=== PATIENT | male | born 1945 | race Caucasian/White ===

== ENCOUNTER 2019-10-29 01:19 | Day surgery (SDC) | payer MEDICARE, OTHER, SELFPAY ==
[2019-10-10 10:26] VITALS: BMI 30.2
[2019-10-10 10:27] VITALS: BP 140/80; PULSE 90; RESP 20; TEMP 36.7; O2SAT 97
--- NOTE | 2019-10-26 08:59 | HP_ITS ---
DATE OF SERVICE: ADMITTING DIAGNOSIS: Degenerative joint disease, medial compartment right knee. HISTORY OF PRESENT ILLNESS: The patient is a 74-year-old male, who presents today for an [place] partial knee replacement versus total knee replacement of his right knee. He has been having pain in both of his knees, right greater than left for years. He had cortisone injections back in 2018, which did not really help much. He takes occasional Advil, which does not seem to be working for him as well. He has severe [id number]-hqzs medial compartment arthritis in the right knee and is very symptomatic with it. The patient feels at this point he would rather proceed with a partial knee replacement rather than continue nonsurgical treatment. PAST MEDICAL HISTORY: He has had an [facility] in the past. He has a history of diabetes as well. MEDICATIONS: 1. He takes baby aspirin twice a day. 2. Simvastatin 20 mg daily. 3. Metformin 500 mg twice a day. 4. Losartan 100 mg daily. 5. Isosorbide mononitrate ER 30 mg once a day. 6. Takes Advil p.r.n. ALLERGIES: HE HAS NO KNOWN DRUG ALLERGIES. FAMILY HISTORY: Noncontributory. SOCIAL HISTORY: He is a nonsmoker at this time. He has smoked in the past for 30 years. REVIEW OF SYSTEMS: Is positive for diabetes as noted above. OBJECTIVE: VITAL SIGNS: He is 5 feet 7 inches, 197 pounds. Other vital signs per nursing on the morning of surgery. HEENT: Grossly normal. LUNGS: Clear bilaterally. HEART: Regular rate and rhythm. EXTREMITIES: His right knee range of motion is from 2-135 with a moderate effusion. Hip range of motion is full without discomfort. Negative Bucky's. Negative Stinchfield maneuver. He has mild medial pseudolaxity. Mild varus alignment. When he walks, he has a 5/5 motor strength in the right quad. Normal sensation in the right lower extremity. No edema in the right lower extremity. 2+ dorsalis pedis and posterior tibial pulse in his right foot. IMAGING DATA: X-rays demonstrate ufto-dy-cfzf arthritis in the medial compartment. He has slight medial subluxation of the femur on the tibia. The patient has had an MRI scan of the right knee, which shows only mild cartilage loss of patellofemoral joint. There is no bony edema changes in either the patella or the trochlea, it shows advanced anterior medial compartment arthritis. Lateral compartment looks fairly normal. IMPRESSION: The patient has anterior medial arthritis in the right knee with continued symptoms, Dr. Ortiz feels he would be a good candidate for an [place] partial knee replacement and the patient would like to proceed with this. Surgical procedure as well as risks and complications were discussed. All questions were answered and we will proceed. The patient will see Dr. Hernandez for presurgical clearance. He also will see Dr. Bright, his paving rammer, for presurgical clearance. He will decrease his baby aspirin from twice a day to once a day through surgery due to his cardiac history, has had a recent stress test, which did show his ejection fraction was at 46%. Otherwise, his paving rammer feels that he is stable at this point and cleared for surgery. His nasal swab was negative. His Chem panel is all within normal limits. Creatinine is 1.00. His GFR is greater than 60. Hemoglobin A1c is 6.2, hemoglobin is 14.7, platelets are 214. D I MT: Bob
--- NOTE | 2019-10-28 15:39 | P.PNAN_ITS ---
Anes - Eval Pre Procedure Procedure: Operation Date: 10/29/19 07:30 Proposed Procedures p [place] Right Partial Knee Replacement Versus [place] Right Total Knee Arthroplasty - Bassam Ventura MD Date/Time: 10/28/19 15:39 Surgeon: Bassam Ventura MD Pre Op Diagnosis: Severe Medial Compartment OA Right Knee Patient Data Age: 74 Gender: M Height: 5 ft 7 in Weight: 87.6 kg Last Vital Signs Temp 98.1 F 10/10/19 10:27 Pulse 90 10/10/19 10:27 Resp 20 10/10/19 10:27 BP 140/80 10/10/19 10:27 Pulse Ox 97 10/10/19 10:27 Allergies Allergy/AdvReac Type Severity Reaction Status Date / Time No Known Allergies Allergy Verified 10/10/19 10:10 Home Medications Medication Instructions Recorded Confirmed Type blood sugar diagnostic #200 each 08/27/19 09/25/19 Rx aspirin 81 mg tablet,delayed 81 mg PO DAILY 09/25/19 10/10/19 History release isosorbide mononitrate 30 mg 30 mg PO DAILY 09/25/19 10/10/19 History tablet,extended release 24 hr losartan 100 mg tablet 100 mg PO DAILY 09/25/19 10/10/19 History metformin 500 mg tablet 500 mg PO DAILY 09/25/19 10/10/19 History multivitamin 1 tablet PO DAILY 09/25/19 10/10/19 History omega-3 fatty acids 1,000 mg 2,000 mg PO BID 09/25/19 10/10/19 History capsule simvastatin 20 mg tablet 20 mg PO DAILY 09/25/19 10/10/19 History docusate sodium [Stool Softener] 200 mg PO DAILY 10/10/19 10/10/19 History ibuprofen [Advil] 200 mg PO DAILY 10/10/19 10/10/19 History triamcinolone acetonide See Rx Instructions .ROUTE 10/10/19 10/10/19 History .COMPLEX PRN EC Oct 08: SR Left axis deviation, Left BBB. Rate 69 Other Studies: 09/25/19: pre operative clearance from Aisha Medrano APN (internal medicine). Mitchell dictated that 07/18/19 cardiology: stress test negative. no stress test on record at this facility Patient hx anesthesia problems: none Family hx anesthesia problems: none PMFSH Past Medical History Medical History (Updated 10/28/19 @ 15:53 by Kath Noel CRNA) BMI 31.0-31.9,adult Essential (primary) hypertension Mixed hyperlipidemia Primary osteoarthritis of both knees Skin cancer Type 2 diabetes mellitus without complication Surgical History Surgical History (Updated 10/28/19 @ 15:39 by Kath Noel CRNA) History of cataract surgery Social History Social History Alcohol intake: never Exam Day of Procedure 10/28/19 15:39
[2019-10-29] VITALS (15 sets, daily range): BP systolic 107–154; BP diastolic 53–79; PULSE 84–115; RESP 10–18; TEMP 36.6–36.8; O2SAT 92–99
--- NOTE | ~2019-10-29 | XR_ITS ---
EXAMINATION: XR surgery orthopedic DATE: 10/29/2019 10:29 INDICATION: [place] right partial knee replacement TECHNIQUE: A single fluoroscopic spot image of the right knee was obtained during procedure performed by Dr. Ventura. Radiologist was not present for the imaging or procedure. The amount of fluoroscopy time used during this procedure was 0.7 minutes. COMPARISON: None. FINDINGS: Osteotomy and placement of a trial medial tibial tray for planned unicompartmental arthroplasty. Ther e is irregular cortical contour to the weightbearing medial femoral condyle. Expected gas in the medi al compartment. No fractures identified. IMPRESSION: 1. Fluoroscopy utilized during medial unicompartmental arthroplasty at the right knee. Reviewed, dictated and finalized at location A. ENT PROCESS EXTRACTOR OPERATOR IMPRESSION: 1. Fluoroscopy utilized during medial unicompartmental arthroplasty at the [facility].
--- NOTE | ~2019-10-29 | XR_ITS ---
EXAMINATION: XR knee RT 2V DATE: 10/29/2019 11:08 INDICATION: Right knee arthroplasty. Postop. TECHNIQUE: 2 views of right knee were obtained. COMPARISON: None. FINDINGS: There is a medial compartment arthroplasty in near-anatomic alignment. There is mild osteoa rthritis of lateral and patellofemoral compartments characterized by marginal osteophytes without srini nt space narrowing. There is gas in the knee joint and soft tissues, consistent with recent surgery. IMPRESSION: 1. Medial compartment arthroplasty in near-anatomic alignment. Reviewed, dictated and finalized at location A. IT RISK ANALYST
[2019-10-29] MEDS: LACTATED RINGERS 1,000 ML 30 ML IV CONT ×2 (06:35→11:10)
[2019-10-29 06:41] LABS: Glucose Point of Care 122 (65-105)
[2019-10-29] MEDS: IBUPROFEN IV 800 MG/200 ML 800 MG/200 ML BAG 400 MG IVPB (06:45)
--- NOTE | 2019-10-29 07:10 | P.PNAN_ITS ---
Anes - Initial Pre Proc Eval Procedure: Operation Date: 10/29/19 07:30 Proposed Procedures p [place] Right Partial Knee Replacement Versus Biomet Right Total Knee Arthroplasty - Bassam Ventura MD Date/Time: 10/29/19 07:10 Surgeon: Bassam Ventura MD Pre Op Diagnosis: Severe Medial Compartment OA Right Knee Patient Data Age: 74 Gender: M Height: 1.7 m Weight: 87.6 kg Last Vital Signs Temp 36.7 C 10/10/19 10:27 Pulse 90 10/10/19 10:27 Resp 20 10/10/19 10:27 BP 140/80 10/10/19 10:27 Pulse Ox 97 10/10/19 10:27 Allergies Allergy/AdvReac Type Severity Reaction Status Date / Time No Known Allergies Allergy Verified 10/29/19 06:10 Home Medications Medication Instructions Recorded Confirmed Type blood sugar diagnostic #200 each 08/27/19 09/25/19 Rx aspirin 81 mg tablet,delayed 81 mg PO DAILY 09/25/19 10/29/19 History release isosorbide mononitrate 30 mg 30 mg PO DAILY 09/25/19 10/29/19 History tablet,extended release 24 hr losartan 100 mg tablet 100 mg PO DAILY 09/25/19 10/29/19 History metformin 500 mg tablet 500 mg PO DAILY 09/25/19 10/29/19 History multivitamin 1 tablet PO DAILY 09/25/19 10/29/19 History omega-3 fatty acids 1,000 mg 2,000 mg PO BID 09/25/19 10/29/19 History capsule simvastatin 20 mg tablet 20 mg PO DAILY 09/25/19 10/29/19 History docusate sodium [Stool Softener] 200 mg PO DAILY 10/10/19 10/29/19 History ibuprofen [Advil] 200 mg PO DAILY 10/10/19 10/29/19 History triamcinolone acetonide See Rx Instructions .ROUTE 10/10/19 10/10/19 History .COMPLEX PRN Laboratory Tests 10/29/19 06:39 POC Capillary Glucose 122 mg/dl H mg/dl (65-105) Patient hx anesthesia problems: none Family hx anesthesia problems: none PMFSH Past Medical History Medical History (Updated 10/28/19 @ 15:53 by Kath Noel, KITCHEN WORK SUPERVISOR) BMI 31.0-31.9,adult Essential (primary) hypertension Mixed hyperlipidemia Primary osteoarthritis of both knees Skin cancer Type 2 diabetes mellitus without complication Surgical History Surgical History (Updated 10/28/19 @ 15:39 by Kath Noel CRNA) History of cataract surgery Social History Social History Alcohol intake: never Anes - Eval Final PreProcedure Day of Procedure 10/29/19 07:10 Patient weight: obese Heart: regular rate and rhythm Lungs: clear to auscultation and normal air movement Airway: Mallampati scale class III Neurological: alert and oriented Last oral intake: >/= 8 hours ASA classification: III Emergent: no Anesthetic plan: proceed Anesthesia type and monitoring: general LMA and standard monitoring Informed Consent: The patient's anesthetic plan and its attendant risks and benefits were discussed with the patient/family/POA. Questions were solicited and answers provided to the satisfaction of the patient/family/POA.
--- NOTE | 2019-10-29 07:22 | WPDHPUPDATE1 ---
History and Physical Update Update Date/Time: 10/29/19 07:22 History and Physical has been reviewed, including an updated exam of the patient. There are NO changes in the patient's condition. Risks, benefits, and alternatives have been discussed and questions answered. Patient agrees to proceed with procedure.
[2019-10-29] MEDS: ceFAZolin 2 GM/D5W 50 ML 2 GM/50 ML BAG IVPB (07:40)
--- NOTE | 2019-10-29 08:04 | SUR.PREOP ---
0610-STATES NO CHANGE SINCE INTERVIEW.
[2019-10-29] MEDS: ceFAZolin SODIUM 1 GM VIAL 3 GM IRRIGATION (08:14)
[2019-10-29] MEDS: GENTAMICIN BONE CEMENT REFOBACIN 2 EACH TOPICAL (08:44)
[2019-10-29] MEDS: ceFAZolin SODIUM 1 GM VIAL IV PUSH (10:12)
--- NOTE | 2019-10-29 11:17 | P.OP_ITS ---
Procedure Note - Detailed Date of procedure: 10/29/19 Pre-op diagnosis: Severe Medial Compartment OA Right Knee Post-op diagnosis: same Procedure performed: I [place] partial knee replacement of right knee Description of procedure: Patient was brought to the operating room and general anesthesia was administered. He received 2 g of Ancef weight based vancomycin 1 g of tranexamic acid preoperatively. The right thigh was placed on the leg h older additionally padded with the silicone pads and the right knee prepped draped usual fashion. Limb was exsanguinated and tourniquet elevated to 250 mm of mercury. A 4 inch longitudinal incision was made starting from the superomedial edge of the patella to medial to tibial tubercle. parapatellar arthrotomy was made in line with the incision. small amount of the fat pad was excised. medial meniscus exciizd ACL was normal. Large osteophytes around the intercondylar notch were removed. osteophytes from the medial patella were excised osteophytes around the femur were removed. the 3 mm spoon fit the femur sized appropriately with the medium-size spoon. There is still little play due to significant wear on the medial tibial plateau with a 3 mm spoon so we used the 3 mm G clamp and this was pinned at proper alignment. tibial cut was made. The wafer sized to a size C. we looked at the C and the D and the D I was going overhang medially. we inserted the medium drill guide set at 4 mm and made the femoral holes. The guidewire had been inserted down the distal femur. this was linked to the drill guide. the 0 spigot Pedroza milled posterior cut made. Remnants of meniscus posteriorly were completely removed. in flexion he 5 Feeler was appropriate and it was between a 2 and a 3 Feeler in extension. We used the 2 mm spigot and milled. With this done a 5 Feeler was appropriate at 100? and 10? and a 5 bearing appropriate wiggle in both positions. The 6 was tight. Impingement guide for the medium placed on the femur anterior bone milled and a little cartilage removed posteriorly. the C was pinned to the tibia and the slot made. step drill was used to make multiple perforations in the of tibia and femur. bony surfaces thoroughly irrigated and dried. One batch of methylme thacrylate with Gent powder mixed applied the tibial component pressurized in the tibia the size C tibial component was seated and the trial femur in 5 Feeler placed and the cement allowed to harden with the knee at 45? of flexion and the knee in the tourniquet was released. After cement hardening excess cement was carefully sought for removed and limb was re-exsanguinated wound irrigated bone dried and the cement process repeated for the medium femur. Tourniquet released the 2nd time well as cement was hardening 3rd g Ancef 2nd g of tranexamic acid administered. excess cement was sought for removed we trialed with the 5 bearing which had appropriate wiggle in flexion-extension with perfect tracking throughout range of motion and no impingement with range of motion 0-140. The anvil osteophyte had been removed earlier. The real 5 mm bearing for the medium was placed without difficulty. Local anesthetic cocktail administered arthrotomy closed with 2. Vicryl 1. You directional cindy strata fix and skin closed with to a 2.0 Vicryl 3 0 subcuticular Monocryl and glue EBL was 150. No complications. Anesthesia: GLMA Surgeon: Bassam Ventura MD E Commerce Solution Architect: Orlando Duran Estimated blood loss (mL): 150 Tourniquet time (min): 110 Drains: No Packing: No Pathology: none sent Complications: No immediate complications Condition: stable Disposition: PACU
[2019-10-29 11:41] LABS: Glucose Point of Care 160 (65-105)
[2019-10-29] MEDS: ONDANSETRON INJ 4 MG/2 ML VIAL IV PUSH (12:33)
--- NOTE | 2019-10-29 12:50 | SUR.PHASEI ---
1200: Bilat hearing aids, upper dentures, and glassses all given to patient in PACU and put in place.
[2019-10-29] MEDS: ACETAMINOPHEN 500 MG TABLET 1000 MG PO ×2 (13:51→20:15)
[2019-10-29] MEDS: SODIUM CHLORIDE 0.9% IV 1,000 ML 125 ML IV CONT (13:53)
[2019-10-29] MEDS: SENNA/DOCUSATE SODIUM TABLET 2 TAB PO (16:58)
[2019-10-29 17:38] LABS: Glucose Point of Care 163 (65-105)
--- NOTE | 2019-10-29 18:52 | PM.IMCN ---
Assessment and Plan Assessment and plan (1) Type 2 diabetes mellitus without complication: Code(s): E11.9 - Type 2 diabetes mellitus without complications Status: Acute (2) Primary osteoarthritis of both knees: Code(s): M17.0 - Bilateral primary osteoarthritis of knee Status: Acute (3) Mixed hyperlipidemia: Code(s): E78.2 - Mixed hyperlipidemia Status: Acute (4) Essential (primary) hypertension: Code(s): I10 - Essential (primary) hypertension Status: Acute (5) Coronary artery disease involving [place] heart: Code(s): I25.10 - Atherosclerotic heart disease of [place] coronary artery without angina pectoris Status: Acute (6) Left bundle branch block: Code(s): I44.7 - Left bundle-branch block, unspecified Status: Acute Additional Plan Patient has been admitted to 3rd MedSur floor postoperatively. Patient appears of tolerated the procedure well. His A1c was 6.2 last month. Glucose reviewed since admission and are well controlled. Regular diet has been started. Will switch to a diabetic diet. Will continue to follow along with you. Thank you so much for allowing me to be a part of this patient's care. HPI Data of Consult Consult date: 10/29/19 Requesting Physician: Bassam Ventura MD Primary Care Provider: Brandyn aFust DO Consult Narrative Narrative: Neli Collins is a 74 year old male diabetes, coronary disease and hypertension is admitted for elective partial right knee replacement. Will consult for medical management. Patient has had bilateral knee pain for many years. He has tried steroid injections with some benefit. He states his knees throbs when he stands for prolonged periods. Pain is worse when he climbs stairs. Pain does not wake him up at night. He does have stiffness if he is sitting for prolonged periods. No trauma to his knees but his work was physically challenging [place]. Patient failed conservative management. Options were discussed and he opted to proceed with the above-mentioned procedure. He was admitted underwent partial right knee replacement. Patient had some mild nausea after the the surgery but this has resolved. He has been eating normally. His pain is well controlled. He is eager for discharge tomorrow. Patient has diabetes and checks his glucose once every morning and normally runs less than 140. He states his blood pressure and cholesterol well controlled with his current regimen. He is an ex-smoker. EKG showed left bundle branch block. He did have a recent Lexiscan stress test in June 2019 showing no ischemia and it did show left bundle branch block at that time as well. 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 Moderate dz involving RCA but FFR negative 2014. 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 Possible Agent [place] exposure. Patient smoked 2 packs a day for 20 years but quit 35 years ago. Lives at home with his . No pets. Denies alcohol or drug use. He is a full code. He nominates his to be the individual who would make medical decisi
[2019-10-29] MEDS: FAMOTIDINE 20 MG TABLET PO (21:22)
[2019-10-29] MEDS: ASPIRIN 325 MG ENTERIC TABLET PO (21:22)
[2019-10-29 21:36] LABS: Glucose Point of Care 205 (65-105)
[2019-10-30 02:05] VITALS: BP 129/62; PULSE 90; RESP 18; TEMP 36.6; O2SAT 99
[2019-10-30] MEDS: ACETAMINOPHEN 500 MG TABLET 1000 MG PO ×2 (02:12→05:46)
[2019-10-30] MEDS: CEPHALEXIN 500 MG CAPSULE PO (05:52)
--- NOTE | 2019-10-30 06:13 | PM.PNORT ---
Progress Note: A&P Additional Plan POD 1 alert avss pain is well controlled, NVI, labs-pending, wd-dry, pt was up walking yesterday, overall pt is doing well, plan to send home today Subjective Subjective Date/Time Seen: 10/30/19 06:13 Objective Data Vital Signs Vital Signs: Vital Signs - 24 hr 10/29/19 06:46 10/29/19 11:09 10/29/19 11:20 Temperature 36.8 C 36.6 C Pulse Rate 84 105 H 105 H Respiratory Rate 16 15 15 Blood Pressure 132/76 132/71 122/53 L Pulse Oximetry 97 93 95 10/29/19 11:35 10/29/19 11:50 10/29/19 12:05 Temperature Pulse Rate 105 H 99 98 Respiratory Rate 17 11 L 10 L Blood Pressure 138/79 107/71 117/68 Pulse Oximetry 92 92 93 10/29/19 12:20 10/29/19 12:35 10/29/19 12:45 Temperature Pulse Rate 115 H 110 H 107 H Respiratory Rate 12 15 16 Blood Pressure 113/68 154/67 H 147/61 H Pulse Oximetry 96 95 95 10/29/19 13:00 10/29/19 13:15 10/29/19 13:45 Temperature Pulse Rate 107 H 102 H 90 Respiratory Rate 18 18 18 Blood Pressure 143/75 H 147/63 H 140/61 Pulse Oximetry 95 96 97 10/29/19 14:45 10/29/19 21:59 10/29/19 22:00 Temperature 36.7 C 36.6 C Pulse Rate 87 113 H 104 H Respiratory Rate 16 18 18 Blood Pressure 135/68 131/62 Pulse Oximetry 99 97 96 10/30/19 02:05 Temperature 36.6 C Pulse Rate 90 Respiratory Rate 18 Blood Pressure 129/62 Pulse Oximetry 99 Intake/Output Intake/Output: Intake & Output 10/27/19 10/28/19 10/29/19 10/30/19 23:59 23:59 23:59 23:59 Intake Total 2190 1300 Output Total 900 450 Balance 1290 850 Meds/Results Medications: Active Medications Generic Name Dose Route Start Last Admin Trade Name Freq PRN Reason Stop Dose Admin Acetaminophen 1,000 mg 10/29/19 14:00 10/30/19 05:46 Tylenol Tablet PO 1,000 mg Q6H ELIESER Administration Aspirin 325 mg 10/29/19 21:00 10/29/19 21:22 Aspirin Ec PO 325 mg Q12HR [facility] Administration Bisacodyl 10 mg 10/29/19 12:51 Dulcolax Suppository RECTAL DAILY PRN Constipation Celecoxib 200 mg 10/30/19 08:00 Celebrex PO DAILY@0800 [facility] Cephalexin HCl 500 mg 10/30/19 06:00 10/30/19 05:52 Keflex Capsule PO 500 mg Q6HR [facility] Administration Diphenhydramine HCl 25 mg 10/29/19 12:51 Benadryl Inj IV PUSH Q6H PRN Itching Famotidine 20 mg 10/29/19 21:00 10/29/19 21:22 Pepcid PO 20 mg Q12HR [facility] Administration Cefazolin Sodium 1 gm in 50 mls @ 100 mls/hr 10/29/19 16:00 10/29/19 23:34 Ancef 1 Gm/D5w 50 Ml Pm IVPB 10/30/19 08:29 100 mls/hr Q8H [facility] Administration Vancomycin HCl 1,000 mg in 250 mls @ 250 mls/hr 10/29/19 19:00 10/30/19 05:47 Vancomycin 1,000 Mg/D5w 250 Ml IVPB 10/30/19 07:59 250 mls/hr Q12H [facility] Administration Isosorbide Mononitrate 30 mg 10/30/19 09:00 Imdur PO DAILY [facility] Losartan Potassium 100 mg 10/30/19 09:00 Cozaar PO DAILY [facility] Metformin HCl 500 mg 10/30/19 08:00 Glucophage PO DAILY@0800 [facility] Morphine Sulfate 2 mg 10/29/19 12:51 Morphine Sulfate Inj IV PUSH Q2H PRN Breakthrough pain rated 4-6 Naloxone HCl 0.1 mg 10/29/19 12:51 Narcan IV PUSH Q2M PRN Opiate Reversal Ondansetron HCl 4 mg 10/29/19 12:51 Zofran Inj IV PUSH Q4H PRN Nausea And Vomiting Oxycodone HCl 5 mg 10/29/19 12:51 Roxicodone Ir Tablet PO Q4H PRN Pain Rated 6 or Greater Oxycodone HCl 5 mg 10/29/19 13:00 10/30/19 05:47 Roxicodone Ir Tablet PO 5 mg Q4HR ELIESER Administration Polyethylene Glycol 17 gm 10/30/19 09:00 Miralax PO QAM [facility] Senna/Docusate Sodium 2 tab 10/29/19 17:00 10/29/19 16:58 Senokot S Tablet PO 2 tab BID ELIESER Administration Simvastatin 20 mg 10/30/19 09:00 Zocor PO DAILY [facility] Radiology Results: ITS Impressions Intraoperative X-Ray 10/29/19 10:48 IMPRESSION: 1. Fluoroscopy utilized during medial unicompartmental arthroplasty at the right kn
[2019-10-30 06:26] LABS: Basophils Percent Auto 0.1 % (0.2-1.2); Eosinophils Percent Auto 0.1 % (0-4.4); Hematocrit 38.3 % (42.0-52.0); Hemoglobin 13.2 g/dL (14.0-18.0); Immature Granulocyte Absolute 0.07 K/mm3 (0.00-0.031); Immature Granulocyte Percent A 0.5 % (0-0.5); Lymphocytes Absolute Auto 1.67 K/mm3 (0.9-3.2); Lymphocytes Percent Auto 11.7 % (18.3-44.2); Mean Corpuscular HGB Conc 34.5 g/dl (32-36); Mean Corpuscular Hemoglobin 29.5 pg (26-34); Mean Corpuscular Volume 85.7 fl (80-100); Mean Platelet Volume 9.3 fl (7.4-10.4); Monocytes Absolute Auto 1.2 K/mm3 (0.1-0.6); Monocytes Percent Auto 8.4 % (2.6-8.5); Neutrophils Absolute Auto 11.3 K/mm3 (1.3-6.7); Neutrophils Percent Auto 79.2 % (45.5-73.1); Platelet Count Result 202 k/mm3 (150-375); Red Blood Count 4.47 M/mm3 (4.6-6.20); Red Cell Distribution Width 13.1 % (11.5-14.5); White Blood Count 14.2 K/mm3 (4.5-10.0)
--- NOTE | 2019-10-30 06:35 | PC.NURSE ---
Patient doing well, took off rita bandage at 0630, per Dr. schmidt, patient lifted leg and assisted without pain.
[2019-10-30 06:43] VITALS: BP 128/88; PULSE 90; RESP 18; TEMP 36.6; O2SAT 95
[2019-10-30 06:44] LABS: Blood Urea Nitrogen 14 mg/dL (9-20); Calcium 9.5 mg/dL (8.4-10.2); Carbon Dioxide 23 mmol/L (22-30); Chloride 102 mmol/L (98-107); Estimated CRCL calculation 65 ml/min; Estimated Glomerular Filt Rate > 60; Glucose 146 mg/dL (75-110); Sodium 140 mmol/L (137-145)
--- NOTE | 2019-10-30 06:58 | DS_ITS ---
DATE OF DISCHARGE: 10/30/2019 DIAGNOSIS: Degenerative joint disease, right knee. HOSPITAL COURSE: The patient is a 74-year-old male, who underwent [place] partial knee replacement of his right knee on 10/29/[address] Ventura, underwent the procedure without any complications. Postoperatively, he has been afebrile. Vital signs stable. Neurovascularly intact. His wound is dry. He has a Mepilex dressing over it. He is on enteric-coated aspirin 325 twice a day for DVT prophylaxis as well as portable home SCDs. He is weightbearing as tolerated. He will go home on a regular diet. The patient is also taking 1 week of Keflex as well as Celebrex once a day. He is taking scheduled Tylenol and oxycodone 5 mg. He is also going home on MiraLAX and Senokot to help with constipation. At time of dictation, morning labs were not completed yet. The patient was advised to keep leg elevated to prevent swelling, but also do his exercises for range of motion on a regular basis at home. He has outpatient therapy starting this Tuesday. He was advised if any questions or concerns, he should call the office, otherwise we will see him at his appointed date. He was reminded that he wears home SCDs 23 hours a day for 3 weeks. Hallie I MT: Bob
--- NOTE | 2019-10-30 08:08 | PM.IMPN ---
Progress Note: A&P Assessment and Plan (1) Type 2 diabetes mellitus without complication: Qualifiers: Diabetes mellitus terminal manager insulin use: without prison use Qualified Code(s): E11.9 - Type 2 diabetes mellitus without complications Code(s): E11.9 - Type 2 diabetes mellitus without complications Status: Acute Assessment and Plan: Hemoglobin A1c 6.2. Glucose reviewed on 10/30/2019 with acceptable control.Continue home metformin. Will monitor while here. Medically stable for discharge today. (2) Primary osteoarthritis of both knees: Code(s): M17.0 - Bilateral primary osteoarthritis of knee Status: Acute Assessment and Plan: S/P partial right knee replacement. POD #1. Postoperative care including pain management per Orthopedics. (3) Status post right partial knee replacement: Code(s): Z96.651 - Presence of right artificial knee joint Status: Acute Assessment and Plan: POD #1. Per Orthopedics (4) Essential (primary) hypertension: Code(s): I10 - Essential (primary) hypertension Status: Acute Assessment and Plan: Blood pressure reviewed on 10/30/2019 and controlled. Will continue to monitor on losartan and Imdur while here. (5) Mixed hyperlipidemia: Code(s): E78.2 - Mixed hyperlipidemia Status: Acute Assessment and Plan: Continue simvastatin. (6) Coronary artery disease involving upper [place] heart: Qualifiers: Coronary Disease-Associated Artery/Lesion type: upper [place] artery Associated angina: without angina Qualified Code(s): I25.10 - Atherosclerotic heart disease of upper [place] coronary artery without angina pectoris Code(s): I25.10 - Atherosclerotic heart disease of upper [place] coronary artery without angina pectoris Status: Acute Assessment and Plan: No acute issue. Stable. Continue Imdur, simvastatin and losartan. Will follow. (7) Left bundle branch block: Code(s): I44.7 - Left bundle-branch block, unspecified Status: Acute Assessment and Plan: No acute issue. (8) DVT prophylaxis: Code(s): Z29.9 - Encounter for prophylactic measures, unspecified Status: Acute Assessment and Plan: High-dose ASA per Orthopedics. Time Spent With Patient Time with patient: 15 - 25 minutes Subjective Date/time seen: 10/30/19 08:08 Interval history: Date of Service: 10/30/2019. Admitted for elective partial right total knee replacement. Hospitalist service consulted for medical management. Patient doing well. Right knee pain controlled. No chest pain. No shortness of breath. No abdominal pain. Review of Systems Review of Systems: Narrative: Doing well. Constitutional: Constitutional: Denies chills and Denies fever(s) ENT: Denies nasal congestion and Denies nasal discharge Cardiovascular: Cardiovascular: Denies chest pain Respiratory: Respiratory: Denies dyspnea Gastrointestinal: Gastrointestinal: Denies abdominal pain, Denies nausea and Denies vomiting Genitourinary: Genitourinary: Reports no additional male genitourinary complaints Musculoskeletal: Musculoskeletal: Reports arthralgias (Pain right knee controlled) Integumentary/Breasts: Skin/Breast: Denies rash Neurologic: Denies headache(s) Psychiatric: Psychiatric: Denies confusion Exam Narrative: Exam Narrative: Awake and alert. Const: General: no acute distress HENMT: Mouth: Yes moist mucous membranes Neck: Neck: supple Lymphatic: lymphadenopathy not noted Resp: Auscultation: clear to auscultation bilaterally, no rales and no wheezes Cardio: Rate: regular rate Rhythm: regular rhythm GI: Inspection: non-distended GI Palp: Yes Soft to palpation and No Tenderness to palpation present (GI) Auscultation: normal bowel sounds Skin: General skin exam: no rashes or lesions noted Neuro: Cognition (Neuro): normal cognition Speech: normal speech Extrem: General: no edema Right
[2019-10-30 08:16] LABS: Glucose Point of Care 128 (65-105)
[2019-10-30] MEDS: ISOSORBIDE MONONITRATE 30 MG TAB.ER.24H PO (09:12)
[2019-10-30] MEDS: FAMOTIDINE 20 MG TABLET PO (09:12)
[2019-10-30] MEDS: CELECOXIB 200 MG CAPSULE PO (09:13)
[2019-10-30] MEDS: LOSARTAN POTASSIUM 100 MG TABLET PO (09:13)
[2019-10-30] MEDS: SENNA/DOCUSATE SODIUM TABLET 2 TAB PO (09:13)
[2019-10-30] MEDS: ASPIRIN 325 MG ENTERIC TABLET PO (09:14)
[2019-10-30] MEDS: metFORMIN HCL 500 MG TABLET PO (09:14)
[2019-10-30] MEDS: SIMVASTATIN 20 MG TABLET PO (09:14)
[2019-10-30] MEDS: polyethylene glycoL 3350 17 GM POWD.PACK PO (09:14)
--- NOTE | 2019-10-30 09:49 | P.PNAN_ITS ---
Anes - Prog Note Post-Op Date/Time: 10/30/19 09:49 Cardiovascular status: normal Respiratory status: normal Airway patency: baseline Mental status: baseline Post-Op hydration status: normal Vital Signs: Last Vital Signs Temp 36.6 C 10/30/19 06:43 Pulse 90 10/30/19 06:43 Resp 18 10/30/19 06:43 BP 128/88 10/30/19 06:43 Pulse Ox 95 10/30/19 06:43 I/O: Intake & Output 10/29/19 10/30/19 10/30/19 23:59 07:59 15:59 Intake Total 1490 1300 Output Total 800 450 Balance 690 850 Laboratory Tests 10/30/19 06:19 10/30/19 06:19 10/29/19 10/29/19 10/29/19 11:39 17:03 21:19 WBC RBC Hgb Hct MCV MCH MCHC RDW Plt Count MPV Immature Gran % (Auto) Neut % (Auto) Lymph % (Auto) [place] % (Auto) Eos % (Auto) Baso % (Auto) Lymph # (Auto) [place] # (Auto) Eos # (Auto) Baso # (Auto) Abs Immat Gran (auto) Absolute Neuts (auto) Absolute Nucleated RBC Nucleated RBC % Sodium Potassium Chloride Carbon Dioxide BUN Creatinine Estim Creat Clear Calc Estimated GFR Glucose POC Capillary Glucose 160 H 163 H 205 H Calcium 10/30/19 10/30/19 10/30/19 06:19 06:19 07:56 WBC 14.2 H RBC 4.47 L Hgb 13.2 L Hct 38.3 L MCV 85.7 MCH 29.5 MCHC 34.5 RDW 13.1 Plt Count 202 MPV 9.3 Immature Gran % (Auto) 0.5 Neut % (Auto) 79.2 H Lymph % (Auto) 11.7 L [place] % (Auto) 8.4 Eos % (Auto) 0.1 Baso % (Auto) 0.1 L Lymph # (Auto) 1.67 [place] # (Auto) 1.2 H Eos # (Auto) 0.0 Baso # (Auto) 0.0 Abs Immat Gran (auto) 0.07 H Absolute Neuts (auto) 11.3 H Absolute Nucleated RBC 0.0 Nucleated RBC % 0.0 Sodium 140 Potassium 4.0 Chloride 102 Carbon Dioxide 23 BUN 14 Creatinine 0.80 Estim Creat Clear Calc 65 Estimated GFR > 60 Glucose 146 H POC Capillary Glucose 128 H Calcium 9.5 Post-procedural complaints: none Patient Feedback: Patient satisfied with anesthetic care.
== END 2019-10-30 11:18 | disposition home or self-care (01) ==
LOC: ANHSURGERY 05:47 → ANH3MEDSUR 12:54
PROVIDERS: Physician Assistant Surgical; PCP Internal Medicine; Visit Provider Orthopaedic Surgery
PROC: (CPT 27446; principal; 2019-10-29 07:30)
DX: M17.11 Unilateral primary osteoarthritis, right knee (principal); I10 Essential (primary) hypertension; E78.2 Mixed hyperlipidemia; E11.9 Type 2 diabetes mellitus without complications; I25.10 Atherosclerotic heart disease of native coronary artery without angina pectoris; I44.7 Left bundle-branch block, unspecified; Z79.84 Long term (current) use of oral hypoglycemic drugs; Z79.82 Long term (current) use of aspirin; Z87.891 Personal history of nicotine dependence
CPT/HCPCS: 27446; 36415; 73560; 80048; 85025; 86850; 86900; 86901; 97110; 97116; 97161; 97165; 97530; 97535; A9270; C1713; C1776; J0131; J0171; J0330; J0690; J1100; J1741; J2270; J2405; J2704; J2795; J3010; J3370; J7030; J7120

== ENCOUNTER 2020-02-08 07:36 | Outpatient (CLI) | payer MEDICARE, OTHER, SELFPAY ==
[2020-02-08 08:16] LABS: Alanine Aminotransferase 29 U/L (4-50); Albumin Level 4.4 g/dL (3.5-5.1); Alkaline Phosphatase 58 U/L (38-126); Aspartate Amino Transferase 27 U/L (17-59); Bilirubin,Total 0.5 mg/dL (0.2-1.3); Blood Urea Nitrogen 18 mg/dL (9-20); Calcium 9.5 mg/dL (8.4-10.2); Carbon Dioxide 25 mmol/L (22-30); Chloride 105 mmol/L (98-107); Cholesterol 147 mg/dL (0-200); Estimated Glomerular Filt Rate > 60; Glucose 122 mg/dL (75-110); HDL Direct 42 mg/dL; Potassium 4.2 mmol/L (3.4-5.0); Sodium 138 mmol/L (137-145); Triglycerides 299 mg/dL (<150)
[2020-02-08 08:26] LABS: LDL Cholesterol Direct 51 mg/dL
[2020-02-08 09:00] LABS: Hemoglobin A1C 6.2 % (<5.7)
== END 2020-02-08 07:37 | disposition home or self-care (01) ==
LOC: ANHLAB 07:40
PROVIDERS: PCP Internal Medicine; Visit Provider Internal Medicine
DX: E11.9 Type 2 diabetes mellitus without complications (principal); I10 Essential (primary) hypertension; Z79.899 Other long term (current) drug therapy; E78.2 Mixed hyperlipidemia
CPT/HCPCS: 36415; 80053; 80061; 83036

== ENCOUNTER 2020-07-08 09:47 | Outpatient (CLI) | payer MEDICARE, OTHER, SELFPAY ==
[2020-07-08 11:20] LABS: Basophils Absolute Auto 0.1 K/mm3 (0.0-0.1); Basophils Percent Auto 0.9 % (0.2-1.2); Eosinophils Absolute Auto 0.3 K/mm3 (0-0.3); Eosinophils Percent Auto 3.6 % (0-4.4); Hematocrit 48.8 % (42.0-52.0); Hemoglobin 16.7 g/dL (14.0-18.0); Immature Granulocyte Absolute 0.02 K/mm3 (0.00-0.031); Immature Granulocyte Percent A 0.3 % (0-0.5); Lymphocytes Absolute Auto 2.38 K/mm3 (0.9-3.2); Mean Corpuscular HGB Conc 34.2 g/dl (32-36); Mean Corpuscular Hemoglobin 29.5 pg (26-34); Mean Corpuscular Volume 86.2 fl (80-100); Mean Platelet Volume 8.9 fl (7.4-10.4); Monocytes Absolute Auto 0.6 K/mm3 (0.1-0.6); Monocytes Percent Auto 8.7 % (2.6-8.5); Neutrophils Absolute Auto 3.7 K/mm3 (1.3-6.7); Neutrophils Percent Auto 52.5 % (45.5-73.1); Platelet Count Result 236 k/mm3 (150-375); Red Blood Count 5.66 M/mm3 (4.6-6.20); Red Cell Distribution Width 12.5 % (11.5-14.5)
[2020-07-08 11:30] LABS: Urine Cotinine NEGATIVE
[2020-07-08 11:37] LABS: Albumin Level 4.5 g/dL (3.5-5.1); Anion Gap 8 mmol/L (8-16); Blood Urea Nitrogen 16 mg/dL (9-20); Calcium 10.2 mg/dL (8.4-10.2); Carbon Dioxide 31 mmol/L (22-30); Chloride 103 mmol/L (98-107); Estimated Glomerular Filt Rate > 60; Glucose 142 mg/dL (75-110); Hemoglobin A1C 5.9 % (<5.7); Potassium 4.4 mmol/L (3.4-5.0); Sodium 142 mmol/L (137-145)
== END 2020-07-08 09:48 | disposition home or self-care (01) ==
PROVIDERS: PCP Internal Medicine; Visit Provider Orthopaedic Surgery
DX: M17.12 Unilateral primary osteoarthritis, left knee (principal); Z01.818 Encounter for other preprocedural examination
CPT/HCPCS: 80048; 80307; 82040; 83036; 85025; 87070; 87147; 87186

== ENCOUNTER 2020-07-18 02:36 | Outpatient (CLI) | payer MEDICARE, OTHER, SELFPAY ==
[2020-07-18 18:02] LABS: SARS-CoV-2 RNA PCR Negative
== END 2020-07-18 02:37 | disposition home or self-care (01) ==
LOC: ANHCOVIDDT 02:37
PROVIDERS: PCP Internal Medicine; Visit Provider Orthopaedic Surgery
DX: Z01.812 Encounter for preprocedural laboratory examination (principal); Z20.828 Contact with and (suspected) exposure to other viral communicable diseases
CPT/HCPCS: 87635; C9803; U0003

== ENCOUNTER 2020-07-21 01:51 | Day surgery (SDC) | payer MEDICARE, OTHER, SELFPAY ==
[2020-07-08 10:02] VITALS: BMI 29.2
[2020-07-08 11:02] VITALS: BP 147/78; PULSE 90; RESP 16; TEMP 36.7; O2SAT 99
--- NOTE | 2020-07-16 08:52 | PM.IMHP ---
H&P: HPI History of Present Illness Date/Time: 07/16/20 08:52 Chief complaint: Severe Medial Compartment Osteoarthritis Left Knee Narrative: Neli Collins is a 75 year old male of Dr Rojas presents today for a [place] partial knee replacement of his left knee versus total knee replacement. He underwent partial knee replacement his right and October of this year. He did very well and is very happy with her recovery period unfortunately his left knee continues to be very symptomatic for him. Has [id number] arthritis medial compartment. He has tried anti-inflammatories as well as cortisone injections. His last cortisone injection has been over 3 months. He is getting minimal relief from non surgical treatment of the knee. He feels he is ready proceed with partial knee replacement rather continue nonsurgical treatments. Review of Systems Review of Systems: All systems reviewed & are unremarkable except as noted in HPI and below PMFSH Past Medical History Medical History CAD (coronary artery disease) Silent [place] with evidence of inferior wall involvement. Moderate dz involving RCA but FFR negative 2014. 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 Patient smoked 2 packs a day for 20 years but quit 35 years ago. Lives at home with his . No pets. Denies alcohol or drug use. He is a full code. He nominates his to be the individual who would make medical decisions for him if he is unable. Smoking packs per day: 2 Smoking cigarettes per day: 40.0 Years smoked: 35 Smoking pack-years: 70.00 Smoking status: Former smoker Tobacco type: cigarettes Smoking end date: 09/19/79 Additional smoking assessment comments: DENIES ANY FORM OF TOBACCO/NICOTINE USE Alcohol intake: never Substance use: never Gender identity (if verbalized by the patient): Male Spiritual care concerns: No Agree to blood products: Yes Meds Home Medications and Allergies Home Medications Medication Instructions Recorded Confirmed Type multivitamin 1 tablet PO DAILY 09/25/19 07/08/20 History omega-3 fatty acids 1,000 mg 2,000 mg PO BID 09/25/19 07/08/20 History capsule blood sugar diagnostic #50 each 05/22/20 Rx aspirin [Adult Low Dose Aspirin] 81 mg PO BID 07/08/20 07/08/20 History isosorbide mononitrate 30 mg PO QAM 07/08/20 07/08/20 History losartan 100 mg PO QAM 07/08/20 07/08/20 History metformin 500 mg PO HS 07/08/20 07/08/20 History psyllium [Metamucil Sugar Free] 2 tsp PO HS 07/08/20 07/08/20 History simvastatin 20 mg PO HS 07/08/20 07/08/20 History triamcinolone acetonide 0.1 applic TOPICAL PRN PRN 07/08/20 07/08/20 History Allergies Allergy/AdvReac Type Severity Reaction Status Date / Time No Known Allergies Allergy Verified 07/08/20 10:03 Exam Narrative: Exam Narrative: 75-year-old male very alert pleasant in no distress. He is 5 ft 7 and 197 lb. His left knee range of motion is from 0-140 degrees. He has pronounced medial pseudolaxity, with Bucky's test he has a solid endpoint. Hip range of motion is full without discomfort. He has normal sensation left lower extremity but does occasionally report tingling in the 4th and 5th toe. Normal motor function all muscle groups left lower extremity. Mild effusion in the left knee
[2020-07-21] VITALS (14 sets, daily range): BP systolic 99–176; BP diastolic 57–96; PULSE 88–118; RESP 12–20; TEMP 35.8–37.1; O2SAT 91–98
--- NOTE | ~2020-07-21 | XR_ITS ---
EXAMINATION: KNEE ONE/TWO VIEW-RIGHT DATE: 07/21/2020 10:55 INDICATION: Postoperative evaluation following left knee medial unicompartmental arthroplasty TECHNIQUE: Anteroposterior and lateral views of the left knee were obtained. COMPARISON: None. FINDINGS: Left knee medial unicompartmental arthroplasty appears well seated and in near anatomic alignment. N o fractures identified. Marginal osteophytes at the lateral compartment and tiny marginal osteophytes along the patella. Expected postoperative subcutaneous and intra-articular gas. IMPRESSION: 1. Left knee medial unicompartmental arthroplasty, negative for postoperative purposes. Reviewed, dictated and finalized at location A. FRAMER IMPRESSION: 1. Left knee medial unicompartmental arthroplasty, negative for postoperative p urposes.
--- NOTE | ~2020-07-21 | XR_ITS ---
EXAMINATION: XR surgery orthopedic DATE: 07/21/2020 09:17 INDICATION: Partial left knee arthroplasty. TECHNIQUE: 2 fluoroscopic spot images of the left knee were obtained during procedure performed by Dr Demetrius Ventura. Radiologist was not present for the imaging or procedure. The amount of fluoroscopy time u sed during this procedure was 0.4 minutes. COMPARISON: None. FINDINGS: Osteotomy along the medial tibial plateau with placement of a trial tray for medial unicompartmental arthroplasty. No fracture. IMPRESSION: 1. Expected appearance during medial unicompartmental left knee arthroplasty. See procedure note for further detail. Reviewed, dictated and finalized at location A. STITCHER MACHINE IMPRESSION: 1. Expected appearance during medial unicompartmental left knee arthroplasty. S ee procedure note for further detail.
[2020-07-21] MEDS: LACTATED RINGERS 1,000 ML 30 ML IV CONT ×2 (06:30→10:57)
[2020-07-21] MEDS: ACETAMINOPHEN 500 MG TABLET 1000 MG PO ×3 (06:30→19:38)
[2020-07-21] MEDS: TRANEXAMIC ACID 1,000MG/ISO100 1,000 MG/100 ML BAG 200 MG IVPB (06:45)
--- NOTE | 2020-07-21 06:54 | WPDANESEPPF ---
Anes - Initial Pre Proc Eval Procedure: Operation Date: 07/21/20 07:30 Proposed Procedures p Bureau Partial Left Knee Replacement Versus Possible Left Total Knee Replacement - Bassam Ventura MD Date/Time: 07/21/20 06:54 Surgeon: Bassam Ventura MD Pre Op Diagnosis: Severe Medial Compartment Osteoarthritis Left Knee Patient Data Age: 75 Gender: M Height: 5 ft 7 in Weight: 84.8 kg Last Vital Signs Temp 36.7 C 07/08/20 11:02 Pulse 90 07/08/20 11:02 Resp 16 07/08/20 11:02 BP 147/78 H 07/08/20 11:02 Pulse Ox 99 07/08/20 11:02 Allergies Allergy/AdvReac Type Severity Reaction Status Date / Time No Known Allergies Allergy Verified 07/08/20 10:03 Home Medications Medication Instructions Recorded Confirmed Type multivitamin 1 tablet PO DAILY 09/25/19 07/08/20 History omega-3 fatty acids 1,000 mg 2,000 mg PO BID 09/25/19 07/08/20 History capsule aspirin [Adult Low Dose Aspirin] 81 mg PO BID 07/08/20 07/08/20 History isosorbide mononitrate 30 mg PO QAM 07/08/20 07/08/20 History losartan 100 mg PO QAM 07/08/20 07/08/20 History metformin 500 mg PO HS 07/08/20 07/08/20 History psyllium [Metamucil Sugar Free] 2 tsp PO HS 07/08/20 07/08/20 History simvastatin 20 mg PO HS 07/08/20 07/08/20 History triamcinolone acetonide 0.1 applic TOPICAL PRN PRN 07/08/20 07/08/20 History blood sugar diagnostic #100 ea 07/17/20 Rx Patient hx anesthesia problems: none Family hx anesthesia problems: none PMFSH Past Medical History Medical History CAD (coronary artery disease) Silent [place] with evidence of inferior wall involvement. Moderate dz involving RCA but FFR negative 2014. 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 Possible [place] exposure. Patient smoked 2 packs a day for 20 years but quit 35 years ago. Lives at home with his . No pets. Denies alcohol or drug use. He is a full code. He nominates his to be the individual who would make medical decisions for him if he is unable. Smoking packs per day: 2 Smoking cigarettes per day: 40.0 Years smoked: 20 Smoking pack-years: 40.00 Smoking status: Former smoker Tobacco type: cigarettes Smoking end date: 09/19/79 Additional smoking assessment comments: DENIES ANY FORM OF TOBACCO/NICOTINE USE Alcohol intake: never Substance use: never Living arrangements: with family Gender identity (if verbalized by the patient): Male Spiritual care concerns: No Agree to blood products: Yes Anes - Eval Final PreProcedure Day of Procedure 07/21/20 06:54 Patient weight: overweight Heart: regular rate and rhythm Lungs: decreased breath sounds Airway: Mallampati scale class II Neurological: other (alert) Last oral intake: >/= 8 hours ASA classification: III Emergent: no Anesthetic plan: proceed Anesthesia type and monitoring: general LMA and standard monitoring Informed Consent: The patient's anesthetic plan and its attendant risks and benefits were discussed with the patient/family/POA. Questions were solicited and answers provided to the satisfaction of the patient/family/POA.
--- NOTE | 2020-07-21 07:13 | WPDHPUPDATE1 ---
History and Physical Update Update Date/Time: 07/21/20 07:13 History and Physical has been reviewed, including an updated exam of the patient. There are NO changes in the patient's condition. Risks, benefits, and alternatives have been discussed and questions answered. Patient agrees to proceed with procedure.
[2020-07-21] MEDS: ceFAZolin 2 GM/D5W 50 ML 2 GM/50 ML BAG IVPB (07:33)
[2020-07-21 08:17] LABS: Glucose Point of Care 178 (65-105)
[2020-07-21] MEDS: ceFAZolin SODIUM 1 GM VIAL 3 GM IRRIGATION (08:34)
[2020-07-21] MEDS: ceFAZolin SODIUM 1 GM VIAL IV PUSH (10:43)
--- NOTE | 2020-07-21 11:03 | PM.PROC ---
Procedure Note - Detailed Date of procedure: 07/21/20 Pre-op diagnosis: Severe Medial Compartment Osteoarthritis Left Knee Post-op diagnosis: same Procedure performed: [place] partial knee replacement medial compartment left knee Description of procedure: patient was brought to the operating room and general anesthesia was administered. He received 2 g of Ancef weight based vancomycin 1 g of tranexamic acid preoperatively in the left leg was prepped draped in the usual fashion after positioning the leg supported on the special thigh penaloza under the tourniquet and mid thigh. The limb was exsanguinated and tourniquet elevated to 250 mmHg. A 4 in incision was made from medial to superior pole of the patella to medial to upper edge of the tibial tubercle. A standard medial parapatellar arthrotomy was made with a 1 cm split in the vastus medialis at the superior pole. Osteophytes from the medial patella from the superior and medial femur and from around the intercondylar notch were removed. The lateral compartment showed normal-appearing cartilage. There was mild maceration of the anterior surface of the ACL but it was intact. There was [id number] arthritis of the medial compartment. Anteromedial tibial osteophyte was removed. The 3 mm Spoon had a little bit of play so we used the 3 mm G clamp and linked this to the tibial cutting guide set at 7? of posterior slope. The tibial cut was made and the wafer sized to the size C. fluoro was brought in and demonstrated that the size C fit nicely on the medial tibial plateau essentially line to line with the medial margin of medial plateau. The center line was drawn on the medial femoral condyle and a guide rogelio inserted down the femoral canal and the medium femoral drill guide was linked to the guide rogelio set at 3 mm which had ample play and the holes were drilled for the femur. Posterior chamfer cut was made in the distal femur milled with the 0 spigot. Remnants of medial meniscus were thoroughly excised at this time and we trialed. At 100? of flexion the 3 mm Feeler was appropriate the 10 was tight. Therefore it was necessary to remove an additional 1 mm bone from the tibial plateau which was done with the special 1 mm Hussain. We confirmed that we had a flat surface to the tibial plateau cut without rocking of the trial and on read trialing now the flexion gap accepted the 4 mm Feeler the 5 would not go. In extension the 1 mm Feeler was appropriate the 2 would not go. The 3 mm spigot was placed and distal femur milled. On trialing now we had 4 mm appropriate both at 10? 100? of flexion and the 5 could not be inserted in either position. The impingement guide was placed on the femur and the anterior recess milled and posterior femoral osteophytes carefully removed. We trialed and we saw that the 4 mm bearing tracked 0.5 mm from the vertical wall in flexion and came out to about 3 mm from the vertical wall in full extension which was deemed appropriate. The keel for the tibia was prepared with the toothbrush saw after spiking the size C to the tibial plateau in proper position. The size C with keel set nicely. A step drill was used to make multiple perforations in the tibial plateau and distal femur the bony surfaces were thoroughly irrigated and dried and the size C tibial component for the left knee was coated with methylmethacrylate followed by pressurization cementing of the tibia and full seating of the tibial component was performed. The trial femur placed and the knee brought to 45? of flexion with a 4 Feeler and placed a pressurized the cement the tourniquet was released at a little over 90 minutes. The cement was allowed to harden. Excess cement was sought for removed and the process was repeated on the femoral side after we exsanguination of the limb and elevation tourniquet the knee brought into 45? of extension once again with the 4 mm Feeler cementing the size medium femoral component in place. Tourniquet again r
--- NOTE | 2020-07-21 12:04 | SUR.PHASEI ---
[id number] sbar faxed floor notified
[2020-07-21] MEDS: ONDANSETRON INJ 4 MG/2 ML VIAL IV PUSH (12:12)
[2020-07-21 12:14] LABS: Glucose Point of Care 156 (65-105)
--- NOTE | 2020-07-21 12:35 | ADMGEN ---
This patient, Neli Collins, was admitted to Medical Room 248-. Patient/family oriented to hospital policies and general routines including ID bracelet, bed and alarms, visiting hours, pain management, procedures, bathroom and other care routines, personal items, smoking policy, room service/diet, and visiting hours. Information on how to activate the Rapid Response Team has been discussed. Patient/Family are encouraged to report perceived risks to care and to ask questions if they do not understand what they are told or what they should do.
[2020-07-21] MEDS: SODIUM CHLORIDE 0.9% IV 1,000 ML 125 ML IV CONT (12:54)
[2020-07-21] MEDS: oxyCODONE HCL (*CRX) 2.5 MG TAB IR PO ×3 (13:46→20:31)
--- NOTE | 2020-07-21 13:57 | PCPTNOTE ---
Attempted PT eval. Pt nauseated and vomiting. Will try again at later time.
[2020-07-21] MEDS: LOSARTAN POTASSIUM 100 MG TABLET PO (16:00)
[2020-07-21] MEDS: ISOSORBIDE MONONITRATE 30 MG TAB.ER.24H PO (16:00)
[2020-07-21] MEDS: SENNA/DOCUSATE SODIUM TABLET 2 TAB PO (16:05)
--- NOTE | 2020-07-21 16:30 | WPDCN ---
Assessment and Plan Assessment and plan (1) Arthritis of left knee: Code(s): M17.12 - Unilateral primary osteoarthritis, left knee Status: Acute (2) Mixed hyperlipidemia: Code(s): E78.2 - Mixed hyperlipidemia Status: Acute (3) Essential (primary) hypertension: Code(s): I10 - Essential (primary) hypertension Status: Acute (4) Type 2 diabetes mellitus without complication: Qualifiers: Diabetes mellitus buttermaker continuous churn insulin use: without buttermaker continuous churn use Qualified Code(s): E11.9 - Type 2 diabetes mellitus without complications Code(s): E11.9 - Type 2 diabetes mellitus without complications Status: Acute (5) Tachycardia: Code(s): R00.0 - Tachycardia, unspecified Status: Acute Additional Plan The hospitalist service has been consulted for postoperative medical management. I received a call from the patient's nurse with concerns that his blood pressure and heart rate were both elevated. The patient himself has no complaints and is denying palpitations and feelings of racing heart, thus I think this is probably physiologic. Pulmonary embolism is unlikely. Estimated blood loss was only 100 mL and most likely is not related to that either. He did have nausea and vomiting postoperatively and received some IV fluids, thus will continue to monitor. I will resume his antihypertensives and we will repeat blood pressures later this evening to ensure they are improving. His diabetes is very well controlled with a recent A1c of 5.9%, and I believe he only takes metformin. Initiate sliding scale insulin, Accu-Cheks, and hypoglycemic protocol. Check baseline labs in a.m. Thank you for allowing us to participate in this patient's care. Please do not hesitate to contact us with any questions. We will follow with you. Supervising physician for this medical consultation is Dr. Shen Guillen. HPI Data of Consult Date/Time: 07/21/20 16:30 Requesting Physician: Bassam Ventura MD Primary Care Provider: Brandyn Faust DO Consult Narrative Narrative: Neli Collins is a pleasant 75-year-old male whom the hospitalist service has been consulted to manage his medical conditions postoperatively. He has had longstanding pain in both of his knees for many years, which he attributes to overuse as he had a physically challenging job on [place] [employer]. He had a partial right knee replacement in October this year with good results, and presented today for partial left knee replacement as he has not had longstanding relief with conservative outpatient treatment. No immediate complications were documented and an estimated blood loss was 100 mL. Postoperatively he did have nausea and vomiting, which he did not have with his prior replacement, but he improved and was able to eat dinner. His pain has been manageable, rated 4/10 at the time my evaluation. He has been up to the chair and walking about the unit without issue. His medical history is significant for hypertension, hyperlipidemia, and type 2 diabetes mellitus. He has a chronic left bundle branch block and was told that he probably had a ?silent [place]? previously, with prior cardiac catheterization showing mild disease in RCA. His diabetes is well controlled on his home medication with a recent hemoglobin A1c of 5.9%. Hypertension hyperlipidemia are also well controlled on medication. Review of Systems Review of Systems: Narrative: Twelve systems were reviewed with pertinent positives and negatives as per HPI. He had a cold within the past couple of months, but was never tested for COVID-19. He has no known exposure to those with known positive COVID either. No fever, chills, or sweats. He denies cough and shortness of breath. He has mild neuropathy in his toes, mainly on the left side, but nothing significant. No blurry vision, polydipsia, or polyuria. He denies history of venous thromboembolism. Except as documented, all other systems wer
[2020-07-21] MEDS: metFORMIN HCL 500 MG TABLET PO (20:31)
[2020-07-21] MEDS: FAMOTIDINE 20 MG TABLET PO (20:31)
[2020-07-21] MEDS: SIMVASTATIN 20 MG TABLET PO (20:33)
[2020-07-21 21:15] LABS: Glucose Point of Care 192 (65-105)
[2020-07-22] VITALS: BP 143/82; PULSE 106; RESP 18; TEMP 36.4; O2SAT 95
--- NOTE | 2020-07-22 | ECHO_ITS ---
Patient Info Name: Neli Collins Age: 75 years : 1945 Gender: Male Ht: 67 in Wt: 184 lbs BSA: 2.01 m2 HR: 105 bpm BP: 140 / 70 mmHg Heart Rhythm: Left Bundle Branch Block Technical Quality: Good Exam Date: 07/22/2020 1:41 PM Exam Location: [facility] Patient Status: Inpatient Admit Date: 07/21/2020 Staff Ordering Physician: Leighton Flores MD Line Ordering Clinician: Tres Wisdom RDCS Attending Provider: Bassam Ventura MD Referring Physician: Mark ARZOLA; Exam Type: CA echo dop color flow w con Study Info Indications I44.7 - Left bundle-branch block, unspecified Complete two-dimensional, color flow and Doppler transthoracic echocardiogram is performed with contrast to opacify the left ventricle and to improve the deliniation of the left ventricle endocardial borders. Contrast/Agitated Saline Contrast/Ag. Saline: Definity Amount: 3.00 ml Administered By: Breanne Heart RN Existing IV Access: Yes History/Risk Factors LBBB and tachycardia;. Summary 1. Left ventricular chamber dimension is normal. 2. Left ventricular systolic function is mildly reduced, estimated at 50-55%. 3. There is moderately increased left ventricular wall thickness. 4. Left ventricular septal wall motion is abnormal with septal motion related to bundle branch block. 5. The left ventricular diastolic function is normal. 6. There is moderate aortic valve sclerosis. 7. There is mild aortic valve calcification. 8. The non-coronary cusp appears to be significantly thickened with restricted leaflet mobility. 9. The aortic root size at the sinus of Valsalva is mildly dilated. 10. Repeat echo in 6-12 months as outpatient and periodically thereafter for evaluation of aortic stenosis and to evaluate for decline in ejection fraction given his left bundle branch block. Left Ventricle Left ventricular chamber dimension is normal. Left ventricular systolic function is mildly reduced, estimated at 50-55%. There is moderately increased left ventricular wall thickness. Left ventricular septal wall motion is abnormal with septal motion related to bundle branch block. The left ventricular diastolic function is normal. Right Ventricle Right ventricular chamber dimension is normal. Right ventricular systolic function is normal. Left Atria Left atrial chamber dimension is normal. Right Atria Right atrial chamber dimension is normal. Atrial Septum Intact interatrial septum visualized by color flow imaging. Aortic Valve The aortic valve is probable trileaflet. There is moderate aortic valve sclerosis. There is no aortic valve stenosis. There is trace aortic valve regurgitation. There is mild aortic valve calcification. The non-coronary cusp appears to be significantly thickened with restricted leaflet mobility. Pulmonic Valve The pulmonic valve is normal. There is no pulmonic valve stenosis. There is trace pulmonic regurgitation. Mitral Valve The mitral valve has calcified annulus. There is no mitral valve stenosis. There is trace mitral valve regurgitation. Tricuspid Valve The tricuspid valve leaflets are normal. There is no significant tricuspid valve stenosis. There is trace tricuspid valve regurgitation. Other Findings Repeat echo in 6-12 months as outpatient and periodically thereafter for evaluation of aortic stenosis and to evaluate for decline in ejection fraction given his left bundle bra
[2020-07-22] MEDS: ACETAMINOPHEN 500 MG TABLET 1000 MG PO ×3 (00:21→12:41)
[2020-07-22] MEDS: oxyCODONE HCL (*CRX) 2.5 MG TAB IR PO ×4 (00:22→12:41)
[2020-07-22 04:00] VITALS: BP 164/86; PULSE 102; RESP 18; TEMP 36.9; O2SAT 97
[2020-07-22 05:54] LABS: Basophils Percent Auto 0.1 % (0.2-1.2); Eosinophils Percent Auto 0.3 % (0-4.4); Immature Granulocyte Absolute 0.07 K/mm3 (0.00-0.031); Immature Granulocyte Percent A 0.5 % (0-0.5); Lymphocytes Absolute Auto 2.13 K/mm3 (0.9-3.2); Mean Corpuscular HGB Conc 34.1 g/dl (32-36); Mean Corpuscular Hemoglobin 29.1 pg (26-34); Mean Corpuscular Volume 85.2 fl (80-100); Mean Platelet Volume 9.3 fl (7.4-10.4); Monocytes Absolute Auto 1.2 K/mm3 (0.1-0.6); Monocytes Percent Auto 8.8 % (2.6-8.5); Neutrophils Absolute Auto 10.7 K/mm3 (1.3-6.7); Neutrophils Percent Auto 75.3 % (45.5-73.1); Platelet Count Result 203 k/mm3 (150-375); Red Blood Count 4.81 M/mm3 (4.6-6.20); Red Cell Distribution Width 12.4 % (11.5-14.5); White Blood Count 14.2 K/mm3 (4.5-10.0)
[2020-07-22 06:06] LABS: Anion Gap 11 mmol/L (8-16); Blood Urea Nitrogen 14 mg/dL (9-20); Calcium 9.5 mg/dL (8.4-10.2); Carbon Dioxide 25 mmol/L (22-30); Chloride 104 mmol/L (98-107); Estimated CRCL calculation 57 ml/min; Estimated Glomerular Filt Rate > 60; Glucose 131 mg/dL (75-110); Sodium 140 mmol/L (137-145)
--- NOTE | 2020-07-22 06:24 | PM.PNORT ---
Progress Note: A&P Additional Plan POD 1 alert pt is still tachycardic, BP meds were resume yesterday -BP is better but HR is still elevated, pt having no symptoms , labs are all good no anemia, wd-dry pt was up walking yesterday in halls comfortable, pain is well controlled,plan to send home later today, Subjective Subjective Date/Time Seen: 07/22/20 06:24 Objective Data Vital Signs Vital Signs: Vital Signs - 24 hr 07/21/20 07:48 07/21/20 11:00 07/21/20 11:15 Temperature 36.3 C L 36.2 C L Pulse Rate 89 88 89 Respiratory Rate 20 16 12 Blood Pressure 146/76 H 99/57 L 122/68 Pulse Oximetry 98 95 96 07/21/20 11:30 07/21/20 11:45 07/21/20 12:00 Temperature Pulse Rate 90 102 H 102 H Respiratory Rate 16 16 12 Blood Pressure 129/71 132/83 130/77 Pulse Oximetry 97 98 93 07/21/20 12:15 07/21/20 12:35 07/21/20 12:50 Temperature 35.9 C L 36.2 C L Pulse Rate 104 H 106 H 104 H Respiratory Rate 12 20 18 Blood Pressure 176/81 H 169/96 H Pulse Oximetry 94 93 94 07/21/20 13:20 07/21/20 14:17 07/21/20 18:20 Temperature 35.8 C L 36.2 C L 36.6 C Pulse Rate 103 H 112 H 113 H Respiratory Rate 18 18 18 Blood Pressure 151/78 H 152/82 H 144/84 H Pulse Oximetry 93 94 94 07/21/20 20:00 07/21/20 21:55 07/22/20 00:00 Temperature 37.1 C 36.4 C Pulse Rate 118 H 106 H Respiratory Rate 20 18 Blood Pressure 126/83 143/82 H Pulse Oximetry 95 91 95 07/22/20 04:00 Temperature 36.9 C Pulse Rate 102 H Respiratory Rate 18 Blood Pressure 164/86 H Pulse Oximetry 97 Intake/Output Intake/Output: Intake & Output 07/20/20 07/20/20 07/21/20 07/22/20 00:59 23:59 23:59 23:59 Intake Total 1615 300 Output Total 1200 Balance 1615 -900 Meds/Results Medications: Active Medications Generic Name Dose Route Start Last Admin Trade Name Freq PRN Reason Stop Dose Admin Acetaminophen 1,000 mg 07/21/20 13:00 07/22/20 00:21 Acetaminophen 500 Mg Tablet PO 1,000 mg Q6H ELIESER Administration Apixaban 2.5 mg 07/22/20 09:00 Apixaban 2.5 Mg Tablet PO 08/02/20 21:01 Q12HR ELIESER Celecoxib 100 mg 07/22/20 08:00 Celecoxib 100 Mg Capsule PO DAILY@0800 ELIESER Cephalexin HCl 500 mg 07/22/20 09:00 Cephalexin 500 Mg Capsule PO 07/29/20 09:01 Q6HR ELIESER Diphenhydramine HCl 25 mg 07/21/20 12:33 Diphenhydramine Hcl Inj 50 Mg/Ml Vial IV PUSH Q6H PRN Itching Famotidine 20 mg 07/21/20 21:00 07/21/20 20:31 Famotidine 20 Mg Tablet PO 20 mg Q12HR ELIESER Administration Cefazolin Sodium 1 gm in 50 mls @ 100 mls/hr 07/21/20 15:30 07/22/20 00:00 Ancef 1 Gm/D5w 50 Ml Pm IVPB 07/22/20 07:59 Infused Q8H ELIESER Infusion Vancomycin HCl 1,000 mg in 250 mls @ 250 mls/hr 07/21/20 18:00 07/22/20 05:00 Vancomycin 1,000 Mg/D5w 250 Ml IVPB 07/22/20 06:59 150 mls/hr Q12H ELIESER Administration Isosorbide Mononitrate 30 mg 07/22/20 09:00 Isosorbide Mononitrate 30 Mg Tab.Er.24h PO QAM ELIESER Losartan Potassium 100 mg 07/22/20 09:00 Losartan Potassium 100 Mg Tablet PO QAM [facility] Metformin HCl 500 mg 07/21/20 21:00 07/21/20 20:31 Metformin Hcl 500 Mg Tablet PO 500 mg HS ELIESER Administration Morphine Sulfate 2 mg 07/21/20 12:33 Morphine Sulfate (*Crx) 2 Mg/Ml Inj IV PUSH Q4H PRN Pain Rated 7-10 Naloxone HCl 0.1 mg 07/21/20 12:33 Naloxone Hcl 0.4 Mg/Ml Vial IV PUSH Q2M PRN Opiate Reversal Ondansetron HCl 4 mg 07/21/20 12:33 Ondansetron Inj 4 Mg/2 Ml Vial IV PUSH Q4H PRN Nausea And Vomiting Oxycodone HCl 2.5 mg 07/21/20 12:33 Oxycodone Hcl (*Crx) 2.5 Mg Tab Ir PO Q4H PRN Pain Rated 4-6 Oxycodone HCl 2.5 mg 07/21/20 13:00 07/22/20 05:00 Oxycodone Hcl (*Crx) 2.5 Mg Tab Ir PO 2.5 mg Q4HR ELIESER Administration Polyethylene Glycol 17 gm 07/22/20 09:00 Polyethylene Glycol 3350 17 Gm Powd.Pack PO QAM ELIESER Senna/Docusate Sodium 2 tab 07/21/20 17:00 07/21/20 16:
--- NOTE | 2020-07-22 06:35 | PM.DS ---
DS: Admitting Diagnosis Admitting Diagnosis Admitting Diagnosis: Severe Medial Compartment Osteoarthritis Left Knee DS: Summary Time Spent with Patient Time attestation: 75-year-old male patient underwent partial knee replacement his left on 07/21. Underwent procedure without any complications postoperatively has been afebrile, his vital signs after surgery he was hypertensive is also tachycardic. He held his hypertension medicine prior to surgery. He was not having symptoms with the tachycardia or hypertension but was restarted on his meds the afternoon of surgery. His blood pressure subsequently normalized but he is still having tachycardia. His heart rate was between 100 and 110. He does not have anemia. He has been feeling good. He has been having no symptoms from tachycardia. He was up walking the day of surgery walking being in the home very comfortable. His pain is well controlled with scheduled Tylenol as well as oxycodone 2.5 mg. He is on Eliquis for DVT prophylaxis is also on a week of Keflex due to his history of diabetes. We will consult cardiology for evaluation prior to his discharge. The patient's outpatient therapy set up. He also go home on MiraLax and Senokot for constipation. Patient advised any questions or concerns he should call the office otherwise will see him at his appointment dates. DS: Data Data Completed and Pending Labs on day of discharge: Labs from last 24 hours 07/22/20 07/22/20 07/21/20 05:27 05:27 20:31 WBC 14.2 H RBC 4.81 Hgb 14.0 Hct 41.0 L MCV 85.2 MCH 29.1 MCHC 34.1 RDW 12.4 Plt Count 203 MPV 9.3 Immature Gran % (Auto) 0.5 Neut % (Auto) 75.3 H Lymph % (Auto) 15.0 L [place] % (Auto) 8.8 H Eos % (Auto) 0.3 Baso % (Auto) 0.1 L Lymph # (Auto) 2.13 [place] # (Auto) 1.2 H Eos # (Auto) 0.0 Baso # (Auto) 0.0 Abs Immat Gran (auto) 0.07 H Absolute Neuts (auto) 10.7 H Absolute Nucleated RBC 0.0 Nucleated RBC % 0.0 Sodium 140 Potassium 4.0 Chloride 104 Carbon Dioxide 25 Anion Gap 11 BUN 14 Creatinine 0.90 Estim Creat Clear Calc 57 Estimated GFR > 60 Glucose 131 H POC Capillary Glucose 192 H Calcium 9.5 Blood Type Antibody Screen 07/21/20 07/21/20 07/21/20 11:02 08:02 06:28 WBC RBC Hgb Hct MCV MCH MCHC RDW Plt Count MPV Immature Gran % (Auto) Neut % (Auto) Lymph % (Auto) [place] % (Auto) Eos % (Auto) Baso % (Auto) Lymph # (Auto) [place] # (Auto) Eos # (Auto) Baso # (Auto) Abs Immat Gran (auto) Absolute Neuts (auto) Absolute Nucleated RBC Nucleated RBC % Sodium Potassium Chloride Carbon Dioxide Anion Gap BUN Creatinine Estim Creat Clear Calc Estimated GFR Glucose POC Capillary Glucose 156 H 178 H Calcium Blood Type A Positive Antibody Screen Negative Discharge Plan Discharge Patient Disposition: Home, Self-Care Discharge Instructions: VINCENZO VENTURA M[facility] [address] [place] [address] POST-OPERATIVE DISCHARGE INSTRUCTIONS TOTAL KNEE ARTHROPLASTY 1. When resting, lie on back with leg elevated above hear to minimize swelling. Significant swelling could indicate a blood clot and if this occurs call the office (or go to the ER) to have a venous ultrasound. 2. Do exercise 5 times a day. 3. Do not sit with leg down except for meals. 4. Wound Care: Nursing will give additional dressings at discharge. Patient to change dressing at home 1 week from surgery, then maintain until seen in office. 5. May shower with dressing in place. 6. Follow weight bearing status instructions. Patient Instructions: Oxycodone, Rapid Release (By mouth), Apixaban (By mouth), Joint Replacement Surgery (DC), Knee Replacement (DC) Follow-up/Referrals: Adilia Ventura
--- NOTE | 2020-07-22 07:36 | WPDANESPN ---
Anes - Prog Note Post-Op Date/Time: 07/22/20 07:36 Cardiovascular status: normal Respiratory status: normal Airway patency: baseline Mental status: baseline Post-Op hydration status: normal Vital Signs: Last Vital Signs Temp 36.9 C 07/22/20 04:00 Pulse 102 H 07/22/20 04:00 Resp 18 07/22/20 04:00 BP 164/86 H 07/22/20 04:00 Pulse Ox 97 07/22/20 04:00 Pain Score (VAS): 0 I/O: Intake & Output 07/21/20 07/21/20 07/22/20 15:59 23:59 07:59 Intake Total 175 1090 550 Output Total 1200 Balance 175 1090 -650 Laboratory Tests 07/22/20 05:27 07/22/20 05:27 07/21/20 07/21/20 07/21/20 06:28 08:02 11:02 WBC RBC Hgb Hct MCV MCH MCHC RDW Plt Count MPV Immature Gran % (Auto) Neut % (Auto) Lymph % (Auto) [place] % (Auto) Eos % (Auto) Baso % (Auto) Lymph # (Auto) [place] # (Auto) Eos # (Auto) Baso # (Auto) Abs Immat Gran (auto) Absolute Neuts (auto) Absolute Nucleated RBC Nucleated RBC % Sodium Potassium Chloride Carbon Dioxide Anion Gap BUN Creatinine Estim Creat Clear Calc Estimated GFR Glucose POC Capillary Glucose 178 H 156 H Calcium Blood Type A Positive Antibody Screen Negative 07/21/20 07/22/20 07/22/20 20:31 05:27 05:27 WBC 14.2 H RBC 4.81 Hgb 14.0 Hct 41.0 L MCV 85.2 MCH 29.1 MCHC 34.1 RDW 12.4 Plt Count 203 MPV 9.3 Immature Gran % (Auto) 0.5 Neut % (Auto) 75.3 H Lymph % (Auto) 15.0 L [place] % (Auto) 8.8 H Eos % (Auto) 0.3 Baso % (Auto) 0.1 L Lymph # (Auto) 2.13 [place] # (Auto) 1.2 H Eos # (Auto) 0.0 Baso # (Auto) 0.0 Abs Immat Gran (auto) 0.07 H Absolute Neuts (auto) 10.7 H Absolute Nucleated RBC 0.0 Nucleated RBC % 0.0 Sodium 140 Potassium 4.0 Chloride 104 Carbon Dioxide 25 Anion Gap 11 BUN 14 Creatinine 0.90 Estim Creat Clear Calc 57 Estimated GFR > 60 Glucose 131 H POC Capillary Glucose 192 H Calcium 9.5 Blood Type Antibody Screen Post-procedural complaints: none Patient Feedback: Patient satisfied with anesthetic care.
[2020-07-22] MEDS: FAMOTIDINE 20 MG TABLET PO (08:27)
[2020-07-22] MEDS: APIXABAN 2.5 MG TABLET PO (08:27)
[2020-07-22] MEDS: polyethylene glycoL 3350 17 GM POWD.PACK PO (08:27)
[2020-07-22] MEDS: LOSARTAN POTASSIUM 100 MG TABLET PO (08:27)
[2020-07-22] MEDS: SENNA/DOCUSATE SODIUM TABLET 2 TAB PO ×2 (08:27→16:37)
[2020-07-22] MEDS: ISOSORBIDE MONONITRATE 30 MG TAB.ER.24H PO (08:27)
[2020-07-22] MEDS: CEPHALEXIN 500 MG CAPSULE PO ×2 (08:28→12:41)
[2020-07-22] MEDS: CELECOXIB 100 MG CAPSULE PO (08:28)
--- NOTE | 2020-07-22 08:43 | ECG_ITS ---
Measurements Intervals [place] Rate: 97 P: 29 UT: 175 QRS: -59 QRSD: 173 T: 101 QT: 404 QTc: 514 Interpretive Statements SINUS RHYTHM LEFT AXIS DEVIATION LEFT BUNDLE BRANCH BLOCK ABNORMAL ECG Electronically Signed On 07-22-2020 12:17:20 MULTIPLE PRESSURE RIVETER OPERATOR by Evans Vann D.O.
[2020-07-22 10:30] VITALS: BP 142/76; PULSE 98; RESP 16; TEMP 36.7; O2SAT 95
[2020-07-22 12:00] VITALS: PULSE 107
--- NOTE | 2020-07-22 12:25 | PM.IMPN ---
Progress Note: A&P Assessment and Plan (1) Arthritis of left knee: Code(s): M17.12 - Unilateral primary osteoarthritis, left knee Status: Acute Assessment and Plan: sp surgery [place] partial knee replacement on the right (2) Mixed hyperlipidemia: Code(s): E78.2 - Mixed hyperlipidemia Status: Chronic Assessment and Plan: Continue home regime (3) Essential (primary) hypertension: Code(s): I10 - Essential (primary) hypertension Status: Chronic Assessment and Plan: Continue home regime (4) Type 2 diabetes mellitus without complication: Qualifiers: Diabetes mellitus terminal carman insulin use: without chcf use Qualified Code(s): E11.9 - Type 2 diabetes mellitus without complications Code(s): E11.9 - Type 2 diabetes mellitus without complications Status: Chronic Assessment and Plan: Continue home regime (5) Tachycardia: Code(s): R00.0 - Tachycardia, unspecified Status: Acute Assessment and Plan: Pt is running sinus tachy today, cardiology consulted possible differentials infection, PE, anxiety, post operative pain or cardiac related. Pt denies chest pain or SOB, I will order Dimer trop, EKG and telemetry already ordered. Pt appears anxious to me cardiology to rule out cardiac causes and discharge home later maybe. Subjective Date/time seen: 07/22/20 12:25 Interval history: Karina is a 75 year old male of Dr Faust Who presents today for a [place] partial knee replacement of his left knee versus total knee replacement. Pt seen by hospitalist group for medical management. Pt has a history of HLD, HTN, CAD and DM. Pt is running sinus tachy today, cardiology consulted possible differentials infection, PE, anxiety, post operative pain or cardiac related. Pt denies chest pain or SOB, I will order Dimer trop, EKG and telemetry already ordered. Pt appears anxious to me cardiology to rule out cardiac causes and discharge home later maybe. Review of Systems Review of Systems: All systems reviewed & are unremarkable except as noted in HPI and below Psychiatric: Psychiatric: Reports anxiety Exam Narrative: Exam Narrative: General: Well-developed male pleasant not in any distress. Respiratory: Lungs are clear to auscultation bilaterally. Cardiovascular: Regular rate and rhythm with S1-S2. Gastrointestinal: Abdomen is soft, nontender, and nondistended with positive bowel sounds. Skin: Warm and dry. No rash or lesions on limited exam. Extremities: No cyanosis, clubbing, or edema. Musculoskeletal: Left knee is surgically dressed with a cooling pad in place. Neurological: Alert. Cranial nerves 2-12 grossly intact. No gross focal deficits to casual conversation. Psychiatric: Pleasant and cooperative with normal mood and affect. Judgment and insight intact. Objective Data Vital Signs Vital Signs: Vital Signs - 24 hr 07/21/20 12:35 07/21/20 12:50 07/21/20 13:20 Temperature 35.9 C L 36.2 C L 35.8 C L Pulse Rate 106 H 104 H 103 H Respiratory Rate 20 18 18 Blood Pressure 176/81 H 169/96 H 151/78 H Pulse Oximetry 93 94 93 07/21/20 14:17 07/21/20 18:20 07/21/20 20:00 Temperature 36.2 C L 36.6 C 37.1 C Pulse Rate 112 H 113 H 118 H Respiratory Rate 18 18 20 Blood Pressure 152/82 H 144/84 H 126/83 Pulse Oximetry 94 94 95 07/21/20 21:55 07/22/20 00:00 07/22/20 04:00 Temperature 36.4 C 36.9 C Pulse Rate 106 H 102 H Respiratory Rate 18 18 Blood Pressure 143/82 H 164/86 H Pulse Oximetry 91 95 97 07/22/20 10:30 07/22/20 12:00 Temperature 36.7 C Pulse Rate 98 107 H Respiratory Rate 16 Blood Pressure 142/76 H Pulse Oximetry 95 Intake/Output Intake/Output: Intake & Output 07/20/20 07/20/20 07/21/20 07/22/20 00:59 23:59 23:59 23:59 Intake Total 1615 990 Output Total 1200 Balance 1615 -210 Meds/Results Medications: Active Medications Generic Name Dose Route Start Last Admin
--- NOTE | 2020-07-22 13:21 | PM.CNCAR ---
Assessment and Plan Assessment and plan (1) Tachycardia: Code(s): R00.0 - Tachycardia, unspecified Status: Acute Assessment and Plan: He did have tachycardia on a preoperative evaluation via ECG also. According to Outpatient Cardiology record, EKG showed a heart rate of 100 beats per minute. This current tachycardia is probably not clinically significant at this point. I will however order a 2D echocardiogram with Doppler to evaluate overall LV function as well as to rule out any evidence of pericardial effusion which would help explain his tachycardia. recommend outpatient thyroid workup including a TSH and T4 level but this could be done prior to his primary care physician or primary earth mover (2) Status post right partial knee replacement: Code(s): Z96.651 - Presence of right artificial knee joint Status: Acute Assessment and Plan: feels great (3) Left bundle branch block: Code(s): I44.7 - Left bundle-branch block, unspecified Status: Acute Assessment and Plan: not new (4) Coronary artery disease involving [place] heart: Qualifiers: Coronary Disease-Associated Artery/Lesion type: [place] artery Associated angina: without angina Qualified Code(s): I25.10 - Atherosclerotic heart disease of [place] coronary artery without angina pectoris Code(s): I25.10 - Atherosclerotic heart disease of [place] coronary artery without angina pectoris Status: Acute Assessment and Plan: catheterization 2014 showed moderate RCA disease. Perfusion study in June 2019 showed no ischemia but with LAD infarction History of Present Illness History of Present Illness Consult date/time: 07/22/20 13:21 Requesting physician: Bassam Ventura MD Consult reason: Other ( tachycardia) Reason For Visit: Severe Medial Compartment Osteoarthritis Left Knee Narrative: date of service 07/22/2020 Reason for consultation sinus tachycardia History: Patient is a 75-year-old male who does have coronary disease. He follows with Dr. Harris at [facility]. He did have a preoperative EKG showing a left bundle branch block with a heart rate of 100 beats per minute. This was reportedly showing no significant change from previous EKG. He did undergo successful knee surgery yesterday but is noted to be tachycardic postoperatively. He Denies any chest pain, shortness of breath, syncope, presyncope, paroxysmal nocturnal dyspnea, orthopnea, edema or pain. No palpitations. Review of Systems Review of Systems: All systems reviewed & are unremarkable except as noted in HPI and below Constitutional: Constitutional: Denies weakness Eyes: Eyes: Denies blurry vision ENT: Denies Normal hearing present Cardiovascular: Cardiovascular: Denies chest pain Respiratory: Respiratory: Denies dyspnea Gastrointestinal: Gastrointestinal: Denies abdominal pain Genitourinary: Genitourinary: Denies dysuria Musculoskeletal: Musculoskeletal: Denies neck pain Integumentary/Breasts: Skin/Breast: Denies dry skin Neurologic: Denies headache(s) and Denies numbness Psychiatric: Psychiatric: Denies anxiety and Denies confusion Endocrine: Endocrine: Denies fatigue Hematologic/Lymphatic: Hematologic/Lymphatic: Denies easy bleeding and Denies easy bruising Allergic/Immunologic: Allergic/Immunologic: Denies GI upset with certain foods PMFSH Past Medical History Medical History Colon polyp Coronary artery disease [place] with evidence of inferior wall involvement. Moderate disease involving RCA but FFR negative 2014. Essential (primary) hypertension Left bundle branch block Mixed hyperlipidemia Primary osteoarthritis of both knees Squamous cell carcinoma of skin Type 2 diabetes mellitus without complication Surgical History Surgical History History of cataract s
[2020-07-22 13:39] LABS: D Dimer 0.94 ug/mL (<0.48)
[2020-07-22 13:51] LABS: Troponin I < 0.012 ng/mL (0.000-0.034)
[2020-07-22] MEDS: PERFLUTREN LIPID MICROSPHERES 1.5 ML VIAL DILUTED TO 10 ML TOTAL VOLUME IV PUSH (14:16)
[2020-07-22 14:18] VITALS: BP 140/74; PULSE 98; RESP 16; TEMP 37.1; O2SAT 95
[2020-07-22 16:00] VITALS: PULSE 107
== END 2020-07-22 17:10 | disposition home or self-care (01) ==
LOC: ANHSURGERY 05:55 → ANH2MED 12:36
PROVIDERS: Family Medicine; Physician Assistant Surgical; PCP Internal Medicine; Visit Provider Orthopaedic Surgery
PROC: (CPT 27446; principal; 2020-07-21 07:30)
DX: M17.12 Unilateral primary osteoarthritis, left knee (principal); R00.0 Tachycardia, unspecified; R11.2 Nausea with vomiting, unspecified; I10 Essential (primary) hypertension; E11.9 Type 2 diabetes mellitus without complications; I25.10 Atherosclerotic heart disease of native coronary artery without angina pectoris; I44.7 Left bundle-branch block, unspecified; E78.2 Mixed hyperlipidemia; Z79.82 Long term (current) use of aspirin; Z79.84 Long term (current) use of oral hypoglycemic drugs; Z87.891 Personal history of nicotine dependence
CPT/HCPCS: 27446; 36415; 73560; 80048; 84484; 85025; 85380; 86850; 86900; 86901; 93005; 97110; 97116; 97161; 97165; A9270; C1713; C1776; C8929; J0171; J0690; J1170; J2270; J2370; J2405; J2704; J2795; J3010; J3370; J7030; J7120; Q9957

== ENCOUNTER 2020-08-12 06:56 | Outpatient (CLI) | payer MEDICARE, OTHER, SELFPAY ==
[2020-08-12 08:04] LABS: Hemoglobin A1C 5.8 % (<5.7)
[2020-08-12 08:06] LABS: Alanine Aminotransferase 28 U/L (4-50); Albumin Level 4.6 g/dL (3.5-5.1); Alkaline Phosphatase 61 U/L (38-126); Anion Gap 10 mmol/L (8-16); Aspartate Amino Transferase 28 U/L (17-59); Bilirubin,Total 0.6 mg/dL (0.2-1.3); Blood Urea Nitrogen 18 mg/dL (9-20); Calcium 9.9 mg/dL (8.4-10.2); Carbon Dioxide 27 mmol/L (22-30); Chloride 104 mmol/L (98-107); Cholesterol 142 mg/dL (0-200); Estimated Glomerular Filt Rate > 60; Glucose 148 mg/dL (75-110); HDL Direct 40 mg/dL; Potassium 4.5 mmol/L (3.4-5.0); Sodium 141 mmol/L (137-145); Triglycerides 195 mg/dL (<150)
[2020-08-12 08:17] LABS: LDL Cholesterol Direct 59 mg/dL
== END 2020-08-12 06:57 | disposition home or self-care (01) ==
PROVIDERS: PCP Internal Medicine; Visit Provider Nurse Practitioner
DX: E78.2 Mixed hyperlipidemia (principal); E11.9 Type 2 diabetes mellitus without complications
CPT/HCPCS: 36415; 80053; 80061; 83036

== ENCOUNTER 2021-02-04 07:01 | Outpatient (CLI) | payer MEDICARE, OTHER, SELFPAY ==
[2021-02-04 09:03] LABS: Alanine Aminotransferase 22 U/L (4-50); Albumin Level 4.2 g/dL (3.5-5.1); Alkaline Phosphatase 48 U/L (38-126); Anion Gap 7 mmol/L (8-16); Aspartate Amino Transferase 25 U/L (17-59); Bilirubin,Total 0.5 mg/dL (0.2-1.3); Blood Urea Nitrogen 19 mg/dL (9-20); Calcium 9.7 mg/dL (8.4-10.2); Carbon Dioxide 25 mmol/L (22-30); Chloride 108 mmol/L (98-107); Cholesterol 125 mg/dL (0-200); Estimated Glomerular Filt Rate > 60; Glucose 120 mg/dL (75-110); HDL Direct 40 mg/dL; Potassium 4.5 mmol/L (3.4-5.0); Sodium 140 mmol/L (137-145); Triglycerides 214 mg/dL (<150)
[2021-02-04 09:04] LABS: Hemoglobin A1C 5.7 % (<5.7)
[2021-02-04 09:14] LABS: LDL Cholesterol Direct 46 mg/dL
== END 2021-02-04 07:02 | disposition home or self-care (01) ==
LOC: ANHLAB 07:08
PROVIDERS: PCP Internal Medicine; Visit Provider Internal Medicine
DX: E11.9 Type 2 diabetes mellitus without complications (principal); E78.5 Hyperlipidemia, unspecified; I10 Essential (primary) hypertension
CPT/HCPCS: 36415; 80053; 80061; 83036

== ENCOUNTER 2021-08-18 08:12 | Outpatient (CLI) | payer MEDICARE, OTHER, SELFPAY ==
[2021-08-18 08:46] LABS: Creatinine Urine 115.4 mg/dL
[2021-08-18 08:50] LABS: Hemoglobin A1C 5.5 % (<5.7)
[2021-08-18 08:51] LABS: MALB Creatinine Ratio 31.9 mg/g (0-30); Microalbumin Urine Random 36.8 mg/L (0-16.7)
[2021-08-18 08:54] LABS: Alanine Aminotransferase 40 U/L (4-50); Albumin Level 4.5 g/dL (3.5-5.1); Alkaline Phosphatase 53 U/L (38-126); Anion Gap 10 mmol/L (8-16); Aspartate Amino Transferase 33 U/L (17-59); Bilirubin,Total 0.9 mg/dL (0.2-1.3); Blood Urea Nitrogen 21 mg/dL (9-20); Carbon Dioxide 25 mmol/L (22-30); Chloride 106 mmol/L (98-107); Cholesterol 139 mg/dL (0-200); Estimated Glomerular Filt Rate > 60; Glucose 142 mg/dL (65-110); HDL Direct 40 mg/dL; Potassium 4.6 mmol/L (3.4-5.0); Sodium 141 mmol/L (137-145); Triglycerides 275 mg/dL (<150)
[2021-08-18 09:05] LABS: LDL Cholesterol Direct 51 mg/dL
== END 2021-08-18 08:13 | disposition home or self-care (01) ==
PROVIDERS: PCP Internal Medicine; Visit Provider Internal Medicine
DX: E11.9 Type 2 diabetes mellitus without complications (principal); E78.5 Hyperlipidemia, unspecified; I10 Essential (primary) hypertension
CPT/HCPCS: 36415; 80053; 80061; 82043; 83036

== ENCOUNTER 2022-02-27 08:23 | Outpatient (CLI) | payer MEDICARE, OTHER, SELFPAY ==
[2022-02-27 09:06] LABS: Hemoglobin A1C 6.5 % (<5.7)
[2022-02-27 09:16] LABS: Alanine Aminotransferase 60 U/L (6-50); Albumin Level 4.2 g/dL (3.5-5.1); Alkaline Phosphatase 46 U/L (38-126); Anion Gap 9 mmol/L (8-16); Aspartate Amino Transferase 52 U/L (17-59); Bilirubin,Total 0.6 mg/dL (0.2-1.3); Blood Urea Nitrogen 18 mg/dL (9-20); Calcium 8.6 mg/dL (8.4-10.2); Carbon Dioxide 26 mmol/L (22-30); Chloride 104 mmol/L (98-107); Cholesterol 122 mg/dL (0-200); Estimated Glomerular Filt Rate > 60; Glucose 148 mg/dL (65-110); HDL Direct 38 mg/dL; Potassium 4.2 mmol/L (3.4-5.0); Sodium 139 mmol/L (137-145); Triglycerides 217 mg/dL (<150)
[2022-02-27 09:17] LABS: LDL Cholesterol Direct 38 mg/dL
== END 2022-02-27 08:24 | disposition home or self-care (01) ==
LOC: ANHLAB 08:25
PROVIDERS: PCP Internal Medicine; Visit Provider Nurse Practitioner
DX: E78.5 Hyperlipidemia, unspecified (principal); E11.9 Type 2 diabetes mellitus without complications
CPT/HCPCS: 36415; 80053; 80061; 83036

== ENCOUNTER 2022-09-21 07:41 | Outpatient (CLI) | payer MEDICARE, OTHER, SELFPAY ==
[2022-09-21 08:48] LABS: Alanine Aminotransferase 54 U/L (6-50); Albumin Level 4.5 g/dL (3.5-5.1); Alkaline Phosphatase 54 U/L (38-126); Anion Gap 8 mmol/L (8-16); Aspartate Amino Transferase 39 U/L (17-59); Bilirubin,Total 0.7 mg/dL (0.2-1.3); Blood Urea Nitrogen 22 mg/dL (9-20); Calcium 9.4 mg/dL (8.4-10.2); Carbon Dioxide 26 mmol/L (22-30); Chloride 108 mmol/L (98-107); Cholesterol 139 mg/dL (0-200); Estimated Glomerular Filt Rate > 60; Glucose 161 mg/dL (65-110); HDL Direct 38 mg/dL; Potassium 4.7 mmol/L (3.4-5.0); Sodium 142 mmol/L (137-145); Triglycerides 259 mg/dL (<150)
[2022-09-21 08:58] LABS: LDL Cholesterol Direct 46 mg/dL
[2022-09-21 10:59] LABS: Hemoglobin A1C 6.7 % (<5.7)
== END 2022-09-21 07:42 | disposition home or self-care (01) ==
LOC: ANHLAB 07:43
PROVIDERS: PCP Surgery; Visit Provider Nurse Practitioner
DX: E78.5 Hyperlipidemia, unspecified (principal); E11.9 Type 2 diabetes mellitus without complications
CPT/HCPCS: 36415; 80053; 80061; 83036

== ENCOUNTER 2023-03-31 02:15 | Day surgery (SDC) | payer MEDICARE, OTHER, SELFPAY ==
[2023-03-31] VITALS (11 sets, daily range): BP systolic 113–140; BP diastolic 55–71; PULSE 46–70; RESP 13–20; TEMP 36.2; O2SAT 96–99; BMI 29.6
[2023-03-31 07:24] LABS: Basophils Percent Auto 0.7 % (0.2-1.2); Eosinophils Absolute Auto 0.3 K/mm3 (0-0.3); Eosinophils Percent Auto 4.7 % (0-4.4); Hematocrit 44.1 % (42.0-52.0); Immature Granulocyte Absolute 0.02 K/mm3 (0.00-0.031); Immature Granulocyte Percent A 0.3 % (0-0.5); Lymphocytes Percent Auto 35.1 % (18.3-44.2); Mean Corpuscular Hemoglobin 29.8 pg (26-34); Mean Corpuscular Volume 87.5 fl (80-100); Mean Platelet Volume 9.2 fl (7.4-10.4); Monocytes Absolute Auto 0.6 K/mm3 (0.1-0.6); Monocytes Percent Auto 9.8 % (2.6-8.5); Neutrophils Percent Auto 49.4 % (45.5-73.1); Platelet Count Result 206 k/mm3 (150-375); Red Blood Count 5.04 M/mm3 (4.6-6.20); Red Cell Distribution Width 12.7 % (11.5-14.5)
[2023-03-31 07:35] LABS: INR 0.9; Prothrombin Time 13.1 Seconds (11.1-14.7)
[2023-03-31 07:37] LABS: Anion Gap 8 mmol/L (8-16); Blood Urea Nitrogen 15 mg/dL (9-20); Calcium 9.2 mg/dL (8.4-10.2); Carbon Dioxide 24 mmol/L (22-30); Chloride 107 mmol/L (98-107); Estimated CRCL calculation 62 ml/min; Estimated Glomerular Filt Rate > 60; Glucose 168 mg/dL (65-110); Potassium 4.4 mmol/L (3.4-5.0); Sodium 139 mmol/L (137-145)
--- NOTE | 2023-03-31 10:06 | WPDHPUPDATE1 ---
History and Physical Update Update Date/Time: 03/31/23 10:06 History and Physical has been reviewed, including an updated exam of the patient. There are NO changes in the patient's condition. Risks, benefits, and alternatives have been discussed and questions answered. Patient agrees to proceed with procedure.
--- NOTE | 2023-03-31 10:06 | WPDMODSED ---
Moderate Sedation Note-Pt Data Patient Data Diagnosis: Coronary artery disease, abnormal stress test Present Complaint: Coronary artery disease, abnormal stress test Procedure to be performed/Plan: Coronary angiography, left heart cath, +/- percutaneous coronary intervention Allergies Allergy/AdvReac Type Severity Reaction Status Date / Time No Known Allergies Allergy Verified 09/28/22 12:05 Home Medications Medication Instructions Recorded Confirmed Type multivitamin (Daily Multi-Vitamin 1 tablet PO DAILY 09/25/19 03/31/23 History tablet) omega-3 fatty acids 1,000 mg 2,000 mg PO BID 09/25/19 03/31/23 History capsule (Fish Oil Concentrate) olopatadine 0.7 % eye drops 1 drp EACH EYE DAILY PRN itching 02/11/21 03/31/23 Rx (Pataday Once Daily Relief) #5 mL psyllium husk 3.4 gram/5.4 gram 1 tsp PO DAILY 02/11/21 03/31/23 History oral powder (Metamucil) blood sugar diagnostic (True #100 ea 03/10/22 09/28/22 Rx Metrix Glucose Test Strip) aspirin 81 mg tablet,delayed 81 mg PO DAILY 03/24/22 03/31/23 History release isosorbide mononitrate 30 mg See Rx Instructions .Route 11/29/22 03/31/23 Rx tablet,extended release 24 hr .COMPLEX #90 tabs simvastatin 20 mg tablet See Rx Instructions .Route 12/01/22 03/31/23 Rx .COMPLEX #90 tabs blood-glucose meter #1 ea 12/14/22 Rx metformin 500 mg tablet See Rx Instructions .Route 12/14/22 03/31/23 Rx .COMPLEX #90 tabs lancets 26 gauge (Lancets,Ultra #100 ea 12/15/22 Rx Thin) losartan 100 mg tablet 100 mg PO QAM #90 tabs 02/01/23 03/31/23 Rx blood sugar diagnostic (Blood #50 ea 03/14/23 Rx Glucose Test strips) metoprolol tartrate 25 mg tablet 25 mg PO BID 03/31/23 03/31/23 History Current Medications: Active Medications Sodium Chloride (Normal Saline Iv) 500 mls @ 100 mls/hr IV CONT .Q5H ELIESER Sedation/Anesthesia: No previous sedation/anesthesia problems (including family history). [facility] Past Medical History Medical History Colon polyp Coronary artery disease Silent [place] with evidence of inferior wall involvement. Moderate disease involving RCA but FFR negative 2014. COVID-19 Essential (primary) hypertension Left bundle branch block Mixed hyperlipidemia Primary osteoarthritis of both knees Squamous cell carcinoma of skin Type 2 diabetes mellitus without complication Surgical History Surgical History History of cataract surgery History of squamous cell carcinoma excision Excision of multiple skin cancers from the head and neck. Status post left partial knee replacement (~07/21/20) Status post right partial knee replacement (~10/2019) Family History Family History Sibling Malignant neoplasm of prostate Other Cerebrovascular accident Hypertension Social History Social History Social History: The patient lives with his in [place]. They have no pets. He is a [place] with possible Agent [place] exposure. Retired from the [employer]. Smoked 2 packs a day for 20 years and quit about 35 years ago. No alcohol or illicit substance abuse. He designates his Pushpa as his surrogate decision maker and he wishes to be a full code. Smoking packs per day: 2 Smoking cigarettes per day: 40.0 Years smoked: 20 Smoking pack-years: 40.00 Smoking status: Former smoker Tobacco type: cigarettes Second hand tobacco smoke exposure: Yes Smoking end date: 09/19/79 Alcohol intake: never Substance use: never Substance use type: does not use Lack of Transportation: No Lack of Food: Never True Current Housing: I Have Housing Concerned About Future Housing: No Difficulty Paying Gas/Electric Bills: No Difficulty Paying for Meds: No Currently Unemployed: No Education: High School Diploma/GED
--- NOTE | 2023-03-31 10:10 | WPDCARDPROC ---
Cardiac Cath Procedure Note Date of procedure:: 03/31/23 Performing physician:: CATHETERIZATION LABORATORY REPORT Procedure Date: 03/31/2023 Cloth Roll Winder: Donte Barboza M.D., [facility]? Referring Physician: Titi Flores M.D. ? Anesthesia: Versed and Fentanyl were ordered and given in my presence at 09:11, procedure ended at 09:57. Supervision of nurse monitored moderate sedation with Versed and Fentanyl was provided for 46 minutes. Total of Versed 2mg and Fentanyl 50mcg were administered by the Hand Ii Cutter RN Jeimy Patrick. Pre-op Diagnosis: Coronary artery disease Post-op Diagnosis: 1. Moderate coronary artery disease. The proximal-mid portion of the RCA has a borderline 60-70% stenosis. IFR evaluation of this lesion is borderline. IFR initial value at 0.90, followed by 0.89, 0.89, 0.89. Given borderline IFR value of RCA lesion with infrequent atypical anginal symptoms, recommend optimizing medical management/antianginal therapy. If patient with worsening anginal symptoms or more frequent anginal symptoms despite maximally tolerated medical management, then will consider staged PCI. 2. Elevated left ventricular end-diastolic pressure of 33mmHg Procedure(s): 1. Moderate sedation 2. Ultrasound-guided access of the right radial artery 3. Coronary angiography 4. Left heart cath 5. IFR of RCA Access Site: Right radial artery Brief History and Clinical Indications: Patient is a 77 year old male with known moderate coronary artery disease who is referred for abnormal stress test. All risks, benefits and alternatives to left heart catheterization with or without percutaneous coronary intervention was discussed at length with the patient. Risk of complications including but not limited to bleeding, infection, arrhythmia, stroke, worsening kidney function, blood loss, groin hematoma, limb loss, emergency coronary artery bypass grafting, and even were discussed with the patient and all questions were answered. The patient understood and wished to proceed. Time out called, patient name, date of , medical record number, allergies, procedure performed, identify Cloth Roll Winder, patient and staff member concurred with accurate data, procedure carried on. Findings: LEFT HEART CATHETERIZATION FINDINGS: 1. Left main: Large caliber vessel. The left main coronary artery is widely patent without any significant obstructive disease. 2. Left anterior descending: Large caliber vessel. The proximal LAD has luminal irregularities. The mid LAD has a mild 20-30% stenosis. The distal LAD has luminal irregularities. The diagonal branches are of very small caliber. 3. Ramus: Large caliber vessel. The Ramus has mild luminal irregularities without any significant obstructive angiographic disease. 4. Left circumflex: Large caliber vessel. The left circumflex artery and the main marginal branches have luminal irregularities without any significant obstructive angiographic disease. 5. Right coronary artery: Large caliber vessel. The RCA is the dominant vessel. The proximal-mid portion of the RCA has a borderline 60-70% stenosis. Remainder of the mid portion has mild disease. The distal RCA has luminal irregularities. 6. Left ventricle: A. End-diastolic pressure 33mmHg. B. LV gram deferred. C. No significant gradient across aortic valve on catheter pullback. Description of Procedure: Informed consent signed and placed in the chart. Patient transferred to outside laborer room. Prepped and draped in usual sterile fashion. 2% lidocaine injected subcutaneously in right wrist area. 22-gauge venipuncture catheter used to access the right radial artery with the Seldinger technique. 6-FR slender sheath placed in right radial artery. Nitroglycerine and Verapamil were given intraarterial through the sheath. Versacore wire advanced under fluoroscopy 5F Tig 4 diagnostic catheter engaged Left Main Coronary Artery. 5F FR 4 diagnostic catheter engaged Righ
--- NOTE | 2023-03-31 13:25 | SUR.PHASEII ---
Dr. Barboza to bedside to observe site d/t small hematoma noted. No additional orders received. stated site is good, ok to discharge.
== END 2023-03-31 13:50 | disposition home or self-care (01) ==
PROVIDERS: PCP Family Medicine; Visit Provider Internal Medicine
PROC: 4A023N7 Measurement of Cardiac Sampling and Pressure, Left Heart, Percutaneous Approach (ICD-10-PCS; CPT 93452; principal; 2023-03-31 08:30)
PROC: 4A033BC Measurement of Arterial Pressure, Coronary, Percutaneous Approach (ICD-10-PCS; CPT 93571; 2023-03-31 08:30)
DX: I25.10 Atherosclerotic heart disease of native coronary artery without angina pectoris (principal); R94.39 Abnormal result of other cardiovascular function study; I10 Essential (primary) hypertension; E78.2 Mixed hyperlipidemia; E11.9 Type 2 diabetes mellitus without complications; I25.2 Old myocardial infarction; I44.7 Left bundle-branch block, unspecified; Z87.891 Personal history of nicotine dependence; Z79.84 Long term (current) use of oral hypoglycemic drugs; Z79.82 Long term (current) use of aspirin
CPT/HCPCS: 36415; 80048; 85025; 85610; 93458; 93571; A9270; C1769; C1887; C1894; J0583; J1644; J2250; J2305; J3010; J7040

== ENCOUNTER 2023-04-11 08:52 | Outpatient (CLI) | payer MEDICARE, OTHER, SELFPAY ==
[2023-04-11 10:21] LABS: Alanine Aminotransferase 42 U/L (6-50); Albumin Level 4.4 g/dL (3.5-5.1); Alkaline Phosphatase 47 U/L (38-126); Anion Gap 8 mmol/L (8-16); Aspartate Amino Transferase 36 U/L (17-59); Bilirubin,Total 0.9 mg/dL (0.2-1.3); Blood Urea Nitrogen 14 mg/dL (9-20); Calcium 9.4 mg/dL (8.4-10.2); Carbon Dioxide 25 mmol/L (22-30); Chloride 107 mmol/L (98-107); Cholesterol 154 mg/dL (0-200); Estimated Glomerular Filt Rate > 60; Glucose 132 mg/dL (65-110); HDL Direct 37 mg/dL; Potassium 4.3 mmol/L (3.4-5.0); Sodium 140 mmol/L (137-145); Triglycerides 384 mg/dL (<150)
[2023-04-11 10:24] LABS: Hemoglobin A1C 6.3 % (<5.7)
[2023-04-11 10:32] LABS: LDL Cholesterol Direct 51 mg/dL
== END 2023-04-11 08:53 | disposition home or self-care (01) ==
PROVIDERS: PCP Family Medicine; Visit Provider Nurse Practitioner
DX: E78.5 Hyperlipidemia, unspecified (principal); E11.9 Type 2 diabetes mellitus without complications
CPT/HCPCS: 36415; 80053; 80061; 83036

== ENCOUNTER 2023-10-17 07:20 | Outpatient (CLI) | payer MEDICARE, OTHER, SELFPAY ==
[2023-10-17 07:56] LABS: Alanine Aminotransferase 30 U/L (6-50); Albumin Level 4.6 g/dL (3.5-5.1); Alkaline Phosphatase 51 U/L (38-126); Anion Gap 7 mmol/L (8-16); Aspartate Amino Transferase 28 U/L (17-59); Bilirubin,Total 0.7 mg/dL (0.2-1.3); Blood Urea Nitrogen 16 mg/dL (9-20); Calcium 9.8 mg/dL (8.4-10.2); Carbon Dioxide 28 mmol/L (22-30); Chloride 103 mmol/L (98-107); Cholesterol 163 mg/dL (0-200); Estimated Glomerular Filt Rate > 60; Glucose 149 mg/dL (65-110); HDL Direct 43 mg/dL; Potassium 4.2 mmol/L (3.4-5.0); Sodium 138 mmol/L (137-145); Triglycerides 344 mg/dL (<150)
[2023-10-17 08:07] LABS: LDL Cholesterol Direct 60 mg/dL
[2023-10-17 11:14] LABS: Hemoglobin A1C 6.3 % (<5.7)
== END 2023-10-17 07:21 | disposition home or self-care (01) ==
LOC: ANHLAB 07:21
PROVIDERS: PCP Nurse Practitioner; Visit Provider Nurse Practitioner
DX: E78.5 Hyperlipidemia, unspecified (principal); E11.9 Type 2 diabetes mellitus without complications
CPT/HCPCS: 36415; 80053; 80061; 83036

== ENCOUNTER 2024-04-23 07:17 | Outpatient (CLI) | payer MEDICARE, OTHER, SELFPAY ==
[2024-04-23 07:57] LABS: Alanine Aminotransferase 32 U/L (6-50); Albumin Level 4.3 g/dL (3.5-5.1); Alkaline Phosphatase 48 U/L (38-126); Anion Gap 11 mmol/L (4-12); Aspartate Amino Transferase 29 U/L (17-59); Bilirubin,Total 0.7 mg/dL (0.2-1.3); Blood Urea Nitrogen 18 mg/dL (9-20); Calcium 9.2 mg/dL (8.4-10.2); Carbon Dioxide 26 mmol/L (22-30); Chloride 105 mmol/L (98-107); Cholesterol 121 mg/dL (0-200); Estimated Glomerular Filt Rate > 60; Glucose 137 mg/dL (65-110); HDL Direct 41 mg/dL; Potassium 4.4 mmol/L (3.4-5.0); Sodium 142 mmol/L (137-145); Triglycerides 261 mg/dL (<150)
[2024-04-23 08:07] LABS: LDL Cholesterol Direct 35 mg/dL
[2024-04-23 11:15] LABS: Hemoglobin A1C 6.3 % (<5.7)
== END 2024-04-23 07:18 | disposition home or self-care (01) ==
LOC: ANHLAB 07:21
PROVIDERS: PCP Nurse Practitioner; Visit Provider Nurse Practitioner
DX: E78.5 Hyperlipidemia, unspecified (principal); E11.9 Type 2 diabetes mellitus without complications
CPT/HCPCS: 36415; 80053; 80061; 83036

== ENCOUNTER 2024-10-24 07:32 | Outpatient (CLI) | payer MEDICARE, OTHER, SELFPAY ==
--- OUTSIDE RECORDS SUMMARY | 2024-10-24 07:34 | XMS_ITS | Referral Summary ---
Author Organization [facility] Address [address] [place] [address] Care Team Providers Care Engraver Wood Name Role Phone Donavon Mcdowell MD Primary Care Provider [phone] Source Comments [facility],non-owned Affiliates and Associated Physician Practices is amultiple site organization consisting of ambulatory clinics and hospital sitesin [place], [place], [place] and [place]. This disclosure is being madepursuant to the Care Everywhere program and may not contain all information available regarding this patient. Last updated 18.[facility] Social History Tobacco Use Types Packs/Day Years Used Date Smoking Tobacco: Never Assessed Sex and Gender Information Value Date Recorded Sex Assigned at Not on file Gender Identity Not on file Sexual Orientation Not on file Plan of Treatment Not on file Care Teams Engraver Wood Relationship Specialty Start Date End Date Donavon Mcdowell MD [address] [place] [id number] PCP - General 06/15/13
--- OUTSIDE RECORDS SUMMARY | 2024-10-24 07:34 | XMS_ITS | Encounter Summary ---
Author Organization [facility] Address [address] [place] [address] Care Team Providers Care Antique Furniture Reproducer Name Role Phone Donavon Mcdowell MD Primary Care Provider [phone] Encounter Details Date Type Department Care Team (Late st Contact Info) Description 10/21/2020 Lab Requisition [facility] [address] [place] [id number] Aisha Goldstein DO [address] [place] [address] Social History Tobacco Use Types Packs/Day Years Used Date Smoking Tobacco: Never Assessed Sex and Gender Information Value Date Recorded Sex Assigned at Not on file Gender Identity Not on file Sexual Orientation Not on file documented as of this encounter Plan of Treatment Not on file documented as of this encounter Procedures Procedure Name Priority Date/Time Associated Diagnosis Comments DERMATOPATHOLOGY Routine 10/20/2020 12:0 0 AM OBSTETRICS NURSE documented in this encounter Results * DERMATOPATHOLOGY (10/20/2020 12:00 AM OBSTETRICS NURSE) Case Report Dermatopathology Report ? Case: [id number] ? Authorizing Provider: ??Aisha Goldstein DO ?? Collected: ? 10/20/2020 12:00 AM ? Ordering Location: ? [facility] ?Received: ?10/21/2020 09:03 AM ? Pathologist: ? Chrissy Zambrano MD ? Specimen: ?Skin, left FA ? 3:48 PM [facility] Final Diagnosis Specimen A. SKIN, left FA: DERMAL SCAR RESIDUAL SQUAMOUS CELL CARCINOMA NOT IDENTIFIED (L90.5) 3:48 PM [facility] Clinical History R/O SCCIS. 3:48 PM [facility] Gross Description Specimen A: Received is one formalin filled container labeled with the patient's name and designated left FA. The specimen consists of a non-oriented ellipse of skin measuring [id number]. The epidermal surface is unremarkable. The margin is inked green. The 12 o'clock and 6 o'clock tips are submitted in cassette 1. The remainder of the ellipse is serially sectioned and submitted in cassette 2-3. Jar 0. 3:48 PM [facility] Microscopic Description Specimen A. SKIN, left FA: There are fibroblasts and collagen bundles oriented parallel to the skin surface. There are elongated blood vessels, some of which are oriented perpendicular to the skin surface. No residual squamous cell carcinoma is identified. 3:48 PM [facility] Disclaimer An external and internal positive and negative controls are appropriate for the histochemical, immunohistochemical and immunofluorescence stain(s) in this case (if any), except where stated explicitly. The performance characteristics of the stain(s) cited in this report were developed and its performance characteristic determined by the Dermatopathology Laboratory at [facility] directed by Dr. Bernardo Thrasher. These tests need not be, and therefore are not, approved by the [place] Food and Drug Administration. The tests are used for clinical purposes. Billing Codes Specimen Charges Stain Charges 84914 1 1 3:48 PM OBSTETRICS NURSE DERMATOPATHOLOGY LABORATORY Embedded Images 1 3:48 PM OBSTETRICS NURSE DERMATOPATHOLOGY LABORATORY Pathology/Cytolog y TISSUE SPECIMEN FROM SKIN / Unknown 10/20/2020 10/21/2020 9:03 AM OBSTETRICS NURSE Aisha Goldstein DO LAB - PATHOLOGY/C YTOLOGY ORDERABLES DERMATOPATHOLOGY LABORATORY [facility] - Department of Dermatology [facility] Medicine [address] [place] [address], [address] [phone] documented in this encounter Visit Diagnoses Not on filedocumented in this encounter Care Teams Antique Furniture Reproducer Relationship Specialty Start Date End Date Donavon Mcdowell MD [address] [place] [id number] PCP - General 06/15/13 documented as of this encounter
--- OUTSIDE RECORDS SUMMARY | 2024-10-24 07:34 | XMS_ITS | Clinical Summary ---
Author Organization [facility] Address [address] [place] [address] Care Team Providers Care Assistant Education Director Name Role Phone Naresh Harris MD Unavailable [phone] Ancelmo Goodman MD Primary Care Provider [phone] Allergies No known active allergies Medications aspirin 81 mg enteric coated tablet Take 1 tablet (81 mg total) by mouth daily Active isosorbide mononitrate ER (IMDUR) 30 mg 24 hr tablet 1 tablet (30 mg total) daily Active metFORMIN (GLUCOPHAGE) 500 mg tablet 1 tablet (500 mg total) daily Active simvastatin (ZOCOR) 20 mg tablet 1 tablet (20 mg total) daily Active omega 0-dza-jzu-fish oil 910-1,400 mg capsule Take by mouth 2 (two) times a day Take 2 tablets twice daily Active psyllium, aspartame, SF (METAMUCIL SF) 3.4 gram packet Take 1 packet by mouth daily Active multivitamin capsule Take 1 capsule by mouth daily Active losartan (COZAAR) 100 mg tabletIndications :Essential hypertension Take 0.5 tablets (50 mg total) by mouth daily 30 tablet 11 1 Active ketoconazole (NIZORAL) 2 % cream Apply topically 3 (three) times a week Active metoprolol tartrate (LOPRESSOR) 50 mg immediate release tablet TAKE 1 TABLET BY MOUTH TWICE DAILY 180 tablet 3 4 Active Active Problems Problem Noted Date Diagnosed Date Atypical chest pain 03/09/2023 Pulmonary hypertension 03/03/2021 Cardiomyopathy 03/03/2021 Aortic valve sclerosis 08/19/2020 LBBB (left bundle branch block) 08/19/2020 Preoperative clearance 07/09/2020 Coronary artery disease 07/02/2016 Overview (07/11/2019): Moderate disease involving the right coronary artery but FFR is negative the right coronary artery in February 2015 Hyperlipidemia associated with type 2 diabetes m ellitus 07/02/2016 Hypertension 07/02/2016 Surgical History Surgery Date Site/Laterality Comments KNEE SURGERY Bilateral Medical History Medical History Date Comments Chest pain Coronary artery disease Hyperlipidemia Hypertension Heart murmur Diabetes mellitus (HCC) Cataracts, bilateral Family History Medical History Relation Name Comments Stroke Father Heart failure Mother Relation Name Status Comments Brother Alive Father (Age 87) Mother (Age 91) Sister Alive Social History Tobacco Use Types Packs/Day Years Used Date Smoking Tobacco: Former Cigarettes Q uit: 08/19/1990 Smokeless Tobacco: Never Tobacco Cessation:Counseling Given: Not Answered Alcohol Use Standard Drinks/Week Comments Never 0 (1 standard drink = 0.6 oz pur e alcohol) AUDIT-C Answer Date Recorded Q1: How often do you have a drink containing alc ohol? 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 Gender Identity Not on file Sexual Orientation Not on file Obstetrics History Last Filed Vital Signs Vital Sign Reading Time Taken Comments Blood Pressure 134/60 05/25/2024 11:11 AM CDT Pulse 50 05/25/2024 11:11 AM CDT Temperature 36 ??C (96.8 ??F) 07/09/2020 8:56 AM CDT Respiratory Rate - - Oxygen Saturation 96% 05/25/2024 11:11 AM CDT Inhaled Oxygen Concentration - - Weight 88 kg (194 lb) 05/25/2024 11:11 AM CDT Height 170.2 cm (5' 7 ) 05/25/2024 11:11 AM CDT Body Mass Index 30.38 05/25/2024 11:11 AM CDT Plan of Treatment Health Maintenance Due Date Last Done Comments Albumin Creatinine Ratio, Urine 1944 Depression Screening 1944 Fall Risk Assessment 1944 Hemoglobin A1C 1944 eGFR 1944 Dilated Eye Exam 1944 Foot Exam 1944 Hepatitis B Screening 1962 Zoster Vaccine (1 of 2) 1994 Abdominal Aortic Aneurysm (A AA) Screen 2009 Well Visit 65+ 2009 Lipid Panel 06/12/2020 06/12/2019, 12/05/2018 Covid-19 Vaccine ( season) 2024 07/29/2021, 11/28/2020, 10/31/2020 Influenza Vaccine (#1) 2024 DTaP/Tdap/Td Vaccine (2 - Td or Tdap) 05/27/202404/2014 Pneumococcal vaccine 65+ Completed 06/30/2017, 11/2015 Procedures Procedure Name Priority Date/Time Associated Diagnosis Comments LIPID PANEL Routine 06/12/2019 Mixed hyperlipidemia from Last 3 Months or Most Recently Relevant to Health Maintenance Results * Lipid panel (06/12/2019) SCRIBED Cholesterol, Total 142 l - h EXTERNAL LAB SCRIBED HDL 38 l - h EXTERNAL LAB SCRIBED LDL 59 l - h EXTERNAL LAB SCRIBED Triglycerides 282 l - h EXTERNAL LAB Blood specimen (specimen) 06/12/2019 us Naresh Harris MD LAB BLOOD ORDERABLES Final Result EXTERNAL LAB from Last 3 Months or Most Recently Relevant to Health Maintenance Insurance [facility] Care Teams Assistant Education Director Relationship Specialty Start Date End Date Ancelmo Goodman MD [address] [place] [address] [address] PCP - General Family Practice 03/09/23 Naresh Harris MD [address] [place] [address] [address] Lamination Spinner Cardiology 07/05/19
--- OUTSIDE RECORDS SUMMARY | 2024-10-24 07:34 | XMS_ITS | Clinical Summary ---
Author Organization [facility] Address [address] [place] [address] Care Team Providers Care Funding Analyst Name Role Phone Donavon Mcdowell MD Primary Care Provider [phone] Source Comments [facility],non-owned Affiliates and Associated Physician Practices is amultiple site organization consisting of ambulatory clinics and hospital sitesin [place], [place], [place] and [place]. This disclosure is being madepursuant to the Care Everywhere program and may not contain all information available regarding this patient. Last updated 18.[facility] Social History Tobacco Use Types Packs/Day Years Used Date Smoking Tobacco: Never Assessed Sex and Gender Information Value Date Recorded Sex Assigned at Not on file Gender Identity Not on file Sexual Orientation Not on file Plan of Treatment Health Maintenance Due Date Last Done Comments MEDICARE AWV ? 12 MONTHS 1945 DTAP/TDAP/TD VACCINES (1 - Tdap) 1963 PNEUMOCOCCAL VACCINE 50+ (1 of 1 - PCV) 1994 ZOSTER VACCINE (1 of 2) 1994 Respiratory Syncytial Virus (RSV) Vaccine Pt: or over 60 yrs (1 - 1-dose 75+ series) 2019 COVID-19 VACCINE ( - 2023-2 5 season) 2024 INFLUENZA VACCINE (#1) 2024 DEPRESSION SCREENING 09/19/2024 HEPATITIS B VACCINE Aged Out No longe r eligible based on patient's age to complete this topic HIB VACCINE Aged Out No longer eligi ble based on patient's age to complete this topic HPV VACCINE Aged Out No longer eligi ble based on patient's age to complete this topic MENINGOCOCCAL (Group B) VACCINE Aged Out No longer eligible based on patient's age to complete this topic MENINGOCOCCAL VACCINE Aged Out No amber claribel eligible based on patient's age to complete this topic Care Teams Funding Analyst Relationship Specialty Start Date End Date Donavon Mcdowell MD [address] [place] [phone] PCP - General 06/15/13
--- OUTSIDE RECORDS SUMMARY | 2024-10-24 07:34 | XMS_ITS | Referral Summary ---
Author Organization [facility] Address [address] [place] [address] Care Team Providers Care Tie Man Name Role Phone Naresh Harris MD Unavailable [phone] Ancelmo Goodman MD Primary Care Provider [phone] Allergies No known active allergies Medications aspirin 81 mg enteric coated tablet Take 1 tablet (81 mg total) by mouth daily Active isosorbide mononitrate ER (IMDUR) 30 mg 24 hr tablet 1 tablet (30 mg total) daily Active metFORMIN (GLUCOPHAGE) 500 mg tablet 1 tablet (500 mg total) daily Active simvastatin (ZOCOR) 20 mg tablet 1 tablet (20 mg total) daily Active omega 5-pzo-mtj-fish oil 910-1,400 mg capsule Take by mouth [...] 2 diabetes m ellitus 07/02/2016 Hypertension 07/02/2016 Social History Tobacco Use Types Packs/Day Years [...] on file 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 MEDICARE [employer] [facility] Care Teams Tie Man Relationship Specialty Start Date End Date Ancelmo Goodman MD [address] [place] [address] [address] PCP - General Family Practice 03/09/23 Naresh Harris MD [address] [place] [address] [address] Banquet Food Server Cardiology 07/05/19
--- OUTSIDE RECORDS SUMMARY | 2024-10-24 07:34 | XMS_ITS | Patient Health Summary ---
Author Organization [facility] Address [address] [place] [address] Care Team Providers Care Moto Mix Operator Name Role Phone Donavon Mcdowell MD Primary Care Provider [phone] Note from [facility],non-owned Affiliates and Associated Physician Practices is amultiple site organization consisting of ambulatory clinics and hospital sitesin [place], [place], [place] and [place]. This disclosure is being madepursuant to the Care Everywhere program and may not contain all information available regarding this patient. Last updated 18.[facility] Social History Tobacco Use Types Packs/Day Years Used Date Smoking Tobacco: Never Assessed Sex and Gender Information Value Date Recorded Sex Assigned at Not on file Gender Identity Not on file Sexual Orientation Not on file Procedures * DERMATOPATHOLOGY(Performed 05/17/2024) * DERMATOPATHOLOGY(Performed 10/19/2022) * DERMATOPATHOLOGY(Performed 10/20/2020) * DERMATOPATHOLOGY(Performed 10/09/2020) * DERMATOPATHOLOGY(Performed 01/26/2016) Results * DERMATOPATHOLOGY (05/17/2024 10:28 AM CDT) Only the most recent of5 resultswithin the time period is included. Case Report Dermatopathology Report ? Case: [id number] ? Authorizing Provider: ??Aisha Goldstein, DO ?? Collected: ? 05/17/2024 10:28 AM ? Ordering Location: ? [facility] - ??Received: ?05/22/2024 06:07 AM ? DermPath Lab ? Pathologist: ? Chrissy Zambrano MD ? Specimen: ?Skin, left cheek ? 4 1:11 PM CDT DERMATOPATHOLOGY LABORATORY Final Diagnosis Specimen A. SKIN, left cheek: SQUAMOUS CELL CARCINOMA, ACANTHOLYTIC TYPE (C44.329) 4 1:11 PM T DERMATOPATHOLOGY LABORATORY Clinical History R/O NMSC 4 1:11 PM CDT DERMATOPATHOLOGY LABORATORY Gross Description Specimen A: Received is one formalin filled container labeled with the patient's name and designated left cheek. The specimen consists of a shave biopsy measuring 8x4x2 mm. Jar 0. 4 1:11 PM CDT DERMATOPATHOLOGY LABORATORY Microscopic Description Specimen A. SKIN, left cheek: Sections show skin with irregularly shaped nests of keratinocytes with evidence of cornification. In some nests, there is loss of cohesion between the neoplastic cells, as well as individual dyskeratotic cells that lack intercellular bridges. 4 1:11 PM CDT DERMATOPATHOLOGY LABORATORY Disclaimer An external and internal positive and negative controls are appropriate for the histochemical, immunohistochemical and immunofluorescence stain(s) in this case (if any), except where stated explicitly. The performance characteristics of the stain(s) cited in this report were developed and its performance characteristic determined by the Dermatopathology Laboratory at [facility], directed by Dr. Bernardo Thrasher. These tests need not be, and therefore are not, approved by the [place] Food and Drug Administration. The tests are used for clinical purposes. Billing Codes Specimen Charges Stain Charges 76413 1 4 1:11 PM CDT DERMATOPATHOLOGY LABORATORY Embedded Images 4 1:11 PM CDT DERMATOPATHOLOGY LABORATORY Pathology/Cytolo gy TISSUE SPECIMEN FROM SKIN / Unknown 05/17/2024 10:28 AM CDT 05/22/2024 6:07 AM CDT Aisha Goldstein DO LAB - PATHOLOGY/C YTOLOGY ORDERABLES Performing Organization Address City/State/[facility] Co de Phone Number DERMATOPATHOLOGY LABORATORY [facility] - Department of Dermatology [facility] Specialized Medicine [address] [place] [address], [address] [phone] Care Teams Moto Mix Operator Relationship Specialty Start Date End Date Donavon Mcdowell MD [address] [place] [address] PCP - General 06/15/13
--- OUTSIDE RECORDS SUMMARY | 2024-10-24 07:35 | XMS_ITS | Encounter Summary ---
Author Organization [facility] Care Team Providers Care Moisture Machine Tender Name Role Phone Donavon Mcdowell MD Primary Care Provider Naresh Harris MD Unavailable [phone] Brandyn Faust DO Primary Care Provider [phone] Ancelmo Goodman MD Primary Care Provider [phone] Encounter Details Date Type Department Care Team (Latest Contact Info) Description 06/04/2016 Orders Only [facility] CLINCONV Provider, MD Barber [address] [place] [address] Social History Tobacco Use Types Packs/Day Years Used Date Smoking Tobacco: Never Assessed Sex and Gender Information Value Date Recorded Sex Assigned at Not on file 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 Historical Provider Final Res ult documented in this encounter Visit Diagnoses Not on filedocumented in this encounter Care Teams Moisture Machine Tender Relationship Specialty Start Date End Date Donavon Mcdowell MD [address] [facility] [address] [place] [address] PCP - General Internal Medicine 12/15/18 07/21/20 Brandyn Faust DO [address] [place] [address] PCP - General Internal Medicine 07/22/20 03/08/23 Ancelmo Goodman MD [address] [place] [address] PCP - General Family Practice 03/09/23 Naresh Harris MD [address] [place] [address] Building Carpenter Helper Cardiology 07/05/19 documented as of this encounter
--- OUTSIDE RECORDS SUMMARY | 2024-10-24 07:35 | XMS_ITS | Encounter Summary ---
Author Organization [facility] Facility Care Team Providers Care Roof Foreman Name Role Phone Donavon Mcdowell MD Primary Care Provider [phone] Naresh Harris MD Unavailable [phone] Brandyn Faust DO Primary Care Provider [phone] Ancelmo Goodman MD Primary Care Provider [phone] Encounter Details Date Type Department Care Team (Latest Contact Info) Description 06/07/2018 Orders Only [facility] CLINCONV Provider, MD Barber [address] [place] [address] Social History Tobacco Use Types Packs/Day Years Used Date Smoking Tobacco: Never Assessed Sex and Gender Information Value Date Recorded Sex Assigned at Not on file 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 Historical Provider Final Res ult documented in this encounter Visit Diagnoses Not on filedocumented in this encounter Care Teams Roof Foreman Relationship Specialty Start Date End Date Donavon Mcdowell MD [address] [facility] [address] [place] [address] PCP - General Internal Medicine 12/15/18 07/21/20 Brandyn Faust DO [address] [facility] [address] [place] [address] PCP - General Internal Medicine 07/22/20 03/08/23 Ancelmo Goodman MD [address] [facility] [address] [place] [address] PCP - General Family Practice 03/09/23 Naresh Harris MD [address] [facility] [address] [place] [address] Glass Bulb Machine Adjuster Cardiology 07/05/19 documented as of this encounter
--- OUTSIDE RECORDS SUMMARY | 2024-10-24 07:35 | XMS_ITS | Encounter Summary ---
Author Organization [facility] Facility Care Team Providers Care Manager Business Development Hospice Name Role Phone Donavon Mcdowell MD Primary Care Provider [phone] Naresh Harris MD Unavailable [phone] Brandyn Faust DO Primary Care Provider Ancelmo Goodman MD Primary Care Provider [phone] Encounter Details Date Type Department Care Team (Latest Contact Info) Description 12/02/2015 Orders Only [facility] CLINCONV Provider, MD Barber [address] [place] [address] Social History Tobacco Use Types Packs/Day Years Used Date Smoking Tobacco: Never Assessed Sex and Gender Information Value Date Recorded Sex Assigned at Not on file Legal Sex Male 3:43 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 Historical Provider Final Res ult documented in this encounter Visit Diagnoses Not on filedocumented in this encounter Care Teams Manager Business Development Hospice Relationship Specialty Start Date End Date Donavon Mcdowell MD [address] [facility] [address] [place] [address] PCP - General Internal Medicine 12/15/18 07/21/20 Brandyn Faust DO [address] [facility] [address] [place] [address] PCP - General Internal Medicine 07/22/20 03/08/23 Ancelmo Goodman MD [address] [facility] [address] [place] [address] PCP - General Family Practice 03/09/23 Naresh Harris MD [address] [facility] [address] [place] [address] Architectural Practice Manager Cardiology 07/05/19 documented as of this encounter
--- OUTSIDE RECORDS SUMMARY | 2024-10-24 07:35 | XMS_ITS | Encounter Summary ---
Author Organization [facility] Facility Care Team Providers Care Fur Repair Inspector Name Role Phone Donavon Mcdowell MD Primary Care Provider [phone] Naresh Harris MD Unavailable [phone] Brandyn Faust DO Primary Care Provider [phone] Ancelmo Goodman MD Primary Care Provider [phone] Encounter Details Date Type Department Care Team (Latest Contact Info) Description 06/28/2017 Orders Only [facility] CLINCONV Provider, MD Barber [address] [place] [address] Social History Tobacco Use Types Packs/Day Years Used Date Smoking Tobacco: Never Assessed Sex and Gender Information Value Date Recorded Sex Assigned at Not on file 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 Historical Provider Final Res ult documented in this encounter Visit Diagnoses Not on filedocumented in this encounter Care Teams Fur Repair Inspector Relationship Specialty Start Date End Date Donavon Mcdowell MD [address] [facility] [address] [place] [address] PCP - General Internal Medicine 12/15/18 07/21/20 Brandyn Faust DO [address] [facility] [address] [place] [address] PCP - General Internal Medicine 07/22/20 03/08/23 Ancelmo Goodman MD [address] [place] [address] PCP - General Family Practice 03/09/23 Naresh Harris MD [address] [place] [address] Medical Assembler Cardiology 07/05/19 documented as of this encounter
--- OUTSIDE RECORDS SUMMARY | 2024-10-24 07:35 | XMS_ITS | Encounter Summary ---
Author Organization [facility] Address [address] [facility] [place] [address] Care Team Providers Care Manager Culture Name Role Phone Donavon Mcdowell MD Primary Care Provider [phone] Encounter Details Date Type Department Care Team (Late st Contact Info) Description 10/10/2020 Lab Requisition [facility] [address] [facility], [place] [address] Aisha Goldstein DO [address] [facility] [address] DE[place] [address] Social History Tobacco Use Types Packs/Day Years Used Date Smoking Tobacco: Never Assessed Sex and Gender Information Value Date Recorded Sex Assigned at Not on file Gender Identity Not on file Sexual Orientation Not on file documented as of this encounter Plan of Treatment Not on file documented as of this encounter Procedures Procedure Name Priority Date/Time Associated Diagnosis Comments DERMATOPATHOLOGY Routine 10/09/2020 3:27 AM OIL PIPELINE OPERATOR documented in this encounter Results * DERMATOPATHOLOGY (10/09/2020 3:27 AM OIL PIPELINE OPERATOR) Case Report Dermatopathology Report ? Case: [id number] ? Authorizing Provider: ??Aisha Goldstein DO ?? Collected: ? 10/09/2020 03:27 AM ? Ordering Location: ? [facility] ?Received: ?10/10/2020 09:47 AM ? Pathologist: ? Chrissy Zambrano MD ? Specimen: ?Skin, left forearm ? 1:30 PM [facility] DERMATOPATHOLOGY LABORATORY Final Diagnosis Specimen A. 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 The specimen consists of a shave biopsy measuring 7x5x1 mm. Jar 0. 1:30 PM [facility] DERMATOPATHOLOGY LABORATORY Microscopic Description Specimen A. SKIN, left forearm: The epidermis shows parakeratosis, full thickness disorderly maturation of keratinocytes, mitoses at different levels, and dyskeratotic cells. 1:30 PM [facility] DERMATOPATHOLOGY LABORATORY Disclaimer An external and internal positive and negative controls are appropriate for the histochemical, immunohistochemical and immunofluorescence stain(s) in this case (if any), except where stated explicitly. The performance characteristics of the stain(s) cited in this report were developed and its performance characteristic determined by the Dermatopathology Laboratory at [facility], directed by Dr. Bernardo Thrasher. These tests need not be, and therefore are not, approved by the [place] Food and Drug Administration. The tests are used for clinical purposes. Billing Codes Specimen Charges Stain Charges 01575 1 1 1:30 PM OIL PIPELINE OPERATOR DERMATOPATHOLOGY LABORATORY Embedded Images 1 1:30 PM OIL PIPELINE OPERATOR DERMATOPATHOLOGY LABORATORY Pathology/Cytolo gy TISSUE SPECIMEN FROM SKIN / Unknown 10/09/2020 3:27 AM OIL PIPELINE OPERATOR 10/10/2020 9:47 AM OIL PIPELINE OPERATOR Aisha Goldstein DO LAB - PATHOLOGY/C YTOLOGY ORDERABLES DERMATOPATHOLOGY LABORATORY [facility] - Department of Dermatology [facility] [address] [place] [address], [address] [phone] documented in this encounter Visit Diagnoses Not on filedocumented in this encounter Care Teams Manager Culture Relationship Specialty Start Date End Date Donavon Mcdowell MD [address] [place] [address] PCP - General 06/15/13 documented as of this encounter
--- OUTSIDE RECORDS SUMMARY | 2024-10-24 07:35 | XMS_ITS | Encounter Summary ---
Author Organization [facility] Facility Care Team Providers Care Pipe Processor Name Role Phone Donavon Mcdowell MD Primary Care Provider [phone] Naresh Harris MD Unavailable [phone] Brandyn Faust DO Primary Care Provider [phone] Ancelmo Goodman MD Primary Care Provider [phone] Encounter Details Date Type Department Care Team (Latest Contact Info) Description 04/08/2017 Orders Only [facility] CLINCONV Provider, MD Barber [address] [place] [address] Social History Tobacco Use Types Packs/Day Years Used Date Smoking Tobacco: Never Assessed Sex and Gender Information Value Date Recorded Sex Assigned at Not on file 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 Historical Provider Final Res ult documented in this encounter Visit Diagnoses Not on filedocumented in this encounter Care Teams Pipe Processor Relationship Specialty Start Date End Date Donavon Mcdowell MD [address] [facility] [address] [place] [address] PCP - General Internal Medicine 12/15/18 07/21/20 Brandyn Faust DO [address] [facility] [address] [place] [address] PCP - General Internal Medicine 07/22/20 03/08/23 Ancelmo Goodman MD [address] [facility] [address] [place] [address] PCP - General Family Practice 03/09/23 Naresh Harris MD [address] [facility] [address] [place] [address] Manager Commercial Real Estate Cardiology 07/05/19 documented as of this encounter
--- OUTSIDE RECORDS SUMMARY | 2024-10-24 07:35 | XMS_ITS | Encounter Summary ---
Author Organization [facility] Address [address] [place] [address] Care Team Providers Care Metal Framer Name Role Phone Donavon Mcdowell MD Primary Care Provider [phone] Encounter Details Date Type Department Care Team (Late st Contact Info) Description 05/17/2024 Lab Requisition [facility] - DermPath Lab [address] [facility], [place] [address] Aisha Goldstein DO [address] [facility] 3 [place] [address] Social History Tobacco Use Types Packs/Day Years Used Date Smoking Tobacco: Never Assessed Sex and Gender Information Value Date Recorded Sex Assigned at Not on file Gender Identity Not on file Sexual Orientation Not on file documented as of this encounter Plan of Treatment Not on file documented as of this encounter Procedures Procedure Name Priority Date/Time Associated Diagnosis Comments DERMATOPATHOLOGY Routine 05/17/2024 10:2 8 AM CDT documented in this encounter Results * DERMATOPATHOLOGY (05/17/2024 10:28 AM CDT) Case Report Dermatopathology Report ? Case: [id number] ? Authorizing Provider: ??Aisha Goldstein, DO ?? Collected: ? 05/17/2024 10:28 AM ? Ordering Location: ? [facility] - ??Received: ?05/22/2024 06:07 AM ? DermPath Lab ? Pathologist: ? Chrissy Zambrano MD ? Specimen: ?Skin, left cheek ? 4 1:11 PM CDT DERMATOPATHOLOGY LABORATORY Final Diagnosis Specimen A. SKIN, left cheek: SQUAMOUS CELL CARCINOMA, ACANTHOLYTIC TYPE (C44.329) 4 1:11 PM [facility] DERMATOPATHOLOGY LABORATORY Clinical History R/O NMSC 1:11 PM T DERMATOPATHOLOGY LABORATORY Gross Description Specimen A: Received is one formalin filled container labeled with the patient's name and designated left cheek. The specimen consists of a shave biopsy measuring 8x4x2 mm. Jar 0. 4 1:11 PM T DERMATOPATHOLOGY LABORATORY Microscopic Description Specimen A. SKIN, left cheek: Sections show skin with irregularly shaped nests of keratinocytes with evidence of cornification. In some nests, there is loss of cohesion between the neoplastic cells, as well as individual dyskeratotic cells that lack intercellular bridges. 4 1:11 PM T DERMATOPATHOLOGY LABORATORY Disclaimer An external and internal positive and negative controls are appropriate for the histochemical, immunohistochemical and immunofluorescence stain(s) in this case (if any), except where stated explicitly. The performance characteristics of the stain(s) cited in this report were developed and its performance characteristic determined by the Dermatopathology Laboratory at [facility], directed by Dr. Bernardo Thrasher. These tests need not be, and therefore are not, approved by the [place] Food and Drug Administration. The tests are used for clinical purposes. Billing Codes Specimen Charges Stain Charges 20850 1 4 1:11 PM CDT DERMATOPATHOLOGY LABORATORY Embedded Images 4 1:11 PM CDT DERMATOPATHOLOGY LABORATORY Pathology/Cytolo gy TISSUE SPECIMEN FROM SKIN / Unknown 05/17/2024 10:28 AM CDT 05/22/2024 6:07 AM CDT Aisha Goldstein DO LAB - PATHOLOGY/C YTOLOGY ORDERABLES DERMATOPATHOLOGY LABORATORY [facility] - Department of Dermatology [address], [address] [phone] documented in this encounter Visit Diagnoses Not on filedocumented in this encounter Care Teams Metal Framer Relationship Specialty Start Date End Date Donavon Mcdowell MD [address] [place] [address] PCP - General 06/15/13 documented as of this encounter
[2024-10-24 09:07] LABS: Alanine Aminotransferase 36 U/L (6-50); Albumin Level 4.6 g/dL (3.5-5.1); Alkaline Phosphatase 52 U/L (38-126); Anion Gap 12 mmol/L (4-12); Aspartate Amino Transferase 30 U/L (17-59); Blood Urea Nitrogen 19 mg/dL (9-20); Carbon Dioxide 25 mmol/L (22-30); Chloride 103 mmol/L (98-107); Cholesterol 136 mg/dL (0-200); Estimated Glomerular Filt Rate > 60; Glucose 147 mg/dL (65-110); HDL Direct 41 mg/dL; Potassium 4.2 mmol/L (3.4-5.0); Sodium 140 mmol/L (137-145); Triglycerides 257 mg/dL (<150)
[2024-10-24 09:18] LABS: LDL Cholesterol Direct 50 mg/dL
[2024-10-24 10:01] LABS: Creatinine Urine 96.4 mg/dL
[2024-10-24 10:04] LABS: MALB Creatinine Ratio 50.5 mg/g (0-30); Microalbumin Urine Random 48.7 mg/L (0-16.7)
[2024-10-24 13:08] LABS: Hemoglobin A1C 6.3 % (<5.7)
== END 2024-10-24 07:33 | disposition home or self-care (01) ==
PROVIDERS: PCP Nurse Practitioner; Visit Provider Nurse Practitioner
DX: E78.5 Hyperlipidemia, unspecified (principal); E11.9 Type 2 diabetes mellitus without complications
CPT/HCPCS: 36415; 80053; 80061; 82043; 83036

== ENCOUNTER 2025-03-09 13:17 | Emergency (ER) | payer MEDICARE, OTHER, SELFPAY ==
--- NOTE | ~2025-03-09 | XR_ITS ---
XR chest 2V Ordering provider: Saúl Garcia APRN History: 79 years Male with . Dizzy . Comparison: October 10, 2019 FINDINGS: MEDIASTINUM: The cardiac silhouette is not enlarged. LUNGS: No infiltrates, effusions or pneumothorax. OTHER: No free air under the diaphragm. IMPRESSION: No acute cardiopulmonary pathology. Reviewed, dictated and finalized at location A.
--- NOTE | ~2025-03-09 | CT_ITS ---
CT brain wo con Ordering provider: Bre Geller PA-C History: 79 years Male with . dizziness . Comparison: June 01, 2005 Technique: CT of the head without contrast. Radiation reduction technique utilized.The dose-length pr oduct was 605.33 mGy-cm. FINDINGS: BRAIN PARENCHYMA AND CSF SPACES: Moderate leukoaraiosis and diffuse cortical atrophy. Moderate athero matous disease. No midline shift, mass effect or hemorrhage. The brain parenchyma and CSF spaces are otherwise normal. VISUALIZED PARANASAL SINUSES: Well aerated. MASTOIDS: Well aerated. BONES: The bones appear intact. SOFT TISSUES: Visualized nasopharynx is normal. Superficial soft tissues are normal. IMPRESSION: No acute intracranial findings. Reviewed, dictated and finalized at location A.
[2025-03-09 13:20] VITALS: BP 139/64; PULSE 68; RESP 20; TEMP 36.4; O2SAT 98
--- NOTE | 2025-03-09 13:24 | ECG_ITS ---
Test Date: 2025-03-09 13:29:02 Measurements Intervals [place] Rate: 62 P: -9 [place]: 189 QRS: -58 QRSD: 166 T: 101 QT: 468 QTc: 476 Interpretive Statements SINUS RHYTHM LEFT AXIS DEVIATION LEFT BUNDLE BRANCH BLOCK BASELINE ARTIFACT- I, II, III, AVR, AVL, AVF, V4 ABNORMAL ECG No previous ECG available for comparison Electronically Signed On 03-09-2025 13:45:03 CDT by Evans Vann D.O.
[2025-03-09 13:40] LABS: Basophils Percent Auto 0.3 % (0.2-1.2); Eosinophils Absolute Auto 0.1 K/mm3 (0-0.3); Eosinophils Percent Auto 1.2 % (0-4.4); Hematocrit 42.4 % (42.0-52.0); Hemoglobin 14.4 g/dL (14.0-18.0); Immature Granulocyte Absolute 0.02 K/mm3 (0.00-0.031); Immature Granulocyte Percent A 0.3 % (0-0.5); Lymphocytes Absolute Auto 2.05 K/mm3 (0.9-3.2); Lymphocytes Percent Auto 27.9 % (18.3-44.2); Mean Corpuscular Hemoglobin 28.9 pg (26-34); Mean Corpuscular Volume 85.1 fl (80-100); Mean Platelet Volume 9.2 fl (7.4-10.4); Monocytes Absolute Auto 0.6 K/mm3 (0.1-0.6); Monocytes Percent Auto 8.3 % (2.6-8.5); Neutrophils Absolute Auto 4.6 K/mm3 (1.3-6.7); Platelet Count Result 208 k/mm3 (150-375); Red Blood Count 4.98 M/mm3 (4.6-6.20); Red Cell Distribution Width 13.1 % (11.5-14.5); White Blood Count 7.4 K/mm3 (4.5-10.0)
[2025-03-09 13:49] VITALS: BP 118/70; PULSE 70; RESP 18; O2SAT 98
[2025-03-09 13:54] LABS: Alanine Aminotransferase 40 U/L (6-50); Albumin Level 4.6 g/dL (3.5-5.1); Alkaline Phosphatase 49 U/L (38-126); Anion Gap 10 mmol/L (4-12); Aspartate Amino Transferase 34 U/L (17-59); Bilirubin,Total 0.6 mg/dL (0.2-1.3); Blood Urea Nitrogen 19 mg/dL (9-20); Calcium 9.9 mg/dL (8.4-10.2); Carbon Dioxide 26 mmol/L (22-30); Chloride 102 mmol/L (98-107); Estimated CRCL calculation 62 ml/min; Estimated Glomerular Filt Rate > 60; Glucose 136 mg/dL (65-110); Potassium 4.4 mmol/L (3.4-5.0); Sodium 138 mmol/L (137-145); Total Protein 7.7 g/dL (6.3-8.2)
[2025-03-09 14:05] VITALS: BP 120/61; PULSE 62
[2025-03-09 14:06] VITALS: BP 128/66; PULSE 64
[2025-03-09 14:08] VITALS: BP 138/68; PULSE 64
[2025-03-09 14:18] LABS: Creatine Kinase 54 U/L (55-170)
[2025-03-09 14:29] LABS: Add Urine Microscopic? YES; Appearance Urine Clear (Clear); Bacteria Urine None Seen /hpf; Bilirubin Urine Negative (Negative); Blood Urine Trace (Negative); Color Urine Yellow (Yellow); Glucose Urine UA Negative (Negative); Ketones Urine Trace mg/dL (Negative); Leukocyte Esterase Ur Negative LEU/UL (Negative); Nitrate Urine Negative (Negative); Non Pathogenic Casts 0-2; Protein Urine Trace mg/dL (Negative); Specific Grav Ur 1.022 (1.001-1.035); Squamous Epithelial Cell Urine None Seen /hpf (Few); WBC Urine 0-5 /hpf (0-3)
--- NOTE | 2025-03-09 14:40 | PC.NURSE ---
Pt. pressed call light and had 1x episode of emesis containing undigested food. Pt. states it happens after he lays down and closes his eyes. Denies any nausea, dizziness or abd. pain. Pt. refusing any medications at this time. Pt. to CT.
--- NOTE | 2025-03-09 15:05 | ED_ITS ---
HPI - Dizziness General Chief Complaint: Dizziness Stated Complaint: Nv, dIZZY Time Seen by Provider: 03/09/25 14:07 Source: patient Mode of arrival: ambulatory Limitations: no limitations History of Present Illness HPI Narrative: This is a 79 year old male that presents to the ER for dizziness. Ongoing since this morning. Reports lightheadedness, feeling off balance. No previous episodes of same. Denies vision changes, focal numbness, weakness. Related Data Home Medications ?Medication ?Instructions ?Recorded ?Confirmed ?Last Taken ?Type multivitamin (Daily Multi-Vitamin 1 tablet PO DAILY 09/25/19 01/28/25 03/31/23 History tablet) omega-3 fatty acids 1,000 mg 2,000 mg PO BID 09/25/19 01/28/25 03/31/23 History capsule (Fish Oil Concentrate) psyllium husk 3.4 gram/5.4 gram 1 tsp PO DAILY 02/11/21 01/28/25 03/29/23 History oral powder (Metamucil) aspirin 81 mg tablet,delayed 81 mg PO DAILY 03/24/22 01/28/25 03/30/23 History release metoprolol tartrate 25 mg tablet 25 mg PO BID 03/31/23 01/28/25 03/31/23 History Allergies Allergy/AdvReac Type Severity Reaction Status Date / Time No Known Allergies Allergy Verified 01/25/25 08:39 Review of Systems 2 Review of Systems: All systems reviewed & are unremarkable except as noted in HPI and below PMFSH Past Medical History Medical History COVID-19 Squamous cell carcinoma of skin Colon polyp Coronary artery disease 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 Moderate disease involving RCA but FFR negative 2014. Left bundle branch block Essential (primary) hypertension Mixed hyperlipidemia Primary osteoarthritis of both knees Type 2 diabetes mellitus without complication Surgical History Surgical History Status post right partial knee replacement (~10/2019) Status post left partial knee replacement (~07/21/20) History of squamous cell carcinoma excision Excision of multiple skin cancers from the head and neck. History of cataract surgery Family History Family History (Updated 10/31/24 @ 08:59 by ZACHERY Jordan) Sibling Malignant neoplasm of prostate Father No problems noted. Mother No problems noted. Other Cerebrovascular accident Hypertension Social History Social History Social History: The patient lives with his in [place]. They have no pets. He is a [place] with possible Agent [place] exposure. 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 No alcohol or illicit substance abuse. He designates his Pushpa as his surrogate decision maker and he wishes to be a full code. Smoking packs per day: 2 Smoking cigarettes per day: 40.0 Years smoked: 20 Smoking pack-years: 40.00 Smoking status: Former smoker Tobacco type: cigarettes Second hand tobacco smoke exposure: Yes Smoking end date: 09/19/79 Alcohol intake: never Substance use: never Substance use type: does not use Lack of Transportation: No Lack of Food: Never True Current Housing: I Have Housing Concerned About Future Housing: No Difficulty Paying Gas/Electric Bills: No Difficulty Paying for Meds: No Currently Unemployed: No Education: High School Diploma/GED Difficulty w/ Childcare or Family Care: No Living arrangements: with family Gender identity (if verbalized by the patient): Male Sexual Orientation (if Verbalized by the Patient): Straight or Heterosexual Spiritual care concerns: No Agree to blood products: Yes Exam 2 Narrative: GENERAL: Elderly, well-nourished, and in no acute distress. HEAD: Normocephalic, atraumatic. EYES: PERRLA and EOMI. ENT: Nares clear, no rhinorrhea or epistaxis. Mucous membranes moist. Oropharynx without tonsillar hypertrophy exudate or other lesions. Bilateral TMs pearly lino non-bulging NECK: Supple. No adenopathy or masses. CHEST: Clear to auscultation. No respiratory distress. No wheezes rales or rhonchi HEART: Regular rate and rhythm. No murmur heard. Normal peripheral pulses. EXTREMITIES: Normal range of motion. No edema. Strength equal in bilateral upper and lower extremities (5/5) SKIN: Warm, dry, no rash. NEURO: No focal deficits. Alert and oriented x3. Cranial nerves 2-12 grossly intact. Normal finger-nose PSYCH: Normal mood and affect Course Course Emergency Course: Ambulatory in the ED with a steady gait. Reports feeling much better Vital Signs Vital signs: Vital Signs Temperature 97.5 F L 03/09/25 13:20 Pulse Rate 68 03/09/25 13:20 Respiratory Rate 20 03/09/25 13:20 Blood Pressure 139/64 03/09/25 13:20 Pulse Oximetry 98 03/09/25 13:20 Oxygen Delivery Room Air 03/09/25 13:20 Temperature 97.5 F L 03/09/25 13:20 Pulse Rate 95 03/09/25 16:41 Respiratory Rate 14 03/09/25 16:41 Blood Pressure 125/70 03/09/25 16:41 Pulse Oximetry 99 03/09/25 16:41 Oxygen Delivery Room Air 03/09/25 13:49 MDM - Dizziness MDM Narrative Medical decision making narrative: Patient presents to the ER for dizziness. Ongoing since this morning. Reports associated nausea and vomiting. He is afebrile and nontoxic appearing. His vitals are stable. He is neurologically intact. CBC and metabolic panel without concerning findings. Urine without evidence of infection. Chest x-ray without acute cardiopulmonary abnormality. EKG appears unchanged. CT brain without acute findings. Patient hydrated, given meclizine and Zofran with relief. He with a steady gait. Instructed to follow-up with his primary provider for further evaluation. He was given warnings to return to the ER Differential Diagnosis Differential diagnosis: Likely benign paroxysmal positional vertigo, orthostatic hypotension, vertebral basilar insufficiency and other (Dehydration, arrhythmia, electrolyte derangement) Lab Data Attestation: I reviewed the patient's lab results. 03/09/25 13:35 03/09/25 13:35 Labs: Lab Results 03/09/25 03/09/25 Range/Units 13:35 14:17 WBC 7.4 (4.5-10.0) K/mm3 RBC 4.98 (4.6-6.20) M/mm3 Hgb 14.4 (14.0-18.0) g/dL Hct 42.4 (42.0-52.0) % MCV 85.1 (80-100) fl MCH 28.9 (26-34) pg MCHC 34.0 (32-36) g/dl RDW 13.1 (11.5-14.5) % Plt Count 208 (150-375) k/mm3 MPV 9.2 (7.4-10.4) fl Immature Gran % (Auto) 0.3 (0-0.5) % Neut % (Auto) 62.0 (45.5-73.1) % Lymph % (Auto) 27.9 (18.3-44.2) % [place] % (Auto) 8.3 (2.6-8.5) % Eos % (Auto) 1.2 (0-4.4) % Baso % (Auto) 0.3 (0.2-1.2) % Lymph # (Auto) 2.05 (0.9-3.2) K/mm3 [place] # (Auto) 0.6 (0.1-0.6) K/mm3 Eos # (Auto) 0.1 (0-0.3) K/mm3 Baso # (Auto) 0.0 (0.0-0.1) K/mm3 Abs Immat Gran (auto) 0.02 (0.00-0.031) K/mm3 Absolute Neuts (auto) 4.6 (1.3-6.7) K/mm3 Absolute Nucleated RBC 0.000 (0.0-0.012) K/mm3 Nucleated RBC % 0.0 (0.0-0.2) % Sodium 138 (137-145) mmol/L Potassium 4.4 (3.4-5.0) mmol/L Chloride 102 (98-107) mmol/L Carbon Dioxide 26 (22-30) mmol/L Anion Gap 10 (4-12) mmol/L BUN 19 (9-20) mg/dL Creatinine 0.89 (0.7-1.3) mg/dL Estim Creat Clear Calc 62 ml/min Estimated GFR > 60 (59 - ) Glucose 136 H (65-110) mg/dL Calcium 9.9 (8.4-10.2) mg/dL Total Bilirubin 0.6 (0.2-1.3) mg/dL AST 34 (17-59) U/L ALT 40 (6-50) U/L Alkaline Phosphatase 49 (38-126) U/L Total Creatine Kinase 54 L (55-170) U/L Total Protein 7.7 (6.3-8.2) g/dL Albumin 4.6 (3.5-5.1) g/dL Urine Color Yellow (Yellow) Urine Appearance Clear (Clear) Urine pH 7.0 (5.0-9.0) Ur Specific [place] 1.022 (1.001-1.035) Urine Protein Trace (Negative) mg/dL Urine Glucose (UA) Negative (Negative) mg/dL Urine Ketones Trace H (Negative) mg/dL Ur Blood (Man) Trace (Negative) Urine Nitrate Negative (Negative) Urine Bilirubin Negative (Negative) Urine Urobilinogen 1.0 (<2.0) mg/dL Leukocyte Esterase Rfl Negative (Negative) KATE/UL Urine RBC 6-10 H (0-2) /hpf Urine WBC 0-5 (0-3) /hpf Ur Squamous Epith Cells None seen (Few) /hpf Urine Bacteria None seen /hpf Urine Casts 0-2 Imaging Data Radiologist's impression: ITS Impressions Chest X-Ray 03/09/25 14:23 IMPRESSION: No acute cardiopulmonary pathology. Head CT 03/09/25 15:00 IMPRESSION: No acute intracranial findings. ECG Data EKG #1: ECG completion date: 03/09/25 EKG Interpretation: normal rate, sinus rhythm, LBBB and no acute changes (compared to EKG 07/2020) Critical Care Time Critical Care Time Critical Care Time: No Discharge Plan Discharge Clinical Impression: Dizziness Patient Disposition: Home Condition: Stable Instructions: Acute Nausea and Vomiting (ED), Benign Paroxysmal Positional Vertigo (ED), Dizziness (ED) Additional Instructions: Return to the emergency department if you experience fever, vision changes, chest pain, shortness of breath, abdominal pain with nausea and vomiting, weakness, numbness, you pass out, or any other symptoms that are concerning to you. Your blood work, imaging are re-assuring today Remain well hydrated. You may take ondansetron as needed for nausea. Meclizine as needed for dizziness Follow up with your primary care doctor for further evaluation Patient Language: Irish Prescriptions: New ondansetron 4 mg tablet,disintegrating 4 mg PO Q8H PRN (Reason: nausea and vomiting) Qty: 10 0RF meclizine [Dramamine (meclizine)] 25 mg tablet,chewable 25 mg PO BID PRN (Reason: dizziness) Qty: 10 0RF No Action metformin 500 mg tablet See Rx Instructions .ROUTE .COMPLEX Qty: 90 3RF Dose Instruction: TAKE 1 TABLET BY MOUTH DAILY WITH EVENING MEAL Rx Instructions: TAKE 1 TABLET BY MOUTH DAILY WITH EVENING MEAL omega-3 fatty acids [Fish Oil Concentrate] 1,000 mg capsule 2,000 mg PO BID multivitamin [Daily Multi-Vitamin] Tablet 1 tablet PO DAILY Metamucil 3.4 gram/5.4 gram powder 1 tsp PO DAILY Rx Instructions: mix into at least 4 oz water or juice before administering Pat[place] Once Daily Relief 0.7 % drops 1 drp EACH EYE DAILY PRN (Reason: itching) Qty: 5 1RF aspirin 81 mg tablet,delayed release (DR/EC) 81 mg PO DAILY metoprolol tartrate 25 mg Tablet 25 mg PO BID (DME) blood-glucose meter Kit See Rx Instructions .Route Qty: 1 0RF Rx Instructions: check blood sugars 1xdaily (DME) lancets [Ultra Thin Lancets] 30 gauge misc See Rx Instructions .ROUTE .COMPLEX Qty: 100 1RF Dose Instruction: TEST ONCE DAILY Rx Instructions: TEST ONCE DAILY (DME) Blood Glucose Test Strip See Rx Instructions .Route Qty: 50 0RF Rx Instructions: check blood sugar 1xdaily (DME) True Metrix Glucose Test Strip Strip See Rx Instructions .ROUTE .MEDSUPPLY Qty: 100 1RF Rx Instructions: Use to test blood sugar once daily simvastatin 20 mg tablet See Rx Instructions .ROUTE .COMPLEX Qty: 90 3RF Dose Instruction: TAKE 1 TABLET BY MOUTH IN THE EVENING Rx Instructions: TAKE 1 TABLET BY MOUTH IN THE EVENING isosorbide mononitrate 30 mg tablet extended release 24 hr See Rx Instructions .ROUTE .COMPLEX Qty: 90 3RF Dose Instruction: TAKE 1 TABLET BY MOUTH DAILY IN THE MORNING Rx Instructions: TAKE 1 TABLET BY MOUTH DAILY IN THE MORNING losartan 100 mg tablet See Rx Instructions .ROUTE .COMPLEX Qty: 90 3RF Dose Instruction: TAKE 1 TABLET BY MOUTH IN THE MORNING Rx Instructions: TAKE 1 TABLET BY MOUTH IN THE MORNING Follow-up/Referrals: Saúl Garcia APRN [Primary Care Provider] -
[2025-03-09] MEDS: SODIUM CHLORIDE 0.9% IV 1,000 ML 999 ML IV CONT (15:28)
[2025-03-09] MEDS: FAMOTIDINE 20 MG/2 ML VIAL IV PUSH (15:32)
[2025-03-09] MEDS: ONDANSETRON INJ 4 MG/2 ML VIAL IV PUSH (15:32)
[2025-03-09] MEDS: MECLIZINE HCL 25 MG TABLET PO (15:32)
[2025-03-09 16:41] VITALS: BP 125/70; PULSE 95; RESP 14; O2SAT 99
--- NOTE | 2025-03-09 16:41 | PC.NURSE ---
Pt. ambulated independently without difficulty. Denies any nausea or dizziness. Pt. states yeah, I think I feel a lot better. NATIVIDAD Geller notified.
== END 2025-03-09 17:07 | disposition home or self-care (01) ==
PROVIDERS: Emergency Provider Physician Assistant; PCP Nurse Practitioner
DX: R42 Dizziness and giddiness (principal); I25.10 Atherosclerotic heart disease of native coronary artery without angina pectoris; I25.2 Old myocardial infarction; I10 Essential (primary) hypertension; E78.2 Mixed hyperlipidemia; E11.9 Type 2 diabetes mellitus without complications; M17.0 Bilateral primary osteoarthritis of knee; Z96.653 Presence of artificial knee joint, bilateral; Z86.16 Personal history of COVID-19; Z85.828 Personal history of other malignant neoplasm of skin; Z86.0100 Personal history of colon polyps, unspecified; Z87.891 Personal history of nicotine dependence; Z98.49 Cataract extraction status, unspecified eye; Z79.84 Long term (current) use of oral hypoglycemic drugs; Z79.82 Long term (current) use of aspirin; Z79.899 Other long term (current) drug therapy
CPT/HCPCS: 36415; 70450; 71046; 80053; 81001; 82550; 85025; 93005; 96361; 96374; 96375; 99284; A9270; J2405; J7030

== ENCOUNTER 2025-05-21 06:59 | Outpatient (CLI) | payer MEDICARE, OTHER, SELFPAY ==
[2025-05-21 07:54] LABS: Hematocrit 43.5 % (42.0-52.0); Hemoglobin 14.7 g/dL (14.0-18.0); Immature Granulocyte Percent A 0.1 % (0-0.5); Lymphocytes Absolute Auto 1.93 K/mm3 (0.9-3.2); Mean Corpuscular HGB Conc 33.8 g/dl (32-36); Mean Corpuscular Hemoglobin 29.2 pg (26-34); Mean Corpuscular Volume 86.3 fl (80-100); Nucleated Red Blood Cells Absolute Auto 0.000 K/mm3 (0.0-0.012); Nucleated Red Blood Cells Perc 0.0 % (0.0-0.2); Platelet Count Result 195 k/mm3 (150-375); Red Blood Count 5.04 M/mm3 (4.6-6.20); White Blood Count 6.9 K/mm3 (4.5-10.0)
[2025-05-21 08:18] LABS: Alanine Aminotransferase 39 U/L (6-50); Albumin Level 4.3 g/dL (3.5-5.1); Alkaline Phosphatase 61 U/L (38-126); Anion Gap 10 mmol/L (4-12); Aspartate Amino Transferase 35 U/L (17-59); Bilirubin,Total 0.5 mg/dL (0.2-1.3); Blood Urea Nitrogen 14 mg/dL (9-20); Calcium 9.7 mg/dL (8.4-10.2); Carbon Dioxide 24 mmol/L (22-30); Chloride 104 mmol/L (98-107); Estimated Glomerular Filt Rate > 60; Glucose 166 mg/dL (65-110); Potassium 4.4 mmol/L (3.4-5.0); Sodium 138 mmol/L (137-145); Total Protein 7.6 g/dL (6.3-8.2)
== END 2025-05-21 07:00 | disposition home or self-care (01) ==
PROVIDERS: PCP Nurse Practitioner; Visit Provider Internal Medicine Cardiovascular Disease
DX: Z01.812 Encounter for preprocedural laboratory examination (principal); I25.10 Atherosclerotic heart disease of native coronary artery without angina pectoris; R07.89 Other chest pain
CPT/HCPCS: 36415; 80053; 85025

== ENCOUNTER 2025-07-26 07:05 | Outpatient (CLI) | payer MEDICARE, OTHER, SELFPAY ==
[2025-07-26 08:21] LABS: Alanine Aminotransferase 27 U/L (6-50); Albumin Level 4.3 g/dL (3.5-5.1); Alkaline Phosphatase 57 U/L (38-126); Anion Gap 9 mmol/L (4-12); Aspartate Amino Transferase 31 U/L (17-59); Bilirubin,Total 0.7 mg/dL (0.2-1.3); Blood Urea Nitrogen 16 mg/dL (9-20); Calcium 9.6 mg/dL (8.4-10.2); Carbon Dioxide 25 mmol/L (22-30); Chloride 104 mmol/L (98-107); Cholesterol 119 mg/dL (0-200); Estimated Glomerular Filt Rate > 60; Glucose 154 mg/dL (65-110); HDL Direct 38 mg/dL; Potassium 4.1 mmol/L (3.4-5.0); Sodium 138 mmol/L (137-145); Total Protein 7.8 g/dL (6.3-8.2); Triglycerides 242 mg/dL (<150)
[2025-07-26 10:01] LABS: Hemoglobin A1C 6.6 % (<5.7)
== END 2025-07-26 07:06 | disposition home or self-care (01) ==
LOC: ANHLAB 07:06
PROVIDERS: PCP Internal Medicine; Visit Provider Nurse Practitioner
DX: E78.5 Hyperlipidemia, unspecified (principal); E11.9 Type 2 diabetes mellitus without complications
CPT/HCPCS: 36415; 80053; 80061; 83036

== ENCOUNTER 2025-08-02 00:11 | Inpatient (IN) | payer MEDICARE, OTHER, SELFPAY ==
[2025-08-02] VITALS (57 sets, daily range): BP systolic 93–171; BP diastolic 52–82; PULSE 56–89; RESP 13–20; TEMP 36.3–36.6; O2SAT 95–100
--- NOTE | ~2025-08-02 | CT_ITS ---
CT ABDOMEN AND PELVIS WITHOUT CONTRAST Clinical History: Concern for kidney stones Comparison: None Technique: Unenhanced axial images lung bases to symphysis pubis Coronal, sagittal reformats CT images acquired with automatic exposure control for dose reduction DLP: 283 mGy-cm Findings: Without intravenous contrast, sensitivity for detecting visceral parenchymal abnormalities decreased. Lung bases: Clear. Visualized heart and pericardium: Unremarkable. Liver: Enlarged. Steatosis. Micronodular contour Gallbladder: Unremarkable. Spleen: Unremarkable. Pancreas: Unremarkable. Adrenal glands: Unremarkable. Kidneys: Right kidney- No hydronephrosis. No renal stones. Left kidney- Hydronephrosis. No renal stones. Large mass with mural calcifications. 4 mm stone distal ureter. Distal esophagus/stomach: Unremarkable. Small bowel loops: Normal caliber and wall thickness. Colon: Diverticula. Normal caliber and wall thickness. Normal RLQ appendix. Nodes: No enlarged nodes. Peritoneum: No ascites. No free intraperitoneal air. Urinary bladder: Wall thickening but under distended. Prostate: Unremarkable. Bones: No acute bony abnormality. Soft tissues: Unremarkable. Unopacified abdominal aorta: No aneurysmal dilatation. Atherosclerotic disease. IMPRESSION: 1. Large indeterminate mass left kidney. Malignancy not excluded. Recommend CT or MRI renal protocol, as well as urology consultation. 2. Left kidney hydronephrosis with 4 mm stone distal ureter. Reviewed, dictated and finalized at location R. [facility]
--- NOTE | ~2025-08-02 | XR_ITS ---
EXAM/PROCEDURE: XR retrograde pyelo w/stent LT HISTORY: LEFT CYSTO SPECIAL COMPARISON: None available. TECHNIQUE: Fluoroscopic guided retrograde pyelogram. Fluoroscopy time: 7.3 seconds Dose: 0.7239 mg/sq m FINDINGS: No radiologist present for procedure. Retrograde placement of catheter into the left collecting system with ill-defined left renal collecting system on contrast injection. Visualized portion of the ureter unremarkable. IMPRESSION: As above. See also operative/procedure notes for complete evaluation. Reviewed, dictated and finalized at location A. [facility]
--- OUTSIDE RECORDS SUMMARY | 2025-08-02 00:15 | XMS_ITS | Encounter Summary ---
Author Organization [facility] Care Team Providers Care Diagnostic Sales Specialist Name Role Phone Donavon Mcdowell MD Primary Care Provider [phone] Naresh Harris MD Unavailable [phone] Brandyn Faust DO Primary Care Provider [phone] Ancelmo Goodman MD Primary Care Provider [phone] Brandyn Faust DO Primary Care Provider [phone] Encounter Details Date Type Department Care Team (Latest Contact Info) Description 04/08/2017 Orders Only [facility]IN[facility] ProviderBarber MD [address] [place] [id number] Social History Tobacco Use Types Packs/Day Years Used Date Smoking Tobacco: Never Assessed Sex and Gender Information Value Date Recorded Sex Assigned at Not on file 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 Gender Identity Not on file Sexual Orientation [...] on filedocumented in this encounter Care Teams Diagnostic Sales Specialist Relationship Specialty Start Date End Date Donavon Mcdowell MD PCP - General Internal Medicine 12/15/18 07/21/20 Brandyn Faust DO [address] [place] [address] [address] PCP - General Internal Medicine 07/22/20 03/08/23 Ancelmo Goodman MD [address] [place] [address] [address] PCP - General Family Practice 03/09/23 11/26/24 Brandyn Faust DO [address] [place] [address] [address] PCP - General Internal Medicine 11/27/24 Naresh Harris MD [address] [place] [address] [address] Food Truck Caterer Cardiology 07/05/19 documented as of this encounter
--- OUTSIDE RECORDS SUMMARY | 2025-08-02 00:15 | XMS_ITS | Encounter Summary ---
Author Organization [facility] Care Team Providers Care Service Learning Coordinator Name Role Phone Donavon Mcdowell MD Primary Care Provider [phone] Naresh Harris MD Unavailable [phone] Brandyn Faust DO Primary Care Provider [phone] Ancelmo Goodman MD Primary Care Provider [phone] Brandyn Faust DO Primary Care Provider [phone] Encounter Details Date Type Department Care Team (Latest Contact Info) Description 06/07/2018 Orders Only [facility] CLINCONV ProviderBarber MD [address] [place] [id number] Social History Tobacco Use Types Packs/Day Years Used Date Smoking Tobacco: Never Assessed Sex and Gender Information Value Date Recorded Sex Assigned at Not on file 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 Gender Identity Not on file Sexual Orientation [...] on filedocumented in this encounter Care Teams Service Learning Coordinator Relationship Specialty Start Date End Date Donavon Mcdowell MD PCP - General Internal Medicine 12/15/18 07/21/20 Brandyn Faust DO [address] [facility] [address] [address] [address] [address] [place] [address] [address] PCP - General Internal Medicine 07/22/20 03/08/23 Ancelmo Goodman MD [address] [facility] [address] [address] [address] [place] [address] [address] PCP - General Family Practice 03/09/23 11/26/24 Brandyn Faust DO [address] [facility] [address] [facility] [address] [address] [place] [address] [address] PCP - General Internal Medicine 11/27/24 Naresh Harris MD [address] [facility] [address] [address] [address] [place] [address] [address] Industrial Technician Cardiology 07/05/19 documented as of this encounter
--- OUTSIDE RECORDS SUMMARY | 2025-08-02 00:15 | XMS_ITS | Clinical Summary ---
Author Organization [facility] Address [address] [place] [address] Care Team Providers Care Ribbon Blockmaker Name Role Phone Donavon Mcdowell MD Primary Care Provider [phone] Source Comments [facility],non-owned Affiliates and Associated Physician Practices is amultiple site organization consisting of ambulatory clinics and hospital sitesin [place], [place], [place] and [place]. This disclosure is being madepursuant to the Care Everywhere program and may not contain all information available regarding this patient. Last updated 18.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 Gender Identity Not on file Sexual Orientation Not on file Plan of Treatment Health Maintenance Due Date Last Done Comments MEDICARE AWV 12 MONTHS 1944 DTAP/TDAP/TD VACCINES (1 - Tdap) 1963 PNEUMOCOCCAL VACCINE 50+ (1 of 1 - PCV) 1994 ZOSTER VACCINE (1 of 2) 1994 Respiratory Syncytial Virus (RSV) Vaccine Pt: or over 60 yrs (1 - 1-dose 75+ series) 2019 DEPRESSION SCREENING 09/19/2024 COVID-19 VACCINE ( - 2024-2 6 season) 2025 INFLUENZA VACCINE (#1) 2025 HEPATITIS B VACCINE Aged Out No longe r eligible based on patient's age to complete this topic HIB VACCINE Aged Out No longer eligi ble based on patient's age to complete this topic HPV VACCINE Aged Out No longer eligi ble based on patient's age to complete this topic MENINGOCOCCAL (Group B) VACC INE SHARED DECISION-MAKING Aged Out No longer eligibl e based on patient's age to complete this topic MENINGOCOCCAL GROUPS A/C/Y/W VACCINE Aged Out No longer eligible b ased on patient's age to complete this topic Insurance MEDICARE [facility] MEDICARE [facility] Care Teams Ribbon Blockmaker Relationship Specialty Start Date End Date Donavon Mcdowell MD [address] [place] [id number] PCP - General 06/15/13
--- OUTSIDE RECORDS SUMMARY | 2025-08-02 00:15 | XMS_ITS | Clinical Summary ---
Author Organization [facility] Address [address] [place] [address] Care Team Providers Care Travel Agency Manager Name Role Phone Unavailable Primary Care Provider Unavailabl e Allergies No known active allergies Encounters Date Type Department Care Team Description 06/17/2025 11:49 AM CDT - 06/17/2025 1:45 PM CDT Emergency [facility] Emergency Department [address] [place] [id number] Sundar Aguillon MD Fall, initial encounter (Primary Dx); Laceration of scalp, initial encounter Discharge Disposition: Home from Last 3 Months Immunizations Immunization Administration Dates Next Due Tdap 06/17/2025 Social History Tobacco Use Types Packs/Day Years Used Date Smoking Tobacco: Never Assessed Humiliation, Afraid, Rape, and Kick questionnair e Answer Date Recorded Within the last year, have y ou been afraid of your partner or ex-partner? No 06/17/2025 Within the last year, have y ou been humiliated or emotionally abused in other ways by your partner or ex-partner? No Within the last year, have y ou been kicked, hit, slapped, or otherwise physically hurt by your partner or ex-partner? No 06/17/2025 Within the last year, have y ou been raped or forced to have any kind of sexual activity by your partner or ex-partner? No 06/17/2025 Hunger Vital Sign Answer Date Recorded Within the past 12 months, y ou worried that your food would run out before you got the money to buy more. Never true 06/17/20 25 Within the past 12 months, t he food you bought just didn't last and you didn't have money to get more. Never true 06/17/2025 PRAPARE - Transportation Answer Date Re corded In the past 12 months, has l ack of transportation kept you from medical appointments or from getting medications? No 05/21 In the past 12 months, has l ack of transportation kept you from meetings, work, or from getting things needed for daily living? No 06/17/2025 Housing Stability Vital Sign Answer Sukhjinder e Recorded In the last 12 months, was t here a time when you were not able to pay the mortgage or rent on time? No 06/17/2025 Number of Times Moved in the Last Year Not on fi le 06/17/2025 Homeless in the Last Year Not on file [address] [facility] Utilities Answer Date Recorded In the past 12 months has th e electric, gas, oil, or water company threatened to shut off services in your home? No 06/17/2025 Sex and Gender Information Value Date Recorded Sex Assigned at Not on file Legal Sex Male 11:44 AM CDT Gender Identity Not on file Sexual Orientation Not on file Last Filed Vital Signs Vital Sign Reading Time Taken Comments Blood Pressure 147/79 06/17/2025 11:51 AM CDT Pulse 70 06/17/2025 11:51 AM CDT Temperature 37 C (98.6 F) 06/17/2025 11:51 AM CDT Respiratory Rate 18 06/17/2025 11:51 AM CDT Oxygen Saturation 98% 06/17/2025 11:51 AM CDT Inhaled Oxygen Concentration - - Weight 89.8 kg (198 lb) 06/17/2025 11:51 AM CDT Height 170.2 cm (5' 7) 06/17/2025 11:51 AM CDT Body Mass Index 31.01 06/17/2025 11:51 AM CDT Plan of Treatment Health Maintenance Due Date Last Done Comments YEARLY WELLNESS EXAM 1947 DEPRESSION SCREENING 1956 BMI Above/Below Normal Parameters 1962 LIPID TESTING 1979 Zoster Vaccine (Recombinant Vaccine) (1 of 2) 1994 Fall Risk Assessment 2009 RSV Vaccines (1 - 1-dose 75+ series) 2019 Influenza Vaccine 04/19/2025 COVID-19 Immunization ( season) 2025 11/28/2020, 10/31/2020 ADULT TETANUS 06/17/2035 06/17/2025, 11/02/2024, 05/27/2014 Pneumococcal Vaccine: 50 and over Completed 06/30/2017, 06/21/2016 HEPATITIS A VACCINES Aged Out No long er eligible based on patient's age to complete this topic HEPATITIS B VACCINES Aged Out No long er eligible based on patient's age to complete this topic HIB VACCINES Aged Out No longer eligi ble based on patient's age to complete this topic HPV VACCINES Aged Out No longer eligi ble based on patient's age to complete this topic IPV VACCINES Aged Out No longer eligi ble based on patient's age to complete this topic MENINGOCOCCAL VACCINE Aged Out No amber claribel eligible based on patient's age to complete this topic Meningococcal B Vaccine Aged Out No l onger eligible based on patient's age to complete this topic ROTAVIRUS VACCINES Aged Out No longer eligible based on patient's age to complete this topic Procedures Procedure Name Priority Date/Time Associated Diagnosis Comments LACERATION REPAIR Routine 06/17/2025 1:[address] HEAD WO CONTRAST STAT 06/17/2025 1 2:37 PM CDT from Last 3 Months Results * LACERATION REPAIR (06/17/2025 1:34 PM CDT) Narrative Sundar Aguillon MD - 06/17/2025 1:34 PM CDT Sundar Aguillon MD 06/17/2025 1:39 PM LACERATION REPAIR Date/Time: 06/17/2025 1:34 PM Performed by: Sundar Aguillon MD Authorized by: Sundar Aguillon MD Consent: Consent obtained: Verbal Consent given by: Patient and spouse Risks discussed: Infection, pain, retained foreign body, poor cosmetic result, need for additional repair, nerve damage and poor wound healing Alternatives discussed: No treatment [place] protocol: Procedure explained and questions answered to patient or proxy's satisfaction: yes Imaging studies available: yes Patient identity confirmed: Verbally with patient and arm band Anesthesia: Anesthesia method: Local infiltration Local anesthetic: Lidocaine 1% WITH epi Laceration details: Location: Scalp Scalp location: Frontal Length (cm): 2 Depth (mm): 5 Pre-procedure details: Preparation: Patient was prepped and draped in usual sterile fashion Exploration: Limited defect created (wound extended): yes Hemostasis achieved with: Direct pressure Imaging outcome: foreign body not noted Wound exploration: wound explored through full range of motion Wound extent: no muscle damage noted, no nerve damage noted, no tendon damage noted, no underlying fracture noted and no vascular damage noted Contaminated: no Treatment: Area cleansed with: Chlorhexidine Amount of cleaning: Standard Irrigation solution: Sterile saline Irrigation volume: 500 Irrigation method: Syringe Visualized foreign bodies/material removed: no Debridement: None Undermining: None Scar revision: no Skin repair: Repair method: Sutures Suture size: 4-0 Suture material: Prolene Suture technique: Simple interrupted Number of sutures: 3 Approximation: Approximation: Close Repair type: Repair type: Simple Post-procedure details: Dressing: Open (no dressing) Procedure completion: Tolerated Sundar Aguillon MD PROCEDURE/MINOR SURGICAL ORDERAB LES Final Result * CT HEAD WO CONTRAST (06/17/2025 12:37 PM CDT) Anatomical Region Laterality Modality Head Computed Tomogra phy Narrative 06/17/2025 12:41 PM CDT EXAMINATION: HEAD CT WITHOUT CONTRAST INDICATION: Fall. TECHNIQUE: Noncontrast CT of the brain was performed with images acquired from skull base to vertex. 2-D coronal and sagittal reformatted images were obtained from the axial source images. Contrast Dose: None. CT Dose Reduction Techniques Performed: Yes. COMPARISON: None. FINDINGS: Intraparenchymal hemorrhage: None. Parenchyma: Normal lino-white differentiation. No evidence of acute large territorial infarct. No mass effect or midline shift. There is age-related mild diffuse cerebral volume loss. There is mild hypoattenuation of the periventricular white matter, a nonspecific finding most compatible with chronic microvascular ischemic change. Extra-axial spaces and basal cisterns: No extra-axial hematoma or fluid collection. Ventricles: Enlargement of the ventricles and sulci in keeping with age-related diffuse cerebral volume loss. Paranasal sinuses and mastoid air cells: Visualized portions of paranasal sinuses are clear. Mastoid air cells are clear. Orbits: Normal visualized portions. Sella/Skull Base: Normal. Other: The calvarium is normal. The skull base and sella are unremarkable. Soft tissues are normal. IMPRESSION: No acute intracranial abnormality. All CT scans are performed using dose optimization techniques as appropriate to the performed exam and include at least one of the following: Automated exposure control, adjustment of the mA and/or kV according to size, and the use of iterative reconstruction technique. Procedure Note Rasheed Barboza MD - 06/17/2025 EXAMINATION: HEAD CT WITHOUT CONTRAST INDICATION: Fall. TECHNIQUE: Noncontrast CT of the brain was performed with images acquiredfrom skull base to vertex. 2-D coronal and sagittal reformatted images were obtained from theaxial source images. Contrast Dose: None. CT Dose Reduction Techniques Performed: Yes. COMPARISON: None. FINDINGS: Intraparenchymal hemorrhage: None. Parenchyma: Normal lino-white differentiation. No evidence of acute largeterritorial infarct. No mass effect or midline shift. There is age-related mild diffusecerebral volume loss. There is mild hypoattenuation of the periventricular white matter, a nonspecificfinding most compatible with chronic microvascular ischemic change. Extra-axial spaces and basal cisterns: No extra-axial hematoma or fluidcollection. Ventricles: Enlargement of the ventricles and sulci in keeping withage-related diffuse cerebral volume loss. Paranasal sinuses and mastoid air cells: Visualized portions of paranasalsinuses are clear. Mastoid air cells are clear. Orbits: Normal visualized portions. Sella/Skull Base: Normal. Other: The calvarium is normal. The skull base and sella areunremarkable. Soft tissues are normal. IMPRESSION: No acute intracranial abnormality. All CT scans are performed using dose optimization techniques asappropriate to the performed exam and include at least one of the following: Automated exposure control, adjustment ofthe mA and/or kV according to size, and the use of iterative reconstruction technique. Sundar Aguillon MD [facility] CT ORDERABLES Final Resu lt from Last 3 Months Insurance [employer]
--- OUTSIDE RECORDS SUMMARY | 2025-08-02 00:15 | XMS_ITS | Encounter Summary ---
Author Organization [facility] Facility Care Team Providers Care Furnace Mechanic Helper Name Role Phone Donavon Mcdowell MD Primary Care Provider [phone] Naresh Harris MD Unavailable [phone] Brandyn Faust DO Primary Care Provider [phone] Ancelmo Goodman MD Primary Care Provider [phone] Brandyn Faust DO Primary Care Provider [phone] Encounter Details Date Type Department Care Team (Latest Contact Info) Description 12/02/2015 Orders Only [facility] CLINCON[facility] ProviderBarber MD [address] [place] [address] Social History Tobacco Use Types Packs/Day Years Used Date Smoking Tobacco: Never Assessed Sex and Gender Information Value Date Recorded Sex Assigned at Not on file 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 Gender Identity Not on file Sexual Orientation [...] on filedocumented in this encounter Care Teams Furnace Mechanic Helper Relationship Specialty Start Date End Date Donavon Mcdowell MD PCP - General Internal Medicine 12/15/18 07/21/20 Brandyn Faust DO [address] [place] [address] [address] PCP - General Internal Medicine 07/22/20 03/08/23 Ancelmo oGodman MD [address] [place] [address] [address] PCP - General Family Practice 03/09/23 11/26/24 Brandyn Faust DO [address] [place] [address] [address] PCP - General Internal Medicine 11/27/24 Naresh Harris MD [address] [place] [address] [address] [employer] Sheets Supervisor Cardiology 07/05/19 documented as of this encounter
--- OUTSIDE RECORDS SUMMARY | 2025-08-02 00:15 | XMS_ITS | Encounter Summary ---
Author Organization [facility] Facility Care Team Providers Care Payroll Examiner Name Role Phone Donavon Mcdowell MD Primary Care Provider [phone] Naresh Harris MD Unavailable [phone] Brandyn Faust DO Primary Care Provider [phone] Ancelmo Goodman MD Primary Care Provider [phone] Brandyn Faust DO Primary Care Provider Encounter Details Date Type Department Care Team (Latest Contact Info) Description 06/04/2016 Orders Only [facility] CLINCONV ProviderBarber MD [address] [place] [address] Social History Tobacco Use Types Packs/Day Years Used Date Smoking Tobacco: Never Assessed Sex and Gender Information Value Date Recorded Sex Assigned at Not on file 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 Gender Identity Not on file Sexual Orientation [...] on filedocumented in this encounter Care Teams Payroll Examiner Relationship Specialty Start Date End Date Donavon Mcdowell MD PCP - General Internal Medicine 12/15/18 07/21/20 Brandyn Faust DO [address] [place] [address] [address] PCP - General Internal Medicine 07/22/20 03/08/23 Ancelmo Goodman MD [address] [place] [address] [address] PCP - General Family Practice 03/09/23 11/26/24 Brandyn Faust DO [address] [place] [address] [address] PCP - General Internal Medicine 11/27/24 Naresh Harris MD [address] [place] [address] [address] Educational Institution Curator Cardiology 07/05/19 documented as of this encounter
--- OUTSIDE RECORDS SUMMARY | 2025-08-02 00:15 | XMS_ITS | Clinical Summary ---
Author Organization [facility] Office Center Address [address] [place] [address] Care Team Providers Care Hr Generalist Name Role Phone Naresh Harris MD Unavailable [phone] Brandyn Faust DO Primary Care Provider [phone] Allergies No known active allergies Medications aspirin 81 mg enteric coated tablet Take 1 tablet (81 mg total) by mouth daily Active isosorbide mononitrate ER (IMDUR) 30 mg 24 hr tablet 1 tablet (30 mg total) daily Active metFORMIN (GLUCOPHAGE) 500 mg tablet 1 tablet (500 mg total) daily Active simvastatin (ZOCOR) 20 mg tablet 1 tablet (20 mg total) daily Active omega 8-quh-smd-fish oil 910-1,400 mg capsule Take by mouth [...] TABLET BY MOUTH TWICE DAILY 180 tablet 1 5 Active ticagrelor (BRILINTA) 90 mg tablet Take 1 tablet (90 mg total) by mouth 2 (two) times a day 20 tablet Active Active Problems Problem Noted Date Diagnosed Date Coronary artery disease of n ative artery of [place] heart with stable angina pectoris 05/23/2025 Palpitations 05/15/2025 Atypical chest pain 03/09/2023 Pulmonary hypertension 03/03/2021 Cardiomyopathy 03/03/2021 Aortic valve sclerosis 08/19/2020 LBBB (left bundle branch block) 08/19/2020 Preoperative clearance 07/09/2020 Coronary artery disease 07/02/2016 Overview (07/11/2019): Moderate disease involving the right coronary artery but FFR is negative the right coronary artery in February 2015 Hyperlipidemia associated with type 2 diabetes m ellitus 07/02/2016 Hypertension 07/02/2016 Encounters Date Type Department Care Team Description 07/26/2025 1:45 PM REGULATORY COMPLIANCE DIRECTOR Office Visit [facility] Cardiology at [address] [place] [address] Massimo Quintana MD Coronary artery disease of [place] artery of [place] heart with stable angina pectoris (Primary Dx); Hyperlipidemia associated with type 2 diabetes mellitus (HCC); LBBB (left bundle branch block); Pulmonary hypertension (HCC); Cardiomyopathy, unspecified type (HCC) 06/18/2025 Telephone [facility] Cardiology [address] [place] [address] [place] [phone] Massimo Quintana MD Med Refill 05/27/2025 Telephone [facility] Cardiology [address] [place] [address] [address] [place] [phone] Massimo Quintana MD dental work after cath 05/24/2025 Telephone [facility] Cardiology [address] [place] [address] [place] [phone] Massimo Quintana MD 05/23/2025 1:30 PM CDT - 05/23/2025 3:05 PM CDT Surgery [facility] Cardiac Catheterization Lab [address] [place] [address] Lamont Steel MD LEFT HEART CATHETERIZATION WITH CORONARY ANGIOGRAPHY AND WITH OR WITHOUT LEFT VENTRICULOGRAM [id number] 05/23/2025 8:47 AM CDT - 05/24/2025 12:53 PM CDT Hospital Encounter [address] [address] Lamont Steel MD Atypical chest pain; Coronary artery disease, unspecified vessel or lesion type, unspecified whether angina present, unspecified whether [place] or transplanted heart Discharge Disposition: Discharge to home or self care 05/22/2025 Telephone [facility] Cardiology [address] [place] [address] [place] [phone] Massimo Quintana MD 05/15/2025 1:30 PM CDT Ancillary Procedure [facility] Cardiology [address] [place] [address] [address] [place] [address] Palpitations 05/15/2025 10:15 AM CDT Ancillary Procedure [facility] Cardiology at [address] [place] [address] LBBB (left bundle branch block); Coronary artery disease involving [place] coronary artery of [place] heart without angina pectoris; Cardiomyopathy, unspecified type (HCC) 05/15/2025 8:45 AM CDT Office Visit [facility] Cardiology [address] [place] [address] [place] [phone] Massimo Quintana MD Chest pain, unspecified type (Primary Dx); LBBB (left bundle branch block); Coronary artery disease involving [place] coronary artery of [place] heart without angina pectoris; Cardiomyopathy, unspecified type (HCC); Hyperlipidemia associated with type 2 diabetes mellitus (HCC); Pulmonary hypertension (HCC); Palpitations; Atypical chest pain 05/15/2025 Results Follow-Up [facility] Cardiology [address] [place] [address] [place] [phone] Massimo Quintana MD Transthoracic Echo (TTE) Complete W Doppler/CF 05/15/2025 Telephone [facility] Cardiology [address] [place] [address] [place] [phone] Massimo Quintana MD 05/13/2025 Telephone [facility] Cardiology [address] [place] [address] Massimo Quintana MD Chest Pain from Last 3 Months Surgical History Surgery Date Site/Laterality Comments KNEE SURGERY Bilateral CARDIAC CATHETERIZATION CARDIAC CATHETERIZATION 05/23/2025 N/A Procedure: LEFT HEART CATHETERIZATION WITH CORONARY ANGIOGRAPHY AND WITH OR WITHOUT LEFT VENTRICULOGRAM [id number]; Surgeon: Lamont Steel MD; Location: [facility]AC [facility]; Service: Cardiovascular; Laterality: N/A; Medical devices from this surgery are in the Medical Devices section. CARDIAC CATHETERIZATION 05/23/2025 N/A Procedure: ULTRASOUND GUIDANCE FOR VASCULAR ACCESS S&I [id number]; Surgeon: Lamont Steel MD; Location: [facility]AC [facility]; Service: Cardiovascular; Laterality: N/A; Medical devices from this surgery are in the Medical Devices section. CARDIAC CATHETERIZATION 05/23/2025 N/A Procedure: IVUS/OCT CORS OR GRAFTS, FIRST VESSEL (+) [id number]; Surgeon: Lamont Steel MD; Location: [facility]; Service: Cardiovascular; Laterality: N/A; Medical devices from this surgery are in the Medical Devices section. CARDIAC CATHETERIZATION 05/23/2025 N/A Procedure: Percutaneous Coronary Lithotripsy W/ PCI (+) [id number]; Surgeon: Lamont Steel MD; Location: [facility]; Service: Cardiovascular; Laterality: N/A; Medical devices from this surgery are in the Medical Devices section. CARDIAC CATHETERIZATION 05/23/2025 N/A Procedure: PCI BRI MAJOR CORONARY [id number] - [id number]; Surgeon: Lamont Steel MD; Location: [facility]IAC [facility]; Service: Cardiovascular; Laterality: N/A; Medical devices from this surgery are in the Medical Devices section. Medical History Medical History Date Comments Chest pain Coronary artery disease Hyperlipidemia Hypertension Heart murmur Diabetes mellitus Cataracts, bilateral Type 2 diabetes mellitus Family History Medical History Relation Name Comments [...] often do you have a drink containing alcohol? Never 05/23/2025 Q2: How many drinks containi ng alcohol do you have on a typical day when you are drinking? Patient does not drink Q3: How often do you have si x or more drinks on one occasion? Never 05/23/2025 Personal Safety Answer Date Recorded Have you ever been in or are you currently in a harmful physical or emotional relationship or is someone making you feel afraid or unsafe? Denies 05/23/2025 Sex and Gender Information Value Date Recorded Sex Assigned at Not on file Legal Sex Male 3:43 AM REGULATORY COMPLIANCE DIRECTOR Gender Identity Not on file Sexual Orientation Not on file Last Filed Vital Signs Vital Sign Reading Time Taken Comments Blood Pressure 138/68 07/26/2025 1:51 PM REGULATORY COMPLIANCE DIRECTOR Pulse 89 07/26/2025 1:51 PM REGULATORY COMPLIANCE DIRECTOR Temperature 36.5 C (97.7 F) 05/24/2025 8:22 AM CDT Respiratory Rate 18 05/24/2025 8:22 AM CDT Oxygen Saturation 98% 07/26/2025 1:51 PM REGULATORY COMPLIANCE DIRECTOR Inhaled Oxygen Concentration - - Weight 85.3 kg (188 lb) 07/26/2025 1:51 PM REGULATORY COMPLIANCE DIRECTOR Height 170.2 cm (5' 7) 07/26/2025 1:51 PM REGULATORY COMPLIANCE DIRECTOR Body Mass Index 29.44 07/26/2025 1:51 PM REGULATORY COMPLIANCE DIRECTOR Plan of Treatment Health Maintenance Due Date Last Done Comments Albumin Creatinine Ratio, Urine 1944 Depression Screening 1944 Hemoglobin A1C 1944 Dilated Eye Exam 1944 Foot Exam 1944 Hepatitis B Screening 1962 Zoster Vaccine (1 of 2) 1994 Abdominal Aortic Aneurysm (A AA) Screen 2009 Well Visit 65+ 2009 Covid-19 Vaccine (2024-2 6 season) 2025 04/12/2022, 07/29/2021, 11/28/2020, Additional history exists Influenza Vaccine (#1) 2025 eGFR 05/23/2026 05/23/2025, 05/21/2025 Fall Risk Assessment 05/24/2026 05/24/2025 Lipid Panel 05/24/2026 05/24/2025, 05/21, 12/05/2018 DTaP/Tdap/Td Vaccine (4 - Td or Tdap) 06/17/2035 06/17/2025, 11/02/2024, 05/27/2014 Pneumococcal vaccine 65+ Completed 017, 06/21/2016, 2016 Medical Devices Implanted Type Area Tool Distributor Device Identifier Shelf Expiration Date Model / Serial / Lot [employer] Synergy Xd Monorail 3.5mm 28mm 144cm Delivery System 1 Access [id number] - [id number] Implanted:Qty: 1 on 05/23/2025 by Lamont Steel MD at [facility] [employer] 11/13/2026 [id number] 350 / / [id number] [employer] Stent Coronary Drug Eluting Rapid Exchange Synergy Xd 3.76a31jq [place] [employer] [id number] - [id number] Implanted:Qty: 1 on 05/23/2025 by Lamont Steel MD at [facility] [employer] 09/25/2026 [id number] 350 / / [id number] Procedures Procedure Name Priority Date/Time Associated Diagnosis Comments ECG 12-LEAD Routine 05/24/2025 11:40 AM CDT LIPID PANEL Routine 05/24/2025 9:01 AM CDT POCT GLUCOSE DEVICE Routine 05/23/2025 8 :31 PM CDT POCT GLUCOSE DEVICE Routine 05/23/2025 6 :37 PM CDT POCT GLUCOSE DEVICE Routine 05/23/2025 3 :27 PM CDT BRI MAJOR CORONARY Routine 05/23/2025 3: 09 PM CDT Atypical chest pain Coronary artery disease, unspecified vessel or lesion type, unspecified whether angina present, unspecified whether [place] or transplanted heart PERCUTANEOUS CORONARY LITHROTRIPSY W/ PCI (+) [id number] Routine 05/23/2025 3:09 PM CDT Atypical chest pain Coronary artery disease, unspecified vessel or lesion type, unspecified whether angina present, unspecified whether [place] or transplanted heart CORONARY OCT, 1ST VESSEL Routine 05/23/2025 3:09 PM CDT Atypical chest pain Coronary artery disease, unspecified vessel or lesion type, unspecified whether angina present, unspecified whether [place] or transplanted heart VASCULAR ACCESS US GUIDANCE Routine 05/23/2025 3:09 PM CDT Atypical chest pain Coronary artery disease, unspecified vessel or lesion type, unspecified whether angina present, unspecified whether [place] or transplanted heart LEFT HEART CATHETERIZATION WITH CORONARY ANGIOGRAPHY AND WITH AND WITHOUT LEFT VENTRICULOGRAM Routine 05/23/2025 3:09 PM CDT Atypical chest pain Coronary artery disease, unspecified vessel or lesion type, unspecified whether angina present, unspecified whether [place] or transplanted heart MODERATE SEDATION 05/23/2025 1:1 1 PM CDT Atypical chest pain Coronary artery disease, unspecified vessel or lesion type, unspecified whether angina present, unspecified whether [place] or transplanted heart EGFR Routine 05/23/2025 9:55 AM CDT DIFFERENTIAL AUTO Routine 05/23/2025 9:5 5 AM CDT BASIC METABOLIC PANEL Routine 05/23/2025 9:55 AM CDT CBC WITH AUTO DIFFERENTIAL Routine 05/23/2025 9:55 AM CDT POCT GLUCOSE DEVICE Routine 05/23/2025 8 :59 AM CDT COMPREHENSIVE METABOLIC PANEL Routine 05/21/2025 Pre-procedure lab exam Coronary artery disease, unspecified vessel or lesion type, unspecified whether angina present, unspecified whether [place] or transplanted heart Atypical chest pain CBC WITH AUTO DIFFERENTIAL Routine 05/21/2025 Pre-procedure lab exam Coronary artery disease, unspecified vessel or lesion type, unspecified whether angina present, unspecified whether [place] or transplanted heart Atypical chest pain MCT - MOBILE CARDIAC TELEMETRY EVENT MONITOR Routine 05/15/2025 11:55 AM CDT Palpitations TRANSTHORACIC ECHO (TTE) COMPLETE W DOPPLER/CF WO CONTRAST Routine 05/15/2025 10:38 AM CDT LBBB (left bundle branch block) Coronary artery disease involving [place] coronary artery of [place] heart without angina pectoris Cardiomyopathy, unspecified type (HCC) ECG 12-LEAD Routine 05/15/2025 8:44 AM CDT Chest pain, unspecified type from Last 3 Months Results * ECG 12 lead (05/24/2025 11:40 AM CDT) 05/24/2025 11:4 0 AM CDT Narrative [facility] - 05/24/2025 9:06 PM CDT Vent Rate: 83 bpm RR Interval: 719 msec NE Interval: 192 msec QRS Duration: 178 msec QT Interval: 439 msec QTC Interval: 479 msec P-R-T Mitchell[place]: 33 - -63 - 90 degrees IMPRESSION: SINUS RHYTHM LEFT AXIS DEVIATION [QRS AXIS < -30] LEFT BUNDLE BRANCH BLOCK [120+ ms QRS DURATION, 80+ ms Q/S IN V1/V2, 85+ ms R IN I/aVL/V5/V6] ABNORMAL ECG Electronically Signed By: Dayo Mendez MD Kateryna Bob NP ECG ORDERABLES Final Result [facility] * (ABNORMAL) Lipid panel (05/24/2025 9:01 AM CDT) Cholesterol 151 30 - 199 mg/dL Comment: Interpretive Data Ages < or = 19 years Acceptable: <170 mg/dL Borderline high: 170-199 mg/dL High: >or= 200 mg/dL Ages > or = 20 years Desirable: <200 mg/dL Borderline high: 200-239 mg/dL High: >or= 240 mg/dL Literature References: 1. Expert Panel on Integrated Guidelines for Cardiovascular Health and Risk Reduction in Children and Adolescents. Pediatrics 2011;128:S213 2. NCEP Expert Panel. Circulation 2004;110:227 Current Interpretive Data was last revised on 2018. Triglycerides 394(H) <=149 mg/dL MONISHA Comment: Interpretive Data Ages < or = 9 years Acceptable: <75 mg/dL Borderline high: 75-99 mg/dL High: >or= 100 mg/dL Ages 10 to 20 years Acceptable: <90 mg/dL Borderline high: 90-129 mg/dL High: >or= 130 mg/dL Ages > or = 20 years Desirable: <150 mg/dL Borderline high: 150-199 mg/dL High: 200-499 mg/dL Very high: >or= 499 mg/dL Literature References: 1. Expert Panel on Integrated Guidelines for Cardiovascular Health and Risk Reduction in Children and Adolescents. Pediatrics 2011;128:S213 2. NCEP Expert Panel. Circulation 2004;110:227 Current Interpretive Data was last revised on 2018. HDL 43 >=40 mg/dL MONISHA Comment: Interpretive Data Ages < or = 19 years Acceptable: >45 mg/dL Borderline low: 40-45 mg/dL Low: <40 mg/dL Ages > or = 20 years Desirable: >or= 60 mg/dL Low: <40 mg/dL Literature References: 1. Expert Panel on Integrated Guidelines for Cardiovascular Health and Risk Reduction in Children and Adolescents. Pediatrics 2011;128:S213 2. NCEP Expert Panel. Circulation 2004;110:227 Current Interpretive Data was last revised on 2018. LDL, calculated 49 <=129 mg/dL MONISHA Comment: Interpretive Data Ages < or = 19 years Acceptable: <110 mg/dL Borderline high: 110-129 mg/dL High: >or= 130 mg/dL Ages > or = 20 years Optimal: <100 mg/dL Near optimal: 100-129 mg/dL Borderline high: 130-159 mg/dL High: >160 mg/dL Calculated using the Haque LDL-C estimating equation. This equation was implemented on 2024. Prior to this date LDL-C was estimated using the Friedewald equation. Literature References: 1. Expert Panel on Integrated Guidelines for Cardiovascular Health and Risk Reduction in Children and Adolescents. Pediatrics 2011;128:S213 2. NCEP Expert Panel. Circulation 2004;110:227 3. Garland Sue et al. FROY Cardiol. 2019January 17;5(5):540-548. doi: 10.1001/[email or web address].2020.0013 Current Interpretive Data was last revised on 2024. Non-HDL Cholesterol 108 mg/dL MONISHA ROTH Comment: Interpretive Data Ages < or = 19 years Acceptable: <120 mg/dL Borderline high: 120-144 mg/dL High: >145 mg/dL Ages > or = 20 years When triglycerides are >200 mg/dL, Non-HDL cholesterol is a secondary target of therapy with treatment goals that are 30 mg/dL greater than the LDL cholesterol target. Literature References: 1. Expert Panel on Integrated Guidelines for Cardiovascular Health and Risk Reduction in Children and Adolescents. Pediatrics 2011;128:S213 2. NCEP Expert Panel. Circulation 2004;110:227 Current Interpretive Data was last revised on 2018. Chol/HDL ratio 4 MONISHA Blood 05/24/2025 9:01 AM CDT 05/24/2025 9:27 AM CDT us Kateryna Bob PATIENT ACCOUNTING REPRESENTATIVE LAB BLOOD ORDERABLES Final Resul t Performing Organization Address City/[facility] Co de Phone Number MONISHA ROTH [address] Department [facility] [place] [address] * POCT glucose (05/23/2025 8:31 PM CDT) Glucose, POC 177 70 - 199 mg/dL Blood 05/23/2025 8:31 PM CDT 05/23/2025 8:31 PM CDT Lamont Steel MD LAB POCT ORDERABLES - DEVICE Fin al Result MONISHA ROTH [address] [place] [address] * POCT glucose (05/23/2025 6:37 PM CDT) Glucose, POC 199 70 - 199 mg/dL Blood 05/23/2025 6:37 PM CDT 05/23/2025 6:37 PM CDT Lamont Steel MD LAB POCT ORDERABLES - DEVICE Fin al Result Performing Organization Address [facility] Co de Phone Number MONISHA ROTH [address] [place] [address] * POCT glucose (05/23/2025 3:27 PM CDT) Glucose, POC 109 70 - 199 mg/dL Blood 05/23/2025 3:27 PM CDT 05/23/2025 3:27 PM CDT Lamont Steel MD LAB POCT ORDERABLES - DEVICE Fin al Result Performing Organization Address [facility] de Phone Number MONISHA ROTH [address] [place] [address] * LEFT HEART CATHETERIZATION WITH CORONARY ANGIOGRAPHY AND WITH AND WITHOUT LEFT VENTRICULOGRAM, VASCULAR ACCESS US GUIDANCE, CORONARY OCT, 1ST VESSEL, PERCUTANEOUS CORONARY LITHROTRIPSY W/ PCI (+) [id number], BRI MAJOR CORONARY (05/23/2025 3:09 PM CDT) Anatomical Region Laterality Modality X-Ray Angiograph y Addenda Addendum by Lamont Steel MD on 05/23/2025 3:38 PM CDT CARDIAC CATHETERIZATION AND INTERVENTION REPORT DATE OF PROCEDURE: 05/23/25 INDICATION FOR PROCEDURE: Angina, CAD BRIEF CLINICAL HISTORY: Vickie Arias is a 80 y.o. male with history of CAD, hypertension, type 2 diabetes mellitus, dyslipidemia. Patient was referred by Dr. Quintana for cardiac catheterization in the setting of chest discomfort. Patient had cardiac catheterization on 03/18/2015 which reportedly showed physiologically nonsignificant stenosis in the RCA using FFR. He has been managed with medical treatment over the years but started having chest discomfort several months ago with recent worsening. Benefits and risks of the procedure were discussed with the patient in depth, and informed consent was taken prior to the procedure. Risks of the procedure include but are not limited to vascular complications like groin hematoma, retroperitoneal bleed, vessel perforation; periprocedural TN, cardiac arrhythmias, stroke, contrast induced nephropathy, and . After discussing all the benefits, risks and alternatives, patient was willing to proceed with the procedure. PROCEDURES PERFORMED: Ultrasound-guided right radial arterial access Left heart catheterization-selective left and right coronary angiogram, LV pressure measurement, hemodynamic assessment Percutaneous coronary intervention- A) intravascular ultrasound-IVUS of right coronary artery B) complex PCI of heavily calcific proximal RCA-intravascular lithotripsy using shockwave IVL balloon, followed by balloon angioplasty and stenting using 3.5 x 28 mm and 3.5 x 16 mm [place] [employer] everolimus eluting stents in an overlapping fashion Moderate sedation-CPT code 87189 and beyond MODERATE SEDATION: Midazolam 1 mg , Fentanyl 25 mcg, start time 1328 stop time 1509, total direct [id number] monitoring of conscious sedation 101 minutes (CPT 93811) TRAINED OBSERVER: Jaison Bynum RN was trained observer for moderate sedation. ACCESS SITE: Right radial artery PROCEDURE: After obtaining informed consent, patient was brought to the garage laborer and prepped and draped in the usual sterile manner. Time-out and immediate reassessment of the patient was performed. After local anesthesia with lidocaine, right radial artery access was taken with micropuncture needle under ultrasound guidance followed by insertion of a 6 [place] sheath. Patient received 2.5 mg of verapamil, 200 mcg of nitroglycerin through the radial arterial sheath; and 5000 units of heparin for the diagnostic portion of the cardiac catheterization. During intervention, bivalirudin used for procedural anticoagulation. Selective left and right coronary angiography was performed using 5 F JL4 and 6 [place] q.4 guide (was difficulty in engaging the left main coronary artery ostium using 5 [place] JL 3.5 diagnostic catheter) catheters respectively. Orthogonal views were taken. The q.4 guide catheter advanced the LV cavity, LV pressure measurement was performed followed by gradients across aortic valve. Estimated blood loss was minimal. All specimens removed. The angiographic and other findings, and details of intervention are given below. FINDINGS: LEFT MAIN CORONARY: Medium caliber, short vessel, no significant focal stenosis. LEFT ANTERIOR DESCENDING ARTERY: Large caliber vessel, mild plaque in the proximal-mid segment, tapers distally and reaches LV apex. Sluggish blood flow is seen in the LAD. Diagonal branches are small-caliber vessels. RAMUS INTERMEDIUS: Medium to large caliber vessel. Ostium not visualized, otherwise no significant focal stenosis. LEFT CIRCUMFLEX ARTERY: Medium caliber vessel, gives rise to medium caliber OM1 branch without significant focal stenosis. RIGHT CORONARY ARTERY: Large caliber, dominant vessel. There is about 80% calcific stenosis in the proximal segment. Minor plaque is seen in the upper part of the mid segment. The vessel gives rise to medium to large caliber PDA branch, and small-caliber PLV branch without significant focal stenosis. LEFT VENTRICULOGRAM: LVEDP 24 mmHg. Left ventriculogram was not performed. HEMODYNAMIC ASSESSMENT: Opening pressure 122/74 mmHg, closing pressure 128/84. No significant gradient across aortic valve on the full back of pigtail catheter. INTERVENTION REPORT: Based on patient's clinical presentation of angina and angiographic findings, we proceeded with a complex PCI on the proximal RCA. Patient received aspirin and loading dose of ticagrelor in the garage laborer. Bivalirudin was used for procedural anticoagulation. Initially, there was poor guide support with a JR4 guide catheter, therefore, the guide catheter was exchanged with the AL1 guide catheter. The procedure was technically challenging and complex due to densely calcific stenosis in the proximal RCA which resulted in difficulty in advancing the balloons and stent. The stenosis was initially attempted using 014 luge wire, then finally crossed using crossed using 0.01 [employer] black wire. Initially, 2.5 x 12 mm balloon was advanced, however, the balloon could not be advanced to the target lesion. Next, balloon angioplasty was performed using a 1.0 x 15 mm [place]app[place] balloon at high inflation pressures. After this, balloon angioplasty was performed using a 2.0 x 8 mm NC balloon. Next, IVUS was performed, which showed densely calcific stenosis in the proximal segment, however, the catheter could not be advanced further due to dense calcification in the proximal RCA. Six [place] GuideLiner was used to provide additional support. After this, balloon angioplasty was performed again using a 2.5 x 12 mm NC balloon. Next, we proceeded with intravascular lithotripsy using a 3.5 x 12 mm lithotripsy balloon. Multiple cycles of lithotripsy were performed. Next, after extreme difficulty, 3.5 x 28 mm [place] [employer] everolimus eluting stent was advanced to the proximal-mid RCA and was deployed at a maximum of 16 atmospheres. Postdilation was initially performed using a sternal balloon. After this, angiogram showed residual stenosis of the proximal most segment of the RCA. Therefore, we proceeded with placement of another stent-3.5 x 16 mm [place] [employer] Synergy everolimus eluting stent in an overlapping fashion with the previously placed stent with some difficulty. The stent was deployed at a maximum of 16 atmospheres. After this, postdilation was performed using a 4.0 x 15 mm NC balloon which was advanced with difficulty. IVUS was advanced, however, the entire stented segment could not be crossed. Proximal most part of the stented segment showed good stent apposition. There appeared to be slight underfilling of the superior portion of the ostium of the RCA due to positioning of the AL1 guide catheter. There was EDSON 3 flow at the conclusion of the procedure. Patient remained chest pain-free during the procedure and afterwards. Patient tolerated procedure well without any immediate procedural complications. CONCLUSIONS: Severe single-vessel CAD-about 80% calcific stenosis proximal RCA. Complex PCI-IVUS, intravascular lithotripsy (shockwave) of densely calcific stenosis in the proximal-mid RCA, followed by PTCA/stenting using 3.5 x 28 mm and 3.5 x 16 mm [place] [employer] Synergy everolimus eluting stents in an overlapping fashion. PLAN/RECOMMENDATIONS: Dual antiplatelet therapy with aspirin and ticagrelor, preferably for about 6 months, followed by single antiplatelet treatment indefinitely as tolerated; high-intensity statin. Due to complexity of the procedure and being a late afternoon procedure, patient will be admitted overnight for IV hydration, observation and will likely be discharged home tomorrow if stable. Outpatient follow up with Dr. Quintana. Voice recognition software was used to complete this document, therefore, antique furniture restorer variances may occur. Lamont Steel MD, [facility] 05/23/25 us Lamont Steel MD CV CARDIAC CATH PROCEDURES Edite d Result - Final * eGFR (05/23/2025 9:55 AM CDT) eGFR >90 >=60 mL/min/1. 73 m2 Comment: Interpretive Data Reference Interval Normal >/= 90 mL/min/1.73m2 Mildly decreased* 60 - 89 mL/min/1.73m2 Mildly to moderately decreased 45 - 59 mL/min/1.73m2 Moderately to severely decreased 30 - 44 mL/min/1.73m2 Severely decreased 15 - 29 mL/min/1.73m2 Kidney Failure < 15 mL/min/1.73m2 *Relative to young adult level Estimated glomerular filtration rate is determined by the 2020 CKD-EPI equation recommended by the National Kidney Foundation (A Unifying Approach to GFR Estimation: Recommendations of the NKF-ASK Task Force on Reassessing the Inclusion of Race in Diagnosing Kidney Disease, JASN 202). The CKD-EPI equation should not be used for patients with unstable renal function and has not been validated in children and those over 70. Current interpretive data was last reviewed 2021. Blood 05/23/2025 9:55 AM CDT 05/23/2025 9:57 AM CDT us Lamont Stele MD LAB BLOOD ORDERABLES Final Resul t [facility] [id number] [place] [address] * Differential, auto (05/23/2025 9:55 AM CDT) Neutrophil abs 3.87 1.50 - 6.50 K/cumm Imm gran abs 0.02 0.00 - 0.10 K/cumm [facility] Lymphocyte abs 2.08 0.80 - 3.30 K/cumm [facility] Monocyte abs 0.56 0.20 - 0.80 K/cumm [facility] Eosinophil abs 0.22 0.00 - 0.50 K/cumm [facility] Basophil abs 0.05 0.00 - 0.10 K/cumm [facility] Neutrophil pct 57.0 % [facility] Comment: Interpretive Data Percent cell count reference ranges are not reported, since discordance with absolute values may lead to misinterpretation of CBC data. Current Interpretive Data was last revised on 2017. Imm gran pct 0.3 % [facility] Comment: Interpretive Data Percent cell count reference ranges are not reported, since discordance with absolute values may lead to misinterpretation of CBC data. Current Interpretive Data was last revised on 2017. Lymphocyte pct 30.6 % [facility] Comment: Interpretive Data Percent cell count reference ranges are not reported, since discordance with absolute values may lead to misinterpretation of CBC data. Current Interpretive Data was last revised on 2017. Monocyte pct 8.2 % [facility] Comment: Interpretive Data Percent cell count reference ranges are not reported, since discordance with absolute values may lead to misinterpretation of CBC data. Current Interpretive Data was last revised on 2017. Eosinophil pct 3.2 % [facility] Comment: Interpretive Data Percent cell count reference ranges are not reported, since discordance with absolute values may lead to misinterpretation of CBC data. Current Interpretive Data was last revised on 2017. Basophil pct 0.7 % [facility] Comment: Interpretive Data Percent cell count reference ranges are not reported, since discordance with absolute values may lead to misinterpretation of CBC data. Current Interpretive Data was last revised on 2017. Blood 05/23/2025 9:55 AM CDT 05/23/2025 9:57 AM CDT us Lamont Steel MD LAB BLOOD ORDERABLES Final Resul t [facility] [id number] [place] [address] * CBC with auto differential (05/23/2025 9:55 AM CDT) WBC 6.80 3.80 - 9.90 K/cumm Hgb 14.9 13.0 - 17.5 g/dL [facility] Hct 43.7 38.9 - 50.3 % [facility] Plt 211 150 - 400 K/cumm [facility] MPV 9.3 9.1 - 12.3 fL [facility] RBC 5.09 4.30 - 5.80 M/cumm [facility] MCV 85.9 81.3 - 96.4 fL [facility] MCH 29.3 27.1 - 33.3 pg [facility] MCHC 34.1 32.3 - 35.7 g/dL [facility] RDW CV 12.5 11.1 - 14.9 % [facility] RDW SD 39.3 35.7 - 48.1 fL [facility] NRBC abs 0.00 0.00 - 0.01 K/cumm [facility] Blood 05/23/2025 9:55 AM CDT 05/23/2025 9:57 AM CDT Lamont Steel MD LAB BLOOD ORDERABLES Final Resul t Performing Organization Address [facility] Co de Phone Number MONISHA [id number] Department [facility] [address] * (ABNORMAL) Basic metabolic panel (05/23/2025 9:55 AM CDT) Sodium 138 135 - 145 mmol/L Potassium, pl 4.8 3.3 - 4.9 mmol/L [facility] Comment:Hemolysis present. R esults may be affected. Chloride 103 97 - 110 mmol/L [facility] CO2 19(L) 22 - 32 mmol/L [facility] Anion gap 16(H) 2 - 15 mmol/L [facility] BUN 14 6 - 25 mg/dL [facility] Creatinine 0.72(L) 0.80 - 1.30 mg/dL [facility] Glucose 147 70 - 199 mg/dL [facility] Comment: Interpretive Data Fasting glucose >/= 126 mg/dl is diagnostic for diabetes. Fasting is defined as no caloric intake for at least 8 hours. Fasting glucose between 100 mg/dl to 125 mg/dl is diagnostic of prediabetes. In a patient with classic symptoms of hyperglycemia or hyperglycemic crisis, a random glucose >/= 200 mg/dl is diagnostic for diabetes. In the absence of unequivocal hyperglycemia, results should be confirmed by repeat testing. The classification and Diagnosis of Diabetes Diabetes Care 202; 46: S19-S40. Current interpretive data was last revised 2022. Calcium 9.6 8.5 - 10.3 mg/dL [facility] Blood 05/23/2025 9:55 AM CDT 05/23/2025 9:57 AM CDT Lamont Steel MD LAB BLOOD ORDERABLES Final Resul t Performing Organization Address [facility] Co de Phone Number MONISHA [phone] Department [facility] [place] [address] * POCT glucose (05/23/2025 8:59 AM CDT) Pathologist [facility] Glucose, POC 161 70 - 199 mg/dL Blood 05/23/2025 8:59 AM CDT 05/23/2025 8:59 AM CDT us Lamont Steel MD LAB POCT ORDERABLES - DEVICE Fin al Result [facility] [id number] [place] [address] * (ABNORMAL) CBC with auto differential (05/21/2025) [facility] SCRIBED WBC 6.9 3.8 - 9.9 K/cumm EXTERNAL LAB SCRIBED Hemoglobin 14.7 13.0 - 17.5 g/dL EXTERNAL LAB SCRIBED Hematocrit 43.5 35.6 - 45.5 % EXTERNAL LAB SCRIBED Platelets 195 150 - 400 K/cumm EXTERNAL LAB SCRIBED MPV 9.0(A) 9.1 - 12.3 fL EXTERNAL LAB SCRIBED RBC 5.04 4.30 - 5.80 M/cumm EXTERNAL LAB SCRIBED MCV 86.3 81.3 - 96.4 fL EXTERNAL LAB SCRIBED MCH 29.2 27.1 - 33.3 pg EXTERNAL LAB SCRIBED MCHC 33.8 32.3 - 35.7 g/dL EXTERNAL LAB SCRIBED RDW 12.9 % EXTERNAL LAB SCRIBED NRBC 0.0 % EXTERNAL LAB SCRIBED NRBC Abs 0.000 0.00 - 0.01 K/cumm EXTERNAL LAB SCRIBED Neutrophils 58.5 NONE % EXTERNAL LAB SCRIBED Imm Granulocytes 0.1 NONE % EXTERNAL LAB SCRIBED Monocytes 8.9 NONE % EXTERNAL LAB SCRIBED Eosinophils 3.9 NONE % EXTERNAL LAB SCRIBED Basophils 0.4 NONE % EXTERNAL LAB SCRIBED Neutrophils Abs 4.0 1.5 - 6.5 K/cumm EXTERNAL LAB SCRIBED Imm Granulocytes Abs 0.01 0.0 - 0.1 K/cumm EXTERNAL LAB SCRIBED Lymphocytes Abs 1.93 0.8 - 3.3 K/cumm EXTERNAL LAB SCRIBED Monocytes Abs 0.6 0.2 - 0.8 K/cumm EXTERNAL LAB SCRIBED Eosinophils Abs 0.3 0.0 - 0.5 K/cumm EXTERNAL LAB SCRIBED Basophils Abs 0.0 0.0 - 0.1 K/cumm EXTERNAL LAB Blood 05/21/2025 Massimo Quintana MD LAB BLOOD ORDERABLES Tracy l Result Performing Organization Address [facility] Co de Phone Number EXTERNAL LAB * (ABNORMAL) Comprehensive metabolic panel (05/21/2025) SCRIBED Sodium 138 135 - 145 mmol/L EXTERNAL LAB SCRIBED Potassium 4.4 3.3 - 5.2 mmol/L EXTERNAL LAB SCRIBED Chloride 10.4(A) 97 - 110 mmol/L EXTERNAL LAB SCRIBED Carbon Dioxide 24 22 - 32 mmol/L EXTERNAL LAB SCRIBED Anion Gap 10 2 - 15 mmol/L EXTERNAL LAB SCRIBED Urea Nitrogen (BUN) 14 6 - 25 mg/dL EXTERNAL LAB SCRIBED Creatinine 0.88 0.80 - 1.30 mg/dL EXTERNAL LAB SCRIBED Glucose 166 70 - 199 mg/dL EXTERNAL LAB SCRIBED Calcium 9.7 8.5 - 10.3 mg/dL EXTERNAL LAB SCRIBED Bilirubin 0.5 0.1 - 1.2 mg/dL EXTERNAL LAB SCRIBED Plasma Protein 7.6 6.5 - 8.5 g/dL EXTERNAL LAB SCRIBED Albumin 4.3 3.5 - 5.0 g/dL EXTERNAL LAB SCRIBED Alkaline Phosphatase 61 40 - 130 Units/L EXTERNAL LAB SCRIBED Alanine Transaminase (ALT) 39 7 - 55 Units/L EXTERNAL LAB SCRIBED Aspartate Transaminase (AST) 35 10 - 50 Units/L EXTERNAL LAB SCRIBED eGFR 60 >=60 mL/min/1.7 3 m2 EXTERNAL LAB Blood 05/21/2025 Massimo Quintana MD LAB BLOOD ORDERABLES Tracy l Result EXTERNAL LAB * MCT Mobile Cardiac Telemetry Event Monitor (05/15/2025 11:55 AM CDT) Anatomical Region Laterality Modality Electrocardiogra phy Narrative 06/04/2025 7:08 PM CDT 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 Quintana Date of interpretation: 06/04/25 Type of monitor : 14 day hall monitor Date of the study/Enrollment period: 05/15/2025 through 05/28/2025 Indication: Palpitations Quality of the study: Good Interpretation: Total of 12 days 4 hours and 48 minutes of diagnostic time Underlying sinus rhythm heart rate variability between 47 and 125 beats per minute with an average heart rate of 72 beats per minute. Low-frequency supraventricular ectopy totaling 589 beats which is less than 1% ectopic burden. Low frequency ventricular ectopy totaling 120 beats which is less than 1% ectopic burden. No atrial fibrillation, SVT, VT, significant pauses or heart block Six managed triggered events including the baseline event, for episodes of chest pain/pressure and 1 other episode of no symptoms provided. These all correlate to sinus rhythm or sinus bradycardia with bundle-branch block but without arrhythmia Conclusions: Underlying normal sinus rhythm with average heart rate 72 beats per minute Low frequency ventricular ectopy and ventricular ectopy but without complex arrhythmia, heart block or pauses Symptom events correlated to sinus rhythm or sinus bradycardia without arrhythmia Voice recognition software was used to complete this document, therefore, antique furniture restorer variances may occur. Massimo Quintana MD, [facility] 06/04/25 Procedure Note Massimo Quintana MD - 06/04/2025 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 Quintana Date of interpretation: 06/04/25 Type of monitor : 14 day hall monitor Date of the study/Enrollment period: 05/15/2025 through 05/28/2025 Indication: Palpitations Quality of the study: Good Interpretation: Total of 12 days 4 hours and 48 minutes of diagnostictime Underlying sinus rhythm heart rate variability between 47 and 125 beatsper minute with an average heart rate of 72 beats per minute. Low-frequency supraventricular ectopy totaling 589 beats which is lessthan 1% ectopic burden. Low frequency ventricular ectopy totaling 120 beats which is less than 1%ectopic burden. No atrial fibrillation, SVT, VT, significant pauses or heart block Six managed triggered events including the baseline event, for episodes ofchest pain/pressure and 1 other episode of no symptoms provided. Theseall correlate to sinus rhythm or sinus bradycardia with bundle-branchblock but without arrhythmia Conclusions: Underlying normal sinus rhythm with average heart rate 72 beats perminute Low frequency ventricular ectopy and ventricular ectopy but withoutcomplex arrhythmia, heart block or pauses Symptom events correlated to sinus rhythm or sinus bradycardia withoutarrhythmia Voice recognition software was used to complete this document, therefore,antique furniture restorer variances may occur. Massimo Quintana MD, [facility] 06/04/25 us Massimo Quintana MD CV CARDIAC SERVICES [facility] Final Result * TRANSTHORACIC ECHO (TTE) COMPLETE W DOPPLER/CF WO CONTRAST (05/15/2025 10:38 AM CDT) Estimated EF 55 % CONS SCIMAGE EF Mod BP 56 % CONS SCIMAGE Anatomical Region Laterality Modality Ultrasound 05/15/2025 10:0 9 AM CDT Narrative 05/15/2025 11:59 AM CDT [facility] Cardiology [address], [address], [place] [address] P:[phone] P:[phone] Echocardiographic Report Patient Name: VICKIE ARIAS W : 1945 Study Date: 05/15/2025 10:09:53 AM Sex: M Wire Taper: LINDA Location: [facility] Ref Provider: MASSIMO QUINTANA Height(Cm): 170 BSA: 2.05 Weight(Kg): 88.9 Heart Rate: 50 BP: 148 / 74 Quality: Good Order Provider: MASSIMO QUINTANA PROCEDURES: Echocardiographic Report: Transthoracic echocardiogram with complete 2D, M-Mode, and color Doppler examination. With Strain Analysis. INDICATIONS: I44.7 Left bundle-branch block, unspecified, I25.10 Atherosclerotic heart disease of [place] coronary artery without angina pectoris, and I42.9 Cardiomyopathy, unspecified. MEASUREMENTS: 2D/MM Value Range Doppler Value Range EF Mod BP 56 % [ 52 - 72 ] LUC Vmax 2.35 cm2 [ 2.00 - 4.00 ] EF Teich MM 58 % [ 52 - 72 ] AV Mean PG 5 mmHg Estimated EF 55 % AV Peak Juan 1.54 m/s [ 1.00 - 1.70 ] LV GLS -16.15 % AV Peak PG 10 mmHg LVIDd 2D 4.12 cm [ 4.20 - 5.80 ] AV VTI 32.20 cm LVIDd MM 5.32 cm [ 4.20 - 5.80 ] LVOT Diam 1.99 cm [ 1.70 - 2.10 ] LVIDs 2D 2.73 cm [ 2.50 - 4.00 ] LVOT Peak Juan 1.16 m/s [ 0.70 - 1.10 ] LVIDs MM 3.70 cm [ 2.50 - 4.00 ] LVOT VTI 26.51 cm LVPWd 2D 1.08 cm [ 0.60 - 1.00 ] MV E Peak Juan 0.65 m/s [ 0.60 - 1.30 ] LVPWd MM 1.27 cm [ 0.60 - 1.00 ] MV A Peak Juan 1.07 m/s [ 1.00 - 1.20 ] IVSd 2D 1.54 cm [ 0.60 - 1.00 ] MV Decel Time 305 msec [ 104 - 258 ] IVSd MM 1.49 cm [ 0.60 - 1.00 ] PV Peak Juan 1.12 m/s [ 0.40 - 0.80 ] LA Dimension MM 3.57 cm [ 3.00 - 4.00 ] TR Peak Juan 2.25 m/s [ 1.00 - 2.80 ] AoR Diam MM 3.92 cm [ 3.10 - 3.70 ] TR Peak PG 20 mmHg LA Volume 46.80 ml [ 18.00 - 58.00 ] RVSP 28.00 mmHg [ 10.00 - 36.00 ] LA Volume Index 23 cc/m2 [ 16 - 28 ] RV S` 0.13 m/s RA Volume 24.70 ml Lateral E` 0.05 m/s [ 0.10 - 0.15 ] Septal E` 0.06 m/s [ 0.08 - 0.15 ] E` 0.05 m/s E/E` 12 Tapse 2.47 cm [ 1.71 - 5.00 ] 2D/MM Value Range Doppler Value Range - FINDINGS: Interpretation Site: Exam was interpreted at [facility]. Left Ventricle: Normal left ventricular systolic function. No focal wall motion abnormalities. Normal left ventricular size. Moderate concentric left ventricular hypertrophy. Impaired diastolic relaxation Grade I. Ejection fraction is measured at 56 %. Ejection Fraction is visually estimated to be 55 %. Global Longitudinal Strain is -16 %. GLS is borderline. Right Ventricle: Normal right ventricular size. Normal right ventricular systolic function. Left Atrium: There is moderate enlargement of left atrium. Right Atrium: There is mild enlargement of right atrium. Atrial Septum: Normal atrial septum. Mitral Valve: Mild mitral annular calcification. Mild mitral valve regurgitation. There is no hemodynamically significant mitral stenosis by Doppler. Aortic Valve: No evidence of hemodynamically significant aortic stenosis by Doppler. Aortic cusps appear severely calcified. Probable trileaflet aortic valve, although not all leaflets are visualized. Mild aortic valve regurgitation. Tricuspid Valve: Normal appearance of the tricuspid valve. Normal right ventricular systolic pressure. Estimated peak RVSP is 28 mmHg. Mild tricuspid regurgitation. Pulmonic Valve: Normal appearance of the pulmonic valve. No pulmonic stenosis. Mild pulmonic regurgitation. Pericardium: Normal pericardium with no significant pericardial effusion. Aorta: Sinus of Valsalva is mildly dilated. Sinus of Valsalva 3.9 cm. IVC: Normal size and normal respiratory collapse consistent with normal right atrial pressure (<5 mmHg). CONCLUSIONS: Normal left ventricular systolic function. No focal wall motion abnormalities. Normal left ventricular size. Moderate concentric left ventricular hypertrophy. Impaired diastolic relaxation Grade I. Ejection fraction is measured at 56 %. Ejection Fraction is visually estimated to be 55 %. Global Longitudinal Strain is -16 %. GLS is borderline. There is moderate enlargement of left atrium. There is mild enlargement of right atrium. Mild mitral annular calcification. Mild mitral valve regurgitation. Aortic cusps appear severely calcified. Mild aortic valve regurgitation. Mild tricuspid regurgitation. Mild pulmonic regurgitation. Sinus of Valsalva is mildly dilated. Sinus of Valsalva 3.9 cm. Normal sinus rhythm. Electronically Signed By: Massimo Quintana MD 05/15/2025 11:58:31 AM CDT Procedure Note Massimo Quintana MD - 05/15/2025 [facility] Cardiology [address], [address], [place] [address] P:[phone] P:[phone] Echocardiographic Report Patient Name: VICKIE ARIAS W : 1945 Study Date: 05/15/2025 10:09:53 AM Sex: M Wire Taper: LINDA Location: [facility] Ref Provider: MASSIMO QUINTANA Height(Cm): 170 BSA: 2.05 Weight(Kg): 88.9 Heart Rate: 50 BP: 148 / 74 Quality: Good Order Provider: MASSIMO QUINTANA PROCEDURES: Echocardiographic Report: Transthoracic echocardiogram with complete 2D, M-Mode, and color Dopplerexamination. With Strain Analysis. INDICATIONS: I44.7 Left bundle-branch block, unspecified, I25.10 Atherosclerotic heartdisease of [place] coronary artery without angina pectoris, and I42.9 Cardiomyopathy,unspecified. MEASUREMENTS: 2D/MM Value Range Doppler ValueRange EF Mod BP 56 % [ 52 - 72 ] LUC Vmax 2.35cm2 [ 2.00 - 4.00 ] EF Teich MM 58 % [ 52 - 72 ] AV Mean PG 5mmHg Estimated EF 55 % AV Peak Juan 1.54m/s [ 1.00 - 1.70 ] LV GLS -16.15 % AV Peak PG 10mmHg LVIDd 2D 4.12 cm [ 4.20 - 5.80 ] AV VTI 32.20cm LVIDd MM 5.32 cm [ 4.20 - 5.80 ] LVOT Diam 1.99cm [ 1.70 - 2.10 ] LVIDs 2D 2.73 cm [ 2.50 - 4.00 ] LVOT Peak Juan 1.16m/s [ 0.70 - 1.10 ] LVIDs MM 3.70 cm [ 2.50 - 4.00 ] LVOT VTI 26.51cm LVPWd 2D 1.08 cm [ 0.60 - 1.00 ] MV E Peak Juan 0.65m/s [ 0.60 - 1.30 ] LVPWd MM 1.27 cm [ 0.60 - 1.00 ] MV A Peak Juan 1.07m/s [ 1.00 - 1.20 ] IVSd 2D 1.54 cm [ 0.60 - 1.00 ] MV Decel Time 305msec [ 104 - 258 ] IVSd MM 1.49 cm [ 0.60 - 1.00 ] PV Peak Juan 1.12m/s [ 0.40 - 0.80 ] LA Dimension MM 3.57 cm [ 3.00 - 4.00 ] TR Peak Juan 2.25m/s [ 1.00 - 2.80 ] AoR Diam MM 3.92 cm [ 3.10 - 3.70 ] TR Peak PG 20mmHg LA Volume 46.80 ml [ 18.00 - 58.00 ] RVSP 28.00mmHg [ 10.00 - 36.00 ] LA Volume Index 23 cc/m2 [ 16 - 28 ] RV S` 0.13m/s RA Volume 24.70 ml Lateral E` 0.05m/s [ 0.10 - 0.15 ] Septal E` 0.06 m/s [ 0.08 - 0.15 ] E` 0.05 m/s E/E` 12 Tapse 2.47 cm [ 1.71 - 5.00 ] 2D/MM Value Range Doppler ValueRange - FINDINGS: Interpretation Site: Exam was interpreted at [facility]. Left Ventricle: Normal left ventricular systolic function. No focal wall motionabnormalities. Normal left ventricular size. Moderate concentric left ventricular hypertrophy.Impaired diastolic relaxation Grade I. Ejection fraction is measured at 56 %.Ejection Fraction is visually estimated to be 55 %. Global Longitudinal Strain is -16 %. GLS isborderline. Right Ventricle: Normal right ventricular size. Normal right ventricular systolicfunction. Left Atrium: There is moderate enlargement of left atrium. Right Atrium: There is mild enlargement of right atrium. Atrial Septum: Normal atrial septum. Mitral Valve: Mild mitral annular calcification. Mild mitral valve regurgitation. Thereis no hemodynamically significant mitral stenosis by Doppler. Aortic Valve: No evidence of hemodynamically significant aortic stenosis by Doppler.Aortic cusps appear severely calcified. Probable trileaflet aortic valve, although notall leaflets are visualized. Mild aortic valve regurgitation. Tricuspid Valve: Normal appearance of the tricuspid valve. Normal right ventricularsystolic pressure. Estimated peak RVSP is 28 mmHg. Mild tricuspid regurgitation. Pulmonic Valve: Normal appearance of the pulmonic valve. No pulmonic stenosis. Mildpulmonic regurgitation. Pericardium: Normal pericardium with no significant pericardial effusion. Aorta: Sinus of Valsalva is mildly dilated. Sinus of Valsalva 3.9 cm. IVC: Normal size and normal respiratory collapse consistent with normal rightatrial pressure (<5 mmHg). CONCLUSIONS: Normal left ventricular systolic function. No focal wall motionabnormalities. Normal left ventricular size. Moderate concentric left ventricular hypertrophy.Impaired diastolic relaxation Grade I. Ejection fraction is measured at 56 %.Ejection Fraction is visually estimated to be 55 %. Global Longitudinal Strain is -16 %. GLS isborderline. There is moderate enlargement of left atrium. There is mild enlargement of right atrium. Mild mitral annular calcification. Mild mitral valve regurgitation. Aortic cusps appear severely calcified. Mild aortic valve regurgitation. Mild tricuspid regurgitation. Mild pulmonic regurgitation. Sinus of Valsalva is mildly dilated. Sinus of Valsalva 3.9 cm. Normal sinus rhythm. Electronically Signed By: Massimo Quintana MD 05/15/2025 11:58:31 AM CDT us Massimo Quintana MD CV ECHO PROCEDURES Final Result * ECG 12 lead (05/15/2025 8:44 AM CDT) us Massimo Quintana MD ECG ORDERABLES Edited Re sult - Final from Last 3 Months Insurance MEDICARE [employer] [place] [address] MEDICARE [employer] [facility] Care Teams Hr Generalist Relationship Specialty Start Date End Date Brandyn Faust DO [address] [place] [address] PCP - General Internal Medicine 11/27/24 Naresh Harris MD [address] [place] [address] [employer] Manager Cardiology 07/05/19
--- OUTSIDE RECORDS SUMMARY | 2025-08-02 00:15 | XMS_ITS | Encounter Summary ---
Author Organization [facility] Facility Care Team Providers Care Social Sciences Chair Name Role Phone Donavon Mcdowell MD Primary Care Provider [phone] Naresh Harris MD Unavailable [phone] Brandyn Fuast DO Primary Care Provider [phone] Ancelmo Goodman MD Primary Care Provider [phone] Brandyn Faust DO Primary Care Provider [phone] Encounter Details Date Type Department Care Team (Latest Contact Info) Description 06/28/2017 Orders Only [facility] CLINCONV ProviderBarber MD [address] [place] [address] Social History Tobacco Use Types Packs/Day Years Used Date Smoking Tobacco: Never Assessed Sex and Gender Information Value Date Recorded Sex Assigned at Not on file Legal Sex Male 3:43 AM CHILD CARE Gender Identity Not on file Sexual Orientation [...] on filedocumented in this encounter Care Teams Social Sciences Chair Relationship Specialty Start Date End Date Donavon Mcdowell MD PCP - General Internal Medicine 12/15/18 07/21/20 Brandyn Faust DO [address] [place] [address] [address] PCP - General Internal Medicine 07/22/20 03/08/23 Ancelmo Goodman MD [address] [place] [address] [address] PCP - General Family Practice 03/09/23 11/26/24 Brandyn Faust DO [address] [place] [address] [address] PCP - General Internal Medicine 11/27/24 Naresh Harris MD [address] [place] [address] [address] 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
--- OUTSIDE RECORDS SUMMARY | 2025-08-02 00:16 | XMS_ITS | Encounter Summary ---
Author Organization [facility] Address [address] [facility] [place] [address] Care Team Providers Care Life Consultant Name Role Phone Donavon Mcdowell MD Primary Care Provider [phone] Encounter Details Date Type Department Care Team (Late st Contact Info) Description 10/21/2020 Lab Requisition [facility] [address] [facility] [place] [address] Aisha Goldstein DO [address] [facility] [place] [address] [place] [address] Social History Tobacco Use Types Packs/Day Years Used Date Smoking Tobacco: Never Assessed Sex and Gender Information Value Date Recorded Sex Assigned at Not on file 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 Gender Identity Not on file Sexual Orientation Not on file documented as of this encounter Plan of Treatment Not on file documented as of this encounter Procedures Procedure Name Priority Date/Time Associated Diagnosis Comments DERMATOPATHOLOGY Routine 10/20/2020 12:0 0 AM BRANCH MAKER documented in this encounter Results * DERMATOPATHOLOGY (10/20/2020 12:00 AM BRANCH MAKER) Case Report Dermatopathology Report Case: [id number] Authorizing Provider: Aisha Goldstein DO Collected: 10/20/2020 12:00 AM Ordering Location: [facility] Care DermPath Lab Received: 10/21/2020 09:03 AM Pathologist: Chrissy Zambrano MD Specimen: Skin, left FA 3:48 PM BRANCH MAKER DERMATOPATHOLOGY LABORATORY Final Diagnosis Specimen A. SKIN, left FA: DERMAL SCAR RESIDUAL SQUAMOUS CELL CARCINOMA NOT IDENTIFIED (L90.5) 3:48 PM BRANCH MAKER DERMATOPATHOLOGY LABORATORY at 1548 BRANCH MAKER Clinical History R/O SCCIS. 1 3:48 PM BRANCH MAKER DERMATOPATHOLOGY LABORATORY Gross Description Specimen A: Received is one formalin filled container labeled with the patient's name and designated left FA. The specimen consists of a non-oriented ellipse of skin measuring [id number]. The epidermal surface is unremarkable. The margin is inked green. The 12 o'clock and 6 o'clock tips are submitted in cassette 1. The remainder of the ellipse is serially sectioned and submitted in cassette 2-3. Jar 0. 1 3:48 PM [facility] DERMATOPATHOLOGY LABORATORY Microscopic Description Specimen A. SKIN, left FA: There are fibroblasts and collagen bundles oriented parallel to the skin surface. There are elongated blood vessels, some of which are oriented perpendicular to the skin surface. No residual squamous cell carcinoma is identified. 3:48 PM [facility] DERMATOPATHOLOGY LABORATORY Disclaimer An external and internal positive and negative controls are appropriate for the histochemical, immunohistochemical and immunofluorescence stain(s) in this case (if any), except where stated explicitly. The performance characteristics of the stain(s) cited in this report were developed and its performance characteristic determined by the Dermatopathology Laboratory at [facility], directed by Dr. Bernardo Thrasher. These tests need not be, and therefore are not, approved by the [place] Food and Drug Administration. The tests are used for clinical purposes. Billing Codes Specimen Charges Stain Charges 68748 1 1 3:48 PM BRANCH MAKER DERMATOPATHOLOGY LABORATORY Embedded Images 1 3:48 PM [facility] DERMATOPATHOLOGY LABORATORY Pathology/Cytolog y TISSUE SPECIMEN FROM SKIN / Unknown 10/20/2020 10/21/2020 9:03 AM BRANCH MAKER us Aisha Goldstein DO LAB - PATHOLOGY/CYTOLOGY ORDERABLES Final Result DERMATOPATHOLOGY LABORATORY [facility] - Department of Dermatology [address] [place] [address], [facility] [phone] documented in this encounter Visit Diagnoses Not on filedocumented in this encounter Care Teams Life Consultant Relationship Specialty Start Date End Date Donavon Mcdowell MD [address] [place] [address] PCP - General 06/15/13 documented as of this encounter
--- OUTSIDE RECORDS SUMMARY | 2025-08-02 00:16 | XMS_ITS | Encounter Summary ---
Author Organization [facility] Address [address] [place] [address] Care Team Providers Care Curtain Drier Name Role Phone Donavon Mcdowell MD Primary Care Provider [phone] Encounter Details Date Type Department Care Team (Late st Contact Info) Description 05/17/2024 Lab Requisition [facility] - DermPath Lab [address] [facility], [place] [id number] Aisha Goldstein DO [address] [facility] [address] [place] [address] Social History Tobacco Use Types Packs/Day Years Used Date Smoking Tobacco: Never Assessed Sex and Gender Information Value Date Recorded Sex Assigned at Not on file 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 Gender Identity Not on file Sexual Orientation Not on file documented as of this encounter Plan of Treatment Not on file documented as of this encounter Procedures Procedure Name Priority Date/Time Associated Diagnosis Comments DERMATOPATHOLOGY Routine 05/17/2024 10:2 8 AM CDT documented in this encounter Results * DERMATOPATHOLOGY (05/17/2024 10:28 AM CDT) Case Report Dermatopathology Report Case: [id number] Authorizing Provider: Aisha Goldstein DO Collected: 05/17/2024 10:28 AM Ordering Location: [facility] - Received: 05/22/2024 06:07 AM DermPath Lab Pathologist: Chrissy Zambrano MD Specimen: Skin, left cheek 1:11 PM CDT DERMATOPATHOLOGY LABORATORY Final Diagnosis Specimen A. 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 The specimen consists of a shave biopsy measuring 8x4x2 mm. Jar 0. 1:11 PM [facility] DERMATOPATHOLOGY LABORATORY Microscopic Description Specimen A. SKIN, left cheek: Sections show skin with irregularly shaped nests of keratinocytes with evidence of cornification. In some nests, there is loss of cohesion between the neoplastic cells, as well as individual dyskeratotic cells that lack intercellular bridges. 1:11 PM [facility] DERMATOPATHOLOGY LABORATORY Disclaimer An external and internal positive and negative controls are appropriate for the histochemical, immunohistochemical and immunofluorescence stain(s) in this case (if any), except where stated explicitly. The performance characteristics of the stain(s) cited in this report were developed and its performance characteristic determined by the Dermatopathology Laboratory at [facility], directed by Dr. Bernardo Thrasher. These tests need not be, and therefore are not, approved by the [place] Food and Drug Administration. The tests are used for clinical purposes. Billing Codes Specimen Charges Stain Charges 96957 1 1:11 PM CDT DERMATOPATHOLOGY LABORATORY Embedded Images 1:11 PM [facility] DERMATOPATHOLOGY LABORATORY Pathology/Cytolo gy TISSUE SPECIMEN FROM SKIN / Unknown 05/17/2024 10:28 AM CDT 05/22/2024 6:07 AM CDT us Aisha Goldstein DO LAB - PATHOLOGY/CYTOLOGY ORDERABLES Final Result DERMATOPATHOLOGY LABORATORY [facility] - Department of Dermatology [address], [address] [phone] documented in this encounter Visit Diagnoses Not on filedocumented in this encounter Care Teams Curtain Drier Relationship Specialty Start Date End Date Donavon Mcdowell MD [address] [place] [address] PCP - General 06/15/13 documented as of this encounter
--- OUTSIDE RECORDS SUMMARY | 2025-08-02 00:16 | XMS_ITS | Encounter Summary ---
Author Organization [facility] Address [address] [facility] [place] [address] Care Team Providers Care Functional Director Name Role Phone Donavon Mcdowell MD Primary Care Provider [phone] Encounter Details Date Type Department Care Team (Late st Contact Info) Description 10/10/2020 Lab Requisition [facility] DermPath Lab [address] [facility], [place] [id number] Aisha Goldstein DO [address] [facility] [place] [address] [place] [address] Social History Tobacco Use Types Packs/Day Years Used Date Smoking Tobacco: Never Assessed Sex and Gender Information Value Date Recorded Sex Assigned at Not on file 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 Gender Identity Not on file Sexual Orientation Not on file documented as of this encounter Plan of Treatment Not on file documented as of this encounter Procedures Procedure Name Priority Date/Time Associated Diagnosis Comments DERMATOPATHOLOGY Routine 10/09/2020 3:27 AM CAMBERING MACHINE OPERATOR documented in this encounter Results * DERMATOPATHOLOGY (10/09/2020 3:27 AM CAMBERING MACHINE OPERATOR) Case Report Dermatopathology Report Case: [id number] Authorizing Provider: Aisha Goldstein DO Collected: 10/09/2020 03:27 AM Ordering Location: [facility] Care DermPath Lab Received: 10/10/2020 09:47 AM Pathologist: Chrissy Zambrano MD Specimen: Skin, left forearm 1 1:30 PM CAMBERING MACHINE OPERATOR DERMATOPATHOLOGY LABORATORY Final Diagnosis Specimen A. 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 The specimen consists of a shave biopsy measuring 7x5x1 mm. Jar 0. 1 1:30 PM CAMBERING MACHINE OPERATOR DERMATOPATHOLOGY LABORATORY Microscopic Description Specimen A. SKIN, left forearm: The epidermis shows parakeratosis, full thickness disorderly maturation of keratinocytes, mitoses at different levels, and dyskeratotic cells. 1 1:30 PM CAMBERING MACHINE OPERATOR DERMATOPATHOLOGY LABORATORY Disclaimer An external and internal positive and negative controls are appropriate for the histochemical, immunohistochemical and immunofluorescence stain(s) in this case (if any), except where stated explicitly. The performance characteristics of the stain(s) cited in this report were developed and its performance characteristic determined by the Dermatopathology Laboratory at [facility], directed by Dr. Bernardo Thrasher. These tests need not be, and therefore are not, approved by the [place] Food and Drug Administration. The tests are used for clinical purposes. Billing Codes Specimen Charges Stain Charges 13380 1 1 1:30 PM CAMBERING MACHINE OPERATOR DERMATOPATHOLOGY LABORATORY Embedded Images 1 1:30 PM CAMBERING MACHINE OPERATOR DERMATOPATHOLOGY LABORATORY Pathology/Cytolo gy TISSUE SPECIMEN FROM SKIN / Unknown 10/09/2020 3:27 AM CAMBERING MACHINE OPERATOR 10/10/2020 9:47 AM CAMBERING MACHINE OPERATOR us Aisha Goldstein DO LAB - PATHOLOGY/CYTOLOGY ORDERABLES Final Result DERMATOPATHOLOGY LABORATORY [facility] - Department of Dermatology [facility] Medicine [address] [place] [address], [address] [phone] documented in this encounter Visit Diagnoses Not on filedocumented in this encounter Care Teams Functional Director Relationship Specialty Start Date End Date Donavon Mcdowell MD [address] [place] [address] PCP - General 06/15/13 documented as of this encounter
--- NOTE | 2025-08-02 01:53 | ED_ITS ---
HPI - Male Genitourinary General Chief complaint: Urogenital-Male <Eliana Whitlock APRN - Last Filed: 08/02/25 03:33> Stated complaint: blood in urine <Eliana Whitlock APRN - Last Filed: 08/02/25 03:33> Time Seen by Provider: 08/02/25 01:43 <Eliana Whitlock APRN - Last Filed: 08/02/25 03:33> History of Present Illness HPI Narrative: Patient is an 80-year-old male who presents to the ER with left lower quadrant abdominal pain and hematuria. He reports his symptoms started earlier today. Patient endorses nausea and diarrhea associated with his pain. He denies any urinary symptoms, recent fevers, or back pain. Patient endorses an extensive cardiac history and reports he is on Brilinta. He also endorses a history of diabetes, hyperlipidemia, and high blood pressure. <Eliana Whitlock APRN - Last Filed: 08/02/25 03:33> Related Data Home medications: Home Medications ?Medication ?Instructions ?Recorded ?Confirmed ?Last Taken ?Type multivitamin (Daily Multi-Vitamin 1 tablet PO DAILY 06/20/25 03/31/23 History tablet) omega-3 fatty acids 1,000 mg 2,000 mg PO BID 09/25/19 06/20/25 03/31/23 History capsule (Fish Oil Concentrate) psyllium husk 3.4 gram/5.4 gram 1 tsp PO DAILY 1 06/20/25 03/29/23 History oral powder (Metamucil) aspirin 81 mg tablet,delayed 81 mg PO DAILY 03/24/22 1 03/30/23 History release metoprolol tartrate 25 mg tablet 25 mg PO BID 03/31/23 06/20/25 03/31/23 History ticagrelor 90 mg tablet (Brilinta) 90 mg PO Q12H 06/2006/20/25 Unknown History ketoconazole 2 % topical cream 1 applic topical .PRN 1 09/30/24 Unknown History <Eliana Whitlock APRN - Last Filed: 08/02/25 03:33> Allergies/Adverse reactions: Allergies Allergy/AdvReac Type Severity Reaction Status Date / Time No Known Allergies Allergy Verified 08/02/25 00:18 <Eliana Whitlock APRN - Last Filed: 08/02/25 03:33> Review of Systems 2 Review of Systems: All systems reviewed & are unremarkable except as noted in HPI and below <Eliana Whitlock APRN - Last Filed: 08/02/25 03:33> [facility] Past Medical History Medical History: Medical History COVID-19 Squamous cell carcinoma of skin Colon polyp Coronary artery disease 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 Moderate disease involving RCA but FFR negative 2014. Left bundle branch block Essential (primary) hypertension Mixed hyperlipidemia Primary osteoarthritis of both knees Type 2 diabetes mellitus without complication <Eliana Whitlock APRN - Last Filed: 08/02/25 03:33> Surgical History Surgical History: Surgical History Status post right partial knee replacement (~10/2019) Status post left partial knee replacement (~07/21/20) History of squamous cell carcinoma excision Excision of multiple skin cancers from the head and neck. History of cataract surgery <Eliana Whitlock APRN - Last Filed: 08/02/25 03:33> Family History Family History: Family History Sibling Malignant neoplasm of prostate Acute myocardial infarction Diabetes mellitus Father Cerebrovascular accident Mother Hypertension Daughter Breast cancer <Eliana Whitlock APRN - Last Filed: 08/02/25 03:33> Social History Social History: Social History Social History: The patient lives with his in [place]. They have no pets. He is a [place] with possible Agent [place] exposure. Retired from the [employer]. Smoked 2 packs a day for 20 years and quit about 35 years ago. No alcohol or illicit substance abuse. He designates his Pushpa as his surrogate decision maker and he wishes to be a full code. Smoking packs per day: 2 Smoking cigarettes per day: 40.0 Years smoked: 37 Smoking pack-years: 74.00 Smoking status: Former smoker Tobacco type: cigarettes Second hand tobacco smoke exposure: Yes Smoking end date: 09/19/79 Alcohol intake: never Substance use: never Substance use type: does not use Lack of Transportation: No Lack of Food: Never True Current Housing: I Have Housing Concerned About Future Housing: No Difficulty Paying Gas/Electric Bills: No Difficulty Paying for Meds: No Currently Unemployed: No Education: High School Diploma/GED Difficulty w/ Childcare or Family Care: No Living arrangements: with family Gender identity (if verbalized by the patient): Male Sexual Orientation (if Verbalized by the Patient): Straight or Heterosexual Spiritual care concerns: No Agree to blood products: Yes <Eliana Whitlock, JAISON - Last Filed: 08/02/25 03:33> Exam 2 Narrative: GENERAL: Well appearing, well-nourished, non-toxic, in no acute distress. HEAD: Normocephalic, atraumatic. NECK: Supple. No adenopathy, no masses. RESPIRATORY: Airway patent, respirations nonlabored. Clear to auscultation bilaterally, no rales, rhonchi, wheezing. CARDIOVASCULAR: Regular rate and rhythm without murmurs, rubs, or gallops. Peripheral pulses 2+ and equal bilaterally. Negative CVA tenderness. ABDOMINAL: Soft, nontender, nondistended, no hepatosplenomegaly. Normoactive BS. MUSCULOSKELETAL: Moves all extremities. Strength/ROM intact without gross deformities. SKIN: Warm, dry, normal color. No rashes. NEURO: A&O X3. Speech clear. Cranial nerves II-XII intact. No ataxic movements. PSYCHIATRIC: Appropriate mood and affect. Normal interaction. <Eliana Whitlock, RELAY MECHANIC - Last Filed: 08/02/25 03:33> Course Course Emergency Course: Patient signed out to me pending CT scan. Here for LLQ abd pain. My independent interpretation is concerning for a left renal lesion that appears to be calcified but consideration of malignancy based on location. CT Results as below. Patient is reassessed at bedside he reports continuing to have pain. He had been given a dose of analgesic medication by me as it appeared he he had not been given 1 previously. An additional dose is given when he continues to have pain. notes that he did have an episode emesis so Zofran re-dosed. Pain is somewhat improving after 2 doses of morphine although still present. He tells this to me and again to the nurse upon their assessment a short while after. Toradol and flomax ordered. Discussed with urologist Dr Moulton. Given the mild leukocytosis and his continued pain, she does concur with giving a 1 time dose of ceftriaxone and will likely take him to the operating room for intervention. Made NPO. She will evaluate him in the emergency department. Will likely be able to go home afterwards today given his creatinine is okay and is otherwise hemodynamically stable. The mass will be followed up within the outpatient setting. <Marilu Pérez MD - Last Filed: 08/02/25 07:44> Vital Signs Vital signs: Vital Signs Temperature 97.9 F 08/02/25 00:15 Pulse Rate 56 L 08/02/25 00:15 Respiratory Rate 20 08/02/25 00:15 Blood Pressure 170/62 H 08/02/25 00:15 Pulse Oximetry 99 08/02/25 00:15 Oxygen Delivery Room Air 08/02/25 00:15 Temperature 97.9 F 08/02/25 00:15 Pulse Rate 56 L 08/02/25 00:15 Respiratory Rate 18 08/02/25 03:01 Blood Pressure 163/71 H 08/02/25 06:15 Pulse Oximetry 100 08/02/25 06:15 Oxygen Delivery Room Air 08/02/25 00:15 <Eliana Whitlock APRN - Last Filed: 08/02/25 03:33> Vital Signs Temperature 97.9 F 08/02/25 00:15 Pulse Rate 56 L 08/02/25 00:15 Respiratory Rate 20 08/02/25 00:15 Blood Pressure 170/62 H 08/02/25 00:15 Pulse Oximetry 99 08/02/25 00:15 Oxygen Delivery Room Air 08/02/25 00:15 Temperature 97.9 F 08/02/25 00:15 Pulse Rate 56 L 08/02/25 00:15 Respiratory Rate 18 08/02/25 03:01 Blood Pressure 163/71 H 08/02/25 06:15 Pulse Oximetry 100 08/02/25 06:15 Oxygen Delivery Room Air 08/02/25 00:15 <Marilu Pérez MD - Last Filed: 08/02/25 07:44> MDM - Male Genitourinary MDM Narrative Medical decision making narrative: Patient is an 80-year-old male who presents to the ER with left lower quadrant abdominal pain and hematuria. He reports his symptoms started earlier today. Patient endorses nausea and diarrhea associated with his pain. He denies any urinary symptoms, recent fevers, or back pain. Patient endorses an extensive cardiac history and reports he is on Brilinta. He also endorses a history of diabetes, hyperlipidemia, and high blood pressure. Labs Ordered: CBC, CMP, PTT, INR, UA Imaging Ordered: CT abdomen pelvis without contrast 0300- Pt had an episode of emesis, so he was given a dose of Zofran IV. Care signed out to Dr. Pérez pending CT scan results. <Eliana Whitlock APRN - Last Filed: 08/02/25 03:33> Differential Diagnosis Differential diagnosis: Likely urinary tract infection and other (Kidney stone, hydronephrosis) < Eliana Whitlock APRN - Last Filed: 08/02/25 03:33> Lab Data Attestation: I reviewed the patient's lab results. <Eliana Whitlock APRN - Last Filed: 08/02/25 03:33> Result diagrams: 08/02/25 02:33 08/02/25 02:33 <Eliana Whitlock APRN - Last Filed: 08/02/25 03:33> Labs: Lab Results 08/02/25 Range/Units 02:33 WBC 11.8 H (4.5-10.0) K/mm3 RBC 4.59 L (4.6-6.20) M/mm3 Hgb 12.9 L (14.0-18.0) g/dL Hct 39.1 L (42.0-52.0) % MCV 85.2 (80-100) fl MCH 28.1 (26-34) pg MCHC 33.0 (32-36) g/dl RDW 13.2 (11.5-14.5) % Plt Count 259 (150-375) k/mm3 MPV 8.8 (7.4-10.4) fl Immature Gran % (Auto) 0.3 (0-0.5) % Neut % (Auto) 82.8 H (45.5-73.1) % Lymph % (Auto) 11.3 L (18.3-44.2) % Stephenson % (Auto) 4.8 (2.6-8.5) % Eos % (Auto) 0.5 (0-4.4) % Baso % (Auto) 0.3 (0.2-1.2) % Lymph # (Auto) 1.33 (0.9-3.2) K/mm3 Stephenson # (Auto) 0.6 (0.1-0.6) K/mm3 Eos # (Auto) 0.1 (0-0.3) K/mm3 Baso # (Auto) 0.0 (0.0-0.1) K/mm3 Abs Immat Gran (auto) 0.04 H (0.00-0.031) K/mm3 Absolute Neuts (auto) 9.8 H (1.3-6.7) K/mm3 Absolute Nucleated RBC 0.000 (0.0-0.012) K/mm3 Nucleated RBC % 0.0 (0.0-0.2) % PT 13.7 (11.1-14.7) Seconds INR 1.1 APTT 27.2 (22.3-36.8) Seconds Sodium 136 L (137-145) mmol/L Potassium 4.7 (3.4-5.0) mmol/L Chloride 102 (98-107) mmol/L Carbon Dioxide 22 (22-30) mmol/L Anion Gap 12 (4-12) mmol/L BUN 22 H (9-20) mg/dL Creatinine 1.16 (0.7-1.3) mg/dL Estim Creat Clear Calc 42 ml/min Estimated GFR 60 (59 - ) Glucose 184 H (65-110) mg/dL Calcium 9.5 (8.4-10.2) mg/dL Total Bilirubin 0.7 (0.2-1.3) mg/dL AST 32 (17-59) U/L ALT 31 (6-50) U/L Alkaline Phosphatase 60 (38-126) U/L Total Protein 7.4 (6.3-8.2) g/dL Albumin 4.3 (3.5-5.1) g/dL Lipase 79 (23-300) U/L Urine Color Red H (Yellow) Urine Appearance Turbid H (Clear) Urine pH 5.0 (5.0-9.0) Ur Specific North 1.021 (1.001-1.035) Urine Protein 2+ H (Negative) mg/dL Urine Glucose (UA) Negative (Negative) mg/dL Urine Ketones Negative (Negative) mg/dL Ur Blood (Man) 2+ H (Negative) Urine Nitrate Positive H (Negative) Urine Bilirubin 1+ H (Negative) Urine Urobilinogen 0.2 (<2.0) mg/dL Add Ur Microanalysis Reviewed Leukocyte Esterase Rfl 2+ H (Negative) KATE/UL Urine RBC >100 H (0-2) /hpf Urine WBC 21-50 H (0-3) /hpf Ur Squamous Epith Cells Occasional (Few) /hpf Urine Bacteria None seen /hpf Urine Casts 0-2 <Eliana Whitlock, RELAY MECHANIC - Last Filed: 08/02/25 03:33> Lab Results 08/02/25 Range/Units 02:33 WBC 11.8 H (4.5-10.0) K/mm3 RBC 4.59 L (4.6-6.20) M/mm3 Hgb 12.9 L (14.0-18.0) g/dL Hct 39.1 L (42.0-52.0) % MCV 85.2 (80-100) fl MCH 28.1 (26-34) pg MCHC 33.0 (32-36) g/dl RDW 13.2 (11.5-14.5) % Plt Count 259 (150-375) k/mm3 MPV 8.8 (7.4-10.4) fl Immature Gran % (Auto) 0.3 (0-0.5) % Neut % (Auto) 82.8 H (45.5-73.1) % Lymph % (Auto) 11.3 L (18.3-44.2) % Stephenson % (Auto) 4.8 (2.6-8.5) % Eos % (Auto) 0.5 (0-4.4) % Baso % (Auto) 0.3 (0.2-1.2) % Lymph # (Auto) 1.33 (0.9-3.2) K/mm3 Stephenson # (Auto) 0.6 (0.1-0.6) K/mm3 Eos # (Auto) 0.1 (0-0.3) K/mm3 Baso # (Auto) 0.0 (0.0-0.1) K/mm3 Abs Immat Gran (auto) 0.04 H (0.00-0.031) K/mm3 Absolute Neuts (auto) 9.8 H (1.3-6.7) K/mm3 Absolute Nucleated RBC 0.000 (0.0-0.012) K/mm3 Nucleated RBC % 0.0 (0.0-0.2) % PT 13.7 (11.1-14.7) Seconds INR 1.1 APTT 27.2 (22.3-36.8) Seconds Sodium 136 L (137-145) mmol/L Potassium 4.7 (3.4-5.0) mmol/L Chloride 102 (98-107) mmol/L Carbon Dioxide 22 (22-30) mmol/L Anion Gap 12 (4-12) mmol/L BUN 22 H (9-20) mg/dL Creatinine 1.16 (0.7-1.3) mg/dL Estim Creat Clear Calc 42 ml/min Estimated GFR 60 (59 - ) Glucose 184 H (65-110) mg/dL Calcium 9.5 (8.4-10.2) mg/dL Total Bilirubin 0.7 (0.2-1.3) mg/dL AST 32 (17-59) U/L ALT 31 (6-50) U/L Alkaline Phosphatase 60 (38-126) U/L Total Protein 7.4 (6.3-8.2) g/dL Albumin 4.3 (3.5-5.1) g/dL Lipase 79 (23-300) U/L Urine Color Red H (Yellow) Urine Appearance Turbid H (Clear) Urine pH 5.0 (5.0-9.0) Ur Specific North 1.021 (1.001-1.035) Urine Protein 2+ H (Negative) mg/dL Urine Glucose (UA) Negative (Negative) mg/dL Urine Ketones Negative (Negative) mg/dL Ur Blood (Man) 2+ H (Negative) Urine Nitrate Positive H (Negative) Urine Bilirubin 1+ H (Negative) Urine Urobilinogen 0.2 (<2.0) mg/dL Add Ur Microanalysis Reviewed Leukocyte Esterase Rfl 2+ H (Negative) KATE/UL Urine RBC >100 H (0-2) /hpf Urine WBC 21-50 H (0-3) /hpf Ur Squamous Epith Cells Occasional (Few) /hpf Urine Bacteria None seen /hpf Urine Casts 0-2 <Marilu Pérez MD - Last Filed: 08/02/25 07:44> Imaging Data Radiologist's impression: CT Abd & Pelvis without contrast Stat rad: Impression: 4mm obstructing calculus in the distal left ureter with mild hydronephrosis. Incidental findings: Indeterminate solid appearing partially calcified 7.1 cm left renal lesion. Urology consultation is recommended. Further characterization with renal protocol MRI can be obtained. <Marilu Pérez MD - Last Filed: 08/02/25 07:44> Discharge Plan Discharge Clinical Impression: Calculus of distal left ureter, Lesion of left kaw kidney <Eliana Whitlock APRN - Last Filed: 08/02/25 03:33> Patient Disposition: Still a Patient <Eliana Whitlock APRN - Last Filed: 08/02/25 03:33> Condition: Stable <Eliana Whitlock APRN - Last Filed: 08/02/25 03:33> Additional Instructions: Indeterminate solid appearing partially calcified 7.1 cm left renal lesion. Urology consultation is recommended. Further characterization with renal protocol MRI can be obtained. Your PCP can help arrange this in the outpatient setting. <Eliana Whitlock APRN - Last Filed: 08/02/25 03:33> Patient Language: Kazakh <Eliana Whitlock APRN - Last Filed: 08/02/25 03:33> Prescriptions: No Action metformin 500 mg tablet See Rx Instructions .ROUTE .COMPLEX Qty: 90 3RF Dose Instruction: TAKE 1 TABLET BY MOUTH DAILY WITH EVENING MEAL Rx Instructions: TAKE 1 TABLET BY MOUTH DAILY WITH EVENING MEAL ketoconazole 2 % cream 1 applic topical .PRN omega-3 fatty acids [Fish Oil Concentrate] 1,000 mg capsule 2,000 mg PO BID multivitamin [Daily Multi-Vitamin] Tablet 1 tablet PO DAILY Metamucil 3.4 gram/5.4 gram powder 1 tsp PO DAILY Rx Instructions: mix into at least 4 oz water or juice before administering Pataday Once Daily Relief 0.7 % drops 1 drp EACH EYE DAILY PRN (Reason: itching) Qty: 5 1RF aspirin 81 mg tablet,delayed release (DR/EC) 81 mg PO DAILY ticagrelor [Brilinta] 90 mg tablet 90 mg PO Q12H metoprolol tartrate 25 mg Tablet 25 mg PO BID (DME) blood-glucose meter Kit See Rx Instructions .Route Qty: 1 0RF Rx Instructions: check blood sugars 1xdaily (DME) lancets [Ultra Thin Lancets] 30 gauge misc See Rx Instructions .ROUTE .COMPLEX Qty: 100 1RF Dose Instruction: TEST ONCE DAILY Rx Instructions: TEST ONCE DAILY (DME) Blood Glucose Test Strip See Rx Instructions .Route Qty: 50 0RF Rx Instructions: check blood sugar 1xdaily (DME) True Metrix Glucose Test Strip Strip See Rx Instructions .ROUTE .MEDSUPPLY Qty: 100 1RF Rx Instructions: Use to test blood sugar once daily simvastatin 20 mg tablet See Rx Instructions .ROUTE .COMPLEX Qty: 90 3RF Dose Instruction: TAKE 1 TABLET BY MOUTH IN THE EVENING Rx Instructions: TAKE 1 TABLET BY MOUTH IN THE EVENING isosorbide mononitrate 30 mg tablet extended release 24 hr See Rx Instructions .ROUTE .COMPLEX Qty: 90 3RF Dose Instruction: TAKE 1 TABLET BY MOUTH DAILY IN THE MORNING Rx Instructions: TAKE 1 TABLET BY MOUTH DAILY IN THE MORNING losartan 100 mg tablet See Rx Instructions .ROUTE .COMPLEX Qty: 90 3RF Dose Instruction: TAKE 1 TABLET BY MOUTH IN THE MORNING Rx Instructions: TAKE 1 TABLET BY MOUTH IN THE MORNING <Eliana Whitlock APRN - Last Filed: 08/02/25 03:33> Follow-up/Referrals: Saúl Garcia APRN [Primary Care Provider, Internal Medicine] Brandyn Faust DO [Physician, Internal Medicine] <Eliana Whitlock APRN - Last Filed: 08/02/25 03:33>
--- OUTSIDE RECORDS SUMMARY | 2025-08-02 01:58 | XMS_ITS | Clinical Summary ---
Author Organization [facility] Office [facility] Address [address] [place] [address] Care Team Providers Care Fish Smoker Name Role Phone Naresh Harris MD Unavailable [phone] Brandyn Faust DO Primary Care Provider [phone] Allergies No known active allergies Medications aspirin 81 mg enteric coated tablet Take 1 tablet (81 mg total) by mouth daily Active isosorbide mononitrate ER (IMDUR) 30 mg 24 hr tablet 1 tablet (30 mg total) daily Active metFORMIN (GLUCOPHAGE) 500 mg tablet 1 tablet (500 mg total) daily Active simvastatin (ZOCOR) 20 mg tablet 1 tablet (20 mg total) daily Active omega 3-exa-fml-fish oil 910-1,400 mg capsule Take by mouth [...] artery disease of n ative artery of [place] heart with stable angina pectoris 05/23/2025 Palpitations [...] Department Care Team Description 07/26/2025 1:45 PM FLUTE TEACHER Office Visit [facility] Cardiology at [address] [place] [address] Massimo Quintana MD Coronary artery disease of [place] artery of [place] heart with stable angina pectoris (Primary Dx); Hyperlipidemia associated with type 2 diabetes mellitus (HCC); LBBB (left bundle branch block); Pulmonary hypertension (HCC); Cardiomyopathy, unspecified type (HCC) 06/18/2025 Telephone [facility] Cardiology [address] [place] [address] [place] [phone] Massimo Quintana MD Med Refill 05/27/2025 Telephone [facility] Cardiology [address] [place] [address] [address] [place] [phone] Massimo Quintana MD dental work after cath 05/24/2025 Telephone [facility]iology [address] [place] [address] [place] [phone] Massimo Quintana MD 05/23/2025 1:30 PM CDT - 05/23/2025 3:05 PM CDT Surgery [facility] [address] [place] [address] Lamont Steel MD LEFT HEART CATHETERIZATION WITH CORONARY ANGIOGRAPHY AND WITH OR WITHOUT LEFT VENTRICULOGRAM [id number] 05/23/2025 8:47 AM CDT - 05/24/2025 12:53 PM CDT Hospital Encounter [address] [address] Lamont Steel MD Atypical chest pain; Coronary artery disease, unspecified vessel or lesion type, unspecified whether angina present, unspecified whether [place] or transplanted heart Discharge Disposition: Discharge to home or self care 05/22/2025 Telephone [facility]iology [address] [place] [address] [place] [phone] Massimo Quintana MD 05/15/2025 1:30 PM CDT Ancillary Procedure [facility] [address] [place] [address] [address] [place] [address] Palpitations 05/15/2025 10:15 AM CDT Ancillary Procedure [facility] Cardiology at [address] [place] [address] LBBB (left bundle branch block); Coronary artery disease involving [place] coronary artery of [place] heart without angina pectoris; Cardiomyopathy, unspecified type (HCC) 05/15/2025 8:45 AM CDT Office Visit [facility] [address] [place] [address] [place] [phone] Massimo Quintana MD Chest pain, unspecified type (Primary Dx); LBBB (left bundle branch block); Coronary artery disease involving [place] coronary artery of [place] heart without angina pectoris; Cardiomyopathy, unspecified type (HCC); Hyperlipidemia associated with type 2 diabetes mellitus (HCC); Pulmonary hypertension (HCC); Palpitations; Atypical chest pain 05/15/2025 Results Follow-Up [facility] [address] [place] [address] [place] [phone] Massimo Quintana MD Transthoracic Echo (TTE) Complete W Doppler/CF 05/15/2025 Telephone [facility]iology [address] [place] [address] [place] [phone] Massimo Quintana MD 05/13/2025 Telephone [facility] Cardiology [address] [place] [address] Massimo Quintana MD Chest Pain from Last 3 Months Surgical History Surgery Date Site/Laterality Comments KNEE SURGERY Bilateral CARDIAC CATHETERIZATION CARDIAC CATHETERIZATION 05/23/2025 N/A Procedure: LEFT HEART CATHETERIZATION WITH CORONARY ANGIOGRAPHY AND WITH OR WITHOUT LEFT VENTRICULOGRAM [id number]; Surgeon: Lamont Steel MD; Location[facility]; Service: Cardiovascular; Laterality: N/A; Medical devices from this surgery are in the Medical Devices section. CARDIAC CATHETERIZATION 05/23/2025 N/A Procedure: ULTRASOUND GUIDANCE FOR VASCULAR ACCESS S&I [id number]; Surgeon: Lamont Steel MD; Location: [facility]; Service: Cardiovascular; Laterality: N/A; Medical devices from this surgery are in the Medical Devices section. CARDIAC CATHETERIZATION 05/23/2025 N/A Procedure: IVUS/OCT CORS OR GRAFTS, FIRST VESSEL (+) [id number]; Surgeon: Lamont Steel MD; Location: [facility]; Service: Cardiovascular; Laterality: N/A; Medical devices from this surgery are in the Medical Devices section. CARDIAC CATHETERIZATION 05/23/2025 N/A Procedure: Percutaneous Coronary Lithotripsy W/ PCI (+) [id number]; Surgeon: Lamont Steel MD; Location: [facility]; Service: Cardiovascular; Laterality: N/A; Medical devices from this surgery are in the Medical Devices section. CARDIAC CATHETERIZATION 05/23/2025 N/A Procedure: PCI BRI MAJOR CORONARY [id number] - [id number]; Surgeon: Lamont Steel MD; Location: [facility]; Service: Cardiovascular; Laterality: N/A; Medical devices from [...] on file Legal Sex Male 3:43 AM FLUTE TEACHER Gender Identity Not on file Sexual Orientation Not on file Last Filed Vital Signs Vital Sign Reading Time Taken Comments Blood Pressure 138/68 07/26/2025 1:51 PM FLUTE TEACHER Pulse 89 07/26/2025 1:51 PM FLUTE TEACHER Temperature 36.5 C (97.7 F) 05/24/2025 8:22 AM CDT Respiratory Rate 18 05/24/2025 8:22 AM CDT Oxygen Saturation 98% 07/26/2025 1:51 PM FLUTE TEACHER Inhaled Oxygen Concentration - - Weight 85.3 kg (188 lb) 07/26/2025 1:51 PM FLUTE TEACHER Height 170.2 cm (5' 7) 07/26/2025 1:51 PM FLUTE TEACHER Body Mass Index 29.44 07/26/2025 1:51 PM FLUTE TEACHER Plan of Treatment Health Maintenance Due Date [...] 06/21/2016, 2016 Medical Devices Implanted Type Area City Surveyor Device Identifier Shelf Expiration Date Model / Serial / Lot Backtrace I/O Synergy Xd Monorail 3.5mm 28mm 144cm Delivery System 1 Access [id number] - [id number] Implanted:Qty: 1 on 05/23/2025 by Lamotn Steel MD at [facility] Backtrace I/O 11/13/2026 [id number] / / [id number] Backtrace I/O Stent Coronary Drug Eluting Rapid Exchange Synergy Xd 3.48g54ku [place] [employer] [id number] - [id number] Implanted:Qty: 1 on 05/23/2025 by Lamont Steel MD at [facility] Backtrace I/O 09/25/2026 [id number] / / [id number] Procedures Procedure Name Priority Date/Time Associated Diagnosis [...] type, unspecified whether angina present, unspecified whether [place] or transplanted heart PERCUTANEOUS CORONARY LITHROTRIPSY W/ PCI (+) [id number] Routine 05/23/2025 3:09 PM CDT Atypical chest pain Coronary artery disease, unspecified vessel or lesion type, unspecified whether angina present, unspecified whether [place] or transplanted heart CORONARY OCT, 1ST VESSEL Routine 05/23/2025 3:09 PM CDT Atypical chest pain Coronary artery disease, unspecified vessel or lesion type, unspecified whether angina present, unspecified whether [place] or transplanted heart VASCULAR ACCESS US GUIDANCE Routine 05/23/2025 3:09 PM CDT Atypical chest pain Coronary artery disease, unspecified vessel or lesion type, unspecified whether angina present, unspecified whether [place] or transplanted heart LEFT HEART CATHETERIZATION WITH CORONARY ANGIOGRAPHY AND WITH AND WITHOUT LEFT VENTRICULOGRAM Routine 05/23/2025 3:09 PM CDT Atypical chest pain Coronary artery disease, unspecified vessel or lesion type, unspecified whether angina present, unspecified whether [place] or transplanted heart MODERATE SEDATION 05/23/2025 1:1 1 PM CDT Atypical chest pain Coronary artery disease, unspecified vessel or lesion type, unspecified whether angina present, unspecified whether [place] or transplanted heart EGFR Routine 05/23/2025 9:55 [...] type, unspecified whether angina present, unspecified whether [place] or transplanted heart Atypical chest pain CBC WITH AUTO DIFFERENTIAL Routine 05/21/2025 Pre-procedure lab exam Coronary artery disease, unspecified vessel or lesion type, unspecified whether angina present, unspecified whether [place] or transplanted heart Atypical chest pain MCT - MOBILE CARDIAC TELEMETRY EVENT MONITOR Routine 05/15/2025 11:55 AM CDT Palpitations TRANSTHORACIC ECHO (TTE) COMPLETE W DOPPLER/CF WO CONTRAST Routine 05/15/2025 10:38 AM CDT LBBB (left bundle branch block) Coronary artery disease involving [place] coronary artery of [place] heart without angina pectoris Cardiomyopathy, unspecified type (HCC) ECG 12-LEAD Routine 05/15/2025 8:44 AM CDT Chest pain, unspecified type from Last 3 Months Results * ECG 12 lead (05/24/2025 11:40 AM CDT) 05/24/2025 11:4 0 AM CDT Narrative [facility] - 05/24/2025 9:06 PM CDT Vent Rate: 83 bpm RR Interval: 719 msec VA Interval: 192 msec QRS Duration: 178 msec QT Interval: 439 msec QTC Interval: 479 msec P-R-T Wagner: 33 - -63 - 90 degrees IMPRESSION: SINUS RHYTHM LEFT AXIS DEVIATION [QRS AXIS < -30] LEFT BUNDLE BRANCH BLOCK [120+ ms QRS DURATION, 80+ ms Q/S IN V1/V2, 85+ ms R IN I/aVL/V5/V6] ABNORMAL ECG Electronically Signed By: Dayo Mendez MD Kateryna Bob NP ECG ORDERABLES Final Result [facility] * (ABNORMAL) Lipid panel (05/24/2025 [...] 05/24/2025 9:27 AM CDT us Kateryna Bob SENIOR ACCOUNTING CLERK LAB BLOOD ORDERABLES Final Resul t Performing Organization Address City/[facility] Co de Phone Number MONISHA ROTH [address] [place] [address] * POCT glucose (05/23/2025 8:31 PM CDT) Glucose, POC 177 70 - 199 mg/dL Blood 05/23/2025 8:31 PM CDT 05/23/2025 8:31 PM CDT Lamont Steel MD LAB POCT ORDERABLES - DEVICE Fin al Result MON[facility]HA ROTH [address] [place] [address] * POCT glucose (05/23/2025 6:37 PM CDT) Glucose, POC 199 70 - 199 mg/dL Blood 05/23/2025 6:37 PM CDT 05/23/2025 6:37 PM CDT Lamont Steel MD LAB POCT ORDERABLES - DEVICE Fin al Result Performing Organization Address [facility] Co de Phone Number MONISHA ROTH [address] [address] Department [place] [address] * POCT glucose (05/23/2025 3:27 PM CDT) Glucose, POC 109 70 - 199 mg/dL Blood 05/23/2025 3:27 PM CDT 05/23/2025 3:27 PM CDT Lamont Steel MD LAB POCT ORDERABLES - DEVICE Fin al Result Performing Organization Address [facility] de Phone Number MONISHA ROTH [address] Department [place] [address] * LEFT HEART CATHETERIZATION WITH CORONARY ANGIOGRAPHY AND WITH AND WITHOUT LEFT VENTRICULOGRAM, VASCULAR ACCESS US GUIDANCE, CORONARY OCT, 1ST VESSEL, PERCUTANEOUS CORONARY LITHROTRIPSY W/ PCI (+) 21314, BRI MAJOR CORONARY (05/23/2025 3:09 PM CDT) [...] groin hematoma, retroperitoneal bleed, vessel perforation; periprocedural NV, cardiac arrhythmias, stroke, contrast induced nephropathy, and [...] 28 mm and 3.5 x 16 mm [place] scientific Synergy everolimus eluting stents in an overlapping fashion Moderate sedation-CPT code 33918 and beyond MODERATE SEDATION: Midazolam 1 mg , Fentanyl 25 mcg, start time 1328 stop time 1509, total direct [id number] monitoring of conscious sedation 101 minutes (CPT 92431) TRAINED OBSERVER: Jaison Bynum RN was trained observer for moderate sedation. ACCESS SITE: Right radial artery PROCEDURE: After obtaining informed consent, patient was brought to the laborer wrecking and salvaging and prepped and draped in the usual sterile manner. Time-out and immediate reassessment of the patient was performed. After local anesthesia with lidocaine, right radial artery access was taken with micropuncture needle under ultrasound guidance followed by insertion of a 6 Tun[place]ian sheath. Patient received 2.5 mg of verapamil, 200 mcg of nitroglycerin through the radial arterial sheath; and 5000 units of heparin for the diagnostic portion of the cardiac catheterization. During intervention, bivalirudin used for procedural anticoagulation. Selective left and right coronary angiography was performed using 5 F JL4 and 6 Tunisian q.4 guide (was difficulty in engaging the left main coronary artery ostium using 5 [place] JL 3.5 diagnostic catheter) catheters respectively. Orthogonal [...] and loading dose of ticagrelor in the laborer wrecking and salvaging. Bivalirudin was used for procedural anticoagulation. Initially, [...] then finally crossed using crossed using 0.01 AsaImnish black wire. Initially, 2.5 x 12 mm [...] dense calcification in the proximal RCA. Six [place]ian GuideLiner was used to provide additional support. After this, balloon angioplasty was performed again using a 2.5 x 12 mm NC balloon. Next, we proceeded with intravascular lithotripsy using a 3.5 x 12 mm lithotripsy balloon. Multiple cycles of lithotripsy were performed. Next, after extreme difficulty, 3.5 x 28 mm [place] scientific Synergy everolimus eluting stent was advanced to the proximal-mid RCA and was deployed at a maximum of 16 atmospheres. Postdilation was initially performed using a sternal balloon. After this, angiogram showed residual stenosis of the proximal most segment of the RCA. Therefore, we proceeded with placement of another stent-3.5 x 16 mm [place] scientific Synergy everolimus eluting stent in an [...] 28 mm and 3.5 x 16 mm [place] scientific Synergy everolimus eluting stents in an [...] was used to complete this document, therefore, generation engineer variances may occur. Lamont Steel MD, [facility] 05/23/25 us Lamont Steel MD CV CARDIAC [...] MD LAB BLOOD ORDERABLES Final Resul t [facility] [address] Department [place] [address] * Differential, auto (05/23/2025 9:55 AM CDT) Neutrophil abs 3.87 1.50 - 6.50 K/cumm Imm gran abs 0.02 0.00 - 0.10 K/cumm [facility] Lymphocyte abs 2.08 0.80 - 3.30 K/cumm [facility] Monocyte abs 0.56 0.20 - 0.80 K/cumm [facility] Eosinophil abs 0.22 0.00 - 0.50 K/cumm [facility] Basophil abs 0.05 0.00 - 0.10 K/cumm [facility] Neutrophil pct 57.0 % [facility] Comment: Interpretive Data Percent cell count reference ranges are not reported, since discordance with absolute values may lead to misinterpretation of CBC data. Current Interpretive Data was last revised on 2017. Imm gran pct 0.3 % [facility] Comment: Interpretive Data Percent cell count reference ranges are not reported, since discordance with absolute values may lead to misinterpretation of CBC data. Current Interpretive Data was last revised on 2017. Lymphocyte pct 30.6 % [facility] Comment: Interpretive Data Percent cell count reference ranges are not reported, since discordance with absolute values may lead to misinterpretation of CBC data. Current Interpretive Data was last revised on 2017. Monocyte pct 8.2 % [facility] Comment: Interpretive Data Percent cell count reference ranges are not reported, since discordance with absolute values may lead to misinterpretation of CBC data. Current Interpretive Data was last revised on 2017. Eosinophil pct 3.2 % [facility] Comment: Interpretive Data Percent cell count reference ranges are not reported, since discordance with absolute values may lead to misinterpretation of CBC data. Current Interpretive Data was last revised on 2017. Basophil pct 0.7 % [facility] Comment: Interpretive Data Percent cell count reference ranges are not reported, since discordance with absolute values may lead to misinterpretation of CBC data. Current Interpretive Data was last revised on 2017. Blood 05/23/2025 9:55 AM CDT 05/23/2025 9:57 AM CDT us Lamont Steel MD LAB BLOOD ORDERABLES Final Resul t [facility] [address] Department [place] [address] * CBC with auto differential (05/23/2025 9:55 AM CDT) WBC 6.80 3.80 - 9.90 K/cumm Hgb 14.9 13.0 - 17.5 g/dL [facility] Hct 43.7 38.9 - 50.3 % [facility] Plt 211 150 - 400 K/cumm [facility] MPV 9.3 9.1 - 12.3 fL [facility] RBC 5.09 4.30 - 5.80 M/cumm [facility] MCV 85.9 81.3 - 96.4 fL [facility] MCH 29.3 27.1 - 33.3 pg [facility] MCHC 34.1 32.3 - 35.7 g/dL [facility] RDW CV 12.5 11.1 - 14.9 % [facility] RDW SD 39.3 35.7 - 48.1 fL [facility] NRBC abs 0.00 0.00 - 0.01 K/cumm [facility] Blood 05/23/2025 9:55 AM CDT 05/23/2025 9:57 AM CDT Lamont Steel MD LAB BLOOD ORDERABLES Final Resul t Performing Organization Address [facility] Co de Phone Number MONISHA [address] [place] [address] * (ABNORMAL) Basic metabolic panel (05/23/2025 9:55 [...] ORDERABLES Final Resul t Performing Organization Address [facility] Co de Phone Number MONISHA [address] [place] [address] * POCT glucose (05/23/2025 8:59 AM CDT) Pathologist [facility] Glucose, POC 161 70 - 199 mg/dL Blood 05/23/2025 8:59 AM CDT 05/23/2025 8:59 AM CDT us Lamont Steel MD LAB POCT ORDERABLES - DEVICE Fin al Result MONISHA [address] Department [place] [address] * (ABNORMAL) CBC with auto differential (05/21/2025) [facility] SCRIBED WBC 6.9 3.8 - 9.9 K/cumm [...] ORDERABLES Tracy l Result Performing Organization Address [facility] Co de Phone Number EXTERNAL [...] phy Narrative 06/04/2025 7:08 PM CDT AMBULATORY SOCIAL INSURANCE ANALYST REPORT Patient Name: Vickie Arias Date of : 1945 Requesting Physician: Dr. Quintana Date of interpretation: 06/04/25 Type of monitor : 14 day clinical research monitor Date of the study/Enrollment period: 05/15/2025 [...] was used to complete this document, therefore, generation engineer variances may occur. Massimo Quintana MD, [facility] 06/04/25 Procedure Note Massimo Quintana MD - 06/04/2025 AMBULATORY SOCIAL INSURANCE ANALYST REPORT Patient Name: Vickie Arias Date of : 1945 Requesting Physician: Dr. Quintana Date of interpretation: 06/04/25 Type of monitor : 14 day clinical research monitor Date of the study/Enrollment period: 05/15/2025 [...] software was used to complete this document, therefore,generation engineer variances may occur. Massimo Quintana MD, [facility] 06/04/25 us Massimo Quintana MD CV CARDIAC SERVICES [facility] WITH [facility] Final Result * TRANSTHORACIC ECHO (TTE) COMPLETE W DOPPLER/CF WO CONTRAST (05/15/2025 10:38 AM CDT) Estimated EF 55 % CONS SCIMAGE EF Mod BP 56 % CONS SCIMAGE Anatomical Region Laterality Modality Ultrasound 05/15/2025 10:0 9 AM CDT Narrative 05/15/2025 11:59 AM CDT [facility] Cardiology [address], [address], [place] [address] P:[phone] P:[phone] Echocardiographic Report Patient Name: VICKIE ARIAS W : 1945 Study Date: 05/15/2025 10:09:53 AM Sex: M Wildlife Refuge Specialist: LINDA Location: [facility] Ref Provider: MASSIMO QUINTANA Height(Cm): 170 BSA: 2.05 Weight(Kg): 88.9 Heart Rate: 50 BP: 148 / 74 Quality: Good Order Provider: MASSIMO QUINTANA PROCEDURES: Echocardiographic Report: Transthoracic echocardiogram with complete 2D, M-Mode, and color Doppler examination. With Strain Analysis. INDICATIONS: I44.7 Left bundle-branch block, unspecified, I25.10 Atherosclerotic heart disease of [place] coronary artery without angina pectoris, and I42.9 [...] FINDINGS: Interpretation Site: Exam was interpreted at [facility]. Left Ventricle: Normal left ventricular systolic function. [...] MD 05/15/2025 11:58:31 AM CDT Procedure Note aMssimo Quintana MD - 05/15/2025 [facility] Cardiology [address], [address], [place] [address] P:[phone] P:[phone] Echocardiographic Report Patient Name: VICKIE ARIAS W : 1945 Study Date: 05/15/2025 10:09:53 AM Sex: M Wildlife Refuge Specialist: LINDA Location: [facility] Ref Provider: MASSIMO QUINTANA Height(Cm): 170 BSA: 2.05 Weight(Kg): 88.9 Heart Rate: 50 BP: 148 / 74 Quality: Good Order Provider: MASSIMO QUINTANA PROCEDURES: Echocardiographic Report: Transthoracic echocardiogram with complete 2D, M-Mode, and color Dopplerexamination. With Strain Analysis. INDICATIONS: I44.7 Left bundle-branch block, unspecified, I25.10 Atherosclerotic heartdisease of [place] coronary artery without angina pectoris, and I42.9 [...] FINDINGS: Interpretation Site: Exam was interpreted at [facility]. Left Ventricle: Normal left ventricular systolic function. [...] cm. Normal sinus rhythm. Electronically Signed By: aMssimo Quintana MD 05/15/2025 11:58:31 AM CDT us Massimo Quintana MD CV ECHO PROCEDURES Final Result * ECG 12 lead (05/15/2025 8:44 AM CDT) us Massimo Quintana MD ECG ORDERABLES Edited Re sult - Final from Last 3 Months Insurance [facility] [place] [address] [facility]ICARE [facility] [facility] Care Teams Fish Smoker Relationship Specialty Start Date End Date Brandyn Faust DO [address] [place] [address] PCP - General Internal Medicine 11/27/24 Naresh Harris MD [address] [place] [address] Living Specialist Cardiology 07/05/19
--- OUTSIDE RECORDS SUMMARY | 2025-08-02 01:58 | XMS_ITS | Encounter Summary ---
Author Organization [facility] Address [address] [facility] [place] [address] Care Team Providers Care Hand Tube Bender Name Role Phone Donavon Mcdowell MD Primary Care Provider [phone] Encounter Details Date Type Department Care Team (Late st Contact Info) Description 10/10/2020 Lab Requisition [facility] D[facility] Lab [address] [facility], [facility] [place] [id number] Aisha Goldstein DO [address] [facility] 3 [place] [address] Social History Tobacco Use Types Packs/Day Years Used Date Smoking Tobacco: Never Assessed Sex and Gender Information Value Date Recorded Sex Assigned at Not on file Legal Sex Male 5:59 PM OVEN OPERATOR Gender Identity Not on file Sexual Orientation Not on file documented as of this encounter Plan of Treatment Not on file documented as of this encounter Procedures Procedure Name Priority Date/Time Associated Diagnosis Comments DERMATOPATHOLOGY Routine 10/09/2020 3:27 AM OVEN OPERATOR documented in this encounter Results * DERMATOPATHOLOGY (10/09/2020 3:27 AM OVEN OPERATOR) Case Report Dermatopathology Report Case: [id number] Authorizing Provider: Aisha Goldstein DO Collected: 10/09/2020 03:27 AM Ordering Location: [facility] Care DermPath Lab Received: 10/10/2020 09:47 AM Pathologist: Chrissy Zambrano MD Specimen: Skin, left forearm 1 1:30 PM OVEN OPERATOR DERMATOPATHOLOGY LABORATORY Final Diagnosis Specimen A. 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 The specimen consists of a shave biopsy measuring 7x5x1 mm. Jar 0. 1 1:30 PM OVEN OPERATOR DERMATOPATHOLOGY LABORATORY Microscopic Description Specimen A. SKIN, left forearm: The epidermis shows parakeratosis, full thickness disorderly maturation of keratinocytes, mitoses at different levels, and dyskeratotic cells. 1 1:30 PM OVEN OPERATOR DERMATOPATHOLOGY LABORATORY Disclaimer An external and internal positive and negative controls are appropriate for the histochemical, immunohistochemical and immunofluorescence stain(s) in this case (if any), except where stated explicitly. The performance characteristics of the stain(s) cited in this report were developed and its performance characteristic determined by the Dermatopathology Laboratory at [facility], directed by Dr. Bernardo Thrasher. These tests need not be, and therefore are not, approved by the [place] Food and Drug Administration. The tests are used for clinical purposes. Billing Codes Specimen Charges Stain Charges 77302 1 1 1:30 PM OVEN OPERATOR DERMATOPATHOLOGY LABORATORY Embedded Images 1 1:30 PM OVEN OPERATOR DERMATOPATHOLOGY LABORATORY Pathology/Cytolo gy TISSUE SPECIMEN FROM SKIN / Unknown 10/09/2020 3:27 AM OVEN OPERATOR 10/10/2020 9:47 AM OVEN OPERATOR us Aisha Goldstein DO LAB - PATHOLOGY/CYTOLOGY ORDERABLES Final Result DERMATOPATHOLOGY LABORATORY [facility] - Department of Dermatology [facility] Medicine [address] [place] [address], [address] [phone] documented in this encounter Visit Diagnoses Not on filedocumented in this encounter Care Teams Hand Tube Bender Relationship Specialty Start Date End Date Donavon Mcdowell MD [address] [place] [address] PCP - General 06/15/13 documented as of this encounter
--- OUTSIDE RECORDS SUMMARY | 2025-08-02 01:58 | XMS_ITS | Encounter Summary ---
Author Organization [facility] Address [address] [facility] [place] [address] Care Team Providers Care Lithopone Charger Name Role Phone Donavon Mcdowell MD Primary Care Provider [phone] Encounter Details Date Type Department Care Team (Late st Contact Info) Description 05/17/2024 Lab Requisition [facility] - DermPath Lab [address] [facility], [place] [id number] Aisha Goldstein DO [address] [facility] 3 [place] [address] Social History Tobacco Use Types Packs/Day Years Used Date Smoking Tobacco: Never Assessed Sex and Gender Information Value Date Recorded Sex Assigned at Not on file 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 - Received: 05/22/2024 06:07 [...] measuring 8x4x2 mm. Jar 0. 1:11 PM [facility] DERMATOPATHOLOGY LABORATORY Microscopic Description Specimen A. SKIN, left cheek: Sections show skin with irregularly shaped nests of keratinocytes with evidence of cornification. In some nests, there is loss of cohesion between the neoplastic cells, as well as individual dyskeratotic cells that lack intercellular bridges. 1:11 PM [facility] DERMATOPATHOLOGY LABORATORY Disclaimer An external and internal positive and negative controls are appropriate for the histochemical, immunohistochemical and immunofluorescence stain(s) in this case (if any), except where stated explicitly. The performance characteristics of the stain(s) cited in this report were developed and its performance characteristic determined by the Dermatopathology Laboratory at [facility], directed by Dr. Bernardo Thrasher. These tests need not be, and therefore are not, approved by the [place] Food and Drug Administration. The tests are used for clinical purposes. Billing Codes Specimen Charges Stain Charges 36987 1 1:11 PM CDT DERMATOPATHOLOGY LABORATORY Embedded Images 1:11 PM [facility] DERMATOPATHOLOGY LABORATORY Pathology/Cytolo gy TISSUE SPECIMEN FROM SKIN / Unknown 05/17/2024 10:28 AM CDT 05/22/2024 6:07 AM CDT us Aisha Goldstein DO LAB - PATHOLOGY/CYTOLOGY ORDERABLES Final Result DERMATOPATHOLOGY LABORATORY [facility] - Department of Dermatology [address], [address] [phone] documented in this encounter Visit Diagnoses Not on filedocumented in this encounter Care Teams Lithopone Charger Relationship Specialty Start Date End Date Donavon Mcdowell MD [address] [place] [address] PCP - General 06/15/13 documented as of this encounter
--- OUTSIDE RECORDS SUMMARY | 2025-08-02 01:58 | XMS_ITS | Encounter Summary ---
Author Organization [facility] Facility Care Team Providers Care Lab Technician Name Role Phone Donavon Mcdowell MD Primary Care Provider [phone] Naresh Harris MD Unavailable [phone] Brandyn Faust DO Primary Care Provider [phone] Ancelmo Goodman MD Primary Care Provider [phone] Brandyn Faust DO Primary Care Provider [phone] Encounter Details Date Type Department Care Team (Latest Contact Info) Description 06/07/2018 Orders Only [facility] CLINCONV ProviderBarber MD [address] [place] [address] Social History Tobacco Use Types Packs/Day Years Used Date Smoking Tobacco: Never Assessed Sex and Gender Information Value Date Recorded Sex Assigned at Not on file 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 [address] [place] [address] [address] PCP - General Internal Medicine 07/22/20 03/08/23 Ancelmo Goodman MD [address] [facility] [address] [place] [address] [address] PCP - General Family Practice 03/09/23 11/26/24 Brandyn Faust DO [address] [facility] [address] [place] [address] [address] PCP - General Internal Medicine 11/27/24 Naresh Harris MD [address] [facility] [address] [place] [address] [address] Immigration Specialist Cardiology 07/05/19 documented as of this encounter
--- OUTSIDE RECORDS SUMMARY | 2025-08-02 01:58 | XMS_ITS | Encounter Summary ---
Author Organization [facility] Facility Care Team Providers Care Booth Cleaner Name Role Phone Donavon Mcdowell MD Primary Care Provider [phone] Naresh Harris MD Unavailable [phone] Brandyn Faust DO Primary Care Provider [phone] Ancelmo Goodman MD Primary Care Provider [phone] Brandyn Faust DO Primary Care Provider [phone] Encounter Details Date Type Department Care Team (Latest Contact Info) Description 12/02/2015 Orders Only [facility] CLINCONV ProviderBarber MD [address] [place] [address] Social History Tobacco Use Types Packs/Day Years Used Date Smoking Tobacco: Never Assessed Sex and Gender Information Value Date Recorded Sex Assigned at Not on file 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 Gender Identity Not on file Sexual Orientation [...] on filedocumented in this encounter Care Teams Booth Cleaner Relationship Specialty Start Date End Date Donavon Mcdowell MD PCP - General Internal Medicine 12/15/18 07/21/20 Brandyn Faust DO [address] [facility] [address] [place] [address] [address] PCP - General Internal Medicine 07/22/20 03/08/23 Ancelmo Goodman MD [address] [facility] [address] [place] [address] [address] PCP - General Family Practice 03/09/23 11/26/24 Brandyn Faust DO [address] [facility] [address] [place] [address] [address] PCP - General Internal Medicine 11/27/24 Naresh Harris MD [address] [facility] [address] [place] [address] [address] Machine Heel Seat Laster Cardiology 07/05/19 documented as of this encounter
--- OUTSIDE RECORDS SUMMARY | 2025-08-02 01:58 | XMS_ITS | Encounter Summary ---
Author Organization [facility] Address [address] [facility] [place] [address] Care Team Providers Care Felling Machine Operator Name Role Phone Donavon Mcdowell MD Primary Care Provider [phone] Encounter Details Date Type Department Care Team (Late st Contact Info) Description 10/21/2020 Lab Requisition [facility] DermPath Lab [address] [facility], 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 Gender Identity Not on file Sexual Orientation Not on file documented as of this encounter Plan of Treatment Not on file documented as of this encounter Procedures Procedure Name Priority Date/Time Associated Diagnosis Comments DERMATOPATHOLOGY Routine 10/20/2020 12:0 0 AM ELECTRIC TAPE SLITTER documented in this encounter Results * DERMATOPATHOLOGY (10/20/2020 12:00 AM ELECTRIC TAPE SLITTER) Case Report Dermatopathology Report Case: [id number] Authorizing Provider: Aisha Goldstein DO Collected: 10/20/2020 12:00 AM Ordering Location: [facility] Care DermPath Lab Received: 10/21/2020 09:03 AM Pathologist: Chrissy Zambrano MD Specimen: Skin, left FA 3:48 PM ELECTRIC TAPE SLITTER DERMATOPATHOLOGY LABORATORY Final Diagnosis Specimen A. SKIN, left FA: DERMAL SCAR RESIDUAL SQUAMOUS CELL CARCINOMA NOT IDENTIFIED (L90.5) 3:48 PM ELECTRIC TAPE SLITTER DERMATOPATHOLOGY LABORATORY at 1548 ELECTRIC TAPE SLITTER Clinical History R/O SCCIS. 1 3:48 PM ELECTRIC TAPE SLITTER DERMATOPATHOLOGY LABORATORY Gross Description Specimen A: Received is one formalin filled container labeled with the patient's name and designated left FA. The specimen consists of a non-oriented ellipse of skin measuring 47j47o7gm. The epidermal surface is unremarkable. The margin is inked green. The 12 o'clock and 6 o'clock tips are submitted in cassette 1. The remainder of the ellipse is serially sectioned and submitted in cassette 2-3. Jar 0. 1 3:48 PM [facility] DERMATOPATHOLOGY LABORATORY Microscopic Description Specimen A. SKIN, left FA: There are fibroblasts and collagen bundles oriented parallel to the skin surface. There are elongated blood vessels, some of which are oriented perpendicular to the skin surface. No residual squamous cell carcinoma is identified. 3:48 PM [facility] DERMATOPATHOLOGY LABORATORY Disclaimer An external and internal positive and negative controls are appropriate for the histochemical, immunohistochemical and immunofluorescence stain(s) in this case (if any), except where stated explicitly. The performance characteristics of the stain(s) cited in this report were developed and its performance characteristic determined by the Dermatopathology Laboratory at [facility], directed by Dr. Bernardo Thrasher. These tests need not be, and therefore are not, approved by the [place] Food and Drug Administration. The tests are used for clinical purposes. Billing Codes Specimen Charges Stain Charges 89912 1 1 3:48 PM ELECTRIC TAPE SLITTER DERMATOPATHOLOGY LABORATORY Embedded Images 1 3:48 PM [facility] DERMATOPATHOLOGY LABORATORY Pathology/Cytolog y TISSUE SPECIMEN FROM SKIN / Unknown 10/20/2020 10/21/2020 9:03 AM ELECTRIC TAPE SLITTER us Aisha Goldstein DO LAB - PATHOLOGY/CYTOLOGY ORDERABLES Final Result DERMATOPATHOLOGY LABORATORY [facility] - Department of Dermatology [address] [place] [address], [facility] [phone] documented in this encounter Visit Diagnoses Not on filedocumented in this encounter Care Teams Felling Machine Operator Relationship Specialty Start Date End Date Donavon Mcdowell MD [address] [place] [address] PCP - General 06/15/13 documented as of this encounter
--- OUTSIDE RECORDS SUMMARY | 2025-08-02 01:58 | XMS_ITS | Clinical Summary ---
Author Organization [facility] Address [address] [place] [address] Care Team Providers Care Form Layer Name Role Phone Donavon Mcdowell MD Primary Care Provider [phone] Source Comments [facility],non-owned Affiliates and Associated Physician Practices is amultiple site organization consisting of ambulatory clinics and hospital sitesin [place], [place], [place] and [place]. This disclosure is being madepursuant to the Care Everywhere program and may not contain all information available regarding this patient. 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
--- OUTSIDE RECORDS SUMMARY | 2025-08-02 01:58 | XMS_ITS | Encounter Summary ---
Author Organization [facility] Facility Care Team Providers Care Blood Donor Recruiter Supervisor Name Role Phone Donavon Mcdowell MD Primary Care Provider [phone] Naresh Harris MD Unavailable [phone] Brandyn Faust DO Primary Care Provider [phone] Ancelmo Goodman MD Primary Care Provider [phone] Brandyn Faust DO Primary Care Provider [phone] Encounter Details Date Type Department Care Team (Latest Contact Info) Description 06/04/2016 Orders Only [facility] CLINCONV ProviderBarber MD [address] [place] [address] Social History Tobacco Use Types Packs/Day Years Used Date Smoking Tobacco: Never Assessed Sex and Gender Information Value Date Recorded Sex Assigned at Not on file 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 [address] [place] [address] [address] PCP - General Internal Medicine 07/22/20 03/08/23 Ancelmo Goodman MD [address] [facility] [address] [place] [address] [address] PCP - General Family Practice 03/09/23 11/26/24 Brandyn Faust DO [address] [facility] [address] [place] [address] [address] PCP - General Internal Medicine 11/27/24 Naresh Harris MD [address] [facility] [address] [place] [address] [address] Claim Inspector Cardiology 07/05/19 documented as of this encounter
--- OUTSIDE RECORDS SUMMARY | 2025-08-02 01:58 | XMS_ITS | Encounter Summary ---
Author Organization [facility] Care Team Providers Care Third Steel Pourer Name Role Phone Donavon Mcdowell MD Primary Care Provider [phone] Naresh Harris MD Unavailable [phone] Brandyn Faust DO Primary Care Provider [phone] Ancelmo Goodman MD Primary Care Provider [phone] Brandyn Faust DO Primary Care Provider [phone] Encounter Details Date Type Department Care Team (Latest Contact Info) Description 06/28/2017 Orders Only [facility] CLINCONV ProviderBarber MD [address] [place] [address] Social History Tobacco Use Types Packs/Day Years Used Date Smoking Tobacco: Never Assessed Sex and Gender Information Value Date Recorded Sex Assigned at Not on file 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 Gender Identity Not on file Sexual Orientation [...] on filedocumented in this encounter Care Teams Third Steel Pourer Relationship Specialty Start Date End Date Donavon Mcdowell MD PCP - General Internal Medicine 12/15/18 07/21/20 Brandyn Faust DO [address] [facility] [address] [place] [address] [address] PCP - General Internal Medicine 07/22/20 03/08/23 Ancelmo Goodman MD [address] [facility] [address] [place] [address] [address] PCP - General Family Practice 03/09/23 11/26/24 Brandyn Faust DO [address] [facility] [address] [place] [address] [address] PCP - General Internal Medicine 11/27/24 Naresh Harris MD [address] [facility] [address] [place] [address] [address] Geospatial Program Management Officer Cardiology 07/05/19 documented as of this encounter
--- OUTSIDE RECORDS SUMMARY | 2025-08-02 01:58 | XMS_ITS | Clinical Summary ---
Author Organization [facility] Address [address] [place] [address] Care Team Providers Care Processing Talc And Borate Supervisor Name Role Phone Unavailable Primary Care Provider Unavailabl e Allergies No known active allergies Encounters Date Type Department Care Team Description 06/17/2025 11:49 AM CDT - 06/17/2025 1:45 PM CDT Emergency [facility] Emergency Department [address] [place] [address] Sundar Aguillon MD Fall, initial encounter [...] the Last Year Not on file 2024 [facility] Utilities Answer Date Recorded In the past [...] this topic MENINGOCOCCAL VACCINE Aged Out No maber claribel eligible based on patient's age to [...] poor wound healing Alternatives discussed: No treatment [place] protocol: Procedure explained and questions answered to [...] of iterative reconstruction technique. Sundar Aguillon MD [facility] ORDERABLES Final Resu lt from Last 3 Months Insurance [employer] MEDICARE
--- OUTSIDE RECORDS SUMMARY | 2025-08-02 01:58 | XMS_ITS | Encounter Summary ---
Author Organization [facility] Facility Care Team Providers Care Marketing Project Lead Name Role Phone Donavon Mcdowell MD Primary Care Provider [phone] Naresh Harris MD Unavailable [phone] Brandyn Faust DO Primary Care Provider [phone] Ancelmo Goodman MD Primary Care Provider [phone] Brandyn Faust DO Primary Care Provider [phone] Encounter Details Date Type Department Care Team (Latest Contact Info) Description 04/08/2017 Orders Only [facility] CLINCONV ProviderBarber MD [address] [place] [address] Social History Tobacco Use Types Packs/Day Years Used Date Smoking Tobacco: Never Assessed Sex and Gender Information Value Date Recorded Sex Assigned at Not on file 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 Gender Identity Not on file Sexual [...] on filedocumented in this encounter Care Teams Marketing Project Lead Relationship Specialty Start Date End Date Donavon Mcdowell MD PCP - General Internal Medicine 12/15/18 07/21/20 Brandyn Faust DO [address] [facility] [address] [place] [address] [address] PCP - General Internal Medicine 07/22/20 03/08/23 Ancelmo Goodman MD [address] [facility] [address] [place] [address] [address] PCP - General Family Practice 03/09/23 11/26/24 Brandyn Faust DO [address] [facility] [address] [place] [address] [address] PCP - General Internal Medicine 11/27/24 Naresh Harris MD [address] [facility] [address] [place] [address] [address] Projection Welding Machine Operator Cardiology 07/05/19 documented as of this encounter
[2025-08-02] MEDS: SODIUM CHLORIDE 0.9% IV 1,000 ML 999 ML IV CONT (02:35)
[2025-08-02 02:47] LABS: Hematocrit 39.1 % (42.0-52.0); Hemoglobin 12.9 g/dL (14.0-18.0); Immature Granulocyte Percent A 0.3 % (0-0.5); Lymphocytes Absolute Auto 1.33 K/mm3 (0.9-3.2); Mean Corpuscular HGB Conc 33.0 g/dl (32-36); Mean Corpuscular Hemoglobin 28.1 pg (26-34); Mean Corpuscular Volume 85.2 fl (80-100); Nucleated Red Blood Cells Absolute Auto 0.000 K/mm3 (0.0-0.012); Nucleated Red Blood Cells Perc 0.0 % (0.0-0.2); Platelet Count Result 259 k/mm3 (150-375); Red Blood Count 4.59 M/mm3 (4.6-6.20); White Blood Count 11.8 K/mm3 (4.5-10.0)
[2025-08-02 02:57] LABS: Alanine Aminotransferase 31 U/L (6-50); Albumin Level 4.3 g/dL (3.5-5.1); Alkaline Phosphatase 60 U/L (38-126); Anion Gap 12 mmol/L (4-12); Aspartate Amino Transferase 32 U/L (17-59); Bilirubin,Total 0.7 mg/dL (0.2-1.3); Blood Urea Nitrogen 22 mg/dL (9-20); Calcium 9.5 mg/dL (8.4-10.2); Carbon Dioxide 22 mmol/L (22-30); Chloride 102 mmol/L (98-107); Estimated CRCL calculation 42 ml/min; Estimated Glomerular Filt Rate 60; Glucose 184 mg/dL (65-110); Lipase 79 U/L (23-300); Potassium 4.7 mmol/L (3.4-5.0); Sodium 136 mmol/L (137-145); Total Protein 7.4 g/dL (6.3-8.2)
[2025-08-02 03:01] LABS: Add Urine Microscopic? YES; Appearance Urine Turbid (Clear); Glucose Urine UA Negative (Negative); Leukocyte Esterase Ur 2+ LEU/UL (Negative); Need Manual Microscopic Reviewed; Nitrate Urine Positive (Negative); Non Pathogenic Casts 0-2; Specific Grav Ur 1.021 (1.001-1.035)
[2025-08-02 03:05] LABS: INR 1.1; Prothrombin Time 13.7 Seconds (11.1-14.7)
[2025-08-02 03:06] LABS: Partial Thromboplastin Time 27.2 Seconds (22.3-36.8)
[2025-08-02] MEDS: ONDANSETRON INJ 4 MG/2 ML VIAL IV PUSH ×2 (03:35→06:10)
[2025-08-02] MEDS: MORPHINE SULFATE (*CRX) 4 MG/ML INJ 2 MG IV PUSH ×2 (05:30→06:10)
[2025-08-02] MEDS: cefTRIAXone 1 GM in SODIUM CHLORIDE 0.9% IV 50 ML 100 ML IVPB (07:41)
[2025-08-02] MEDS: KETOROLAC 15 MG/ML VIAL (*BKC) IV PUSH (07:42)
[2025-08-02] MEDS: TAMSULOSIN HCL 0.4 MG CAPSULE PO (07:42)
--- NOTE | 2025-08-02 08:54 | P.CONUR_ITS ---
Assessment and Plan Assessment and plan (1) Calculus of distal left ureter: Code(s): N20.1 - Calculus of ureter Status: Acute Plan 80 year old male with left distal ureteral stone, left renal mass, recent cardiac stents. Plan left retrograde pyelogram, left ureteroscopy, laser lithotripsy,stone extraction, possible stent placement only. Discussed risks of ureterosopic stone extraction, including bleeding, infection, ureteral injury, stricture, need for additional procedures, stent symptoms. We also discussed increased risk of cardiovascular complications related to anesthesia and surgery given recent cardiac stent placement. We also discussed the risks of observation given ua concerning for developing UTI, in the setting of obstruction this may result in sepsis--discussed this may be life threatening. We discussed stent placement only if there is evidence of infection intraoperatively with definitive stone treatment after an adequate course of culture-specific antibiotics. He understands and wishes to proceed. All questions were answered. Urology Consult Note HPI Date Seen: 08/02/25 Requesting Physician: Marilu Pérez MD Primary Care Provider: Saúl Garcia APRN Consult Narrative Reason for consult: Left ureteral stone and indeterminate left renal mass Narrative: Neli Collins is a 80 year old male with the acute onset of left flank pain @8pm the evening prior to presentation, associated with an episode of vomiting, no fever, chills or LUTS. CT shows a 4mm distal left ureteral stone and 7.1cm indeterminate calcified left renal mass. WBC is 11K, creatinine 1.16mg/dL, ua + for N, LE, no bacteria, micro ua with 21-50 WBCs/hpf, >100 RBCs/hpf. His pain is minimally controlled with MSO4, toradol, flomax. He has had no prior stone episodes, history of stone disease in his mother. Review of Systems 2 Review of Systems: All systems reviewed & are unremarkable except as noted in HPI and below (HPI) Constitutional: Constitutional: Reports no additional constitutional complaints Eyes: Eyes: Reports no additional eye complaints ENT: Reports system reviewed and no additional complaints, except as documented Cardiovascular: Cardiovascular: Reports no additional cardiovascular complaints Respiratory: Respiratory: Reports no additional respiratory complaints Gastrointestinal: Gastrointestinal: Reports no additional gastrointestinal complaints Genitourinary: Genitourinary: Reports flank pain (Left flank pain) and Reports urinary frequency (that is chronic, not worsening) Comments: Denies dysuria, increased frequency, urgency or difficulty with urination Musculoskeletal: Musculoskeletal: Reports no additional musculoskeletal complaints Psychiatric: Psychiatric: Reports no additional psychiatric complaints PMFSH Past Medical History Medical History COVID-19 Squamous cell carcinoma of skin Colon polyp Coronary artery disease Silent [place] with evidence of inferior wall involvement. Moderate disease involving RCA but FFR negative 2014. Left bundle branch block Essential (primary) hypertension Mixed hyperlipidemia Primary osteoarthritis of both knees Type 2 diabetes mellitus without complication Surgical History Surgical History Status post right partial knee replacement (~10/2019) Status post left partial knee replacement (~07/21/20) History of squamous cell carcinoma excision Excision of multiple skin cancers from the head and neck. History of cataract surgery Family History Family History Sibling Malignant neoplasm of prostate Acute myocardial infarction Diabetes mellitus Father Cerebrovascular accident Mother Hypertension Daughter Breast cancer Social History Social History Social History: The patient lives with his in [place]. They have no pets. He is a [place] with possible Agent [place] exposure. 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 No alcohol or illicit substance abuse. He designates his Pushpa as his surrogate decision maker and he wishes to be a full code. Smoking packs per day: 2 Smoking cigarettes per day: 40.0 Years smoked: 37 Smoking pack-years: 74.00 Smoking status: Former smoker Tobacco type: cigarettes Second hand tobacco smoke exposure: Yes Smoking end date: 09/19/79 Alcohol intake: never Substance use: never Substance use type: does not use Lack of Transportation: No Lack of Food: Never True Current Housing: I Have Housing Concerned About Future Housing: No Difficulty Paying Gas/Electric Bills: No Difficulty Paying for Meds: No Currently Unemployed: No Education: High School Diploma/GED Difficulty w/ Childcare or Family Care: No Living arrangements: with family Gender identity (if verbalized by the patient): Male Sexual Orientation (if Verbalized by the Patient): Straight or Heterosexual Spiritual care concerns: No Agree to blood products: Yes Meds Home Medications and Allergies Home Medications ?Medication ?Instructions ?Recorded ?Confirmed ?Type multivitamin (Daily Multi-Vitamin 1 tablet PO DAILY 08/02/25 History tablet) omega-3 fatty acids 1,000 mg 2,000 mg PO BID 09/25/19 08/02/25 History capsule (Fish Oil Concentrate) olopatadine 0.7 % eye drops 1 drp EACH EYE DAILY PRN i tching 02/11/21 06/20/25 Rx (Pataday Once Daily Relief) #5 mL psyllium husk 3.4 gram/5.4 gram 1 tsp PO DAILY 1 06/20/25 History oral powder (Metamucil) aspirin 81 mg tablet,delayed 81 mg PO DAILY 03/24/22 1 10/02/24 History release blood-glucose meter #1 ea 12/14/22 06/20/25 Rx metoprolol tartrate 25 mg tablet 25 mg PO BID 03/31/23 08/02/25 History lancets 30 gauge (Ultra Thin #100 ea 11/25/23 06/20/25 Rx Lancets) blood sugar diagnostic (Blood #50 ea 01/16/24 06/20/25 Rx Glucose Test strips) blood sugar diagnostic (True #100 ea 03/16/24 06/20/25 Rx Metrix Glucose Test Strip) isosorbide mononitrate 30 mg See Rx Instructions .Rout e 01/07/25 06/20/25 Rx tablet,extended release 24 hr .COMPLEX #90 tabs simvastatin 20 mg tablet See Rx Instructions .Route 0 01/07/25 08/02/25 Rx .COMPLEX #90 tabs metformin 500 mg tablet See Rx Instructions .Route 0 01/25/25 08/02/25 Rx .COMPLEX #90 tabs losartan 100 mg tablet See Rx Instructions .Route 0 01/31/25 08/02/25 Rx .COMPLEX #90 tabs ticagrelor 90 mg tablet (Brilinta) 90 mg PO Q12H 06/2008/02/25 History ketoconazole 2 % topical cream 1 applic topical .PRN 1 09/30/24 08/02/25 History Allergies Allergy/AdvReac Type Severity Reaction Status Date / Time No Known Allergies Allergy Verified 08/02/25 00:18 Vital Signs Vital Signs - 24 hr 08/02/25 00:15 08/02/25 01:29 08/02/25 01:30 Temperature 36.6 C Pulse Rate 56 L Respiratory Rate 20 18 18 Blood Pressure 170/62 H Pulse Oximetry 99 98 98 Oxygen Delivery Room Air 08/02/25 01:31 08/02/25 01:45 08/02/25 02:00 Temperature Pulse Rate Respiratory Rate 18 18 18 Blood Pressure 127/74 Pulse Oximetry 98 98 97 Oxygen Delivery 08/02/25 02:01 08/02/25 02:13 08/02/25 02:15 Temperature Pulse Rate Respiratory Rate 18 18 18 Blood Pressure 132/69 149/68 H Pulse Oximetry 97 100 99 Oxygen Delivery 08/02/25 02:30 08/02/25 02:31 08/02/25 02:45 Temperature Pulse Rate Respiratory Rate 18 18 18 Blood Pressure 135/66 Pulse Oximetry 99 99 99 Oxygen Delivery 08/02/25 03:00 08/02/25 03:01 08/02/25 03:02 Temperature Pulse Rate Respiratory Rate 18 18 Blood Pressure 149/68 H Pulse Oximetry 100 99 99 Oxygen Delivery 08/02/25 03:15 08/02/25 03:30 08/02/25 03:32 Temperature Pulse Rate Respiratory Rate Blood Pressure 171/75 H Pulse Oximetry 100 99 100 Oxygen Delivery 08/02/25 03:45 08/02/25 04:00 08/02/25 04:15 Temperature Pulse Rate Respiratory Rate Blood Pressure Pulse Oximetry 98 99 100 Oxygen Delivery 08/02/25 04:30 08/02/25 04:45 08/02/25 05:00 Temperature Pulse Rate Respiratory Rate Blood Pressure Pulse Oximetry 100 100 100 Oxygen Delivery 08/02/25 05:15 08/02/25 05:30 08/02/25 05:45 Temperature Pulse Rate Respiratory Rate Blood Pressure Pulse Oximetry 100 100 100 Oxygen Delivery 08/02/25 06:00 08/02/25 06:15 08/02/25 07:01 Temperature Pulse Rate 72 Respiratory Rate 16 Blood Pressure 163/71 H 136/56 L Pulse Oximetry 100 100 100 Oxygen Delivery Exam 2 Const: General: uncomfortable HENMT: Face/Nose/Sinus: Normal nares present Eyes: General: appearance normal, both eyes and all related structures EOM: EOMs intact bilaterally Resp: Effort & Inspection: normal respiratory effort Cardio: Rate: regular rate GI: Other: Abdomen soft, non-tender, non distended Urinary Catheter: Urinary Catheter: other (No CVAT, no suprapubic tenderness) Neuro: Speech: normal speech Sensory Exam: normal sensation Psych: Speech and movement: Normal speech and movement present Affect: n ormal affect Results Labs 08/02/25 02:33 08/02/25 02:33 Labs: Short CBC 08/02/25 Range/Units 02:33 WBC 11.8 H (4.5-10.0) K/mm3 Hgb 12.9 L (14.0-18.0) g/dL Hct 39.1 L (42.0-52.0) % Plt Count 259 (150-375) k/mm3 BMP 08/02/25 02:33 Sodium 136 L Potassium 4.7 Chloride 102 Carbon Dioxide 22 BUN 22 H Creatinine 1.16 Glucose 184 H Calcium 9.5 Liver Function 08/02/25 Range/Units 02:33 Total Bilirubin 0.7 (0.2-1.3) mg/dL AST 32 (17-59) U/L ALT 31 (6-50) U/L Alkaline Phosphatase 60 (38-126) U/L Albumin 4.3 (3.5-5.1) g/dL Urine 08/02/25 Range/Units 02:33 Urine Color Red H (Yellow) Urine Appearance Turbid H (Clear) Urine pH 5.0 (5.0-9.0) Ur Specific [place] 1.021 (1.001-1.035) Urine Protein 2+ H (Negative) mg/dL Urine Glucose (UA) Negative (Negative) mg/dL
[2025-08-02] MEDS: LACTATED RINGERS 1,000 ML 30 ML IV CONT (14:57)
--- NOTE | 2025-08-02 15:40 | WPDANESEPPF ---
Anes - Initial Pre Proc Eval Procedure: Operation Date: 08/02/25 15:00 Proposed Procedures p Cystoscopy, Left Ureteroscopy, Possible Left Retrograde Pyelogram, Possible Left Stone Extraction, Possible Left Stent Placement, Possible Laser Lithotripsy - Rachelle Moulton MD Date/Time: 08/02/25 15:40 Surgeon: Rachelle Moulton MD Pre Op Diagnosis: blood in urine Patient Data Age: 80 Gender: M Height: 1.7 m Weight: 84.4 kg Last Vital Signs Temp 36.5 C 08/02/25 14:58 Pulse 89 08/02/25 14:58 Resp 18 08/02/25 10:01 BP 120/77 08/02/25 14:58 Pulse Ox 97 08/02/25 14:58 O2 Del Method Room Air 08/02/25 14:58 Allergies Allergy/AdvReac Type Severity Reaction Status Date / Time No Known Allergies Allergy Verified 08/02/25 00:18 Home Medications ?Medication ?Instructions ?Recorded ?Confirmed ?Type multivitamin (Daily Multi-Vitamin 1 tablet PO DAILY 09/25/19 08/02/25 History tablet) omega-3 fatty acids 1,000 mg 2,000 mg PO BID 09/25/19 08/02/25 History capsule (Fish Oil Concentrate) olopatadine 0.7 % eye drops 1 drp EACH EYE DAILY PRN itching 02/11/21 06/20/25 Rx (Pataday Once Daily Relief) #5 mL psyllium husk 3.4 gram/5.4 gram 1 tsp PO DAILY 02/11/21 06/20/25 History oral powder (Metamucil) aspirin 81 mg tablet,delayed 81 mg PO DAILY 03/24/22 08/02/25 History release blood-glucose meter #1 ea 12/14/22 06/20/25 Rx metoprolol tartrate 25 mg tablet 25 mg PO BID 03/31/23 08/02/25 History lancets 30 gauge (Ultra Thin #100 ea 11/25/23 06/20/25 Rx Lancets) blood sugar diagnostic (Blood #50 ea 01/16/24 06/20/25 Rx Glucose Test strips) blood sugar diagnostic (True #100 ea 03/16/24 06/20/25 Rx Metrix Glucose Test Strip) isosorbide mononitrate 30 mg See Rx Instructions .Route 01/07/25 06/20/25 Rx tablet,extended release 24 hr .COMPLEX #90 tabs simvastatin 20 mg tablet See Rx Instructions .Route 01/07/25 08/02/25 Rx .COMPLEX #90 tabs metformin 500 mg tablet See Rx Instructions .Route 01/25/25 08/02/25 Rx .COMPLEX #90 tabs losartan 100 mg tablet See Rx Instructions .Route 01/31/25 08/02/25 Rx .COMPLEX #90 tabs ticagrelor 90 mg tablet (Brilinta) 90 mg PO Q12H 06/20/25 08/02/25 History ketoconazole 2 % topical cream 1 applic topical .PRN 07/31/25 08/02/25 History Laboratory Tests 08/02/25 08/02/25 02:33 12:17 WBC 11.8 H K/mm3 (4.5-10.0) RBC 4.59 L M/mm3 (4.6-6.20) Hgb 12.9 L g/dL (14.0-18.0) Hct 39.1 L % (42.0-52.0) MCV 85.2 fl (80-100) MCH 28.1 pg (26-34) MCHC 33.0 g/dl (32-36) RDW 13.2 % (11.5-14.5) Plt Count 259 k/mm3 (150-375) MPV 8.8 fl (7.4-10.4) Immature Gran % (Auto) 0.3 % (0-0.5) Neut % (Auto) 82.8 H % (45.5-73.1) Lymph % (Auto) 11.3 L % (18.3-44.2) [place] % (Auto) 4.8 % (2.6-8.5) Eos % (Auto) 0.5 % (0-4.4) Baso % (Auto) 0.3 % (0.2-1.2) Lymph # (Auto) 1.33 K/mm3 (0.9-3.2) [place] # (Auto) 0.6 K/mm3 (0.1-0.6) Eos # (Auto) 0.1 K/mm3 (0-0.3) Baso # (Auto) 0.0 K/mm3 (0.0-0.1) Abs Immat Gran (auto) 0.04 H K/mm3 (0.00-0.031) Absolute Neuts (auto) 9.8 H K/mm3 (1.3-6.7) Absolute Nucleated RBC 0.000 K/mm3 (0.0-0.012) Nucleated RBC % 0.0 % (0.0-0.2) PT 13.7 Seconds (11.1-14.7) INR 1.1 APTT 27.2 Seconds (22.3-36.8) Sodium 136 L mmol/L (137-145) Potassium 4.7 mmol/L (3.4-5.0) Chloride 102 mmol/L (98-107) Carbon Dioxide 22 mmol/L (22-30) Anion Gap 12 mmol/L (4-12) BUN 22 H mg/dL (9-20) Creatinine 1.16 mg/dL (0.7-1.3) Estim Creat Clear Calc 42 ml/min Estimated GFR 60 (59 - ) Glucose 184 H mg/dL (65-110) POC Capillary Glucose 126 H mg/dl (65-105) Calcium 9.5 mg/dL (8.4-10.2) Total Bilirubin 0.7 mg/dL (0.2-1.3) AST 32 U/L (17-59) ALT 31 U/L (6-50) Alkaline Phosphatase 60 U/L (38-126) Total Protein 7.4 g/dL (6.3-8.2) Albumin 4.3 g/dL (3.5-5.1) Lipase 79 U/L (23-300) Urine Color Red H (Yellow) Urine Appearance Turbid H (Clear) Urine pH 5.0 (5.0-9.0) Ur Specific [place] 1.021 (1.001-1.035) Urine Protein 2+ H mg/dL (Negative) Urine Glucose (UA) Negative mg/dL (Negative) Urine Ketones Negative mg/dL (Negative) Ur Blood (Man) 2+ H (Negative) Urine Nitrate Positive H (Negative) Urine Bilirubin 1+ H (Negative) Urine Urobilinogen 0.2 mg/dL (<2.0) Add Ur Microanalysis Reviewed Leukocyte Esterase Rfl 2+ H KATE/UL (Negative) Urine RBC >100 H /hpf (0-2) Urine WBC 21-50 H /hpf (0-3) Ur Squamous Epith Cells Occasional /hpf (Few) Urine Bacteria None seen /hpf Urine Casts 0-2 Patient hx anesthesia problems: none Family hx anesthesia problems: none Results Review: All pre-operative results and documents have been reviewed as part of the pre-operative evaluation. [facility] Past Medical History Medical History COVID-19 Squamous cell carcinoma of skin Colon polyp Coronary artery disease Silent [place] with evidence of inferior wall involvement. Moderate disease involving RCA but FFR negative 2014. Left bundle branch block Essential (primary) hypertension Mixed hyperlipidemia Primary osteoarthritis of both knees Type 2 diabetes mellitus without complication Surgical History Surgical History Status post right partial knee replacement (~10/2019) Status post left partial knee replacement (~07/21/20) History of squamous cell carcinoma excision Excision of multiple skin cancers from the head and neck. History of cataract surgery Family History Family History Sibling Malignant neoplasm of prostate Acute myocardial infarction Diabetes mellitus Father Cerebrovascular accident Mother Hypertension Daughter Breast cancer Social History Social History Social History: The patient lives with his in [place]. They have no pets. He is a [place] with possible Agent [place] exposure. 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 No alcohol or illicit substance abuse. He designates his Pushpa as his surrogate decision maker and he wishes to be a full code. Smoking packs per day: 2 Smoking cigarettes per day: 40.0 Years smoked: 37 Smoking pack-years: 74.00 Smoking status: Former smoker Tobacco type: cigarettes Second hand tobacco smoke exposure: Yes Smoking end date: 09/19/79 Alcohol intake: never Substance use: never Substance use type: does not use Lack of Transportation: No Lack of Food: Never True Current Housing: I Have Housing Concerned About Future Housing: No Difficulty Paying Gas/Electric Bills: No Difficulty Paying for Meds: No Currently Unemployed: No Education: High School Diploma/GED Difficulty w/ Childcare or Family Care: No Living arrangements: with family Gender identity (if verbalized by the patient): Male Sexual Orientation (if Verbalized by the Patient): Straight or Heterosexual Spiritual care concerns: No Agree to blood products: Yes Anes - Eval Final PreProcedure Day of Procedure 08/02/25 15:40 Patient weight: obese Heart: regular rate and rhythm Lungs: clear to auscultation Airway: Mallampati scale class II Neurological: alert and oriented Last oral intake: >/= 8 hours ASA classification: III Emergent: no Anesthetic plan: proceed Anesthesia type and monitoring: general LMA and standard monitoring Results Review: All pre-operative results and documents have been reviewed as part of the pre-operative evaluation. Informed Consent: The patient's anesthetic plan and its attendant risks and benefits were discussed with the patient/family/POA. Questions were solicited and answers provided to the satisfaction of the patient/family/POA.
--- NOTE | 2025-08-02 15:44 | WPDHPUPDATE1 ---
History and Physical Update Update Date/Time: 08/02/25 15:44 History and Physical has been reviewed, including an updated exam of the patient. There are NO changes in the patient's condition. Risks, benefits, and alternatives have been discussed and questions answered. Patient agrees to proceed with procedure.
[2025-08-02] MEDS: ceFAZolin 2 GM in SODIUM CHLORIDE 0.9% IV 50 ML 100 ML IVPB (15:50)
[2025-08-02] MEDS: LIDOCAINE 2% GEL UROJET 10 ML PKG MUCOUS MEM (16:00)
--- NOTE | 2025-08-02 16:35 | P.HP_ITS ---
H&P: HPI History of Present Illness Date/Time: 08/02/25 16:35 Chief Complaint: Hematuria Narrative: 80-year-old male with past medical history of CAD, cardiac stent on Brilinta, diabetes hyperlipidemia and hypertension who presents the hospital left lower abdomen pain and hematuria. Patient stated that the hematuria started this morning he denies fevers. Lab work in the ED shows leukocytosis at 11.8, hemoglobin of 12.9, sodium of 136, glucose of 184, UA was red turbid with 2+ blood, positive nitrates, 1+ bilirubin, 2+ leukocyte esterase, over 100 RBCs, 21-[address] of the abdomen pelvis show Large indeterminate mass left kidney and Left kidney hydronephrosis with 4 mm stone distal ureter. Patient denies being Retrograde pyelogram with stent placement by Urology was performed. Patient is stable after the procedure however the urologist would like him admitted for overnight observation due to his recent cardiac stent placement in May he is on Brilinta. There were no complications during the case. Patient will transfer from PACU to [facility]. Urologist states that he likely has a urinary tract infection and he should continue IV antibiotics while in hospital. Urology has requested a overnight observation due to patient having a recent history of cardiac stents placed in May. Review of Systems Review of Systems: 12 systems were reviewed and are negativ e except for as per HPI. [facility] Past Medical History Medical History COVID-19 Squamous cell carcinoma of skin Colon polyp Coronary artery disease Silent NE with evidence of inferior wall involvement. Moderate disease involving RCA but FFR negative 2014. Left bundle branch block Essential (primary) hypertension Mixed hyperlipidemia Primary osteoarthritis of both knees Type 2 diabetes mellitus without complication Surgical History Surgical History Status post right partial knee replacement (~10/2019) Status post left partial knee replacement (~07/21/20) History of squamous cell carcinoma excision Excision of multiple skin cancers from the head and neck. History of cataract surgery Family History Family History Sibling Malignant neoplasm of prostate Acute myocardial infarction Diabetes mellitus Father Cerebrovascular accident Mother Hypertension Daughter Breast cancer Social History Social History Social History: The patient lives with his in [place]. They have no pets. He is a [place] with possible Agent White exposure. 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 Smoked 2 packs a day for 20 years and quit about 35 years ago. No alcohol or illicit substance abuse. He designates his Pushpa as his surrogate decision maker and he wishes to be a full code. Smoking packs per day: 2 Smoking cigarettes per day: 40.0 Years smoked: 37 Smoking pack-years: 74.00 Smoking status: Former smoker Second hand tobacco smoke exposure: Yes Alcohol intake: never Substance use: never Substance use type: does not use Lack of Transportation: No Lack of Food: Never True Current Housing: I Have Housing Concerned About Future Housing: No Difficulty Paying Gas/Electric Bills: No Difficulty Paying for Meds: No Currently Unemployed: No Education: High School Diploma/GED Difficulty w/ Childcare or Family Care: No Living arrangements: with family Gender identity (if verbalized by the patient): Male Sexual Orientation (if Verbalized by the Patient): Straight or Heterosexual Spiritual care concerns: No Agree to blood products: Yes Meds Home Medications and Allergies Home Medications ?Medication ?Instructions ?Recorded ?Confirmed ?Type multivitamin (Daily Multi-Vitamin 1 tablet PO DAILY 08/02/25 History tablet) omega-3 fatty acids 1,000 mg 2,000 mg PO BID 09/25/19 08/02/25 History capsule (Fish Oil Concentrate) psyllium husk 3.4 gram/5.4 gram 2 tsp PO HS 02/11/21 1 10/02/24 History oral powder (Metamucil) aspirin 81 mg tablet,delayed 81 mg PO DAILY 03/24/22 1 10/02/24 History release metoprolol tartrate 25 mg tablet 25 mg PO BID 03/31/23 08/02/25 History isosorbide mononitrate 30 mg See Rx Instructions .Rout e 01/07/25 08/02/25 Rx tablet,extended release 24 hr .COMPLEX #90 tabs simvastatin 20 mg tablet See Rx Instructions .Route 0 01/07/25 08/02/25 Rx .COMPLEX #90 tabs metformin 500 mg tablet See Rx Instructions .Route 0 01/25/25 08/02/25 Rx .COMPLEX #90 tabs losartan 100 mg tablet See Rx Instructions .Route 0 01/31/25 08/02/25 Rx .COMPLEX #90 tabs ticagrelor 90 mg tablet (Brilinta) 90 mg PO Q12H 06/2008/02/25 History ketoconazole 2 % topical cream 1 applic topical .PRN 1 09/30/24 08/02/25 History Allergies Allergy/AdvReac Type Severity Reaction Status Date / Time No Known Allergies Allergy Verified 08/02/25 00:18 Vital Signs Vital Signs - 24 hr 08/02/25 00:15 08/02/25 01:29 08/02/25 01:30 Temperature 97.9 F Pulse Rate 56 L Respiratory Rate 20 18 18 Blood Pressure 170/62 H Pulse Oximetry 99 98 98 Oxygen Delivery Room Air 08/02/25 01:31 08/02/25 01:45 08/02/25 02:00 Temperature Pulse Rate Respiratory Rate 18 18 18 Blood Pressure 127/74 Pulse Oximetry 98 98 97 Oxygen Delivery 08/02/25 02:01 08/02/25 02:13 08/02/25 02:15 Temperature Pulse Rate Respiratory Rate 18 18 18 Blood Pressure 132/69 149/68 H Pulse Oximetry 97 100 99 Oxygen Delivery 08/02/25 02:30 08/02/25 02:31 08/02/25 02:45 Temperature Pulse Rate Respiratory Rate 18 18 18 Blood Pressure 135/66 Pulse Oximetry 99 99 99 Oxygen Delivery 08/02/25 03:00 08/02/25 03:01 08/02/25 03:02 Temperature Pulse Rate Respiratory Rate 18 18 Blood Pressure 149/68 H Pulse Oximetry 100 99 99 Oxygen Delivery 08/02/25 03:15 08/02/25 03:30 08/02/25 03:32 Temperature Pulse Rate Respiratory Rate Blood Pressure 171/75 H Pulse Oximetry 100 99 100 Oxygen Delivery 08/02/25 03:45 08/02/25 04:00 08/02/25 04:15 Temperature Pulse Rate Respiratory Rate Blood Pressure Pulse Oximetry 98 99 100 Oxygen Delivery 08/02/25 04:30 08/02/25 04:45 08/02/25 05:00 Temperature Pulse Rate Respiratory Rate Blood Pressure Pulse Oximetry 100 100 100 Oxygen Delivery 08/02/25 05:15 08/02/25 05:30 08/02/25 05:45 Temperature Pulse Rate Respiratory Rate Blood Pressure Pulse Oximetry 100 100 100 Oxygen Delivery 08/02/25 06:00 08/02/25 06:15 08/02/25 07:01 Temperature Pulse Rate 72 Respiratory Rate 16 Blood Pressure 163/71 H 136/56 L Pulse Oximetry 100 100 100 Oxygen Delivery 08/02/25 07:53 08/02/25 08:00 08/02/25 08:01 Temperature Pulse Rate Respiratory Rate Blood Pressure 121/54 L Pulse Oximetry 99 98 99 Oxygen Delivery 08/02/25 08:15 08/02/25 08:30 08/02/25 08:45 Temperature Pulse Rate Respiratory Rate Blood Pressure Pulse Oximetry 98 100 100 Oxygen Delivery 08/02/25 09:00 08/02/25 09:01 08/02/25 10:01 Temperature 97.9 F Pulse Rate 87 Respiratory Rate 18 Blood Pressure 121/55 L 139/67 Pulse Oximetry 100 100 95 Oxygen Delivery 08/02/25 10:02 08/02/25 10:15 08/02/25 10:30 Temperature Pulse Rate Respiratory Rate Blood Pressure Pulse Oximetry 98 97 98 Oxygen Delivery 08/02/25 10:45 08/02/25 11:00 08/02/25 11:01 Temperature Pulse Rate Respiratory Rate Blood Pressure 140/53 L Pulse Oximetry 97 99 98 Oxygen Delivery 08/02/25 11:15 08/02/25 14:58 Temperature 97.7 F Pulse Rate 89 Respiratory Rate Blood Pressure 120/77 Pulse Oximetry 98 97 Oxygen Delivery Room Air Exam Narrative: General: well appearing, appears stated age. HEENT: normocephalic, atraumatic. Mucous membranes moist. EOMI, PERRLA, bilateral sclera anicteric, no conjunctival injection. Neck supple without JVD, lymphadenopathy, or bruit. Respiratory: clear bilaterally. No rales/rhonic/wheezes. Cardiovascular: Regular rate and rhythm, normal S1-S2. No murmurs, rubs, or clicks. PMI is nondisplaced, capillary refill less than 3 second. Abdomen: Soft, round, no pulsatile masses, nondistended and nontender. No rebound, no guarding. Bowel sounds present to all four quadrants. No high pitch or tinkling sounds, resonant to percussion. Extremities: No cyanosis, clubbing, or edema present. Pulses are palpable 2/2. Active ROM to all four extremities. Neuro: Alert and orientated x 4. PERRLA. Cranial nerves 2-12 intact without focal deficit. Skin: Warm, dry, and intact, without rash, erythema, or lesion. Psych: pleasant, cooperative, normal speech, normal affect, no hallucinations, no dysarthia H&P: Results Labs Labs: Short CBC 08/02/25 Range/Units 02:33 WBC 11.8 H (4.5-10.0) K/mm3 Hgb 12.9 L (14.0-18.0) g/dL Hct 39.1 L (42.0-52.0) % Plt Count 259 (150-375) k/mm3 BMP 08/02/25 02:33 Sodium 136 L Potassium 4.7 Chloride 102 Carbon Dioxide 22 BUN 22 H Creatinine 1.16 Glucose 184 H Calcium 9.5 Liver Function 08/02/25 Range/Units 02:33 Total Bilirubin 0.7 (0.2-1.3) mg/dL AST 32 (17-59) U/L ALT 31 (6-50) U/L Alkaline Phosphatase 60 (38-126) U/L Albumin 4.3 (3.5-5.1) g/dL Urine 08/02/25 Range/Units 02:33 Urine Color Red H (Yellow) Urine Appearance Turbid H (Clear) Urine pH 5.0 (5.0-9.0) Ur Specific [place] 1.021 (1.001-1.035) Urine Protein 2+ H (Negative) mg/dL Urine Glucose (UA) Negative (Negative) mg/dL Assessment and Plan Assessment and plan (1) UTI (urinary tract infection): Code(s): N39.0 - Urinary tract infection, site not specified Status: Acute Assessment and Plan: Continue Rocephin Culture and sensitivity pending (2) Kidney stone: Code(s): N20.0 - Calculus of kidney Status: Acute Assessment and Plan: 4 mm kidney stone status post lithotripsy with stent placement on 08/02/25 Urology consulted (3) Hydronephrosis: Code(s): N13.30 - Unspecified hydronephrosis Status: Acute Assessment and Plan: See above (4) Left renal mass: Code(s): N28.89 - Other specified disorders of kidney and ureter Status: Acute Assessment and Plan: Urology consulted pending recommendations (5) Type 2 diabetes mellitus without complication: Code(s): E11.9 - Type 2 diabetes mellitus without complications Status: Chronic Assessment and Plan: Hold metformin while in hospital Geeu-Belinda a.cDemetrius HS SSI Diabetic diet (6) Coronary artery disease involving [place] heart: Qualifiers: Associated angina: without angina Coronary Disease-Associated Artery/Lesion type: [place] artery Qualified Code(s): I25.10 - Atherosclerotic heart disease of [place] coronary artery without angina pectoris Code(s): I25.10 - Atherosclerotic heart disease of [place] coronary artery without angina pectoris Status: Acute Assessment and Plan: Patient had cardiac stent placed in May Continue Brilinta Telemetry monitoring Observation overnight (7) Essential (primary) hypertension: Code(s): I10 - Essential (primary) hypertension Status: Chronic Assessment and Plan: Continue losartan Quality VTE Prophylaxis VTE prophylaxis: mechanical ordered and pharmacologic ordered Hospitalist MIPS Advance Care Plan I have confirmed that the patient's Advanced Care Plan is present, code status is documented, or surrogate decision maker is listed in patient medical record.: Yes Medication Reconciliation I have utilized all available resources to obtain, update and review the patients current medications (includes all prescriptions, OTC, herbals, cannabis, and nutritional supplements).: Yes
--- NOTE | 2025-08-02 16:40 | W.PM.PROC2 ---
Procedure Note - Detailed Date of Procedure 08/02/25 Pre-op Diagnosis Left ureteral stone Left hydronephrosis Hematuria Post-op Diagnosis Same (Left ureteral stone Left hydronephrosis Hematuria) Procedure Performed Cystoscopy, left retrograde pyelogram, left ureteral stent placement Surgeon Rachelle Moulton MD Anesthesia General Indications Left ureteral stone, likely UTI Findings Hematuria Trilobar prostatic hyperplasia Left hydronephrosis, mild hydronephrotic drip Description of Procedure The patient was correctly identified informed consent was obtained. He was taken to the operating room placed in the dorsal lithotomy position. He was prepped and draped in the standard fashion rigid cystoscopy was performed. Trilobar prostatic hyperplasia was noted. There was noted to be purulent urine within the bladder as well as moderate hematuria. The left ureteral orifice was identified and a Sensor guidewire was passed into the kidney followed by 5 Bulgarian open-ended catheter. A mild hydronephrotic drip with hematuria was noted. A sample of urine was obtained from the left renal pelvis and sent for culture. Due to likely urinary tract infection, stone removal was not performed and the decision was made to place a stent only. Under direct vision a 4.8 Bulgarian variable length stent was placed with the proximal end coiling within the kidney and distally in bladder. The bladder was then drained. The patient tolerated the procedure well. Implants 4.8Fr left ureteral stent Estimated Blood Loss 0 Complications None Disposition PACU [facility] Billing Surgery - Charge Forward: Surgery Billing
--- NOTE | 2025-08-02 17:17 | SUR.PHASEI ---
DR SPENCER CALLED PER SPOUSE'S REQUEST TO HEAR ABOUT SURGERY.
--- NOTE | 2025-08-02 18:10 | SUR.PHASEI ---
DR SPENCER CALLED TO FINALIZE ADMISSION ORDERS; AWAITING CALL BACK.
--- NOTE | 2025-08-02 18:53 | ADMGEN ---
This patient, Neli Collins, was admitted to 3 [facility] Surg Room 304-01. Patient/family oriented to hospital policies and general routines including ID bracelet, bed and alarms, visiting hours, pain management, procedures, bathroom and other care routines, personal items, smoking policy, room service/diet, and visiting hours. Information on how to activate the Rapid Response Team has been discussed. Patient/Family are encouraged to report perceived risks to care and to ask questions if they do not understand what they are told or what they should do. received report from oziel
[2025-08-02] MEDS: METOPROLOL TARTRATE 25 MG TABLET PO (21:24)
[2025-08-02] MEDS: SIMVASTATIN 20 MG TABLET BY MOUTH (21:25)
[2025-08-02] MEDS: TICAGRELOR 90 MG TABLET PO (21:32)
[2025-08-03 04:56] VITALS: BP 133/71; PULSE 78; RESP 16; TEMP 37.5; O2SAT 98
[2025-08-03 06:16] LABS: Hematocrit 38.2 % (42.0-52.0); Hemoglobin 12.6 g/dL (14.0-18.0); Immature Granulocyte Percent A 0.3 % (0-0.5); Lymphocytes Absolute Auto 1.94 K/mm3 (0.9-3.2); Mean Corpuscular HGB Conc 33.0 g/dl (32-36); Mean Corpuscular Hemoglobin 28.5 pg (26-34); Mean Corpuscular Volume 86.4 fl (80-100); Nucleated Red Blood Cells Absolute Auto 0.000 K/mm3 (0.0-0.012); Nucleated Red Blood Cells Perc 0.0 % (0.0-0.2); Platelet Count Result 225 k/mm3 (150-375); Red Blood Count 4.42 M/mm3 (4.6-6.20); White Blood Count 7.5 K/mm3 (4.5-10.0)
[2025-08-03 06:33] LABS: Anion Gap 8 mmol/L (4-12); Blood Urea Nitrogen 16 mg/dL (9-20); Calcium 9.2 mg/dL (8.4-10.2); Carbon Dioxide 24 mmol/L (22-30); Chloride 105 mmol/L (98-107); Estimated CRCL calculation 44 ml/min; Estimated Glomerular Filt Rate > 60; Glucose 143 mg/dL (65-110); Potassium 4.0 mmol/L (3.4-5.0); Sodium 137 mmol/L (137-145)
[2025-08-03 09:29] VITALS: PULSE 78
[2025-08-03] MEDS: METOPROLOL TARTRATE 25 MG TABLET PO ×2 (09:29→21:12)
[2025-08-03] MEDS: TICAGRELOR 90 MG TABLET PO ×2 (09:29→21:12)
[2025-08-03] MEDS: ASPIRIN 81 MG ENTERIC TABLET PO (09:29)
[2025-08-03] MEDS: ISOSORBIDE MONONITRATE 30 MG TAB.ER.24H BY MOUTH (09:29)
[2025-08-03] MEDS: LOSARTAN POTASSIUM 100 MG TABLET BY MOUTH (09:29)
[2025-08-03] MEDS: DOCUSATE SODIUM 100 MG CAPSULE PO ×2 (09:29→16:43)
[2025-08-03] MEDS: cefTRIAXone 1 GM in SODIUM CHLORIDE 0.9% IV 50 ML 100 ML IVPB (09:30)
--- NOTE | 2025-08-03 10:09 | P.PNIM_ITS ---
Progress Note: A&P Assessment and Plan (1) UTI (urinary tract infection): Code(s): N39.0 - Urinary tract infection, site not specified Status: Acute Assessment and Plan: Continue Rocephin Culture and sensitivity pending 08/03: Pt with continued hematuria -Pending UC -Continue rocephin -Per uro: Intraoperative evidence of pyuria/UTI. Follow-up urine cultures and continue broad spectrum IV antibiotics until culture results are finalized in order to establish most appropriate antibiotic regimen for suspected UTI -->Pt agreeable for admission with IV abx until UC results (2) Kidney stone: Code(s): N20.0 - Calculus of kidney Status: Acute Assessment and Plan: 4 mm kidney stone status post lithotripsy with stent placement on 08/02/25 Urology consulted 08/03: Denies pain today, continue to monitor Per uro: S/p Left ureteral stent placement 08/02/[address] Moulton Reviewed with patient that he will need to follow-up for outpatient surgery for definitive management of his left ureteral stone in the upcoming future after confirming resolution of infection (3) Hydronephrosis: Code(s): N13.30 - Unspecified hydronephrosis Status: Acute Assessment and Plan: See above (4) Left renal mass: Code(s): N28.89 - Other specified disorders of kidney and ureter Status: Acute Assessment and Plan: Urology consulted pending recommendations Per uro: - Reviewed incidental findings of roughly 7 cm left renal mass with patient and family - Will further discuss management options as outpatient in urology clinic (5) Type 2 diabetes mellitus without complication: Code(s): E11.9 - Type 2 diabetes mellitus without complications Status: Chronic Assessment and Plan: Hold metformin while in hospital Accu-Cheks a.cDemetrius HS SSI Diabetic diet 08/03: FBS 143 (6) Coronary artery disease involving crow heart: Qualifiers: Associated angina: without angina Coronary Disease-Associated Artery/Lesion type: crow artery Qualified Code(s): I25.10 - Atherosclerotic heart disease of crow coronary artery without angina pectoris Code(s): I25.10 - Atherosclerotic heart disease of crow coronary artery without angina pectoris Status: Acute Assessment and Plan: Patient had cardiac stent placed in May Continue Brilinta Telemetry monitoring Observation overnight 08/03: Pt denies CP/SOB (7) Essential (primary) hypertension: Code(s): I10 - Essential (primary) hypertension Status: Chronic Assessment and Plan: Continue losartan Plan Pending UC for abx sensitives due to extensive UTI s/p procedure and labs via uro Time Spent With Patient Time: 35 Subjective Date/time seen: 08/03/25 1015 Interval history: Pt seen today with his and son at the bedside. Pt was resting comfortably s itting up in bed. Urology also at the bedside discussing pt plan of staying admitted until the UC comes back due to the severity of his labs and status during stent placement. Pt currently denies any pain. +hematuria still Had extensive discussion about the pt's code status today with a final plan requested by the pt of a DNR code status. Pt A&O x4 and is certain in his decision. Review of Systems Review of Systems: 12 systems were reviewed and are negativ e except for as per HPI. Exam Narrative: General: well appearing, appears stated age. +OSAGE, bilateral HAs in place HEENT: normocephalic, atraumatic. Mucous membranes moist. EOMI, PERRLA, bilateral sclera anicteric, no conjunctival injection. Neck supple without JVD, lymphadenopathy, or bruit. Respiratory: clear bilaterally. No rales/rhonic/wheezes. Cardiovascular: Regular rate and rhythm, normal S1-S2. No murmurs, rubs, or clicks. PMI is nondisplaced, capillary refill less than 3 second. Abdomen: Soft, round, no pulsatile masses, nondistended. No TTP. No rebound, no guarding. Bowel sounds present to all four quadrants. No high pitch or tinkling sounds, resonant to percussion. Extremities: No cyanosis, clubbing, or edema present. Pulses are palpable 2/2. Active ROM to all four extremities. Neuro: Alert and orientated x 4. PERRLA. Cranial nerves 2-12 intact without focal deficit. Skin: Warm, dry, and intact, without rash, erythema, or lesion. Psych: pleasant, cooperative, normal speech, normal affect, no hallucinations, no dysarthia Objective Data Vital Signs Vital Signs: Vital Signs - 24 hr 08/02/25 10:15 08/02/25 10:30 08/02/25 10:45 Temperature Pulse Rate Respiratory Rate Blood Pressure Pulse Oximetry 97 98 97 Oxygen Delivery Oxygen Flow Rate 08/02/25 11:00 08/02/25 11:01 08/02/25 11:15 Temperature Pulse Rate Respiratory Rate Blood Pressure 140/53 L Pulse Oximetry 99 98 98 Oxygen Delivery Oxygen Flow Rate 08/02/25 14:58 08/02/25 16:31 08/02/25 16:45 Temperature 97.7 F 97.4 F L Pulse Rate 89 69 76 Respiratory Rate 13 18 Blood Pressure 120/77 93/52 L 122/60 Pulse Oximetry 97 99 99 Oxygen Delivery Room Air Simple Face Mask Simple Face Mask Oxygen Flow Rate 8 8 08/02/25 17:00 08/02/25 17:15 08/02/25 17:30 Temperature Pulse Rate 74 82 81 Respiratory Rate 14 13 14 Blood Pressure 135/78 142/75 H 131/75 Pulse Oximetry 95 96 96 Oxygen Delivery Room Air Room Air Room Air Oxygen Flow Rate 08/02/25 17:45 08/02/25 18:00 08/02/25 18:30 Temperature Pulse Rate 85 81 Respiratory Rate 14 17 Blood Pressure 164/82 H Pulse Oximetry 96 96 Oxygen Delivery Room Air Room Air Room Air Oxygen Flow Rate 08/02/25 20:00 08/02/25 20:34 08/02/25 21:24 Temperature 97.5 F L 97.5 F L Pulse Rate 83 83 83 Respiratory Rate 18 18 Blood Pressure 142/72 H 142/72 H Pulse Oximetry 98 98 Oxygen Delivery Oxygen Flow Rate 08/03/25 04:56 08/03/25 08:00 08/03/25 09:29 Temperature 99.5 F Pulse Rate 78 78 Respiratory Rate 16 Blood Pressure 133/71 Pulse Oximetry 98 Oxygen Delivery Room Air Oxygen Flow Rate Intake/Output Intake/Output: Intake & Output 07/31/25 08/01/25 08/02/25 08/03/25 23:59 23:59 23:59 23:59 Intake Total 2100 Output Total 200 400 Balance 1900 -400 Meds/Results Medications: Active Medications Generic Name Dose Route Start Last Admin Trade Name Freq PRN Reason Stop Dose Admin Acetaminophen 650 mg 08/02/25 16:36 Acetaminophen 325 Mg Tablet PO Q4H PRN Mild Pain (1-3) or Fever Aspirin 81 mg 08/03/25 09:00 08/03/25 09:29 Aspirin 81 Mg Enteric Tablet PO 81 mg DAILY ELIESER Administration Dextrose 12.5 gm 08/02/25 16:57 Dextrose 50% 25 Gm/50 Ml Syringe IV PUSH PRN PRN Hypoglycemia Protocol Docusate Sodium 100 mg 08/02/25 17:00 08/03/25 09:29 Docusate Sodium 100 Mg Capsule PO 100 mg BID ELIESER Administration Fentanyl Citrate 25 mcg 08/02/25 13:28 Fentanyl Citrate Inj (*Crx) 100 Mcg/2 Ml Vial IV PUSH Q2M PRN Pain Glucagon 1 mg 08/02/25 16:57 Glucagon For Inj 1 Mg Vial IM PRN PRN Hypoglycemia Protocol Glucose 15 gm 08/02/25 16:57 Glucose Oral Gel 15 Gm Of Glucse In 37.5 Gm Tube PO PRN PRN Hypoglycemia Protocol Ceftriaxone Sodium 1 gm/ 50 mls @ 100 mls/hr 08/03/25 09:00 08/03/25 09:30 Sodium Chloride IVPB 100 mls/hr Q24H ELIESER Administration Dextrose 1,000 mls @ 100 mls/hr 08/02/25 16:57 Dextrose 5% 1,000 Ml IVPB PRN PRN Hypoglycemia Protocol Insulin Aspart 2 - 5 units 08/02/25 17:00 08/03/25 09:24 Insulin Aspart (*Bkc) 100 Units/Ml SUB-Q Not Given TIDWM ELIESER Protocol Isosorbide Mononitrate 30 mg 08/03/25 09:00 08/03/25 09:29 Isosorbide Mononitrate 30 Mg Tab.Er.24h BY MOUTH 30 mg DAILY ELIESER Administration Losartan Potassium 100 mg 08/02/25 16:40 08/03/25 09:29 Losartan Potassium 100 Mg Tablet BY MOUTH 100 mg DAILY ELIESER Administration Metoprolol Tartrate 25 mg 08/02/25 21:00 08/03/25 09:29 Metoprolol Tartrate 25 Mg Tablet PO 25 mg Q12HR ELIESER Administration Ondansetron HCl 4 mg 08/02/25 13:28 Ondansetron Inj 4 Mg/2 Ml Vial IV PUSH ONCE PRN Nausea Oxycodone HCl 5 mg 08/02/25 16:35 Oxycodone Hcl (*Crx) 5 Mg Tab Ir PO Q4H PRN Pain Rated 7-10 Simvastatin 20 mg 08/02/25 18:00 08/02/25 21:25 Simvastatin 20 Mg Tablet BY MOUTH 20 mg EVENING ELIESER Administration Ticagrelor 90 mg 08/02/25 21:00 08/03/25 09:29 Ticagrelor 90 Mg Tablet PO 90 mg Q12H ELIESER Administration Radiology Results: ITS Impressions Abdomen/Pelvis CT 08/02/25 08:41 IMPRESSION: 1. Large indeterminate mass left kidney. Malignancy not excluded. Recommend CT or MRI renal protocol, as well as urology consultation. 2. Left kidney hydronephrosis with 4 mm stone distal ureter. Retrograde Pyelogram 08/02/25 16:43 IMPRESSION: As above. See also operative/procedure notes for complete evaluation. Labs Labs: Laboratory Results - last 24 hr 08/02/25 08/02/25 08/02/25 12:17 17:44 19:41 WBC RBC Hgb Hct MCV MCH MCHC RDW Plt Count MPV Immature Gran % (Auto) Neut % (Auto) Lymph % (Auto) [place] % (Auto) Eos % (Auto) Baso % (Auto) Lymph # (Auto) [place] # (Auto) Eos # (Auto) Baso # (Auto) Abs Immat Gran (auto) Absolute Neuts (auto) Absolute Nucleated RBC Nucleated RBC % Sodium Potassium Chloride Carbon Dioxide Anion Gap BUN Creatinine Estim Creat Clear Calc Estimated GFR Glucose POC Capillary Glucose 126 H 105 134 H Calcium 08/03/25 08/03/25 05:39 07:38 WBC 7.5 RBC 4.42 L Hgb 12.6 L Hct 38.2 L MCV 86.4 MCH 28.5 MCHC 33.0 RDW 12.8 Plt Count 225 MPV 8.8 Immature Gran % (Auto) 0.3 Neut % (Auto) 61.6 Lymph % (Auto) 26.0 [place] % (Auto) 10.3 H Eos % (Auto) 1.5 Baso % (Auto) 0.3 Lymph # (Auto) 1.94 [place] # (Auto) 0.8 H Eos # (Auto) 0.1 Baso # (Auto) 0.0 Abs Immat Gran (auto) 0.02 Absolute Neuts (auto) 4.6 Absolute Nucleated RBC 0.000 Nucleated RBC % 0.0 Sodium 137 Potassium 4.0 Chloride 105 Carbon Dioxide 24 Anion Gap 8 BUN 16 Creatinine 1.10 Estim Creat Clear Calc 44 Estimated GFR > 60 Glucose 143 H POC Capillary Glucose 162 H Calcium 9.2 Quality VTE Prophylaxis VTE prophylaxis: mechanical ordered and pharmacologic ordered Hospitalist MIPS Advance Care Plan I have confirmed that the patient's Advanced Care Plan is present, code status is documented, or surrogate decision maker is listed in patient medical record.: Yes The patient's Advanced Care plan is not present because:: Patient doesn't want to name surrogate or provider advance care plan
--- NOTE | 2025-08-03 10:16 | WPDUROPN2 ---
Progress Note: A&P Assessment and Plan (1) Left ureteral stone: Code(s): N20.1 - Calculus of ureter Status: Acute Assessment and Plan: - s/p Left ureteral stent placement 08/02/[address] Moulton - Intraoperative evidence of pyuria/UTI. Follow-up urine cultures and continue broad spectrum IV antibiotics until culture results are finalized in order to establish most appropriate antibiotic regimen for suspected UTI - Reviewed with patient that he will need to follow-up for outpatient surgery for definitive management of his left ureteral stone in the upcoming future after confirming resolution of infection (2) Left renal mass: Code(s): N28.89 - Other specified disorders of kidney and ureter Status: Acute Assessment and Plan: - Reviewed incidental findings of roughly 7 cm left renal mass with patient and family - Will further discuss management options as outpatient in urology clinic (3) UTI (urinary tract infection): Code(s): N39.0 - Urinary tract infection, site not specified Status: Acute Assessment and Plan: - See above plan for further Subjective Subjective Date/Time Seen: 08/03/25 10:16 Interval history: NAEO. and son at bedside. Reviewed CT findings and hospital course and plan for outpatient follow-up with patient and family. Patient tolerating his ureteral stent well. Notes some hematuria but denies difficulty urinating nor passing any large blood clots. Denies interval fevers, chills, lightheadedness, dizziness, or other concerns at this time. Review of Systems Review of Systems: Negative except as noted in HPI. Exam Narrative: General: Alert, no acute distress Head: Normocephalic, atraumatic Eyes: Extraocular movements intact Neck: No JVD, trachea midline Respiratory: Symmetric chest rise, nonlabored breathing on room air CV: Normal rate, adequate peripheral perfusion Abdomen: Soft, nontender, nondistended Skin: Warm/dry Extremities: No peripheral edema, no cyanosis Neuro: No focal deficits Psych: Answers questions appropriately, appropriate mood Objective Data Vital Signs Vital Signs: Vital Signs - 24 hr 08/02/25 10:30 08/02/25 10:45 08/02/25 11:00 Temperature Pulse Rate Respiratory Rate Blood Pressure Pulse Oximetry 98 97 99 Oxygen Delivery Oxygen Flow Rate 08/02/25 11:01 08/02/25 11:15 08/02/25 14:58 Temperature 36.5 C Pulse Rate 89 Respiratory Rate Blood Pressure 140/53 L 120/77 Pulse Oximetry 98 98 97 Oxygen Delivery Room Air Oxygen Flow Rate 08/02/25 16:31 08/02/25 16:45 08/02/25 17:00 Temperature 36.3 C L Pulse Rate 69 76 74 Respiratory Rate 13 18 14 Blood Pressure 93/52 L 122/60 135/78 Pulse Oximetry 99 99 95 Oxygen Delivery Simple Face Mask Simple Face Mask Room Air Oxygen Flow Rate 8 8 08/02/25 17:15 08/02/25 17:30 08/02/25 17:45 Temperature Pulse Rate 82 81 85 Respiratory Rate 13 14 14 Blood Pressure 142/75 H 131/75 164/82 H Pulse Oximetry 96 96 96 Oxygen Delivery Room Air Room Air Room Air Oxygen Flow Rate 08/02/25 18:00 08/02/25 18:30 08/02/25 20:00 Temperature 36.4 C L Pulse Rate 81 83 Respiratory Rate 17 18 Blood Pressure 142/72 H Pulse Oximetry 96 98 Oxygen Delivery Room Air Room Air Oxygen Flow Rate 08/02/25 20:34 08/02/25 21:24 08/03/25 04:56 Temperature 36.4 C L 37.5 C Pulse Rate 83 83 78 Respiratory Rate 18 16 Blood Pressure 142/72 H 133/71 Pulse Oximetry 98 98 Oxygen Delivery Oxygen Flow Rate 08/03/25 08:00 08/03/25 09:29 Temperature Pulse Rate 78 Respiratory Rate Blood Pressure Pulse Oximetry Oxygen Delivery Room Air Oxygen Flow Rate Intake/Output Intake/Output: Intake & Output 07/31/25 08/01/25 08/02/25 08/03/25 23:59 23:59 23:59 23:59 Intake Total 2100 Output Total 200 400 Balance 1900 -400 Meds/Results Medications: Active Medications Generic Name Dose Route Start Last Admin Trade Name Freq PRN Reason Stop Dose Admin Acetaminophen 650 mg 08/02/25 16:36 Acetaminophen 325 Mg Tablet PO Q4H PRN Mild Pain (1-3) or Fever Aspirin 81 mg 08/03/25 09:00 08/03/25 09:29 Aspirin 81 Mg Enteric Tablet PO 81 mg DAILY ELIESER Administration Dextrose 12.5 gm 08/02/25 16:57 Dextrose 50% 25 Gm/50 Ml Syringe IV PUSH PRN PRN Hypoglycemia Protocol Docusate Sodium 100 mg 08/02/25 17:00 08/03/25 09:29 Docusate Sodium 100 Mg Capsule PO 100 mg BID ELIESER Administration Fentanyl Citrate 25 mcg 08/02/25 13:28 Fentanyl Citrate Inj (*Crx) 100 Mcg/2 Ml Vial IV PUSH Q2M PRN Pain Glucagon 1 mg 08/02/25 16:57 Glucagon For Inj 1 Mg Vial IM PRN PRN Hypoglycemia Protocol Glucose 15 gm 08/02/25 16:57 Glucose Oral Gel 15 Gm Of Glucse In 37.5 Gm Tube PO PRN PRN Hypoglycemia Protocol Ceftriaxone Sodium 1 gm/ 50 mls @ 100 mls/hr 08/03/25 09:00 08/03/25 09:30 Sodium Chloride IVPB 100 mls/hr Q24H ELIESER Administration Dextrose 1,000 mls @ 100 mls/hr 08/02/25 16:57 Dextrose 5% 1,000 Ml IVPB PRN PRN Hypoglycemia Protocol Insulin Aspart 2 - 5 units 08/02/25 17:00 08/03/25 09:24 Insulin Aspart (*Bkc) 100 Units/Ml SUB-Q Not Given TIDWM [facility] Protocol Isosorbide Mononitrate 30 mg 08/03/25 09:00 08/03/25 09:29 Isosorbide Mononitrate 30 Mg Tab.Er.24h BY MOUTH 30 mg DAILY ELIESER Administration Losartan Potassium 100 mg 08/02/25 16:40 08/03/25 09:29 Losartan Potassium 100 Mg Tablet BY MOUTH 100 mg DAILY ELIESER Administration Metoprolol Tartrate 25 mg 08/02/25 21:00 08/03/25 09:29 Metoprolol Tartrate 25 Mg Tablet PO 25 mg Q12HR ELIESER Administration Ondansetron HCl 4 mg 08/02/25 13:28 Ondansetron Inj 4 Mg/2 Ml Vial IV PUSH ONCE PRN Nausea Oxycodone HCl 5 mg 08/02/25 16:35 Oxycodone Hcl (*Crx) 5 Mg Tab Ir PO Q4H PRN Pain Rated 7-10 Simvastatin 20 mg 08/02/25 18:00 08/02/25 21:25 Simvastatin 20 Mg Tablet BY MOUTH 20 mg EVENING ELIESER Administration Ticagrelor 90 mg 08/02/25 21:00 08/03/25 09:29 Ticagrelor 90 Mg Tablet PO 90 mg Q12H ELIESER Administration Radiology Results: ITS Impressions Abdomen/Pelvis CT 08/02/25 08:41 IMPRESSION: 1. Large indeterminate mass left kidney. Malignancy not excluded. Recommend CT or MRI renal protocol, as well as urology consultation. 2. Left kidney hydronephrosis with 4 mm stone distal ureter. Retrograde Pyelogram 08/02/25 16:43 IMPRESSION: As above. See also operative/procedure notes for complete evaluation. Labs Labs: Laboratory Results - last 24 hr 08/02/25 08/02/25 08/02/25 12:17 17:44 19:41 WBC RBC Hgb Hct MCV MCH MCHC RDW Plt Count MPV Immature Gran % (Auto) Neut % (Auto) Lymph % (Auto) [place] % (Auto) Eos % (Auto) Baso % (Auto) Lymph # (Auto) [place] # (Auto) Eos # (Auto) Baso # (Auto) Abs Immat Gran (auto) Absolute Neuts (auto) Absolute Nucleated RBC Nucleated RBC % Sodium Potassium Chloride Carbon Dioxide Anion Gap BUN Creatinine Estim Creat Clear Calc Estimated GFR Glucose POC Capillary Glucose 126 H 105 134 H Calcium 08/03/25 08/03/25 05:39 07:38 WBC 7.5 RBC 4.42 L Hgb 12.6 L Hct 38.2 L MCV 86.4 MCH 28.5 MCHC 33.0 RDW 12.8 Plt Count 225 MPV 8.8 Immature Gran % (Auto) 0.3 Neut % (Auto) 61.6 Lymph % (Auto) 26.0 [place] % (Auto) 10.3 H Eos % (Auto) 1.5 Baso % (Auto) 0.3 Lymph # (Auto) 1.94 [place] # (Auto) 0.8 H Eos # (Auto) 0.1 Baso # (Auto) 0.0 Abs Immat Gran (auto) 0.02 Absolute Neuts (auto) 4.6 Absolute Nucleated RBC 0.000 Nucleated RBC % 0.0 Sodium 137 Potassium 4.0 Chloride 105 Carbon Dioxide 24 Anion Gap 8 BUN 16 Creatinine 1.10 Estim Creat Clear Calc 44 Estimated GFR > 60 Glucose 143 H POC Capillary Glucose 162 H Calcium 9.2
[2025-08-03 14:00] VITALS: BP 120/76; PULSE 95; RESP 18; TEMP 36.4; O2SAT 100
[2025-08-03] MEDS: SIMVASTATIN 20 MG TABLET BY MOUTH (16:43)
[2025-08-03 20:00] VITALS: PULSE 103; RESP 18; O2SAT 98
[2025-08-03 21:12] VITALS: PULSE 95
[2025-08-03 22:13] VITALS: BP 122/77; PULSE 103; RESP 18; TEMP 36.5; O2SAT 98
[2025-08-04 06:00] VITALS: BP 120/48; PULSE 73; RESP 18; TEMP 36.2; O2SAT 98
[2025-08-04 06:35] LABS: Hematocrit 36.2 % (42.0-52.0); Hemoglobin 12.0 g/dL (14.0-18.0); Immature Granulocyte Percent A 0.4 % (0-0.5); Lymphocytes Absolute Auto 1.95 K/mm3 (0.9-3.2); Mean Corpuscular HGB Conc 33.1 g/dl (32-36); Mean Corpuscular Hemoglobin 28.4 pg (26-34); Mean Corpuscular Volume 85.6 fl (80-100); Nucleated Red Blood Cells Absolute Auto 0.000 K/mm3 (0.0-0.012); Nucleated Red Blood Cells Perc 0.0 % (0.0-0.2); Platelet Count Result 234 k/mm3 (150-375); Red Blood Count 4.23 M/mm3 (4.6-6.20); White Blood Count 7.4 K/mm3 (4.5-10.0)
[2025-08-04 07:02] LABS: Alanine Aminotransferase 20 U/L (6-50); Albumin Level 3.8 g/dL (3.5-5.1); Alkaline Phosphatase 57 U/L (38-126); Anion Gap 9 mmol/L (4-12); Aspartate Amino Transferase 25 U/L (17-59); Bilirubin,Total 0.7 mg/dL (0.2-1.3); Blood Urea Nitrogen 17 mg/dL (9-20); Calcium 9.1 mg/dL (8.4-10.2); Carbon Dioxide 23 mmol/L (22-30); Chloride 105 mmol/L (98-107); Estimated CRCL calculation 48 ml/min; Estimated Glomerular Filt Rate > 60; Glucose 145 mg/dL (65-110); Potassium 4.0 mmol/L (3.4-5.0); Sodium 137 mmol/L (137-145); Total Protein 6.7 g/dL (6.3-8.2)
[2025-08-04] MEDS: cefTRIAXone 1 GM in SODIUM CHLORIDE 0.9% IV 50 ML 100 ML IVPB (09:01)
[2025-08-04 09:02] VITALS: PULSE 73
[2025-08-04] MEDS: METOPROLOL TARTRATE 25 MG TABLET PO ×2 (09:02→20:47)
[2025-08-04] MEDS: TICAGRELOR 90 MG TABLET PO ×2 (09:02→20:47)
[2025-08-04] MEDS: DOCUSATE SODIUM 100 MG CAPSULE PO ×2 (09:02→16:43)
[2025-08-04] MEDS: ISOSORBIDE MONONITRATE 30 MG TAB.ER.24H BY MOUTH (09:02)
[2025-08-04] MEDS: LOSARTAN POTASSIUM 100 MG TABLET BY MOUTH (09:02)
[2025-08-04] MEDS: ASPIRIN 81 MG ENTERIC TABLET PO (09:02)
--- NOTE | 2025-08-04 10:19 | P.PNUR_ITS ---
Progress Note: A&P Assessment and Plan (1) Left ureteral stone: Code(s): N20.1 - Calculus of ureter Status: Acute Assessment and Plan: - s/p Left ureteral stent placement 08/02/[address] Moulton - Prelimary UCx growing 10-25K gram negative bacilli. This was reviewed with the paitent and his at the bedside. Intra-op urine culture negative, although was obtained after patient had been on IV antibiotics, which I reviewed can taint the results - Recommend following up final culture results to guide most appropriate antibiotic regimen. Recommend at least 7 days total of culture-guided antibiotics, will defer to primary team - Reviewed with patient that he will need to follow-up for outpatient surgery for definitive management of his left ureteral stone in the upcoming future after confirming resolution of infection. The patient expressed understanding with this. (2) Left renal mass: Code(s): N28.89 - Other specified disorders of kidney and ureter Status: Acute Assessment and Plan: - Reviewed incidental findings of roughly 7 cm left renal mass with patient and family - Will further discuss management options as outpatient in urology clinic (3) UTI (urinary tract infection): Code(s): N39.0 - Urinary tract infection, site not specified Status: Acute Assessment and Plan: - See above plan for further Subjective Subjective Date/Time Seen: 08/04/25 10:19 Interval history: NAEO. Patient reports feeling improved since his initial hospital presentation. He denies any interval fevers, chills, difficulty urinating, or other concerns at this time. Review of Systems Review of Systems: Negative except as noted above Exam Narrative: General: Alert, no acute distress Head: Normocephalic, atraumatic Eyes: Extraocular movements intact Neck: No JVD, trachea midline Respiratory: Symmetric chest rise, nonlabored breathing on room air CV: Normal rate, adequate peripheral perfusion Abdomen: Soft, nontender, nondistended Skin: Warm/dry Extremities: No peripheral edema, no cyanosis Neuro: No focal deficits Psych: Answers questions appropriately, appropriate mood Objective Data Vital Signs Vital Signs: Vital Signs - 24 hr 08/03/25 14:00 08/03/25 20:00 08/03/25 21:12 Temperature 36.4 C L Pulse Rate 95 103 H 95 Respiratory Rate 18 18 Blood Pressure 120/76 Pulse Oximetry 100 98 Oxygen Delivery Room Air 08/03/25 22:13 08/04/25 06:00 08/04/25 08:00 Temperature 36.5 C 36.2 C L Pulse Rate 103 H 73 Respiratory Rate 18 18 Blood Pressure 122/77 120/48 L Pulse Oximetry 98 98 Oxygen Delivery Room Air 08/04/25 09:02 Temperature Pulse Rate 73 Respiratory Rate Blood Pressure Pulse Oximetry Oxygen Delivery Intake/Output Intake/Output: Intake & Output 08/01/25 08/02/25 08/03/25 08/04/25 23:59 23:59 23:59 23:59 Intake Total 2100 1184 844 Output Total 200 1700 1900 Balance 6712 -775 -3556 Meds/Results Medications: Active Medications Generic Name Dose Route Start Last Admin Trade Name Freq PRN Reason Stop Dose Admin Acetaminophen 650 mg 08/02/25 16:36 Acetaminophen 325 Mg Tablet PO Q4H PRN Mild Pain (1-3) or Fever Aspirin 81 mg 08/03/25 09:00 08/04/25 09:02 Aspirin 81 Mg Enteric Tablet PO 81 mg DAILY ELIESER Administration Dextrose 12.5 gm 08/02/25 16:57 Dextrose 50% 25 Gm/50 Ml Syringe IV PUSH PRN PRN Hypoglycemia Protocol Docusate Sodium 100 mg 08/02/25 17:00 08/04/25 09:02 Docusate Sodium 100 Mg Capsule PO 100 mg BID ELIESER Administration Fentanyl Citrate 25 mcg 08/02/25 13:28 Fentanyl Citrate Inj (*Crx) 100 Mcg/2 Ml Vial IV PUSH Q2M PRN Pain Glucagon 1 mg 08/02/25 16:57 Glucagon For Inj 1 Mg Vial IM PRN PRN Hypoglycemia Protocol Glucose 15 gm 08/02/25 16:57 Glucose Oral Gel 15 Gm Of Glucse In 37.5 Gm Tube PO PRN PRN Hypoglycemia Protocol Ceftriaxone Sodium 1 gm/ 50 mls @ 100 mls/hr 08/03/25 09:00 08/04/25 09:01 Sodium Chloride IVPB 100 mls/hr Q24H ELIESER Administration Dextrose 1,000 mls @ 100 mls/hr 08/02/25 16:57 Dextrose 5% 1,000 Ml IVPB PRN PRN Hypoglycemia Protocol Insulin Aspart 2 - 5 units 08/02/25 17:00 08/04/25 08:59 Insulin Aspart (*Bkc) 100 Units/Ml SUB-Q Not Given TIDWM [facility] Protocol Isosorbide Mononitrate 30 mg 08/03/25 09:00 08/04/25 09:02 Isosorbide Mononitrate 30 Mg Tab.Er.24h BY MOUTH 30 mg DAILY ELIESER Administration Losartan Potassium 100 mg 08/02/25 16:40 08/04/25 09:02 Losartan Potassium 100 Mg Tablet BY MOUTH 100 mg DAILY ELIESER Administration Metoprolol Tartrate 25 mg 08/02/25 21:00 08/04/25 09:02 Metoprolol Tartrate 25 Mg Tablet PO 25 mg Q12HR ELIESER Administration Ondansetron HCl 4 mg 08/02/25 13:28 Ondansetron Inj 4 Mg/2 Ml Vial IV PUSH ONCE PRN Nausea Oxycodone HCl 5 mg 08/02/25 16:35 Oxycodone Hcl (*Crx) 5 Mg Tab Ir PO Q4H PRN Pain Rated 7-10 Simvastatin 20 mg 08/02/25 18:00 08/03/25 16:43 Simvastatin 20 Mg Tablet BY MOUTH 20 mg EVENING ELIESER Administration Ticagrelor 90 mg 08/02/25 21:00 08/04/25 09:02 Ticagrelor 90 Mg Tablet PO 90 mg Q12H ELIESER Administration Radiology Results: ITS Impressions Abdomen/Pelvis CT 08/02/25 08:41 IMPRESSION: 1. Large indeterminate mass left kidney. Malignancy not excluded. Recommend CT or MRI renal protocol, as well as urology consultation. 2. Left kidney hydronephrosis with 4 mm stone distal ureter. Retrograde Pyelogram 08/02/25 16:43 IMPRESSION: As above. See also operative/procedure notes for complete evaluation. Labs Labs: Laboratory Results - last 24 hr 08/03/25 08/03/25 08/03/25 11:14 16:26 20:54 WBC RBC Hgb Hct MCV MCH MCHC RDW Plt Count MPV Immature Gran % (Auto) Neut % (Auto) Lymph % (Auto) [place] % (Auto) Eos % (Auto) Baso % (Auto) Lymph # (Auto) [place] # (Auto) Eos # (Auto) Baso # (Auto) Abs Immat Gran (auto) Absolute Neuts (auto) Absolute Nucleated RBC Nucleated RBC % Sodium Potassium Chloride Carbon Dioxide Anion Gap BUN Creatinine Estim Creat Clear Calc Estimated GFR Glucose POC Capillary Glucose 142 H 123 H 150 H Calcium Total Bilirubin AST ALT Alkaline Phosphatase Total Protein Albumin 08/04/25 08/04/25 05:48 07:39 WBC 7.4 RBC 4.23 L Hgb 12.0 L Hct 36.2 L MCV 85.6 MCH 28.4 MCHC 33.1 RDW 13.1 Plt Count 234 MPV 9.0 Immature Gran % (Auto) 0.4 Neut % (Auto) 59.2 Lymph % (Auto) 26.2 [place] % (Auto) 11.6 H Eos % (Auto) 2.2 Baso % (Auto) 0.4 Lymph # (Auto) 1.95 [place] # (Auto) 0.9 H Eos # (Auto) 0.2 Baso # (Auto) 0.0 Abs Immat Gran (auto) 0.03 Absolute Neuts (auto) 4.4 Absolute Nucleated RBC 0.000 Nucleated RBC % 0.0 Sodium 137 Potassium 4.0 Chloride 105 Carbon Dioxide 23 Anion Gap 9 BUN 17 Creatinine 0.99 Estim Creat Clear Calc 48 Estimated GFR > 60 Glucose 145 H POC Capillary Glucose 149 H Calcium 9.1 Total Bilirubin 0.7 AST 25 ALT 20 Alkaline Phosphatase 57 Total Protein 6.7 Albumin 3.8
--- NOTE | 2025-08-04 12:32 | P.PNIM_ITS ---
Progress Note: A&P Assessment and Plan (1) UTI (urinary tract infection): Code(s): N39.0 - Urinary tract infection, site not specified Status: Acute Assessment and Plan: Continue Rocephin Culture and sensitivity pending 08/03: Pt with continued hematuria -Pending UC -Continue rocephin -Per uro: Intraoperative evidence of pyuria/UTI. Follow-up urine cultures and continue broad spectrum IV antibiotics until culture results are finalized in order to establish most appropriate antibiotic regimen for suspected UTI -->Pt agreeable for admission with IV abx until UC results 08/04: Denies hematuria today, per nursing, urine is more tea colored today -Continues to deny pain or any other sx -Discussed plan for staying in the hospital for IV abx until the culture and sensitives on his first UC come back, per uro. Pt agreeable. (2) Kidney stone: Code(s): N20.0 - Calculus of kidney Status: Acute Assessment and Plan: 4 mm kidney stone status post lithotripsy with stent placement on 08/02/25 Urology consulted 08/03: Denies pain today, continue to monitor Per uro: S/p Left ureteral stent placement 08/02/[address] Moulton Reviewed with patient that he will need to follow-up for outpatient surgery for definitive management of his left ureteral stone in the upcoming future after confirming resolution of infection (3) Hydronephrosis: Code(s): N13.30 - Unspecified hydronephrosis Status: Acute Assessment and Plan: See above (4) Left renal mass: Code(s): N28.89 - Other specified disorders of kidney and ureter Status: Acute Assessment and Plan: Urology consulted pending recommendations Per uro: - Reviewed incidental findings of roughly 7 cm left renal mass with patient and family - Will further discuss management options as outpatient in urology clinic (5) Type 2 diabetes mellitus without complication: Code(s): E11.9 - Type 2 diabetes mellitus without complications Status: Chronic Assessment and Plan: Hold metformin while in hospital Accu-Belinda a.cDemetrius HS SSI Diabetic diet 08/03: FBS 143 08/04: FBS 145 (6) Coronary artery disease involving [place] heart: Qualifiers: Associated angina: without angina Coronary Disease-Associated Artery/Lesion type: [place] artery Qualified Code(s): I25.10 - Atherosclerotic heart disease of [place] coronary artery without angina pectoris Code(s): I25.10 - Atherosclerotic heart disease of [place] coronary artery without angina pectoris Status: Acute Assessment and Plan: Patient had cardiac stent placed in May [place] Telemetry monitoring Observation overnight Continues to deny CP/SOB (7) Essential (primary) hypertension: Code(s): I10 - Essential (primary) hypertension Status: Chronic Assessment and Plan: Continue losartan Plan Pending initial UC for abx sensitives due to extensive UTI s/p procedure and labs via uro Time Spent With Patient Time: 35 Subjective Date/time seen: 08/04/25 0909 Interval history: Pt seen today with his at the bedside. Pt was resting comfortably sitting up in bed. Pt denies hematuria today, RN states that it is more tea colored now. Continues to deny pain or any other sx. Discussed plan for staying in the hospital for IV abx until the culture and sensitives on his first UC come back, pt agreeable. Review of Systems Review of Systems: 12 systems were reviewed and are negativ e except for as per HPI. Exam Narrative: General: well appearing, appears stated age. +[place]CTAW, bilateral HAs in place HEENT: normocephalic, atraumatic. Mucous membranes moist. EOMI, PERRLA, bilateral sclera anicteric, no conjunctival injection. Neck supple without JVD, lymphadenopathy, or bruit. Respiratory: clear bilaterally. No rales/rhonic/wheezes. Cardiovascular: Regular rate and rhythm, normal S1-S2. No murmurs, rubs, or clicks. PMI is nondisplaced, capillary refill less than 3 second. Abdomen: Soft, round, no pulsatile masses, nondistended. No TTP. No rebound, no guarding. Bowel sounds present to all four quadrants. No high pitch or tinkling sounds, resonant to percussion. Extremities: No cyanosis, clubbing, or edema present. Pulses are palpable 2/2. Active ROM to all four extremities. Neuro: Alert and orientated x 4. PERRLA. Cranial nerves 2-12 intact without focal deficit. Skin: Warm, dry, and intact, without rash, erythema, or lesion. Psych: pleasant, cooperative, normal speech, normal affect, no hallucinations, no dysarthia Objective Data Vital Signs Vital Signs: Vital Signs - 24 hr 08/03/25 14:00 08/03/25 20:00 08/03/25 21:12 Temperature 97.5 F L Pulse Rate 95 103 H 95 Respiratory Rate 18 18 Blood Pressure 120/76 Pulse Oximetry 100 98 Oxygen Delivery Room Air 08/03/25 22:13 08/04/25 06:00 08/04/25 08:00 Temperature 97.7 F 97.1 F L Pulse Rate 103 H 73 Respiratory Rate 18 18 Blood Pressure 122/77 120/48 L Pulse Oximetry 98 98 Oxygen Delivery Room Air 08/04/25 09:02 Temperature Pulse Rate 73 Respiratory Rate Blood Pressure Pulse Oximetry Oxygen Delivery Intake/Output Intake/Output: Intake & Output 08/01/25 08/02/25 08/03/25 08/04/25 23:59 23:59 23:59 23:59 Intake Total 2100 1184 844 Output Total 200 1700 1900 Balance 9790 -052 -2738 Meds/Results Medications: Active Medications Generic Name Dose Route Start Last Admin Trade Name Koffiq PRN Reason Stop Dose Admin Acetaminophen 650 mg 08/02/25 16:36 Acetaminophen 325 Mg Tablet PO Q4H PRN Mild Pain (1-3) or Fever Aspirin 81 mg 08/03/25 09:00 08/04/25 09:02 Aspirin 81 Mg Enteric Tablet PO 81 mg DAILY ELIESER Administration Dextrose 12.5 gm 08/02/25 16:57 Dextrose 50% 25 Gm/50 Ml Syringe IV PUSH PRN PRN Hypoglycemia Protocol Docusate Sodium 100 mg 08/02/25 17:00 08/04/25 09:02 Docusate Sodium 100 Mg Capsule PO 100 mg BID ELIESER Administration Fentanyl Citrate 25 mcg 08/02/25 13:28 Fentanyl Citrate Inj (*Crx) 100 Mcg/2 Ml Vial IV PUSH Q2M PRN Pain Glucagon 1 mg 08/02/25 16:57 Glucagon For Inj 1 Mg Vial IM PRN PRN Hypoglycemia Protocol Glucose 15 gm 08/02/25 16:57 Glucose Oral Gel 15 Gm Of Glucse In 37.5 Gm Tube PO PRN PRN Hypoglycemia Protocol Ceftriaxone Sodium 1 gm/ 50 mls @ 100 mls/hr 08/03/25 09:00 08/04/25 09:01 Sodium Chloride IVPB 100 mls/hr Q24H ELIESER Administration Dextrose 1,000 mls @ 100 mls/hr 08/02/25 16:57 Dextrose 5% 1,000 Ml IVPB PRN PRN Hypoglycemia Protocol Insulin Aspart 2 - 5 units 08/02/25 17:00 08/04/25 11:54 Insulin Aspart (*Bkc) 100 Units/Ml SUB-Q Not Given TIDWM ELIESER Protocol Isosorbide Mononitrate 30 mg 08/03/25 09:00 08/04/25 09:02 Isosorbide Mononitrate 30 Mg Tab.Er.24h BY MOUTH 30 mg DAILY ELIESER Administration Losartan Potassium 100 mg 08/02/25 16:40 08/04/25 09:02 Losartan Potassium 100 Mg Tablet BY MOUTH 100 mg DAILY ELIESER Administration Metoprolol Tartrate 25 mg 08/02/25 21:00 08/04/25 09:02 Metoprolol Tartrate 25 Mg Tablet PO 25 mg Q12HR ELIESER Administration Ondansetron HCl 4 mg 08/02/25 13:28 Ondansetron Inj 4 Mg/2 Ml Vial IV PUSH ONCE PRN Nausea Oxycodone HCl 5 mg 08/02/25 16:35 Oxycodone Hcl (*Crx) 5 Mg Tab Ir PO Q4H PRN Pain Rated 7-10 Simvastatin 20 mg 08/02/25 18:00 08/03/25 16:43 Simvastatin 20 Mg Tablet BY MOUTH 20 mg EVENING ELIESER Administration Ticagrelor 90 mg 08/02/25 21:00 08/04/25 09:02 Ticagrelor 90 Mg Tablet PO 90 mg Q12H ELIESER Administration Radiology Results: ITS Impressions Abdomen/Pelvis CT 08/02/25 08:41 IMPRESSION: 1. Large indeterminate mass left kidney. Malignancy not excluded. Recommend CT or MRI renal protocol, as well as urology consultation. 2. Left kidney hydronephrosis with 4 mm stone distal ureter. Retrograde Pyelogram 08/02/25 16:43 IMPRESSION: As above. See also operative/procedure notes for complete evaluation. Labs Labs: Laboratory Results - last 24 hr 08/03/25 08/03/25 08/04/25 16:26 20:54 05:48 WBC 7.4 RBC 4.23 L Hgb 12.0 L Hct 36.2 L MCV 85.6 MCH 28.4 MCHC 33.1 RDW 13.1 Plt Count 234 MPV 9.0 Immature Gran % (Auto) 0.4 Neut % (Auto) 59.2 Lymph % (Auto) 26.2 [place] % (Auto) 11.6 H Eos % (Auto) 2.2 Baso % (Auto) 0.4 Lymph # (Auto) 1.95 [place] # (Auto) 0.9 H Eos # (Auto) 0.2 Baso # (Auto) 0.0 Abs Immat Gran (auto) 0.03 Absolute Neuts (auto) 4.4 Absolute Nucleated RBC 0.000 Nucleated RBC % 0.0 Sodium 137 Potassium 4.0 Chloride 105 Carbon Dioxide 23 Anion Gap 9 BUN 17 Creatinine 0.99 Estim Creat Clear Calc 48 Estimated GFR > 60 Glucose 145 H POC Capillary Glucose 123 H 150 H Calcium 9.1 Total Bilirubin 0.7 AST 25 ALT 20 Alkaline Phosphatase 57 Total Protein 6.7 Albumin 3.8 08/04/25 08/04/25 07:39 11:40 WBC RBC Hgb Hct MCV MCH MCHC RDW Plt Count MPV Immature Gran % (Auto) Neut % (Auto) Lymph % (Auto) [place] % (Auto) Eos % (Auto) Baso % (Auto) Lymph # (Auto) [place] # (Auto) Eos # (Auto) Baso # (Auto) Abs Immat Gran (auto) Absolute Neuts (auto) Absolute Nucleated RBC Nucleated RBC % Sodium Potassium Chloride Carbon Dioxide Anion Gap BUN Creatinine Estim Creat Clear Calc Estimated GFR Glucose POC Capillary Glucose 149 H 126 H Calcium Total Bilirubin AST ALT Alkaline Phosphatase Total Protein Albumin Quality VTE Prophylaxis VTE prophylaxis: mechanical ordered and pharmacologic ordered Hospitalist MIPS Advance Care Plan I have confirmed that the patient's Advanced Care Plan is present, code status is documented, or surrogate decision maker is listed in patient medical record.: Yes The patient's Advanced Care plan is not present because:: Patient doesn't want to name surrogate or provider advance care plan
[2025-08-04 14:00] VITALS: BP 141/64; PULSE 99; RESP 18; TEMP 36.1; O2SAT 98
[2025-08-04] MEDS: SIMVASTATIN 20 MG TABLET BY MOUTH (16:43)
[2025-08-04 22:00] VITALS: BP 137/85; PULSE 98; RESP 18; TEMP 36.7; O2SAT 99
[2025-08-05 05:52] LABS: Hematocrit 38.7 % (42.0-52.0); Hemoglobin 13.0 g/dL (14.0-18.0); Immature Granulocyte Percent A 0.3 % (0-0.5); Lymphocytes Absolute Auto 2.40 K/mm3 (0.9-3.2); Mean Corpuscular HGB Conc 33.6 g/dl (32-36); Mean Corpuscular Hemoglobin 28.5 pg (26-34); Mean Corpuscular Volume 84.9 fl (80-100); Nucleated Red Blood Cells Absolute Auto 0.000 K/mm3 (0.0-0.012); Nucleated Red Blood Cells Perc 0.0 % (0.0-0.2); Platelet Count Result 276 k/mm3 (150-375); Red Blood Count 4.56 M/mm3 (4.6-6.20); White Blood Count 7.9 K/mm3 (4.5-10.0)
[2025-08-05 06:00] VITALS: BP 148/94; PULSE 81; RESP 18; TEMP 36.2; O2SAT 97
[2025-08-05 06:07] LABS: Alanine Aminotransferase 26 U/L (6-50); Albumin Level 4.2 g/dL (3.5-5.1); Alkaline Phosphatase 61 U/L (38-126); Anion Gap 10 mmol/L (4-12); Aspartate Amino Transferase 41 U/L (17-59); Bilirubin,Total 0.8 mg/dL (0.2-1.3); Blood Urea Nitrogen 15 mg/dL (9-20); Calcium 9.5 mg/dL (8.4-10.2); Carbon Dioxide 24 mmol/L (22-30); Chloride 105 mmol/L (98-107); Estimated CRCL calculation 50 ml/min; Estimated Glomerular Filt Rate > 60; Glucose 148 mg/dL (65-110); Potassium 3.9 mmol/L (3.4-5.0); Sodium 139 mmol/L (137-145); Total Protein 7.5 g/dL (6.3-8.2)
--- NOTE | 2025-08-05 08:43 | WPDUROPN2 ---
Progress Note: A&P Assessment and Plan (1) Left ureteral stone: Code(s): N20.1 - Calculus of ureter Status: Acute Assessment and Plan: - S/p Left ureteral stent placement 08/02 - Pt to follow up outpatient for definitive stone management (2) Left renal mass: Code(s): N28.89 - Other specified disorders of kidney and ureter Status: Acute Assessment and Plan: - Reviewed with pt by Dr. Andrade - Plan for outpatient discussion regarding further management (3) Hydronephrosis: Qualifiers: Hydronephrosis type: with renal calculous obstruction Qualified Code(s): N13.2 - Hydronephrosis with renal and ureteral calculous obstruction Code(s): N13.30 - Unspecified hydronephrosis Status: Acute Assessment and Plan: - In the setting of ureteral stone; s/p ureteral stent placement - Further management as above (4) UTI (urinary tract infection): Qualifiers: Urinary tract infection type: acute cystitis Hematuria presence: without hematuria Qualified Code(s): N30.00 - Acute cystitis without hematuria Code(s): N39.0 - Urinary tract infection, site not specified Status: Acute Assessment and Plan: - UCx still with preliminary result of 10-25k CFU of gram negative bacilli - Continue broad spectrum Abx - Once susceptibilities are avaialble transition to culture driven Abx Plan - Would recommend pt stay until UCx final result available. - As soon as results available pt may be discharged on sensitivity specific Abx and outpatient follow up Subjective Subjective Date/Time Seen: 08/05/25 08:43 Interval history: NAEO; pt resting comfortably in bed eating breakfast. Denies significant flank pain, dysuria, frequency, urgency. Exam Narrative: General: Alert, no acute distress Head: Normocephalic, atraumatic Eyes: Extraocular movements intact Neck: No JVD, trachea midline Respiratory: Symmetric chest rise, nonlabored breathing on room air CV: Normal rate, adequate peripheral perfusion Abdomen: Soft, nontender, nondistended Skin: Warm/dry Extremities: No peripheral edema, no cyanosis Neuro: No focal deficits Psych: Answers questions appropriately, appropriate mood Objective Data Vital Signs Vital Signs: Vital Signs - 24 hr 08/04/25 09:02 08/04/25 14:00 08/04/25 20:00 Temperature 36.1 C L Pulse Rate 73 99 Respiratory Rate 18 Blood Pressure 141/64 H Pulse Oximetry 98 Oxygen Delivery Room Air 08/04/25 22:00 08/05/25 06:00 Temperature 36.7 C 36.2 C L Pulse Rate 98 81 Respiratory Rate 18 18 Blood Pressure 137/85 148/94 H Pulse Oximetry 99 97 Oxygen Delivery Intake/Output Intake/Output: Intake & Output 08/02/25 08/03/25 08/04/25 08/05/25 23:59 23:59 23:59 23:59 Intake Total 2100 1184 1582 600 Output Total 200 1700 3200 1200 Balance 1900 -516 -1618 -600 Meds/Results Medications: Active Medications Generic Name Dose Route Start Last Admin Trade Name Freq PRN Reason Stop Dose Admin Acetaminophen 650 mg 08/02/25 16:36 Acetaminophen 325 Mg Tablet PO Q4H PRN Mild Pain (1-3) or Fever Aspirin 81 mg 08/03/25 09:00 08/04/25 09:02 Aspirin 81 Mg Enteric Tablet PO 81 mg DAILY ELIESER Administration Dextrose 12.5 gm 08/02/25 16:57 Dextrose 50% 25 Gm/50 Ml Syringe IV PUSH PRN PRN Hypoglycemia Protocol Docusate Sodium 100 mg 08/02/25 17:00 08/04/25 16:43 Docusate Sodium 100 Mg Capsule PO 100 mg BID ELIESER Administration Fentanyl Citrate 25 mcg 08/02/25 13:28 Fentanyl Citrate Inj (*Crx) 100 Mcg/2 Ml Vial IV PUSH Q2M PRN Pain Glucagon 1 mg 08/02/25 16:57 Glucagon For Inj 1 Mg Vial IM PRN PRN Hypoglycemia Protocol Glucose 15 gm 08/02/25 16:57 Glucose Oral Gel 15 Gm Of Glucse In 37.5 Gm Tube PO PRN PRN Hypoglycemia Protocol Ceftriaxone Sodium 1 gm/ 50 mls @ 100 mls/hr 08/03/25 09:00 08/04/25 09:31 Sodium Chloride IVPB Infused Q24H ELIESER Infusion Dextrose 1,000 mls @ 100 mls/hr 08/02/25 16:57 Dextrose 5% 1,000 Ml IVPB PRN PRN Hypoglycemia Protocol Insulin Aspart 2 - 5 units 08/02/25 17:00 08/04/25 16:39 Insulin Aspart (*Bkc) 100 Units/Ml SUB-Q Not Given TIDWM [facility] Protocol Isosorbide Mononitrate 30 mg 08/03/25 09:00 08/04/25 09:02 Isosorbide Mononitrate 30 Mg Tab.Er.24h BY MOUTH 30 mg DAILY ELIESER Administration Losartan Potassium 100 mg 08/02/25 16:40 08/04/25 09:02 Losartan Potassium 100 Mg Tablet BY MOUTH 100 mg DAILY ELIESER Administration Metoprolol Tartrate 25 mg 08/02/25 21:00 08/04/25 20:47 Metoprolol Tartrate 25 Mg Tablet PO 25 mg Q12HR ELIESER Administration Ondansetron HCl 4 mg 08/02/25 13:28 Ondansetron Inj 4 Mg/2 Ml Vial IV PUSH ONCE PRN Nausea Oxycodone HCl 5 mg 08/02/25 16:35 Oxycodone Hcl (*Crx) 5 Mg Tab Ir PO Q4H PRN Pain Rated 7-10 Simvastatin 20 mg 08/02/25 18:00 08/04/25 16:43 Simvastatin 20 Mg Tablet BY MOUTH 20 mg EVENING ELIESER Administration Ticagrelor 90 mg 08/02/25 21:00 08/04/25 20:47 Ticagrelor 90 Mg Tablet PO 90 mg Q12H ELIESER Administration Radiology Results: ITS Impressions Abdomen/Pelvis CT 08/02/25 08:41 IMPRESSION: 1. Large indeterminate mass left kidney. Malignancy not excluded. Recommend CT or MRI renal protocol, as well as urology consultation. 2. Left kidney hydronephrosis with 4 mm stone distal ureter. Retrograde Pyelogram 08/02/25 16:43 IMPRESSION: As above. See also operative/procedure notes for complete evaluation. Labs Labs: Laboratory Results - last 24 hr 08/04/25 08/04/25 08/04/25 11:40 16:24 20:43 WBC RBC Hgb Hct MCV MCH MCHC RDW Plt Count MPV Immature Gran % (Auto) Neut % (Auto) Lymph % (Auto) [place] % (Auto) Eos % (Auto) Baso % (Auto) Lymph # (Auto) [place] # (Auto) Eos # (Auto) Baso # (Auto) Abs Immat Gran (auto) Absolute Neuts (auto) Absolute Nucleated RBC Nucleated RBC % Sodium Potassium Chloride Carbon Dioxide Anion Gap BUN Creatinine Estim Creat Clear Calc Estimated GFR Glucose POC Capillary Glucose 126 H 136 H 156 H Calcium Total Bilirubin AST ALT Alkaline Phosphatase Total Protein Albumin 08/05/25 08/05/25 05:07 07:40 WBC 7.9 RBC 4.56 L Hgb 13.0 L Hct 38.7 L MCV 84.9 MCH 28.5 MCHC 33.6 RDW 13.0 Plt Count 276 MPV 8.9 Immature Gran % (Auto) 0.3 Neut % (Auto) 56.0 Lymph % (Auto) 30.2 [place] % (Auto) 9.7 H Eos % (Auto) 3.3 Baso % (Auto) 0.5 Lymph # (Auto) 2.40 [place] # (Auto) 0.8 H Eos # (Auto) 0.3 Baso # (Auto) 0.0 Abs Immat Gran (auto) 0.02 Absolute Neuts (auto) 4.5 Absolute Nucleated RBC 0.000 Nucleated RBC % 0.0 Sodium 139 Potassium 3.9 Chloride 105 Carbon Dioxide 24 Anion Gap 10 BUN 15 Creatinine 0.95 Estim Creat Clear Calc 50 Estimated GFR > 60 Glucose 148 H POC Capillary Glucose 162 H Calcium 9.5 Total Bilirubin 0.8 AST 41 ALT 26 Alkaline Phosphatase 61 Total Protein 7.5 Albumin 4.2
[2025-08-05] MEDS: DOCUSATE SODIUM 100 MG CAPSULE PO ×2 (09:49→16:52)
[2025-08-05] MEDS: ASPIRIN 81 MG ENTERIC TABLET PO (09:49)
[2025-08-05] MEDS: LOSARTAN POTASSIUM 100 MG TABLET BY MOUTH (09:49)
[2025-08-05 09:50] VITALS: PULSE 84
[2025-08-05] MEDS: TICAGRELOR 90 MG TABLET PO ×2 (09:50→21:51)
[2025-08-05] MEDS: ISOSORBIDE MONONITRATE 30 MG TAB.ER.24H BY MOUTH (09:50)
[2025-08-05] MEDS: METOPROLOL TARTRATE 25 MG TABLET PO ×2 (09:50→21:51)
[2025-08-05] MEDS: cefTRIAXone 1 GM in SODIUM CHLORIDE 0.9% IV 50 ML 100 ML IVPB (09:51)
--- NOTE | 2025-08-05 12:26 | P.PNIM_ITS ---
Progress Note: A&P Assessment and Plan (1) UTI (urinary tract infection): Qualifiers: Urinary tract infection type: acute cystitis Hematuria presence: without hematuria Qualified Code(s): N30.00 - Acute cystitis without hematuria Code(s): N39.0 - Urinary tract infection, site not specified Status: Acute Assessment and Plan: Continue Rocephin Culture and sensitivity pending 08/03: Pt with continued hematuria -Pending UC -Continue rocephin -Per uro: Intraoperative evidence of pyuria/UTI. Follow-up urine cultures and continue broad spectrum IV antibiotics until culture results are finalized in order to establish most appropriate antibiotic regimen for suspected UTI -->Pt agreeable for admission with IV abx until UC results 08/04: Denies hematuria today, per nursing, urine is more tea colored today -Continues to deny pain or any other sx -Discussed plan for staying in the hospital for IV abx until the culture and sensitives on his first UC come back, per uro. Pt agreeable. 08/05: Continues to deny hematuria or any sx. -Continue to pend UC with IV ceftriaxone (2) Kidney stone: Code(s): N20.0 - Calculus of kidney Status: Acute Assessment and Plan: 4 mm kidney stone status post lithotripsy with stent placement on 08/02/25 Urology consulted 08/03: Denies pain today, continue to monitor Per uro: S/p Left ureteral stent placement 08/02/[address] Moulton Reviewed with patient that he will need to follow-up for outpatient surgery for definitive management of his left ureteral stone in the upcoming future after confirming resolution of infection (3) Hydronephrosis: Qualifiers: Hydronephrosis type: with renal calculous obstruction Qualified Code(s): N13.2 - Hydronephrosis with renal and ureteral calculous obstruction Code(s): N13.30 - Unspecified hydronephrosis Status: Acute Assessment and Plan: See above (4) Left renal mass: Code(s): N28.89 - Other specified disorders of kidney and ureter Status: Acute Assessment and Plan: Urology consulted pending recommendations Per uro: - Reviewed incidental findings of roughly 7 cm left renal mass with patient and family - Will further discuss management options as outpatient in urology clinic (5) Type 2 diabetes mellitus without complication: Code(s): E11.9 - Type 2 diabetes mellitus without complications Status: Chronic Assessment and Plan: Hold metformin while in hospital Evan-Belinda a.cDemetrius HS SSI Diabetic diet 08/03: FBS 143 08/04: FBS 145 08/05: FBS 148 (6) Coronary artery disease involving [place] heart: Qualifiers: Coronary Disease-Associated Artery/Lesion type: [place] artery Associated angina: without angina Qualified Code(s): I25.10 - Atherosclerotic heart disease of [place] coronary artery without angina pectoris Code(s): I25.10 - Atherosclerotic heart disease of [place] coronary artery without angina pectoris Status: Acute Assessment and Plan: Patient had cardiac stent placed in May Continue Brilinta Telemetry monitoring Observation overnight Continues to deny CP/SOB (7) Essential (primary) hypertension: Code(s): I10 - Essential (primary) hypertension Status: Chronic Assessment and Plan: Continue losartan Plan Pending initial UC for abx sensitives due to extensive UTI s/p procedure and labs via uro Time Spent With Patient Time: 35 Subjective Date/time seen: 08/05/25 1148 Interval history: Pt sitting up in his chair reading today upon my exam. Pt with no complaints, urine joe colored in the bathroom. Agreeable with staying until UC results. Review of Systems Review of Systems: 12 systems were reviewed and are negativ e except for as per HPI. Exam Narrative: General: well appearing, appears stated age. +[place], bilateral HAs in place HEENT: normocephalic, atraumatic. Mucous membranes moist. EOMI, PERRLA, bilateral sclera anicteric, no conjunctival injection. Neck supple without JVD, lymphadenopathy, or bruit. Respiratory: clear bilaterally. No rales/rhonic/wheezes. Cardiovascular: Regular rate and rhythm, normal S1-S2. No murmurs, rubs, or clicks. PMI is nondisplaced, capillary refill less than 3 second. Abdomen: Soft, round, no pulsatile masses, nondistended. No TTP. No rebound, no guarding. Bowel sounds present to all four quadrants. No high pitch or tinkling sounds, resonant to percussion. Extremities: No cyanosis, clubbing, or edema present. Pulses are palpable 2/2. Active ROM to all four extremities. Neuro: Alert and orientated x 4. PERRLA. Cranial nerves 2-12 intact without focal deficit. Skin: Warm, dry, and intact, without rash, erythema, or lesion. Psych: pleasant, cooperative, normal speech, normal affect, no hallucinations, no dysarthia Objective Data Vital Signs Vital Signs: Vital Signs - 24 hr 08/04/25 14:00 08/04/25 20:00 08/04/25 22:00 Temperature 97 F L 98.1 F Pulse Rate 99 98 Respiratory Rate 18 18 Blood Pressure 141/64 H 137/85 Pulse Oximetry 98 99 Oxygen Delivery Room Air 08/05/25 06:00 08/05/25 09:50 Temperature 97.1 F L Pulse Rate 81 84 Respiratory Rate 18 Blood Pressure 148/94 H Pulse Oximetry 97 Oxygen Delivery Intake/Output Intake/Output: Intake & Output 08/02/25 08/03/25 08/04/25 08/05/25 23:59 23:59 23:59 23:59 Intake Total 2100 1184 1582 890 Output Total 200 1700 3200 1750 Balance 2209 -511 -1797 -883 Meds/Results Medications: Active Medications Generic Name Dose Route Start Last Admin Trade Name Freq PRN Reason Stop Dose Admin Acetaminophen 650 mg 08/02/25 16:36 Acetaminophen 325 Mg Tablet PO Q4H PRN Mild Pain (1-3) or Fever Aspirin 81 mg 08/03/25 09:00 08/05/25 09:49 Aspirin 81 Mg Enteric Tablet PO 81 mg DAILY ELIESER Administration Dextrose 12.5 gm 08/02/25 16:57 Dextrose 50% 25 Gm/50 Ml Syringe IV PUSH PRN PRN Hypoglycemia Protocol Docusate Sodium 100 mg 08/02/25 17:00 08/05/25 09:49 Docusate Sodium 100 Mg Capsule PO 100 mg BID ELIESER Administration Fentanyl Citrate 25 mcg 08/02/25 13:28 Fentanyl Citrate Inj (*Crx) 100 Mcg/2 Ml Vial IV PUSH Q2M PRN Pain Glucagon 1 mg 08/02/25 16:57 Glucagon For Inj 1 Mg Vial IM PRN PRN Hypoglycemia Protocol Glucose 15 gm 08/02/25 16:57 Glucose Oral Gel 15 Gm Of Glucse In 37.5 Gm Tube PO PRN PRN Hypoglycemia Protocol Ceftriaxone Sodium 1 gm/ 50 mls @ 100 mls/hr 08/03/25 09:00 08/05/25 10:21 Sodium Chloride IVPB Infused Q24H ELIESER Infusion Dextrose 1,000 mls @ 100 mls/hr 08/02/25 16:57 Dextrose 5% 1,000 Ml IVPB PRN PRN Hypoglycemia Protocol Insulin Aspart 2 - 5 units 08/02/25 17:00 08/05/25 09:52 Insulin Aspart (*Bkc) 100 Units/Ml SUB-Q Not Given [facility] Protocol Isosorbide Mononitrate 30 mg 08/03/25 09:00 08/05/25 09:50 Isosorbide Mononitrate 30 Mg Tab.Er.24h BY MOUTH 30 mg DAILY ELIESER Administration Losartan Potassium 100 mg 08/02/25 16:40 08/05/25 09:49 Losartan Potassium 100 Mg Tablet BY MOUTH 100 mg DAILY ELIESER Administration Metoprolol Tartrate 25 mg 08/02/25 21:00 08/05/25 09:50 Metoprolol Tartrate 25 Mg Tablet PO 25 mg Q12HR ELIESER Administration Ondansetron HCl 4 mg 08/02/25 13:28 Ondansetron Inj 4 Mg/2 Ml Vial IV PUSH ONCE PRN Nausea Oxycodone HCl 5 mg 08/02/25 16:35 Oxycodone Hcl (*Crx) 5 Mg Tab Ir PO Q4H PRN Pain Rated 7-10 Simvastatin 20 mg 08/02/25 18:00 08/04/25 16:43 Simvastatin 20 Mg Tablet BY MOUTH 20 mg EVENING ELIESER Administration Ticagrelor 90 mg 08/02/25 21:00 08/05/25 09:50 Ticagrelor 90 Mg Tablet PO 90 mg Q12H ELIESER Administration Radiology Results: ITS Impressions Abdomen/Pelvis CT 08/02/25 08:41 IMPRESSION: 1. Large indeterminate mass left kidney. Malignancy not excluded. Recommend CT or MRI renal protocol, as well as urology consultation. 2. Left kidney hydronephrosis with 4 mm stone distal ureter. Retrograde Pyelogram 08/02/25 16:43 IMPRESSION: As above. See also operative/procedure notes for complete evaluation. Labs Labs: Laboratory Results - last 24 hr 08/04/25 08/04/25 08/05/25 16:24 20:43 05:07 WBC 7.9 RBC 4.56 L Hgb 13.0 L Hct 38.7 L MCV 84.9 MCH 28.5 MCHC 33.6 RDW 13.0 Plt Count 276 MPV 8.9 Immature Gran % (Auto) 0.3 Neut % (Auto) 56.0 Lymph % (Auto) 30.2 [place] % (Auto) 9.7 H Eos % (Auto) 3.3 Baso % (Auto) 0.5 Lymph # (Auto) 2.40 [place] # (Auto) 0.8 H Eos # (Auto) 0.3 Baso # (Auto) 0.0 Abs Immat Gran (auto) 0.02 Absolute Neuts (auto) 4.5 Absolute Nucleated RBC 0.000 Nucleated RBC % 0.0 Sodium 139 Potassium 3.9 Chloride 105 Carbon Dioxide 24 Anion Gap 10 BUN 15 Creatinine 0.95 Estim Creat Clear Calc 50 Estimated GFR > 60 Glucose 148 H POC Capillary Glucose 136 H 156 H Calcium 9.5 Total Bilirubin 0.8 AST 41 ALT 26 Alkaline Phosphatase 61 Total Protein 7.5 Albumin 4.2 08/05/25 08/05/25 07:40 11:35 WBC RBC Hgb Hct MCV MCH MCHC RDW Plt Count MPV Immature Gran % (Auto) Neut % (Auto) Lymph % (Auto) [place] % (Auto) Eos % (Auto) Baso % (Auto) Lymph # (Auto) [place] # (Auto) Eos # (Auto) Baso # (Auto) Abs Immat Gran (auto) Absolute Neuts (auto) Absolute Nucleated RBC Nucleated RBC % Sodium Potassium Chloride Carbon Dioxide Anion Gap BUN Creatinine Estim Creat Clear Calc Estimated GFR Glucose POC Capillary Glucose 162 H 138 H Calcium Total Bilirubin AST ALT Alkaline Phosphatase Total Protein Albumin Quality VTE Prophylaxis VTE prophylaxis: mechanical ordered and pharmacologic ordered Hospitalist MIPS Advance Care Plan I have confirmed that the patient's Advanced Care Plan is present, code status is documented, or surrogate decision maker is listed in patient medical record.: Yes The patient's Advanced Care plan is not present because:: Patient doesn't want to name surrogate or provider advance care plan
[2025-08-05 13:41] VITALS: BP 146/65; PULSE 90; RESP 16; TEMP 36.6; O2SAT 99
[2025-08-05] MEDS: SIMVASTATIN 20 MG TABLET BY MOUTH (16:51)
[2025-08-05 21:51] VITALS: PULSE 92
[2025-08-05 22:00] VITALS: BP 142/69; PULSE 92; RESP 18; TEMP 36.3; O2SAT 98
[2025-08-06 06:00] VITALS: BP 153/74; PULSE 71; RESP 18; TEMP 36.3; O2SAT 100
[2025-08-06 06:24] LABS: Hematocrit 37.3 % (42.0-52.0); Hemoglobin 12.2 g/dL (14.0-18.0); Immature Granulocyte Percent A 0.4 % (0-0.5); Lymphocytes Absolute Auto 2.11 K/mm3 (0.9-3.2); Mean Corpuscular HGB Conc 32.7 g/dl (32-36); Mean Corpuscular Hemoglobin 28.2 pg (26-34); Mean Corpuscular Volume 86.1 fl (80-100); Nucleated Red Blood Cells Absolute Auto 0.000 K/mm3 (0.0-0.012); Nucleated Red Blood Cells Perc 0.0 % (0.0-0.2); Platelet Count Result 271 k/mm3 (150-375); Red Blood Count 4.33 M/mm3 (4.6-6.20); White Blood Count 7.1 K/mm3 (4.5-10.0)
[2025-08-06 06:50] LABS: Alanine Aminotransferase 24 U/L (6-50); Albumin Level 4.0 g/dL (3.5-5.1); Alkaline Phosphatase 60 U/L (38-126); Anion Gap 9 mmol/L (4-12); Aspartate Amino Transferase 37 U/L (17-59); Bilirubin,Total 0.7 mg/dL (0.2-1.3); Blood Urea Nitrogen 13 mg/dL (9-20); Calcium 9.5 mg/dL (8.4-10.2); Carbon Dioxide 24 mmol/L (22-30); Chloride 106 mmol/L (98-107); Estimated CRCL calculation 54 ml/min; Estimated Glomerular Filt Rate > 60; Glucose 146 mg/dL (65-110); Potassium 4.1 mmol/L (3.4-5.0); Sodium 139 mmol/L (137-145); Total Protein 7.0 g/dL (6.3-8.2)
--- NOTE | 2025-08-06 08:47 | P.DS_ITS ---
DS: Admitting Diagnosis Discharge Date 08/06/2025 Admitting Diagnosis Left ureteral stone Left hydronephrosis Hematuria UTI DS: Discharge Diagnosis Discharge Diagnosis (1) UTI (urinary tract infection): Qualifiers: Hematuria presence: without hematuria Urinary tract infection type: acute cystitis Qualified Code(s): N30.00 - Acute cystitis without hematuria Code(s): N39.0 - Urinary tract infection, site not specified Status: Acute Assessment and Plan: Continue Rocephin Culture and sensitivity pending 08/03: Pt with continued hematuria -Pending UC -Continue rocephin -Per uro: Intraoperative evidence of pyuria/UTI. Follow-up urine cultures and continue broad spectrum IV antibiotics until culture results are finalized in order to establish most appropriate antibiotic regimen for suspected UTI -->Pt agreeable for admission with IV abx until UC results 08/04: Denies hematuria today, per nursing, urine is more tea colored today -Continues to deny pain or any other sx -Discussed plan for staying in the hospital for IV abx until the culture and sensitives on his first UC come back, per uro. Pt agreeable. 08/05: Continues to deny hematuria or any sx. -Continue to pend UC with IV ceftriaxone 08/06: UC results yielding sensitivities. Continues to deny sx, clear joe urine today -Changed to PO Cefpodoxime x2 doses at home after today's 0900 ceftriaxone dose to finish course (2) Kidney stone: Code(s): N20.0 - Calculus of kidney Status: Acute Assessment and Plan: 4 mm kidney stone status post lithotripsy with stent placement on 08/02/25 Urology consulted 08/03: Denies pain today, continue to monitor Per uro: S/p Left ureteral stent placement 08/02/[address] Moulton Reviewed with patient that he will need to follow-up for outpatient surgery for definitive management of his left ureteral stone in the upcoming future after confirming resolution of infection (3) Hydronephrosis: Qualifiers: Hydronephrosis type: with renal calculous obstruction Qualified Code(s): N13.2 - Hydronephrosis with renal and ureteral calculous obstruction Code(s): N13.30 - Unspecified hydronephrosis Status: Acute Assessment and Plan: See above (4) Left renal mass: Code(s): N28.89 - Other specified disorders of kidney and ureter Status: Acute Assessment and Plan: Urology consulted pending recommendations Per uro: - Reviewed incidental findings of roughly 7 cm left renal mass with patient and family - Will further discuss management options as outpatient in urology clinic (5) Type 2 diabetes mellitus without complication: Code(s): E11.9 - Type 2 diabetes mellitus without complications Status: Chronic Assessment and Plan: Hold metformin while in hospital Accu-Belinda a.cDemetrius HS SSI Diabetic diet 08/03: FBS 143 08/04: FBS 145 08/05: FBS 148 08/06: FBS 146 (6) Coronary artery disease involving [place] heart: Qualifiers: Associated angina: without angina Coronary Disease-Associated Ar efren/Lesion type: [place] artery Qualified Code(s): I25.10 - Atherosclerotic heart disease of [place] coronary artery without angina pectoris Code(s): I25.10 - Atherosclerotic heart disease of [place] coronary artery without angina pectoris Status: Acute Assessment and Plan: Patient had cardiac stent placed in May Continue Brilinta Telemetry monitoring Observation overnight Continues to deny CP/SOB (7) Essential (primary) hypertension: Code(s): I10 - Essential (primary) hypertension Status: Chronic Assessment and Plan: Continue losartan Plan Pt to be discharged home with x1 more day (x2 doses) or oral abx DS: Summary Hospital Course Reason for hospitalization: Hematuria, UTI, Left ureteral stone, Left hydronephrosis, kidney mass Hospital Course: The patient is an 80-year-old male with a history of coronary artery disease (recent stent placement in May, on Brilinta), type 2 diabetes, hypertension, and hyperlipidemia who presented with acute onset of left lower quadrant abdominal pain and gross hematuria. On arrival, he was afebrile but hypertensive, and laboratory evaluation revealed leukocytosis, mild anemia, elevated BUN, and urinalysis notable for significant hematuria, pyuria, proteinuria, and positive nitrites. CT imaging demonstrated a 4 mm obstructing calculus in the distal left ureter with mild hydronephrosis, as well as an incidental 7.1 cm partially calcified left renal mass. Urology was consulted, and the patient underwent cystoscopy, left retrograde pyelogram, and left ureteral stent placement for relief of obstruction, with intraoperative findings consistent with infection. He was admitted for IV antibiotics (ceftriaxone) yielding urine culture sensitivities and close monitoring, given his recent cardiac stent and ongoing antiplatelet therapy. During his hospitalization, the patient?s hematuria and pain resolved, and his urine cleared. He remained hemodynamically stable and afebrile throughout, with no recurrence of symptoms. Urine culture grew Proteus species, and antibiotics were tailored accordingly. Renal function remained stable, and glycemic control was maintained with a diabetic diet and hospital protocol insulin. Cardiac status was monitored on telemetry without incident. The patient was transitioned to oral cefpodoxime to complete his antibiotic course at home. The left renal mass was discussed with the patient and family, with plans for outpatient urology follow-up and further imaging for characterization. At discharge, the patient was back to baseline, tolerating diet, ambulating independently, and voiding clear urine without difficulty. He was provided with instructions to strain urine, complete his antibiotics, and follow up with urology and primary care. He was discharged in stable condition. Status at Discharge Overall status at discharge: patient is back to baseline Time Spent with Patient Time attestation: Total time spent providing and/or coordinating discharge services: Time spent: Less than 30 minutes Exam Narrative: General: well appearing, appears stated age. +[place], bilateral HAs in place HEENT: normocephalic, atraumatic. Mucous membranes moist. EOMI, PERRLA, bilateral sclera anicteric, no conjunctival injection. Neck supple without JVD, lymphadenopathy, or bruit. Respiratory: clear bilaterally. No rales/rhonic/wheezes. Cardiovascular: Regular rate and rhythm, normal S1-S2. No murmurs, rubs, or clicks. PMI is nondisplaced, capillary refill less than 3 second. Abdomen: Soft, round, no pulsatile masses, nondistended. No TTP. No rebound, no guarding. Bowel sounds present to all four quadrants. No high pitch or tinkling sounds, resonant to percussion. Extremities: No cyanosis, clubbing, or edema present. Pulses are palpable 2/2. Active ROM to all four extremities. Neuro: Alert and orientated x 4. PERRLA. Cranial nerves 2-12 intact without focal deficit. Skin: Warm, dry, and intact, without rash, erythema, or lesion. Psych: pleasant, cooperative, normal speech, normal affect, no hallucinations, no dysarthia DS: Data Data Completed and Pending Completed studies during hospitalization: Labs, urine, imaging, Cystoscopy, left retrograde pyelogram, left ureteral stent placement Labs on day of discharge: Labs from last 24 hours 08/06/25 08/06/25 08/05/25 07:39 05:22 20:04 WBC 7.1 RBC 4.33 L Hgb 12.2 L Hct 37.3 L MCV 86.1 MCH 28.2 MCHC 32.7 RDW 13.2 Plt Count 271 MPV 9.2 Immature Gran % (Auto) 0.4 Neut % (Auto) 55.8 Lymph % (Auto) 29.7 [place] % (Auto) 8.9 H Eos % (Auto) 4.5 H Baso % (Auto) 0.7 Lymph # (Auto) 2.11 [place] # (Auto) 0.6 Eos # (Auto) 0.3 Baso # (Auto) 0.1 Abs Immat Gran (auto) 0.03 Absolute Neuts (auto) 4.0 Absolute Nucleated RBC 0.000 Nucleated RBC % 0.0 Sodium 139 Potassium 4.1 Chloride 106 Carbon Dioxide 24 Anion Gap 9 BUN 13 Creatinine 0.88 Estim Creat Clear Calc 54 Estimated GFR > 60 Glucose 146 H POC Capillary Glucose 159 H 229 H Calcium 9.5 Total Bilirubin 0.7 AST 37 ALT 24 Alkaline Phosphatase 60 Total Protein 7.0 Albumin 4.0 08/05/25 08/05/25 16:21 11:35 WBC RBC Hgb Hct MCV MCH MCHC RDW Plt Count MPV Immature Gran % (Auto) Neut % (Auto) Lymph % (Auto) [place] % (Auto) Eos % (Auto) Baso % (Auto) Lymph # (Auto) [place] # (Auto) Eos # (Auto) Baso # (Auto) Abs Immat Gran (auto) Absolute Neuts (auto) Absolute Nucleated RBC Nucleated RBC % Sodium Potassium Chloride Carbon Dioxide Anion Gap BUN Creatinine Estim Creat Clear Calc Estimated GFR Glucose POC Capillary Glucose 143 H 138 H Calcium Total Bilirubin AST ALT Alkaline Phosphatase Total Protein Albumin Discharge Plan Discharge Attending physician on discharge: Mark Fernandez Consulting providers: Rebecca Castillo; Roberto Andrade; Tres [place] Discharging Clinician: Rebecca Castillo Anticipated Discharge Date/Time: 08/06/25 13:00 Patient Disposition: Home Activity: as tolerated Diet: diabetic Discharge Instructions: 1. Continue to strain all urine with the strainer provided in case you pass the stone. Follow-up with urology outpatient (their contact information is attached) regarding the findings of the renal mass and stone management, their contact information is attached. 2. Continue to take your antibiotics (Cefpodoxime) for your UTI, you only have x2 more doses to take tomorrow AM and then PM. Make sure to not take this on an empty stomach, as this can make you nauseous. Continue to check your blood pressure and blood sugar at home if applicable. Keep your scheduled appts with your primary care provider and any specialist that you may see. Return to the emergency department if you develop sudden shortness of breath, chest pain, a fever of greater than 101.5, or nausea, vomiting, abd pain, or diarrhea that does not go away. Follow-up with your primary care provider within 1-2 weeks, they will want to be updated on your inpatient stay in the hospital. Thank you for [facility] for your healthcare needs. Patient Instructions: Antibiotic Form, Cefpodoxime Proxetil (By mouth), Ticagrelor (By mouth), Kidney Stones (GEN), Urinary Tract Infection in Men (GEN), Hematuria (GEN) Patient Language: [place] Stand Alone Forms: General Discharge Information Follow-up/Referrals: Rachelle Moulton MD [Physician, Urology] - 2 Weeks Saúl Garcia APRN [Primary Care Provider, Internal Medicine] Brandyn Faust DO [Physician, Internal Medicine] Discharge Medications: New cefpodoxime 100 mg tablet 100 mg PO BID Qty: 2 0RF Rx Instructions: must administer with a meal/food Continued metformin 500 mg tablet See Rx Instructions .ROUTE .COMPLEX Qty: 90 3RF Dose Instruction: TAKE 1 TABLET BY MOUTH DAILY WITH EVENING MEAL Rx Instructions: TAKE 1 TABLET BY MOUTH DAILY WITH EVENING MEAL ketoconazole 2 % cream 1 applic topical .PRN omega-3 fatty acids [Fish Oil Concentrate] 1,000 mg capsule 2,000 mg PO BID multivitamin [Daily Multi-Vitamin] Tablet 1 tablet PO DAILY Metamucil 3.4 gram/5.4 gram powder 2 tsp PO HS Rx Instructions: mix into at least 4 oz water or juice before administering aspirin 81 mg tablet,delayed release (DR/EC) 81 mg PO DAILY ticagrelor [Brilinta] 90 mg tablet 90 mg PO Q12H metoprolol tartrate 25 mg Tablet 25 mg PO BID simvastatin 20 mg tablet See Rx Instructions .ROUTE .COMPLEX Qty: 90 3RF Dose Instruction: TAKE 1 TABLET BY MOUTH IN THE EVENING Rx Instructions: TAKE 1 TABLET BY MOUTH IN THE EVENING isosorbide mononitrate 30 mg tablet extended release 24 hr See Rx Instructions .ROUTE .COMPLEX Qty: 90 3RF Dose Instruction: TAKE 1 TABLET BY MOUTH DAILY IN THE MORNING Rx Instructions: TAKE 1 TABLET BY MOUTH DAILY IN THE MORNING losartan 100 mg tablet See Rx Instructions .ROUTE .COMPLEX Qty: 90 3RF Dose Instruction: TAKE 1 TABLET BY MOUTH IN THE MORNING Rx Instructions: TAKE 1 TABLET BY MOUTH IN THE MORNING Date of admission: 08/03/25 13:12 Primary Care Provider: Saúl Garcia Admitting Provider: Jourdan Arias Attending physician on admission: Rachelle Moulton Condition: Stable Quality VTE Prophylaxis VTE prophylaxis: mechanical ordered and pharmacologic ordered Hospitalist MIPS Heart Failure (Exclusion) Patient has history of Heart Transplant or Left Ventricular Assistive Device?: No IF YES, STOP HERE Heart Failure (Qualifier) Patient has current or prior documentation of LVEF less than or equal to 40%, or mod/servere depressed LVSF?: No IF NO, STOP HERE
[2025-08-06 09:21] VITALS: PULSE 92
[2025-08-06] MEDS: METOPROLOL TARTRATE 25 MG TABLET PO (09:21)
[2025-08-06] MEDS: TICAGRELOR 90 MG TABLET PO (09:22)
[2025-08-06] MEDS: DOCUSATE SODIUM 100 MG CAPSULE PO (09:22)
[2025-08-06] MEDS: ASPIRIN 81 MG ENTERIC TABLET PO (09:22)
[2025-08-06] MEDS: cefTRIAXone 1 GM in SODIUM CHLORIDE 0.9% IV 50 ML 100 ML IVPB (09:22)
[2025-08-06] MEDS: ISOSORBIDE MONONITRATE 30 MG TAB.ER.24H BY MOUTH (09:22)
[2025-08-06] MEDS: LOSARTAN POTASSIUM 100 MG TABLET BY MOUTH (09:22)
--- NOTE | 2025-08-06 09:29 | WPDUROPN2 ---
Progress Note: A&P Assessment and Plan (1) Left ureteral stone: Code(s): N20.1 - Calculus of ureter Status: Acute Assessment and Plan: - S/p Left ureteral stent placement 08/02 - Pt to follow up outpatient for definitive stone management (2) Hydronephrosis: Qualifiers: Hydronephrosis type: with renal calculous obstruction Qualified Code(s): N13.2 - Hydronephrosis with renal and ureteral calculous obstruction Code(s): N13.30 - Unspecified hydronephrosis Status: Acute Assessment and Plan: - In the setting of ureteral stone; s/p ureteral stent placement - Further management as above (3) Left renal mass: Code(s): N28.89 - Other specified disorders of kidney and ureter Status: Acute Assessment and Plan: - Reviewed with pt by Dr. Andrade - Plan for outpatient discussion regarding further management (4) UTI (urinary tract infection): Qualifiers: Urinary tract infection type: acute cystitis Hematuria presence: without hematuria Qualified Code(s): N30.00 - Acute cystitis without hematuria Code(s): N39.0 - Urinary tract infection, site not specified Status: Acute Assessment and Plan: - UCx resulted with Proteus - Pt to be discharged on outpatient course of Cefpodoxime to complete course Plan OK to discharge from urology standpoint Subjective Subjective Date/Time Seen: 08/06/25 09:29 Interval history: NAEO; pt resting comfortably on his bed eating breakfast. Exam Narrative: General: Alert, no acute distress Head: Normocephalic, atraumatic Eyes: Extraocular movements intact Neck: No JVD, trachea midline Respiratory: Symmetric chest rise, nonlabored breathing on room air CV: Normal rate, adequate peripheral perfusion Abdomen: Soft, nontender, nondistended Skin: Warm/dry Extremities: No peripheral edema, no cyanosis Neuro: No focal deficits Psych: Answers questions appropriately, appropriate mood Objective Data Vital Signs Vital Signs: Vital Signs - 24 hr 08/05/25 09:50 08/05/25 13:41 08/05/25 21:51 Temperature 36.6 C Pulse Rate 84 90 92 Respiratory Rate 16 Blood Pressure 146/65 H Pulse Oximetry 99 08/05/25 22:00 08/06/25 06:00 08/06/25 09:21 Temperature 36.3 C L 36.3 C L Pulse Rate 92 71 92 Respiratory Rate 18 18 Blood Pressure 142/69 H 153/74 H Pulse Oximetry 98 100 Intake/Output Intake/Output: Intake & Output 08/03/25 08/04/25 08/05/25 08/06/25 23:59 23:59 23:59 23:59 Intake Total 1184 1582 1460 840 Output Total 1700 3200 2550 1100 [facility] [phone] Meds/Results Medications: Active Medications Generic Name Dose Route Start Last Admin Trade Name Freq PRN Reason Stop Dose Admin Acetaminophen 650 mg 08/02/25 16:36 Acetaminophen 325 Mg Tablet PO Q4H PRN Mild Pain (1-3) or Fever Aspirin 81 mg 08/03/25 09:00 08/06/25 09:22 Aspirin 81 Mg Enteric Tablet PO 81 mg DAILY ELIESER Administration Dextrose 12.5 gm 08/02/25 16:57 Dextrose 50% 25 Gm/50 Ml Syringe IV PUSH PRN PRN Hypoglycemia Protocol Docusate Sodium 100 mg 08/02/25 17:00 08/06/25 09:22 Docusate Sodium 100 Mg Capsule PO 100 mg BID ELIESER Administration Fentanyl Citrate 25 mcg 08/02/25 13:28 Fentanyl Citrate Inj (*Crx) 100 Mcg/2 Ml Vial IV PUSH Q2M PRN Pain Glucagon 1 mg 08/02/25 16:57 Glucagon For Inj 1 Mg Vial IM PRN PRN Hypoglycemia Protocol Glucose 15 gm 08/02/25 16:57 Glucose Oral Gel 15 Gm Of Glucse In 37.5 Gm Tube PO PRN PRN Hypoglycemia Protocol Ceftriaxone Sodium 1 gm/ 50 mls @ 100 mls/hr 08/03/25 09:00 08/06/25 09:22 Sodium Chloride IVPB 100 mls/hr Q24H ELIESER Administration Dextrose 1,000 mls @ 100 mls/hr 08/02/25 16:57 Dextrose 5% 1,000 Ml IVPB PRN PRN Hypoglycemia Protocol Insulin Aspart 2 - 5 units 08/02/25 17:00 08/06/25 09:24 Insulin Aspart (*Bkc) 100 Units/Ml SUB-Q Not Given TIDWM ELIESER Protocol Isosorbide Mononitrate 30 mg 08/03/25 09:00 08/06/25 09:22 Isosorbide Mononitrate 30 Mg Tab.Er.24h BY MOUTH 30 mg DAILY ELIESER Administration Losartan Potassium 100 mg 08/02/25 16:40 08/06/25 09:22 Losartan Potassium 100 Mg Tablet BY MOUTH 100 mg DAILY ELIESER Administration Metoprolol Tartrate 25 mg 08/02/25 21:00 08/06/25 09:21 Metoprolol Tartrate 25 Mg Tablet PO 25 mg Q12HR ELIESER Administration Ondansetron HCl 4 mg 08/02/25 13:28 Ondansetron Inj 4 Mg/2 Ml Vial IV PUSH ONCE PRN Nausea Oxycodone HCl 5 mg 08/02/25 16:35 Oxycodone Hcl (*Crx) 5 Mg Tab Ir PO Q4H PRN Pain Rated 7-10 Simvastatin 20 mg 08/02/25 18:00 08/05/25 16:51 Simvastatin 20 Mg Tablet BY MOUTH 20 mg EVENING ELIESER Administration Ticagrelor 90 mg 08/02/25 21:00 08/06/25 09:22 Ticagrelor 90 Mg Tablet PO 90 mg Q12H ELIESER Administration Radiology Results: ITS Impressions Abdomen/Pelvis CT 08/02/25 08:41 IMPRESSION: 1. Large indeterminate mass left kidney. Malignancy not excluded. Recommend CT or MRI renal protocol, as well as urology consultation. 2. Left kidney hydronephrosis with 4 mm stone distal ureter. Retrograde Pyelogram 08/02/25 16:43 IMPRESSION: As above. See also operative/procedure notes for complete evaluation. Labs Labs: Laboratory Results - last 24 hr 08/05/25 08/05/25 08/05/25 11:35 16:21 20:04 WBC RBC Hgb Hct MCV MCH MCHC RDW Plt Count MPV Immature Gran % (Auto) Neut % (Auto) Lymph % (Auto) [place] % (Auto) Eos % (Auto) Baso % (Auto) Lymph # (Auto) [place] # (Auto) Eos # (Auto) Baso # (Auto) Abs Immat Gran (auto) Absolute Neuts (auto) Absolute Nucleated RBC Nucleated RBC % Sodium Potassium Chloride Carbon Dioxide Anion Gap BUN Creatinine Estim Creat Clear Calc Estimated GFR Glucose POC Capillary Glucose 138 H 143 H 229 H Calcium Total Bilirubin AST ALT Alkaline Phosphatase Total Protein Albumin 08/06/25 08/06/25 05:22 07:39 WBC 7.1 RBC 4.33 L Hgb 12.2 L Hct 37.3 L MCV 86.1 MCH 28.2 MCHC 32.7 RDW 13.2 Plt Count 271 MPV 9.2 Immature Gran % (Auto) 0.4 Neut % (Auto) 55.8 Lymph % (Auto) 29.7 [place] % (Auto) 8.9 H Eos % (Auto) 4.5 H Baso % (Auto) 0.7 Lymph # (Auto) 2.11 [place] # (Auto) 0.6 Eos # (Auto) 0.3 Baso # (Auto) 0.1 Abs Immat Gran (auto) 0.03 Absolute Neuts (auto) 4.0 Absolute Nucleated RBC 0.000 Nucleated RBC % 0.0 Sodium 139 Potassium 4.1 Chloride 106 Carbon Dioxide 24 Anion Gap 9 BUN 13 Creatinine 0.88 Estim Creat Clear Calc 54 Estimated GFR > 60 Glucose 146 H POC Capillary Glucose 159 H Calcium 9.5 Total Bilirubin 0.7 AST 37 ALT 24 Alkaline Phosphatase 60 Total Protein 7.0 Albumin 4.0
== END 2025-08-06 10:48 | disposition home or self-care (01) | DRG 661 ==
LOC: ANHED 09:29 → ANHSURGERY 10:02 → ANH3MEDSUR 17:54 → ANHSURGERY 20:24 → ANH3MEDSUR 20:24
PROVIDERS: Nurse Practitioner Gerontology; Registered Nurse; Urology; Admitting Provider Internal Medicine; Emergency Provider Student in an Organized Health Care Education/Training Program; PCP Nurse Practitioner
PROC: BT1FZZZ Fluoroscopy of Left Kidney, Ureter and Bladder (ICD-10-PCS; CPT 52352; principal; 2025-08-02 15:00)
DX: N13.2 Hydronephrosis with renal and ureteral calculous obstruction (principal); N39.0 Urinary tract infection, site not specified; B96.4 Proteus (mirabilis) (morganii) as the cause of diseases classified elsewhere; R31.0 Gross hematuria; D64.9 Anemia, unspecified; E11.9 Type 2 diabetes mellitus without complications; E78.5 Hyperlipidemia, unspecified; I25.10 Atherosclerotic heart disease of native coronary artery without angina pectoris; I10 Essential (primary) hypertension; N28.89 Other specified disorders of kidney and ureter; Z95.5 Presence of coronary angioplasty implant and graft; Z79.82 Long term (current) use of aspirin; Z85.828 Personal history of other malignant neoplasm of skin; E78.2 Mixed hyperlipidemia; Z96.653 Presence of artificial knee joint, bilateral; Z87.891 Personal history of nicotine dependence; Z79.84 Long term (current) use of oral hypoglycemic drugs
CPT/HCPCS: 36415; 74176; 74420; 80048; 80053; 81001; 82948; 83690; 85025; 85610; 85730; 87086; 87186; 96361; 96365; 96367; 96375; 96376; 99285; J0690; A9270; C1758; C1769; C2617; G0378; J0696; J1885; J2003; J2270; J2405; J2704; J3010; J7030; J7120; Q9966

== ENCOUNTER 2025-08-07 01:47 | Day surgery (SDC) | payer MEDICARE, OTHER, SELFPAY ==
[2025-08-06 14:26] VITALS: BMI 28.3
--- NOTE | 2025-08-06 14:41 | PC.NURSE ---
[facility] has started construction of its new state of the art ER which will open Spring 2026. With this, we anticipate parking may be a challenge for some our surgical patients and families. Parking spaces are limited but are available for all Surgical, obstetrics, and ER patients sharing this lot. If you arrive and find you are having a hard time finding a parking space, please note that we understand the challenges, please drive around the hospital and park near Hospital Entrance 1. When you enter this entrance, you can ask a volunteer to direct or take you back to the surgical waiting area to check in. We appreciate everyone?s understanding of these expected challenges while we build for your future. Report to the Outpatient Waiting Room, entrance under the green pavilion located off [address], at time __100pm on date __08/07/25 . Planned Procedure Time: _300pm .? Time changes happen often and if your time is changed the preop area will call you the afternoon before. - You and your visitor will be asked to self-screen and do not enter if you have any COVID symptoms. Please call surgeon if you need to reschedule. - A mask is optional within the hospital at this time. Patients may have clear liquids (water, carbonated beverages, clear teas, apple juice) until 3 hours prior to surgery with a maximum of 20 ounces. - No food from midnight until time of surgery and no smoking, or chewing tobacco (or any form of nicotine). No chewing gum, candy or mints. (1200pm) Take only the following medications with a SIP of water on the morning of surgery: ____Metoprolol and Isosorbide. Pt states urology said to take Brilinta and ASA OK DO NOT STOP ANY OF YOUR OTHER PRESCRIPTION MEDICATIONS PRIOR TO SURGERY EXCEPT THE FOLLOWING Hold all vitamins and supplements till post op per anesthesiologist. Medications to discontinue per physician _NONE Date to take last dose NONE Please no make-up, nail amharic, hairspray, perfume, deodorant, or body powder the day of surgery.? No jewelry (including any body piercings) or valuables the day of surgery, leave them at home.? Please take a shower or bath the night before, or the morning of, surgery with an antibacterial soap.? Wear comfortable, loose fitting clothing.? - Jewelry must be removed prior to entering the operating room.? Rings and piercings that are not removed may be cut off. - The hospital will not accept responsibility for valuables.? - Please leave all valuables, including medications, at home the day of surgery. If you are going home after surgery, a licensed construction driver must drive you home.? - NO public transportation without another adult if you receive anesthesia. - We recommend that an adult stay with you for 24 hours following discharge. - We also recommend that you do not drive, make important decision, drink alcoholic beverages, or take any drugs that were not prescribed by your health care provider for at least 24 hours after your discharge time. Follow any additional instructions given to you from your surgeon. HARRIET on [facility] at office that pt was discharged today on both ASA and Brilinta and has surgery tomorrow. Telephone instructions given to __Patient & Maria G and asked if any additional questions and then verbalized understanding. Patient advised to call surgeon office or pre surgery nurse liaison [phone] if any additional questions.
[2025-08-07] VITALS (7 sets, daily range): BP systolic 120–174; BP diastolic 66–91; PULSE 68–83; RESP 18–22; TEMP 36.4–36.5; O2SAT 99–100; BMI 28.9
--- NOTE | ~2025-08-07 | XR_ITS ---
EXAMINATION: C-arm assisted placement of stent in the left ureter: DATE: 08/07/2025. INDICATION: Left ureteric stent placement. TECHNIQUE: Fluoroscopic assistance was provided for retrograde placement of stent in the left ureter with contrast administration. Fluoroscopic exposure time 11 seconds. COMPARISON: CT scan dated 08/02/2025. FINDINGS: Spot images were obtained during the placement of the stent. Proximal aspect of the stent in good position. IMPRESSION: 1. As mentioned above Reviewed, dictated and finalized at location T. /[facility] IMPRESSION: 1. As mentioned above
--- OUTSIDE RECORDS SUMMARY | 2025-08-07 05:38 | XMS_ITS | Encounter Summary ---
Author Organization [facility] Care Team Providers Care Electronic Publishing Specialist Name Role Phone Donavon Mcdowell MD Primary Care Provider [phone] Naresh Harris MD Unavailable [phone] Brandyn Faust DO Primary Care Provider [phone] Ancelmo Goodman MD Primary Care Provider [phone] Brandyn Faust DO Primary Care Provider [phone] Encounter Details Date Type Department Care Team (Latest Contact Info) Description 04/08/2017 Orders Only [facility] CLINCON[facility] ProviderBarber MD [address] [place] [id number] Social History Tobacco Use Types Packs/Day Years Used Date Smoking Tobacco: Never Assessed Sex and Gender Information Value Date Recorded Sex Assigned at Not on file Legal Sex Male 3:43 AM [employer] Gender Identity Not on file [...] on filedocumented in this encounter Care Teams Electronic Publishing Specialist Relationship Specialty Start Date End Date Donavon Mcdowell MD PCP - General Internal Medicine 12/15/18 07/21/20 Brandyn Faust DO [address] [place] [address] [address] PCP - General Internal Medicine 07/22/20 03/08/23 Ancelmo Goodman MD [address] [place] [address] [address] PCP - General Family Practice 03/09/23 11/26/24 Brandyn Faust DO [address] [place] [address] [address] PCP - General Internal Medicine 11/27/24 Naresh Harris MD [address] [place] [address] [address] [facility] 07/05/19 documented as of this encounter
--- OUTSIDE RECORDS SUMMARY | 2025-08-07 05:38 | XMS_ITS | Clinical Summary ---
Author Organization [facility] at [facility] Office Center Address [address] [place] [address] Care Team Providers Care Monotype Keyboard Operator Name Role Phone Naresh Harris MD Unavailable [phone] Brandyn Faust DO Primary Care Provider Allergies No known active allergies Medications aspirin 81 mg enteric coated tablet Take 1 tablet (81 mg total) by mouth daily Active isosorbide mononitrate ER (IMDUR) 30 mg 24 hr tablet 1 tablet (30 mg total) daily Active metFORMIN (GLUCOPHAGE) 500 mg tablet 1 tablet (500 mg total) daily Active simvastatin (ZOCOR) 20 mg tablet 1 tablet (20 mg total) daily Active omega 6-ylm-wom-fish oil 910-1,400 mg capsule Take by mouth [...] artery disease of n ative artery of white earth heart with stable angina pectoris 05/23/2025 Palpitations [...] Department Care Team Description 07/26/2025 1:45 PM HAND ASSEMBLER FOR PULLER OVER Office Visit [facility] Cardiology at [address] [place] [address] Massimo Quintana MD 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); Hyperlipidemia associated with type 2 diabetes mellitus (HCC); LBBB (left bundle branch block); Pulmonary hypertension (HCC); Cardiomyopathy, unspecified type (HCC) 06/18/2025 Telephone [facility] Cardiology [address] [place] [address] [place] [phone] Massimo Quintana MD Med Refill 05/27/2025 Telephone [facility] Cardiology [address] [place] [address] [address] [place] [phone] Massimo Quintana MD dental work after cath 05/24/2025 Telephone [facility] Cardiology [address] [place] [address] [address] [place] [phone] Massimo Quintana MD 05/23/2025 1:30 PM CDT - 05/23/2025 3:05 PM CDT Surgery [facility] Cardiac Catheterization Lab [address] [place] [address] Lamont Steel MD LEFT HEART CATHETERIZATION WITH CORONARY ANGIOGRAPHY AND WITH OR WITHOUT LEFT VENTRICULOGRAM [id number] 05/23/2025 8:47 AM CDT - 05/24/2025 12:53 PM CDT Hospital Encounter [address] [address] Lamont Steel MD Atypical chest pain; Coronary artery disease, unspecified vessel or lesion type, unspecified whether angina present, unspecified whether white earth or transplanted heart Discharge Disposition: Discharge to home or self care 05/22/2025 Telephone [facility] Cardiology [address] [place] [address] [place] [phone] Massimo Quintana MD 05/15/2025 1:30 PM CDT Ancillary Procedure [facility] Cardiology [address] [place] [address] [address] [place] [address] Palpitations 05/15/2025 10:15 AM CDT Ancillary Procedure [facility] Cardiology at [address] [place] [address] LBBB (left bundle branch block); Coronary artery disease involving white earth coronary artery of white earth heart without angina pectoris; Cardiomyopathy, unspecified type (HCC) 05/15/2025 8:45 AM CDT Office Visit [facility] Cardiology [address] [place] [address] [place] [phone] Massimo Quintana MD Chest pain, unspecified type (Primary Dx); LBBB (left bundle branch block); Coronary artery disease involving white earth coronary artery of white earth heart without angina pectoris; Cardiomyopathy, unspecified type (HCC); Hyperlipidemia associated with type 2 diabetes mellitus (HCC); Pulmonary hypertension (HCC); Palpitations; Atypical chest pain 05/15/2025 Results Follow-Up [facility] Cardiology [address] [place] [address] [place] [phone] Massimo Quintana MD Transthoracic Echo (TTE) Complete W Doppler/CF 05/15/2025 Telephone [facility] Cardiology [address] [place] [address] [place] [phone] Massimo Quintana MD 05/13/2025 Telephone [facility] Cardiology [address] [place] [address] Massimo Quintana MD Chest Pain from Last 3 Months Surgical History Surgery Date Site/Laterality Comments KNEE SURGERY Bilateral CARDIAC CATHETERIZATION CARDIAC CATHETERIZATION 05/23/2025 N/A Procedure: LEFT HEART CATHETERIZATION WITH CORONARY ANGIOGRAPHY AND WITH OR WITHOUT LEFT VENTRICULOGRAM [id number]; Surgeon: Lamont Steel MD; Location: CARDIAC AUTOMOBILE BODY REPAIR CHIEF; Service: Cardiovascular; Laterality: N/A; Medical devices from this surgery are in the Medical Devices section. CARDIAC CATHETERIZATION 05/23/2025 N/A Procedure: ULTRASOUND GUIDANCE FOR VASCULAR ACCESS S&I [id number]; Surgeon: Lamont Steel MD; Location: CARDIAC AUTOMOBILE BODY REPAIR CHIEF; Service: Cardiovascular; Laterality: N/A; Medical devices from this surgery are in the Medical Devices section. CARDIAC CATHETERIZATION 05/23/2025 N/A Procedure: IVUS/OCT CORS OR GRAFTS, FIRST VESSEL (+) [id number]; Surgeon: Lamont Steel MD; Location: CARDIAC AUTOMOBILE BODY REPAIR CHIEF; Service: Cardiovascular; Laterality: N/A; Medical devices from this surgery are in the Medical Devices section. CARDIAC CATHETERIZATION 05/23/2025 N/A Procedure: Percutaneous Coronary Lithotripsy W/ PCI (+) [id number]; Surgeon: Lamont Steel MD; Location: CARDIAC AUTOMOBILE BODY REPAIR CHIEF; Service: Cardiovascular; Laterality: N/A; Medical devices from this surgery are in the Medical Devices section. CARDIAC CATHETERIZATION 05/23/2025 N/A Procedure: PCI BRI MAJOR CORONARY [id number] - [id number]; Surgeon: Lamont Steel MD; Location: CARDIAC AUTOMOBILE BODY REPAIR CHIEF; Service: Cardiovascular; Laterality: N/A; Medical devices from [...] on file Legal Sex Male 3:43 AM HAND ASSEMBLER FOR PULLER OVER Gender Identity Not on file Sexual Orientation Not on file Last Filed Vital Signs Vital Sign Reading Time Taken Comments Blood Pressure 138/68 07/26/2025 1:51 PM HAND ASSEMBLER FOR PULLER OVER Pulse 89 07/26/2025 1:51 PM HAND ASSEMBLER FOR PULLER OVER Temperature 36.5 C (97.7 F) 05/24/2025 8:22 AM CDT Respiratory Rate 18 05/24/2025 8:22 AM CDT Oxygen Saturation 98% 07/26/2025 1:51 PM HAND ASSEMBLER FOR PULLER OVER Inhaled Oxygen Concentration - - Weight 85.3 kg (188 lb) 07/26/2025 1:51 PM HAND ASSEMBLER FOR PULLER OVER Height 170.2 cm (5' 7) 07/26/2025 1:51 PM HAND ASSEMBLER FOR PULLER OVER Body Mass Index 29.44 07/26/2025 1:51 PM HAND ASSEMBLER FOR PULLER OVER Plan of Treatment Health Maintenance Due Date [...] 06/21/2016, 2016 Medical Devices Implanted Type Area Mechanical Shop Laborer Device Identifier Shelf Expiration Date Model / Serial / Lot Dick or Bro Synergy Xd Monorail 3.5mm 28mm 144cm Delivery System 1 Access [id number] - [id number] Implanted:Qty: 1 on 05/23/2025 by Lamont Steel MD at [facility] Dick [employer] Bro 11/13/2026 [id number] / / [id number] Dick [employer] Bro Stent Coronary Drug Eluting Rapid Exchange Synergy Xd 3.43e71cp Cecil Chromium [id number] - [id number] Implanted:Qty: 1 on 05/23/2025 by Lamont Steel MD at [facility] Dick [employer] 09/25/2026 [id number] 350 / / [id number] Procedures Procedure Name Priority Date/Time Associated Diagnosis [...] type, unspecified whether angina present, unspecified whether white earth or transplanted heart PERCUTANEOUS CORONARY LITHROTRIPSY W/ PCI (+) [id number] Routine 05/23/2025 3:09 PM CDT Atypical chest pain Coronary artery disease, unspecified vessel or lesion type, unspecified whether angina present, unspecified whether white earth or transplanted heart CORONARY OCT, 1ST VESSEL Routine 05/23/2025 3:09 PM CDT Atypical chest pain Coronary artery disease, unspecified vessel or lesion type, unspecified whether angina present, unspecified whether white earth or transplanted heart VASCULAR ACCESS US GUIDANCE Routine 05/23/2025 3:09 PM CDT Atypical chest pain Coronary artery disease, unspecified vessel or lesion type, unspecified whether angina present, unspecified whether white earth or transplanted heart LEFT HEART CATHETERIZATION WITH CORONARY ANGIOGRAPHY AND WITH AND WITHOUT LEFT VENTRICULOGRAM Routine 05/23/2025 3:09 PM CDT Atypical chest pain Coronary artery disease, unspecified vessel or lesion type, unspecified whether angina present, unspecified whether white earth or transplanted heart MODERATE SEDATION 05/23/2025 1:1 1 PM CDT Atypical chest pain Coronary artery disease, unspecified vessel or lesion type, unspecified whether angina present, unspecified whether white earth or transplanted heart EGFR Routine 05/23/2025 9:55 [...] type, unspecified whether angina present, unspecified whether white earth or transplanted heart Atypical chest pain CBC WITH AUTO DIFFERENTIAL Routine 05/21/2025 Pre-procedure lab exam Coronary artery disease, unspecified vessel or lesion type, unspecified whether angina present, unspecified whether white earth or transplanted heart Atypical chest pain MCT - MOBILE CARDIAC TELEMETRY EVENT MONITOR Routine 05/15/2025 11:55 AM CDT Palpitations TRANSTHORACIC ECHO (TTE) COMPLETE W DOPPLER/CF WO CONTRAST Routine 05/15/2025 10:38 AM CDT LBBB (left bundle branch block) Coronary artery disease involving white earth coronary artery of white earth heart without angina pectoris Cardiomyopathy, unspecified type (HCC) ECG 12-LEAD Routine 05/15/2025 8:44 AM CDT Chest pain, unspecified type from Last 3 Months Results * ECG 12 lead (05/24/2025 11:40 AM CDT) 05/24/2025 11:4 0 AM CDT Narrative [facility] - 05/24/2025 9:06 PM CDT Vent Rate: 83 bpm RR Interval: 719 msec SD Interval: 192 msec QRS Duration: 178 msec QT Interval: 439 msec QTC Interval: 479 msec P-R-T [place]: 33 - -63 - 90 degrees IMPRESSION: SINUS RHYTHM LEFT AXIS DEVIATION [QRS AXIS < -30] LEFT BUNDLE BRANCH BLOCK [120+ ms QRS DURATION, 80+ ms Q/S IN V1/V2, 85+ ms R IN I/aVL/V5/V6] ABNORMAL ECG Electronically Signed By: Dayo Mendez MD Kateryna Bob NP ECG ORDERABLES Final Result [facility] * (ABNORMAL) Lipid panel (05/24/2025 9:01 [...] 05/24/2025 9:27 AM CDT us Kateryna Bob DAMAGED FREIGHT INSPECTOR LAB BLOOD ORDERABLES Final Resul t Performing Organization Address City/[facility] Co de Phone Number MONISHA ROTH [address] [place] [address] * POCT glucose (05/23/2025 8:31 PM CDT) Glucose, POC 177 70 - 199 mg/dL Blood 05/23/2025 8:31 PM CDT 05/23/2025 8:31 PM CDT Lamont Steel MD LAB POCT ORDERABLES - DEVICE Fin al Result MONISHA ROTH [address] [place] [address] * POCT glucose (05/23/2025 6:37 PM CDT) Glucose, POC 199 70 - 199 mg/dL Blood 05/23/2025 6:37 PM CDT 05/23/2025 6:37 PM CDT Lamont Steel MD LAB POCT ORDERABLES - DEVICE Fin al Result Performing Organization Address [facility] Co de Phone Number MONISHA ROTH [address] Department [place] [address] * POCT glucose (05/23/2025 3:27 PM CDT) Glucose, POC 109 70 - 199 mg/dL Blood 05/23/2025 3:27 PM CDT 05/23/2025 3:27 PM CDT Lamont Steel MD LAB POCT ORDERABLES - DEVICE Fin al Result Performing Organization Address [facility] de Phone Number MONISHA ROTH [address] Department [place] [address] * LEFT HEART CATHETERIZATION WITH CORONARY ANGIOGRAPHY AND WITH AND WITHOUT LEFT VENTRICULOGRAM, VASCULAR ACCESS US GUIDANCE, CORONARY OCT, 1ST VESSEL, PERCUTANEOUS CORONARY LITHROTRIPSY W/ PCI (+) [id number], BRI MAJOR CORONARY (05/23/2025 3:09 PM CDT) Anatomical Region Laterality Modality X-Ray Angiograph y Addenda Addendum by Lamont Steel MD on 05/23/2025 3:38 PM CDT CARDIAC CATHETERIZATION AND INTERVENTION REPORT DATE OF PROCEDURE: 05/23/25 INDICATION FOR PROCEDURE: Angina, CAD BRIEF CLINICAL HISTORY: iVckie Arias is a 80 y.o. male with [...] groin hematoma, retroperitoneal bleed, vessel perforation; periprocedural NC, cardiac arrhythmias, stroke, contrast induced nephropathy, and [...] 28 mm and 3.5 x 16 mm Metamora scientific Synergy everolimus eluting stents in an overlapping fashion Moderate sedation-CPT code 99056 and beyond MODERATE SEDATION: Midazolam 1 mg , Fentanyl 25 mcg, start time 1328 stop time 1509, total direct eeue-nh-oeoh monitoring of conscious sedation 101 minutes (CPT 95295) TRAINED OBSERVER: Jaison Bynum RN was trained observer for moderate sedation. ACCESS SITE: Right radial artery PROCEDURE: After obtaining informed consent, patient was brought to the receiver/laborer and prepped and draped in the usual sterile manner. Time-out and immediate reassessment of the patient was performed. After local anesthesia with lidocaine, right radial artery access was taken with micropuncture needle under ultrasound guidance followed by insertion of a 6 Japanese sheath. Patient received 2.5 mg of verapamil, 200 mcg of nitroglycerin through the radial arterial sheath; and 5000 units of heparin for the diagnostic portion of the cardiac catheterization. During intervention, bivalirudin used for procedural anticoagulation. Selective left and right coronary angiography was performed using 5 F JL4 and 6 Japanese q.4 guide (was difficulty in engaging the left main coronary artery ostium using 5 Japanese JL 3.5 diagnostic catheter) catheters respectively. Orthogonal [...] and loading dose of ticagrelor in the receiver/laborer. Bivalirudin was used for procedural anticoagulation. Initially, [...] then finally crossed using crossed using 0.01 [employer] black wire. Initially, 2.5 x 12 mm [...] dense calcification in the proximal RCA. Six Japanese GuideLiner was used to provide additional support. After this, balloon angioplasty was performed again using a 2.5 x 12 mm NC balloon. Next, we proceeded with intravascular lithotripsy using a 3.5 x 12 mm lithotripsy balloon. Multiple cycles of lithotripsy were performed. Next, after extreme difficulty, 3.5 x 28 mm [employer]amora scientific Synergy everolimus eluting stent was advanced to the proximal-mid RCA and was deployed at a maximum of 16 atmospheres. Postdilation was initially performed using a sternal balloon. After this, angiogram showed residual stenosis of the proximal most segment of the RCA. Therefore, we proceeded with placement of another stent-3.5 x 16 mm Metamora scientific Synergy everolimus eluting stent in an [...] 28 mm and 3.5 x 16 mm [employer] Synergy everolimus eluting stents in an [...] was used to complete this document, therefore, secure software assessor variances may occur. Lamont Steel MD, [facility] 05/23/25 us Lamont Steel MD [...] MD LAB BLOOD ORDERABLES Final Resul t [facility] [address] Department [place] [address] * Differential, auto (05/23/2025 9:55 AM CDT) Neutrophil abs 3.87 1.50 - 6.50 K/cumm Imm gran abs 0.02 0.00 - 0.10 K/cumm [facility] Lymphocyte abs 2.08 0.80 - 3.30 K/cumm [facility] Monocyte abs 0.56 0.20 - 0.80 K/cumm [facility] Eosinophil abs 0.22 0.00 - 0.50 K/cumm [facility] Basophil abs 0.05 0.00 - 0.10 K/cumm [facility] Neutrophil pct 57.0 % [facility] Comment: Interpretive Data Percent cell count reference ranges are not reported, since discordance with absolute values may lead to misinterpretation of CBC data. Current Interpretive Data was last revised on 2017. Imm gran pct 0.3 % [facility] Comment: Interpretive Data Percent cell count reference ranges are not reported, since discordance with absolute values may lead to misinterpretation of CBC data. Current Interpretive Data was last revised on 2017. Lymphocyte pct 30.6 % [facility] Comment: Interpretive Data Percent cell count reference ranges are not reported, since discordance with absolute values may lead to misinterpretation of CBC data. Current Interpretive Data was last revised on 2017. Monocyte pct 8.2 % [facility] Comment: Interpretive Data Percent cell count reference ranges are not reported, since discordance with absolute values may lead to misinterpretation of CBC data. Current Interpretive Data was last revised on 2017. Eosinophil pct 3.2 % [facility] Comment: Interpretive Data Percent cell count reference ranges are not reported, since discordance with absolute values may lead to misinterpretation of CBC data. Current Interpretive Data was last revised on 2017. Basophil pct 0.7 % [facility] Comment: Interpretive Data Percent cell count reference ranges are not reported, since discordance with absolute values may lead to misinterpretation of CBC data. Current Interpretive Data was last revised on 2017. Blood 05/23/2025 9:55 AM CDT 05/23/2025 9:57 AM CDT us Lamont Steel MD LAB BLOOD ORDERABLES Final Resul t [facility] [address] Department [place] [address] * CBC with auto differential (05/23/2025 9:55 AM CDT) WBC 6.80 3.80 - 9.90 K/cumm Hgb 14.9 13.0 - 17.5 g/dL [facility] Hct 43.7 38.9 - 50.3 % [facility] Plt 211 150 - 400 K/cumm [facility] MPV 9.3 9.1 - 12.3 fL [facility] RBC 5.09 4.30 - 5.80 M/cumm [facility] MCV 85.9 81.3 - 96.4 fL [facility] MCH 29.3 27.1 - 33.3 pg [facility] MCHC 34.1 32.3 - 35.7 g/dL [facility] RDW CV 12.5 11.1 - 14.9 % [facility] RDW SD 39.3 35.7 - 48.1 fL [facility] NRBC abs 0.00 0.00 - 0.01 K/cumm [facility] Blood 05/23/2025 9:55 AM CDT 05/23/2025 9:57 AM CDT Lamont Steel MD LAB BLOOD ORDERABLES Final Resul t Performing Organization Address [facility] Co de Phone Number MONISHA [address] [place] [address] * (ABNORMAL) Basic metabolic panel (05/23/2025 9:55 [...] ORDERABLES Final Resul t Performing Organization Address [facility] Co de Phone Number MONISHA [address] [place] [address] * POCT glucose (05/23/2025 8:59 AM CDT) Pathologist [facility] Glucose, POC 161 70 - 199 mg/dL Blood 05/23/2025 8:59 AM CDT 05/23/2025 8:59 AM CDT us Lamont Steel MD LAB POCT ORDERABLES - DEVICE Fin al Result MONISHA [address] Department [place] [address] * (ABNORMAL) CBC with auto differential (05/21/2025) [facility] SCRIBED WBC 6.9 3.8 - 9.9 [...] ORDERABLES Tracy l Result Performing Organization Address [facility] Co de Phone Number EXTERNAL [...] mL/min/1.7 3 m2 EXTERNAL LAB Blood 05/21/2025 Massmio Quintana MD LAB BLOOD ORDERABLES Tracy l Result EXTERNAL LAB * MCT Mobile Cardiac Telemetry Event Monitor (05/15/2025 11:55 AM CDT) Anatomical Region Laterality Modality Electrocardiogra phy Narrative 06/04/2025 7:08 PM CDT AMBULATORY SPACE ENGINEER REPORT Patient Name: Vickie Arias Date of : 1945 Requesting Physician: Dr. Quintana Date of interpretation: 06/04/25 Type of monitor : 14 day gambling monitor Date of the study/Enrollment period: 05/15/2025 [...] was used to complete this document, therefore, secure software assessor variances may occur. Massimo Quintana MD, [facility] 06/04/25 Procedure Note Massimo Quintana MD - 06/04/2025 AMBULATORY SPACE ENGINEER REPORT Patient Name: Vickie Arias Date of : 1945 Requesting Physician: Dr. Quintana Date of interpretation: 06/04/25 Type of monitor : 14 day gambling monitor Date of the study/Enrollment period: 05/15/2025 [...] software was used to complete this document, therefore,secure software assessor variances may occur. Massimo Quintana MD, [facility] 06/04/25 us Massimo Quintana MD CV CARDIAC SERVICES [facility] Final Result * TRANSTHORACIC ECHO (TTE) COMPLETE W DOPPLER/CF WO CONTRAST (05/15/2025 10:38 AM CDT) Estimated EF 55 % CONS SCIMAGE EF Mod BP 56 % CONS SCIMAGE Anatomical Region Laterality Modality Ultrasound 05/15/2025 10:0 9 AM CDT Narrative 05/15/2025 11:59 AM CDT [facility] Cardiology [address], [address], [place] [address] P:[phone] P:[phone] Echocardiographic Report Patient Name: VICKIE ARIAS W : 1945 Study Date: 05/15/2025 10:09:53 AM Sex: M Diamond Die Polisher: LINDA Location: [facility] Ref Provider: MASSIMO QUINTANA Height(Cm): 170 BSA: 2.05 Weight(Kg): 88.9 Heart Rate: 50 BP: 148 / 74 Quality: Good Order Provider: MASSIMO QUINTANA PROCEDURES: Echocardiographic Report: Transthoracic echocardiogram with complete 2D, M-Mode, and color Doppler examination. With Strain Analysis. INDICATIONS: I44.7 Left bundle-branch block, unspecified, I25.10 Atherosclerotic heart disease of white earth coronary artery without angina pectoris, and I42.9 [...] [ 0.60 - 1.00 ] PV Peak Jaun 1.12 m/s [ 0.40 - 0.80 ] [...] FINDINGS: Interpretation Site: Exam was interpreted at [facility]. Left Ventricle: Normal left ventricular systolic function. [...] Procedure Note Massimo Quintana MD - 05/15/2025 [facility] Medical [facility] Cardiology [address], [address], [place] [address] P:[phone] P:[phone] Echocardiographic Report Patient Name: VICKIE ARIAS W : 1945 Study Date: 05/15/2025 10:09:53 AM Sex: M Diamond Die Polisher: LINDA Location: [facility] Ref Provider: MASSIMO QUINTANA Height(Cm): 170 BSA: 2.05 Weight(Kg): 88.9 Heart Rate: 50 BP: 148 / 74 Quality: Good Order Provider: MASSIMO QUINTANA PROCEDURES: Echocardiographic Report: Transthoracic echocardiogram with complete 2D, M-Mode, and color Dopplerexamination. With Strain Analysis. INDICATIONS: I44.7 Left bundle-branch block, unspecified, I25.10 Atherosclerotic heartdisease of white earth coronary artery without angina pectoris, and I42.9 [...] FINDINGS: Interpretation Site: Exam was interpreted at [facility]. Left Ventricle: Normal left ventricular systolic function. [...] Final from Last 3 Months Insurance [address] [place] [address] MEDICARE RAILSimpliVity [facility] Care Teams Monotype Keyboard Operator Relationship Specialty Start Date End Date Brandyn Faust DO [address] [place] [address] PCP - General Internal Medicine 11/27/24 Naresh Harris MD [address] [place] [address] Licensed Staff [facility] Cardiology 07/05/19
--- OUTSIDE RECORDS SUMMARY | 2025-08-07 05:38 | XMS_ITS | Encounter Summary ---
Author Organization [facility] Facility Care Team Providers Care Die Sinker Name Role Phone Donavon Mcdowell MD Primary Care Provider [phone] Naresh Harris MD Unavailable [phone] Brandyn Faust DO Primary Care Provider [phone] Ancelmo Goodman MD Primary Care Provider [phone] Brandyn Faust DO Primary Care Provider [phone] Encounter Details Date Type Department Care Team (Latest Contact Info) Description 06/28/2017 Orders Only [facility] CLINCONV ProviderBarber MD [address] [place] [address] Social History Tobacco Use Types Packs/Day Years Used Date Smoking Tobacco: Never Assessed Sex and Gender Information Value Date Recorded Sex Assigned at Not on file 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 Gender Identity Not on file Sexual Orientation [...] on filedocumented in this encounter Care Teams Die Sinker Relationship Specialty Start Date End Date Donavon Mcdowell MD PCP - General Internal Medicine 12/15/18 07/21/20 Brandyn Faust DO [address] [facility] [address] [place] [address] [address] PCP - General Internal Medicine 07/22/20 03/08/23 Ancelmo Goodman MD [address] [facility] [address] [place] [address] [address] PCP - General Family Practice 03/09/23 11/26/24 Brandyn Faust DO [address] [facility] [address] [place] [address] [address] PCP - General Internal Medicine 11/27/24 Naresh Harris MD [address] [facility] [address] [place] [address] [address] Distribution Analyst Cardiology 07/05/19 documented as of this encounter
--- OUTSIDE RECORDS SUMMARY | 2025-08-07 05:38 | XMS_ITS | Encounter Summary ---
Author Organization [facility] Facility Care Team Providers Care Plate Developer Name Role Phone Donavon Mcdowell MD Primary Care Provider Naresh Harris MD Unavailable [phone] Brandyn Faust DO Primary Care Provider [phone] Ancelmo Goodman MD Primary Care Provider [phone] Brandyn Faust DO Primary Care Provider [phone] Encounter Details Date Type Department Care Team (Latest Contact Info) Description 12/02/2015 Orders Only [facility]G CLINCONV ProviderBarber MD [address] [place] [address] Social History Tobacco Use Types Packs/Day Years Used Date Smoking Tobacco: Never Assessed Sex and Gender Information Value Date Recorded Sex Assigned at Not on file 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 Gender Identity Not on file Sexual Orientation [...] on filedocumented in this encounter Care Teams Plate Developer Relationship Specialty Start Date End Date Donavon Mcdowell MD PCP - General Internal Medicine 12/15/18 07/21/20 Brandyn Faust DO [address] [facility] [address] [place] [address] [address] PCP - General Internal Medicine 07/22/20 03/08/23 Ancelmo Goodman MD [address] [facility] [address] [place] [address] [address] PCP - General Family Practice 03/09/23 11/26/24 Brandyn Faust DO [address] [facility] [address] [place] [address] [address] PCP - General Internal Medicine 11/27/24 Naresh Harris MD [address] [facility] [address] [place] [address] [address] Provider Relations Advocate Cardiology 07/05/19 documented as of this encounter
--- OUTSIDE RECORDS SUMMARY | 2025-08-07 05:38 | XMS_ITS | Clinical Summary ---
Author Organization [facility] Address [address] [place] [address] Care Team Providers Care Lead Caster Name Role Phone Unavailable Primary Care Provider Unavailabl e Allergies No known active allergies Encounters Date Type Department Care Team Description 06/17/2025 11:49 AM CDT - 06/17/2025 1:45 PM CDT [facility] [address] [place] [id number] Sundar Aguillon MD Fall, initial encounter [...] the Last Year Not on file 2024 [facility] Utilities Answer Date Recorded In the [...] poor wound healing Alternatives discussed: No treatment [place] protocol: Procedure explained and questions answered to [...] of iterative reconstruction technique. Sundar Aguillon MD [facility] ORDERABLES Final Resu lt from Last 3 Months Insurance [employer] MEDICARE
--- OUTSIDE RECORDS SUMMARY | 2025-08-07 05:38 | XMS_ITS | Encounter Summary ---
Author Organization [facility] Facility Care Team Providers Care Mortgage Loan Computation Clerk Name Role Phone Donavon Mcdowell MD Primary Care Provider [phone] Naresh Harris MD Unavailable [phone] Brandyn Faust DO Primary Care Provider [phone] Ancelmo Goodman MD Primary Care Provider [phone] Brandyn Faust DO Primary Care Provider [phone] Encounter Details Date Type Department Care Team (Latest Contact Info) Description 06/04/2016 Orders Only [facility] CLINCONV ProviderBarber MD [address] [place] [address] Social History Tobacco Use Types Packs/Day Years Used Date Smoking Tobacco: Never Assessed Sex and Gender Information Value Date Recorded Sex Assigned at Not on file 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 Gender Identity Not on file Sexual Orientation [...] on filedocumented in this encounter Care Teams Mortgage Loan Computation Clerk Relationship Specialty Start Date End Date Donavon Mcdowell MD PCP - General Internal Medicine 12/15/18 07/21/20 Brandyn Faust DO [address] [facility] [address] [place] [address] [address] PCP - General Internal Medicine 07/22/20 03/08/23 nAcelmo Goodman MD [address] [facility] [address] [place] [address] [address] PCP - General Family Practice 03/09/23 11/26/24 Brandyn Faust DO [address] [facility] [address] [place] [address] [address] PCP - General Internal Medicine 11/27/24 Naresh Harris MD [address] [facility] [address] [place] [address] [address] Warehouse Examiner Cardiology 07/05/19 documented as of this encounter
--- OUTSIDE RECORDS SUMMARY | 2025-08-07 05:38 | XMS_ITS | Encounter Summary ---
Author Organization [facility] Facility Care Team Providers Care General Internal Medicine Doctor Name Role Phone Donavon Mcdowell MD Primary Care Provider [phone] Naresh Harris MD Unavailable [phone] Brandyn Faust DO Primary Care Provider [phone] Ancelmo Goodman MD Primary Care Provider [phone] Brandyn Faust DO Primary Care Provider [phone] Encounter Details Date Type Department Care Team (Latest Contact Info) Description 06/07/2018 Orders Only [facility] CLINCONV ProviderBarber MD [address] [place] [address] Social History Tobacco Use Types Packs/Day Years Used Date Smoking Tobacco: Never Assessed Sex and Gender Information Value Date Recorded Sex Assigned at Not on file 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 [address] [place] [address] [address] PCP - General Internal Medicine 07/22/20 03/08/23 Ancelmo Goodman MD [address] [facility] [address] [place] [address] [address] PCP - General Family Practice 03/09/23 11/26/24 Brandyn Faust DO [address] [facility] [address] [place] [address] [address] PCP - General Internal Medicine 11/27/24 Naresh Harris MD [address] [facility] [address] [place] [address] [address] Professional Advisor Cardiology 07/05/19 documented as of this encounter
--- OUTSIDE RECORDS SUMMARY | 2025-08-07 05:39 | XMS_ITS | Encounter Summary ---
Author Organization [facility] Address [address] [facility] [place] [address] Care Team Providers Care Pool Cleaner Name Role Phone Donavon Mcdowell MD Primary Care Provider [phone] Encounter Details Date Type Department Care Team (Late st Contact Info) Description 10/10/2020 Lab Requisition [facility] [address] [facility] [place] [phone] Aisha Goldstein DO [address] [facility] 3 [place] [address] Social History Tobacco Use Types Packs/Day Years Used Date Smoking Tobacco: Never Assessed Sex and Gender Information Value Date Recorded Sex Assigned at Not on file Legal Sex Male 5:59 PM SECTION LEADER Gender Identity Not on file Sexual Orientation Not on file documented as of this encounter Plan of Treatment Not on file documented as of this encounter Procedures Procedure Name Priority Date/Time Associated Diagnosis Comments DERMATOPATHOLOGY Routine 10/09/2020 3:27 AM SECTION LEADER documented in this encounter Results * DERMATOPATHOLOGY (10/09/2020 3:27 AM SECTION LEADER) Case Report Dermatopathology Report Case: [id number] Authorizing Provider: Aisha Goldstein DO Collected: 10/09/2020 03:27 AM Ordering Location: [facility] Care DermPath Lab Received: 10/10/2020 09:47 AM Pathologist: Chrissy Zambrano MD Specimen: Skin, left forearm 1 1:30 PM SECTION LEADER DERMATOPATHOLOGY LABORATORY Final Diagnosis Specimen A. 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 The specimen consists of a shave biopsy measuring 7x5x1 mm. Jar 0. 1 1:30 PM SECTION LEADER DERMATOPATHOLOGY LABORATORY Microscopic Description Specimen A. SKIN, left forearm: The epidermis shows parakeratosis, full thickness disorderly maturation of keratinocytes, mitoses at different levels, and dyskeratotic cells. 1 1:30 PM SECTION LEADER DERMATOPATHOLOGY LABORATORY Disclaimer An external and internal positive and negative controls are appropriate for the histochemical, immunohistochemical and immunofluorescence stain(s) in this case (if any), except where stated explicitly. The performance characteristics of the stain(s) cited in this report were developed and its performance characteristic determined by the Dermatopathology Laboratory at [facility], directed by Dr. Bernardo Thrasher. These tests need not be, and therefore are not, approved by the [place] Food and Drug Administration. The tests are used for clinical purposes. Billing Codes Specimen Charges Stain Charges 31497 1 1 1:30 PM SECTION LEADER DERMATOPATHOLOGY LABORATORY Embedded Images 1 1:30 PM SECTION LEADER DERMATOPATHOLOGY LABORATORY Pathology/Cytolo gy TISSUE SPECIMEN FROM SKIN / Unknown 10/09/2020 3:27 AM SECTION LEADER 10/10/2020 9:47 AM SECTION LEADER us Aisha Goldstein DO LAB - PATHOLOGY/CYTOLOGY ORDERABLES Final Result DERMATOPATHOLOGY LABORATORY [facility] - Department of Dermatology [facility] Medicine [address] [place] [address], [address] [phone] documented in this encounter Visit Diagnoses Not on filedocumented in this encounter Care Teams Pool Cleaner Relationship Specialty Start Date End Date Donavon Mcdowell MD [address] [place] [address] PCP - General 06/15/13 documented as of this encounter
--- OUTSIDE RECORDS SUMMARY | 2025-08-07 05:39 | XMS_ITS | Encounter Summary ---
Author Organization [facility] Address [address] [place] [address] Care Team Providers Care Railway Station Manager Name Role Phone Donavon Mcdowell MD Primary Care Provider [phone] Encounter Details Date Type Department Care Team (Late st Contact Info) Description 10/21/2020 Lab Requisition [facility] DermPath Lab [address] 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 Gender Identity Not on file Sexual Orientation Not on file documented as of this encounter Plan of Treatment Not on file documented as of this encounter Procedures Procedure Name Priority Date/Time Associated Diagnosis Comments DERMATOPATHOLOGY Routine 10/20/2020 12:0 0 AM MERGERS AND ACQUISITIONS BANKER documented in this encounter Results * DERMATOPATHOLOGY (10/20/2020 12:00 AM MERGERS AND ACQUISITIONS BANKER) Case Report Dermatopathology Report Case: [id number] Authorizing Provider: Aisha Goldstein DO Collected: 10/20/2020 12:00 AM Ordering Location: [facility] Care DermPath Lab Received: 10/21/2020 09:03 AM Pathologist: Chrissy Zambrano MD Specimen: Skin, left FA 3:48 PM MERGERS AND ACQUISITIONS BANKER DERMATOPATHOLOGY LABORATORY Final Diagnosis Specimen A. SKIN, left FA: DERMAL SCAR RESIDUAL SQUAMOUS CELL CARCINOMA NOT IDENTIFIED (L90.5) 3:48 PM MERGERS AND ACQUISITIONS BANKER DERMATOPATHOLOGY LABORATORY at 1548 MERGERS AND ACQUISITIONS BANKER Clinical History R/O SCCIS. 1 3:48 PM MERGERS AND ACQUISITIONS BANKER DERMATOPATHOLOGY LABORATORY Gross Description Specimen A: Received is one formalin filled container labeled with the patient's name and designated left FA. The specimen consists of a non-oriented ellipse of skin measuring [id number]. The epidermal surface is unremarkable. The margin is inked green. The 12 o'clock and 6 o'clock tips are submitted in cassette 1. The remainder of the ellipse is serially sectioned and submitted in cassette 2-3. Jar 0. 1 3:48 PM [facility] DERMATOPATHOLOGY LABORATORY Microscopic Description Specimen A. SKIN, left FA: There are fibroblasts and collagen bundles oriented parallel to the skin surface. There are elongated blood vessels, some of which are oriented perpendicular to the skin surface. No residual squamous cell carcinoma is identified. 3:48 PM [facility] DERMATOPATHOLOGY LABORATORY Disclaimer An external and internal positive and negative controls are appropriate for the histochemical, immunohistochemical and immunofluorescence stain(s) in this case (if any), except where stated explicitly. The performance characteristics of the stain(s) cited in this report were developed and its performance characteristic determined by the Dermatopathology Laboratory at [facility], directed by Dr. Bernardo Thrasher. These tests need not be, and therefore are not, approved by the [place] Food and Drug Administration. The tests are used for clinical purposes. Billing Codes Specimen Charges Stain Charges 92447 1 1 3:48 PM MERGERS AND ACQUISITIONS BANKER DERMATOPATHOLOGY LABORATORY Embedded Images 1 3:48 PM [facility] DERMATOPATHOLOGY LABORATORY Pathology/Cytolog y TISSUE SPECIMEN FROM SKIN / Unknown 10/20/2020 10/21/2020 9:03 AM MERGERS AND ACQUISITIONS BANKER us Aisha Goldstein DO LAB - PATHOLOGY/CYTOLOGY ORDERABLES Final Result DERMATOPATHOLOGY LABORATORY [facility] - Department of Dermatology [address], [address] [place] [address], [facility] [phone] documented in this encounter Visit Diagnoses Not on filedocumented in this encounter Care Teams Railway Station Manager Relationship Specialty Start Date End Date Donavon Mcdowell MD [address] [place] [address] PCP - General 06/15/13 documented as of this encounter
--- OUTSIDE RECORDS SUMMARY | 2025-08-07 05:39 | XMS_ITS | Encounter Summary ---
Author Organization [facility] Address [address] [facility] [place] [address] Care Team Providers Care Immigration Services Officer Name Role Phone Donavon Mcdowell MD Primary Care Provider [phone] Encounter Details Date Type Department Care Team (Late st Contact Info) Description 05/17/2024 Lab Requisition [facility] - DermPath Lab [address] [facility], [place] [phone] Aisha Goldstein DO [address] [facility] 3 [place] [address] Social History Tobacco Use Types Packs/Day Years Used Date Smoking Tobacco: Never Assessed Sex and Gender Information Value Date Recorded Sex Assigned at Not on file Legal Sex Male 5:59 PM CONE SEWER Gender Identity Not on file Sexual Orientation Not on file documented as of this encounter Plan of Treatment Not on file documented as of this encounter Procedures Procedure Name Priority Date/Time Associated Diagnosis Comments DERMATOPATHOLOGY Routine 05/17/2024 10:2 8 AM CDT documented in this encounter Results * DERMATOPATHOLOGY (05/17/2024 10:28 AM CDT) Case Report Dermatopathology Report Case: [id number] Authorizing Provider: Aisha Goldstein DO Collected: 05/17/2024 10:28 AM Ordering Location: [facility] - Received: 05/22/2024 06:07 AM [...] measuring 8x4x2 mm. Jar 0. 1:11 PM [facility] DERMATOPATHOLOGY LABORATORY Microscopic Description Specimen A. SKIN, left cheek: Sections show skin with irregularly shaped nests of keratinocytes with evidence of cornification. In some nests, there is loss of cohesion between the neoplastic cells, as well as individual dyskeratotic cells that lack intercellular bridges. 1:11 PM [facility] DERMATOPATHOLOGY LABORATORY Disclaimer An external and internal positive and negative controls are appropriate for the histochemical, immunohistochemical and immunofluorescence stain(s) in this case (if any), except where stated explicitly. The performance characteristics of the stain(s) cited in this report were developed and its performance characteristic determined by the Dermatopathology Laboratory at [facility], directed by Dr. Bernardo Thrasher. These tests need not be, and therefore are not, approved by the [place] Food and Drug Administration. The tests are used for clinical purposes. Billing Codes Specimen Charges Stain Charges 01119 1 1:11 PM CDT DERMATOPATHOLOGY LABORATORY Embedded Images 1:11 PM [facility] DERMATOPATHOLOGY LABORATORY Pathology/Cytolo gy TISSUE SPECIMEN FROM SKIN / Unknown 05/17/2024 10:28 AM CDT 05/22/2024 6:07 AM CDT us Aisha Goldstein DO LAB - PATHOLOGY/CYTOLOGY ORDERABLES Final Result DERMATOPATHOLOGY LABORATORY [facility] - Department of Dermatology [address], [address] [phone] documented in this encounter Visit Diagnoses Not on filedocumented in this encounter Care Teams Immigration Services Officer Relationship Specialty Start Date End Date Donavon Mcdowell MD [address] [place] [address] PCP - General 06/15/13 documented as of this encounter
--- OUTSIDE RECORDS SUMMARY | 2025-08-07 05:39 | XMS_ITS | Clinical Summary ---
Author Organization [facility] Address [address] [facility] [place] [address] Care Team Providers Care Product Safety Tester Name Role Phone Donavon Mcdowell MD Primary Care Provider [phone] Source Comments [facility],non-owned Affiliates and Associated Physician Practices is amultiple site organization consisting of ambulatory clinics and hospital sitesin [place], [place], [place] and [place]. This disclosure is being madepursuant to the Care Everywhere program and may not contain all information available regarding this patient. 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
[2025-08-07] MEDS: LACTATED RINGERS 1,000 ML 30 ML IV CONT (13:45)
--- NOTE | 2025-08-07 14:30 | SUR.PREOP ---
1430- Patient and spouse Earleen aware of procedure delay. Offered restroom to patient and declining at this time. Patient's concerns and questions answered and verbalized understanding. Patient agreed with plan of care and denying additional needs at this time.
--- NOTE | 2025-08-07 15:10 | WPDANESEPPF ---
Anes - Initial Pre Proc Eval Procedure: Operation Date: 08/07/25 15:00 Proposed Procedures p Cystoscopy, Left Ureteroscopy, Possible Left Retrograde Pyelogram, Possible Left Stone Extraction, Possible Left Stent Replacement, Possible Laser Lithotripsy - Rachelle Moulton MD Date/Time: 08/07/25 15:10 Surgeon: Rachelle Moulton MD Pre Op Diagnosis: left ureteral kidney stone Patient Data Age: 80 Gender: M Height: 1.7 m Weight: 83.8 kg Last Vital Signs Temp 97.7 F 08/07/25 13:45 Pulse 83 08/07/25 13:45 Resp 20 08/07/25 13:45 BP 141/79 H 08/07/25 13:45 Pulse Ox 99 08/07/25 13:45 O2 Del Method Room Air 08/07/25 13:45 Allergies Allergy/AdvReac Type Severity Reaction Status Date / Time No Known Allergies Allergy Verified 08/07/25 13:56 Home Medications ?Medication ?Instructions ?Recorded ?Confirmed ?Type multivitamin (Daily Multi-Vitamin 1 tablet PO DAILY 09/25/19 08/07/25 History tablet) omega-3 fatty acids 1,000 mg 2,000 mg PO BID 09/25/19 08/07/25 History capsule (Fish Oil Concentrate) psyllium husk 3.4 gram/5.4 gram 2 tsp PO HS 02/11/21 08/06/25 History oral powder (Metamucil) aspirin 81 mg tablet,delayed 81 mg PO DAILY 03/24/22 08/07/25 History release metoprolol tartrate 25 mg tablet 25 mg PO BID 03/31/23 08/07/25 History isosorbide mononitrate 30 mg See Rx Instructions .Route 01/07/25 08/07/25 Rx tablet,extended release 24 hr .COMPLEX #90 tabs simvastatin 20 mg tablet See Rx Instructions .Route 01/07/25 08/07/25 Rx .COMPLEX #90 tabs metformin 500 mg tablet See Rx Instructions .Route 01/25/25 08/07/25 Rx .COMPLEX #90 tabs losartan 100 mg tablet See Rx Instructions .Route 01/31/25 08/07/25 Rx .COMPLEX #90 tabs ticagrelor 90 mg tablet (Brilinta) 90 mg PO Q12H 06/20/25 08/07/25 History ketoconazole 2 % topical cream 1 applic topical .PRN 07/31/25 08/06/25 History cefpodoxime 100 mg tablet 100 mg PO BID #2 tabs 08/06/25 08/07/25 Rx Laboratory Tests 08/07/25 13:51 POC Capillary Glucose 130 H mg/dl (65-105) Patient hx anesthesia problems: none Family hx anesthesia problems: none Results Review: All pre-operative results and documents have been reviewed as part of the pre-operative evaluation. [facility] Past Medical History Medical History COVID-19 Squamous cell carcinoma of skin Colon polyp Coronary artery disease Silent [place] with evidence of inferior wall involvement. Moderate disease involving RCA but FFR negative 2014. Left bundle branch block Essential (primary) hypertension Mixed hyperlipidemia Primary osteoarthritis of both knees Type 2 diabetes mellitus without complication Surgical History Surgical History Status post right partial knee replacement (~10/2019) Status post left partial knee replacement (~07/21/20) History of squamous cell carcinoma excision Excision of multiple skin cancers from the head and neck. History of cataract surgery Family History Family History Sibling Malignant neoplasm of prostate Acute myocardial infarction Diabetes mellitus Father Cerebrovascular accident Mother Hypertension Daughter Breast cancer Social History Social History Social History: The patient lives with his in [place]. They have no pets. He is a [place] with possible Agent [place] exposure. Retired from the [employer]. Smoked 2 packs a day for 20 years and quit about 35 years ago. No alcohol or illicit substance abuse. He designates his Pushpa as his surrogate decision maker and he wishes to be a full code. Smoking packs per day: 2 Smoking cigarettes per day: 40.0 Years smoked: 20 Smoking pack-years: 40.00 Smoking status: Former smoker Tobacco type: cigarettes Second hand tobacco smoke exposure: Yes Smoking end date: 09/19/79 Additional smoking assessment comments: denies any nicotine Alcohol intake: never Substance use: never Substance use type: does not use Lack of Transportation: No Lack of Food: Never True Current Housing: I Have Housing Concerned About Future Housing: No Difficulty Paying Gas/Electric Bills: No Difficulty Paying for Meds: No Currently Unemployed: No Education: High School Diploma/GED Difficulty w/ Childcare or Family Care: No Living arrangements: with family Additional living arrangements comments: Gender identity (if verbalized by the patient): Male Sexual Orientation (if Verbalized by the Patient): Straight or Heterosexual Spiritual care concerns: No Agree to blood products: Yes Anes - Eval Final PreProcedure Day of Procedure 08/07/25 15:10 Patient weight: normal Heart: regular rate and rhythm Lungs: clear to auscultation Airway: Mallampati scale class II Neurological: alert and oriented Last oral intake: >/= 8 hours ASA classification: III Emergent: no Anesthetic plan: proceed Anesthesia type and monitoring: general LMA and standard monitoring Results Review: All pre-operative results and documents have been reviewed as part of the pre-operative evaluation. Informed Consent: The patient's anesthetic plan and its attendant risks and benefits were discussed with the patient/family/POA. Questions were solicited and answers provided to the satisfaction of the patient/family/POA.
--- NOTE | 2025-08-07 15:55 | SUR.PREOP ---
1555- Rounded on patient at bedside and he is denying needs at the time. Patient and remain aware of delay for procedure start time. Patient states he will press call button when he would like to use restroom and empty his bladder.
--- NOTE | 2025-08-07 16:21 | WPDHPUPDATE1 ---
History and Physical Update Update Date/Time: 08/07/25 16:21 History and Physical has been reviewed, including an updated exam of the patient. There are NO changes in the patient's condition. Plan cystoscopy, left retrograde pyelogram, left ureteroscopy, laser lithotripsy,stone extraction, stent exchange. Risks of the procedure, including but not limited to bleeding, infection, ureteral injury/stricture, need for additional procedures, stent discomfort, benefits, and alternatives have been discussed and questions answered. Patient agrees to proceed with procedure.
[2025-08-07] MEDS: ceFAZolin 2 GM in SODIUM CHLORIDE 0.9% IV 50 ML 100 ML IVPB (18:44)
[2025-08-07] MEDS: LIDOCAINE 2% GEL UROJET 10 ML PKG MUCOUS MEM (19:02)
--- NOTE | 2025-08-07 19:10 | S_PTH ---
PATIENT: Neli Collins LOC: [facility] U#:[id number] AGE/SX: 80/M ROOM: RE08/07/[address]: Rachelle Moulton MD : 1945 BED: DIS: 08/07/2025 SPEC #: [id number] RECD: 08/08/25 09:42 STATUS: SHU REQ #: [id number] ADI: 08/07/25 19:[address]: Rachelle Moulton DEPT: [facility] [place] Surgical RECD BY: Karlie Queen ENTERED: 08/08/25 09:42 SP TYPE: Surgical OTHR DR: Saúl Garcia APRN Tissues: A - Stone Procedures: Gross Exam Level 1 Crystalline Analysis
--- NOTE | 2025-08-07 20:00 | W.PM.PROC2 ---
Procedure Note - Detailed Date of Procedure 08/09/25 Pre-op Diagnosis Left ureteral stone Post-op Diagnosis Same (Left ureteral stone) Procedure Performed Cystoscopy, left retrograde pyelogram, left ureteroscopy, laser lithotripsy, stone extraction, left ureteral stent placement Surgeon Rachelle Moulton MD Anesthesia General Indications Mr. Collins is a 80 year old adult with history of distal left ureteral stone presents for ureteroscopic stone extraction.? Risks of the procedure including bleeding, infection, ureteral injury/stricture, need for additional procedures as well as stent symptoms were discussed with the patient.? The patient understands and wishes to proceed. Findings Distal left ureteral stone, moderate ureteral edema Description of Procedure The patient was correctly identified and informed consent was obtained. ?The patient was taken to the operating room and placed in the dorsal lithotomy position.? Intravenous antibiotics were administered for infection prophylaxis and bilateral SCDs were placed for DVT prophylaxis. The patient was prepped and draped in the usual sterile fashion. ?Rigid cystoscopy was performed. ?The bladder mucosa appeared normal. There was no tumor or other abnormality noted. ?The left?ureteral stent?was identified, pulled to the meatus?and a Sensor guidewire was passed into the kidney. Attempt was made to perform semi rigid ureteroscopy, however resistance was met. The ureter was therefore gently dilated with a 5Fr open ended catheter followed by an 8/10Fr coaxial dilator. ?Retrograde pyelogram revealed mild hydronephrosis. Next, over the guidewire, a flexible ureteroscope was passed. The stone was then identified in the distal ureter, noted to be associated with moderate edema, and subsequently fragmented with Holmium laser. ?The stone fragments were extracted with an Escape basket. Once the ureter appeared free of stone, the ureteroscope was withdrawn, visualizing the ureter in its entirety upon removal. There were no ureteral injuries noted.? Under direct vision a 4.8Fr ureteral stent was placed.? The bladder was then drained.? The patient tolerated the procedure well. The patient will undergo stent removal in the office in 1-2 weeks. Implants 4.8Fr stent Estimated Blood Loss 0 Complications None Condition Stable Disposition PACU
== END 2025-08-07 21:25 | disposition home or self-care (01) ==
PROVIDERS: PCP Nurse Practitioner; Visit Provider Urology
PROC: (CPT 52352; principal; 2025-08-07 15:00)
DX: N20.1 Calculus of ureter (principal); E11.9 Type 2 diabetes mellitus without complications; Z87.891 Personal history of nicotine dependence
CPT/HCPCS: 52356; 74420; 82365; 82948; 88300; J0690; C1758; C1769; C2617; J1100; J2003; J2405; J2704; J3010; J7120

== ENCOUNTER 2025-08-24 23:20 | Emergency (ER) | payer MEDICARE, OTHER, SELFPAY ==
[2025-08-24 23:30] VITALS: BP 159/66; PULSE 81; TEMP 36.6; O2SAT 100
[2025-08-25 01:23] LABS: Non Pathogenic Casts 0-2
[2025-08-25 01:33] LABS: Add Urine Microscopic? YES; Appearance Urine Turbid (Clear); Glucose Urine UA Negative (Negative); Leukocyte Esterase Ur 1+ LEU/UL (Negative); Nitrate Urine Negative (Negative); Specific Grav Ur 1.019 (1.001-1.035)
[2025-08-25 02:00] VITALS: BP 145/80; PULSE 87; RESP 21; O2SAT 97
--- NOTE | 2025-08-25 03:29 | ED.MALEGU ---
HPI - Male Genitourinary General Chief complaint: Urogenital-Male Stated complaint: Kidney infection and hematuria Time Seen by Provider: 08/25/25 02:36 Source: patient and family Mode of arrival: ambulatory Limitations: no limitations History of Present Illness HPI Narrative: Patient is an 80-year-old male presents to the emergency department complaining of bloody urine. Patient notes that he had a kidney stone and a urinary tract infection and had a stent placed in the recent past and the stent was removed on any seemed to be overall doing well until last night around 6:00 p.m. he started to P out what appeared to be cranberry juice and has had the same appearance on subsequent urinations over the past 2 urinations. Patient denies any pain. Patient admits to being on aspirin and Brilinta. Patient denies any dysuria, urinary frequency, urinary urgency. Patient's that he has an upcoming appointment with the urologist on the and has a known kidney mass has been there for many years. Patient denies any chest pain, difficulty breathing, fever, lightheadedness, palpitations. Related Data Home Medications ?Medication ?Instructions ?Recorded ?Confirmed ?Last Taken ?Type multivitamin (Daily Multi-Vitamin 1 tablet PO DAILY 09/25/19 08/07/25 08/04/25 History tablet) omega-3 fatty acids 1,000 mg 2,000 mg PO BID 09/25/19 08/07/25 08/04/25 History capsule (Fish Oil Concentrate) psyllium husk 3.4 gram/5.4 gram 2 tsp PO HS 02/11/21 08/06/25 03/29/23 History oral powder (Metamucil) aspirin 81 mg tablet,delayed 81 mg PO DAILY 03/24/22 08/07/25 08/06/25 History release metoprolol tartrate 25 mg tablet 25 mg PO BID 03/31/23 08/07/25 08/07/25 History ticagrelor 90 mg tablet (Brilinta) 90 mg PO Q12H 06/20/25 08/07/25 08/07/25 History ketoconazole 2 % topical cream 1 applic topical .PRN 07/31/25 08/06/25 08/01/25 History Allergies Allergy/AdvReac Type Severity Reaction Status Date / Time No Known Allergies Allergy Verified 08/07/25 13:56 Review of Systems Review of Systems: A 10 system review of systems was completed on the patient and is negative except for what is stated in the HPI. Nursing and ancillary documentation was reviewed. [facility] Past Medical History Medical History COVID-19 Squamous cell carcinoma of skin Colon polyp Coronary artery disease 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 Moderate disease involving RCA but FFR negative 2014. Left bundle branch block Essential (primary) hypertension Mixed hyperlipidemia Primary osteoarthritis of both knees Type 2 diabetes mellitus without complication Surgical History Surgical History Status post right partial knee replacement (~10/2019) Status post left partial knee replacement (~07/21/20) History of squamous cell carcinoma excision Excision of multiple skin cancers from the head and neck. History of cataract surgery Family History Family History Sibling Malignant neoplasm of prostate Acute myocardial infarction Diabetes mellitus Father Cerebrovascular accident Mother Hypertension Daughter Breast cancer Social History Social History Social History: The patient lives with his in [place]. They have no pets. He is a [place] with possible Agent [place] exposure. 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 No alcohol or illicit substance abuse. He designates his Pushpa as his surrogate decision maker and he wishes to be a full code. Smoking packs per day: 2 Smoking cigarettes per day: 40.0 Years smoked: 20 Smoking pack-years: 40.00 Smoking status: Former smoker Tobacco type: cigarettes Second hand tobacco smoke exposure: Yes Smoking end date: 09/19/79 Additional smoking assessment comments: denies any nicotine Alcohol intake: never Substance use: never Substance use type: does not use Lack of Transportation: No Lack of Food: Never True Current Housing: I Have Housing Concerned About Future Housing: No Difficulty Paying Gas/Electric Bills: No Difficulty Paying for Meds: No Currently Unemployed: No Education: High School Diploma/GED Difficulty w/ Childcare or Family Care: No Living arrangements: with family Additional living arrangements comments: Gender identity (if verbalized by the patient): Male Sexual Orientation (if Verbalized by the Patient): Straight or Heterosexual Spiritual care concerns: No Agree to blood products: Yes Exam Narrative: CONST: No acute distress. Well nourished. HENMT: Head is normocephalic and atraumatic. Moist mucous membranes. No posterior oropharynx erythema. EYES: No scleral icterus. No conjunctival injection or pallor. PERRL. NECK: No meningeal signs. RESP: Able to speak in full sentences. Normal respiratory effort. CTAB. CARDIO: Regular rate. 2+ DP and radial pulses bilaterally. GI: Nondistended. No tenderness to palpation. Soft. : No CVA tenderness to palpation. SKIN: No rashes or lesions noted on exposed skin. NEURO: Oriented x3. Moves all extremities. EXTREM/MSK/BACK: No pedal edema. PSYCH: Normal affect. Course Vital Signs Vital signs: Vital Signs Temperature 97.9 F 08/24/25 23:30 Pulse Rate 81 08/24/25 23:30 Blood Pressure 159/66 H 08/24/25 23:30 Pulse Oximetry 100 08/24/25 23:30 Temperature 97.9 F 08/24/25 23:30 Pulse Rate 77 08/25/25 04:06 Respiratory Rate 17 08/25/25 04:06 Blood Pressure 133/69 08/25/25 04:06 Pulse Oximetry 98 08/25/25 04:06 Oxygen Delivery Room Air 08/25/25 02:00 [facility] Narrative Medical decision making narrative: Patient presents with the above complaint. Initial vitals are remarkable for no significant abnormalities. Physical examination as noted above. Plan discussed: Urinalysis, Urology consultation, continuous cardiac monitoring, continuous pulse oximetry. I offered the patient laboratory analysis and CT imaging for further evaluation and patient notes that he does not want this to be done unless Urology feels it would be needed. I spoke with Dr. Roberts from Urology who notes no need for any imaging or any labs, would recommend the patient to avoid any strenuous activity, would also recommend them to consider getting off either 1 of the antiplatelet agents either the aspirin and Brilinta within each to be coordinated with his gift wrapper and to stay well-hydrated and strict return precautions. Patient was reassessed at the bedside. No changes in physical exam. Patient is in no acute distress. Patient counseled on my discussion with Urology. The patient has remained stable throughout the entire ED visit. Counseled patient regarding diagnostic results and potential diagnosis. Anticipatory guidance provided. Patient instructed to follow up with Urology as planned. Patient counseled on: false reassurance from an emergency department evaluation; no current evidence of a medical emergency; return immediately for any new, recurrent, worsening, concerning, or refractory symptoms. Medications discussed with patient. Additional verbal and printed discharge instructions were given and discussed with the patient. Patient verbally acknowledges understanding of condition and discharge instructions. All questions were answered to the patient's satisfaction. Patient is in agreement with the plan of care. The patient is stable for discharge and was discharged without incident. Differential Diagnosis Differential Diagnosis: UTI, postoperative bleeding, ureterolithiasis, cancer. Medical Records I have reviewed the following patient records and this information was taken into consideration when formulating the assessment and plan.: previous hospitalizations Lab Data MDM Lab Attestation statement: I personally reviewed the patient's lab results. Lab results narrative: Urinalysis reveals a brown color, turbid appearance, 2+ protein, 3+ blood, 1+ leukocyte esterase, greater than 100 RBCs, 11-20 wbc's, no bacteria seen. Labs: Lab Results 08/25/25 Range/Units 00:48 Urine Color Brown H (Yellow) Urine Appearance Turbid H (Clear) Urine pH 5.5 (5.0-9.0) Ur Specific Teller 1.019 (1.001-1.035) Urine Protein 2+ H (Negative) mg/dL Urine Glucose (UA) Negative (Negative) mg/dL Urine Ketones Negative (Negative) mg/dL Ur Blood (Man) 3+ H (Negative) Urine Nitrate Negative (Negative) Urine Bilirubin Negative (Negative) Urine Urobilinogen 0.2 (<2.0) mg/dL Leukocyte Esterase Rfl 1+ H (Negative) KATE/UL Urine RBC >100 H (0-2) /hpf Urine WBC 11-20 H (0-3) /hpf Ur Squamous Epith Cells None seen (Few) /hpf Urine Bacteria None seen /hpf Urine Casts 0-2 Discharge Plan Discharge Clinical Impression: Hematuria Qualifiers: Hematuria type: gross Qualified Code(s): R31.0 - Gross hematuria Patient Disposition: Home Condition: Stable Instructions: Antibiotic Form, Hematuria (ED) Additional Instructions: Follow-up with your urologist as planned, rest and stay well hydrated, avoid any significant strenuous activity, talk with her gift wrapper about potentially holding your aspirin and Brilinta temporarily, return immediately to the emergency department for any new or concerning symptoms especially chest pain, difficulty breathing, fever, lightheadedness, palpitations, burning when you urinate, frequent urination, urgency, decreased urine output, inability to urinate, abdominal pain, back pain, or any emergent concerns for life, limb, eyesight. Patient Language: South African Prescriptions: No Action metformin 500 mg tablet See Rx Instructions .ROUTE .COMPLEX Qty: 90 3RF Dose Instruction: TAKE 1 TABLET BY MOUTH DAILY WITH EVENING MEAL Rx Instructions: TAKE 1 TABLET BY MOUTH DAILY WITH EVENING MEAL ketoconazole 2 % cream 1 applic topical .PRN omega-3 fatty acids [Fish Oil Concentrate] 1,000 mg capsule 2,000 mg PO BID multivitamin [Daily Multi-Vitamin] Tablet 1 tablet PO DAILY Metamucil 3.4 gram/5.4 gram powder 2 tsp PO HS Rx Instructions: mix into at least 4 oz water or juice before administering aspirin 81 mg tablet,delayed release (DR/EC) 81 mg PO DAILY ticagrelor [Brilinta] 90 mg tablet 90 mg PO Q12H metoprolol tartrate 25 mg Tablet 25 mg PO BID cefpodoxime 100 mg tablet 100 mg PO BID Qty: 2 0RF Rx Instructions: must administer with a meal/food cefpodoxime 100 mg tablet 100 mg PO BID Qty: 4 0RF Rx Instructions: must administer with a meal/food simvastatin 20 mg tablet See Rx Instructions .ROUTE .COMPLEX Qty: 90 3RF Dose Instruction: TAKE 1 TABLET BY MOUTH IN THE EVENING Rx Instructions: TAKE 1 TABLET BY MOUTH IN THE EVENING isosorbide mononitrate 30 mg tablet extended release 24 hr See Rx Instructions .ROUTE .COMPLEX Qty: 90 3RF Dose Instruction: TAKE 1 TABLET BY MOUTH DAILY IN THE MORNING Rx Instructions: TAKE 1 TABLET BY MOUTH DAILY IN THE MORNING losartan 100 mg tablet See Rx Instructions .ROUTE .COMPLEX Qty: 90 3RF Dose Instruction: TAKE 1 TABLET BY MOUTH IN THE MORNING Rx Instructions: TAKE 1 TABLET BY MOUTH IN THE MORNING Follow-up/Referrals: Saúl Garcia APRN [Primary Care Provider, Internal Medicine] Time of Disposition: 03:56
[2025-08-25 04:06] VITALS: BP 133/69; PULSE 77; RESP 17; O2SAT 98
== END 2025-08-25 04:06 | disposition home or self-care (01) ==
PROVIDERS: Emergency Provider Student in an Organized Health Care Education/Training Program; PCP Nurse Practitioner
DX: R31.0 Gross hematuria (principal); I25.10 Atherosclerotic heart disease of native coronary artery without angina pectoris; I10 Essential (primary) hypertension; E11.9 Type 2 diabetes mellitus without complications; E78.2 Mixed hyperlipidemia; M17.0 Bilateral primary osteoarthritis of knee; Z96.653 Presence of artificial knee joint, bilateral; Z87.442 Personal history of urinary calculi; Z86.16 Personal history of COVID-19; Z85.828 Personal history of other malignant neoplasm of skin; Z87.891 Personal history of nicotine dependence; Z98.49 Cataract extraction status, unspecified eye; Z79.82 Long term (current) use of aspirin; Z79.84 Long term (current) use of oral hypoglycemic drugs; Z79.02 Long term (current) use of antithrombotics/antiplatelets
CPT/HCPCS: 81001; 87086; 87147; 87186; 99283